=== PATIENT | male | born 1965 | race Caucasian/White ===

== ENCOUNTER 2021-03-22 06:24 | Emergency (ER) | payer MEDICARE, SELFPAY ==
[2021-03-22] VITALS (8 sets, daily range): BP systolic 187–237; BP diastolic 92–115; PULSE 83–98; RESP 18–22; TEMP 37.4–37.9; O2SAT 92–96; BMI 48.1
--- NOTE | 2021-03-22 06:41 | ED_ITS ---
HPI - COVID General: Chief Complaint: COVID symptoms Stated Complaint: Prior fever, aches, tighness in chest, Time Seen by Provider: 03/22/21 06:40 History of Present Illness: HPI Narrative: 55-year-old male presents emergency room complaint of a positive Covid test from an at home testing kit. Test was +1-week ago with symptoms began 10 days ago today. Initially seem to getting better and now is worsening and is still running a low-grade fever he has a c ough but is not particularly been short of air his is also been sick. Is not had a productive cough. He has had myalgias anosmia diarrhea as well. He has a history of diabetes mellitus and is previously had a right below the knee amputation due to peripheral vascular disease and his diabetes. MD complaint: has COVID symptoms Prior covid testing: yes, results known (Positive home antigen Covid test) Prior testing date: 03/15/21 COVID 19 common symptoms: positive fever(s), chills, cough, non-productive cough, dyspnea, fatigue, body aches, headache(s), loss of sense of smell and/or taste, nasal congestion, nausea and diarrhea COVID 19 other sytmptoms: negative chest pain or requiring oxygen Onset (ago): day(s) (10) Severity: mild Pertinent comorbid conditions: diabetes and hypertension Treatment prior to arrival: acetaminophen and ibuprofen COVID Results: SARS-CoV-2 Antigen (Rapid) Positive (Negative) H 03/22/21 07:15 03/22/21 Nasal/Oral Coronavirus 2019 PCR Detected H 03/22/21 06:57 03/22/21 Review of Systems Const: Reports: fever(s), chills, body aches and fatigue ENMT: Reports: nasal congestion Card: Denies: chest pain, edema, dyspnea on exertion or orthopnea Resp: Reports: dyspnea and non-productive cough GI: Reports: nausea and diarrhea : Denies: flank pain, dysuria, urinary frequency or urinary urgency Skin/Breast: Denies: rash or pruritus Neuro: Reports: headache(s) Physical Exam Const: COMMON NORMALS: no acute distress GENERAL APPEARANCE: cooperative and comfortable ORIENTATION/CONSCIOUSNESS: Yes awake, Yes oriented to person, Yes oriented to place and Yes oriented to time HENMT: COMMON NORMALS: normocephalic, atraumatic and hearing grossly normal bilaterally HEAD & SCALP: normocephalic and atraumatic Neck/C-Spine: COMMON NORMALS: no JVD Resp: COMMON NORMALS: normal respiratory effort, No retractions, No use of accessory muscles and clear to auscultation bilaterally AUSCULTATION: clear to auscultation bilaterally Cardio: COMMON NORMALS: no JVD, regular rate, regular rhythm and No murmurs present (Cardio) RATE: regular rate RHYTHM: regular rhythm GI: COMMON NORMALS: Soft to palpation and No hepatosplenomegaly present AUSCULTATION: Yes normoactive bowel sounds PALPATION: Yes Soft to palpation, No Tenderness to palpation present (GI), No Guarding due to palpation present (GI) and Yes No hepatosplenomegaly present Extremity: COMMON NORMALS: normal to inspection, capillary refill normal, no clubbing, cyanosis or edema, no calf tenderness and no pedal edema Neuro: SENSORIUM/ORIENTATION: Yes oriented to person, Yes oriented to place and Yes oriented to time Skin: COMMON NORMALS: no rashes or lesions noted GENERAL SKIN EXAM: no rashes or lesions noted Course Vital Signs: Vital signs: Vital Signs Temperature 99.4 F 03/22/21 10:28 Pulse Rate 83 03/22/21 10:28 Respiratory Rate 19 H 03/22/21 10:28 Blood Pressure 187/99 03/22/21 10:28 Pulse Oximetry 95 03/22/21 10:28 MDM - COVID MDM Narrative: Medical decision making narrative: Discussed risk benefits alternatives with the patient. He does have some Covid infiltrates however his sats are good he still meets qualification for monoclonal antibody infusion. We do not have a positive Covid on the chart. However patient has obvious Covid clinical symptoms and reports at home positive. Covid antigen done here today was still positive. Lab Data: Labs: Lab Results 03/22/21 03/22/21 Range/Units 06:57 07:15 Nasal/Oral COVID-1 9 PCR Detected H SARS-CoV-2 Ag (Rap id) Positive H (Negative) COVID Results: SARS-CoV-2 Antigen (Rapid) Positive (Negative) H 03/22/21 07:15 03/22/21 Nasal/Oral Coronavirus 2019 PCR Detected H 03/22/21 06:57 03/22/21 Monoclonal Antibody Treatments Inclusion/Exclusion Criteria weight >/= 40 kg and + direct Sars-Cov-2 test less than 7-10 days ago BMI >/= 35, has diabetes and age >/= 55 and has diabetes not requiring hospitalization, not requiring oxygen (if not chronically on oxygen) and no increase oxygen requirement (if chronically on oxygen) Patient education patient/family/caregiver received/reviewed fact sheet, Emergency Use Authorization/unapproved drug status discussed with patient/family/caregiver, alternatives to this treatment discussed with patient/family/caregiver, risks and benefits of medication reviewed with patient/family/caregiver, patient/fam terry/caregiver given opportunity for questions, which were answered and patient consents to receiving Monoclonal Antibody Treatment Plan for treatment Meets criteria for Monoclonal Antibody infusion Ordering Monoclonal Antibody infusion for today Discharge Plan Discharge Patient Disposition: Home Clinical Impression: COVID-19, Benign essential HTN, Diabetes, PVD (peripheral vascular disease), Obesity Condition: Stable Discharge Orders: Discharge ED (Routine); Ordered 03/22/21 Ordered By: Elan Cavazos Referrals: Jennifer Raines [Primary Care Provider] - Patient Instructions: Opioid Safety Coding Level of Care Code ED [employer] [facility] Fwd Exam Comprehensive
--- NOTE | 2021-03-22 06:53 | XRR_ITS ---
PROCEDURE INFORMATION: Exam: XR Chest Exam date and time: 03/22/2021 6:53 AM Age: 55 years old Clinical indication: Patient HX: SOB, coughing x 5 days; Additional info: Dyspnea/cough TECHNIQUE: Imaging protocol: XR of the chest. Views: 1 view. COMPARISON: No relevant prior studies available. FINDINGS: Lungs: Interstitial prominence. Pleural spaces: No pleural effusion. Heart/Mediastinum: Borderline cardiomegaly. Diaphragm: Asymmetric elevation of the right hemidiaphragm. Bones/joints: Unremarkable. XR/XR chest 1V portable [id number] IMPRESSION: Borderline cardiomegaly and interstitial prominence.
[2021-03-22 08:24] LABS: SARS Covid-2 Antigen Positive (Negative)
[2021-03-22 17:10] LABS: Coronavirus Test Green County Detected
== END 2021-03-22 11:05 | disposition home or self-care (01) ==
PROVIDERS: Emergency Provider Family Medicine; PCP Registered Nurse
DX: U07.1 COVID-19 (principal); I10 Essential (primary) hypertension; E11.9 Type 2 diabetes mellitus without complications; I73.9 Peripheral vascular disease, unspecified; E66.9 Obesity, unspecified
CPT/HCPCS: 71045; 87426; 87635; 96365; 99284

== ENCOUNTER 2021-04-29 22:54 | Inpatient (IN) | payer MEDICARE, SELFPAY ==
[2021-04-29 23:16] VITALS: PULSE 129; RESP 26; TEMP 40.2; O2SAT 94; BMI 47.8
--- NOTE | 2021-04-29 23:21 | CTR_ITS ---
PROCEDURE INFORMATION: Exam: CTA Chest With Contrast Exam date and time: 04/29/2021 11:21 PM Age: 55 years old Clinical indication: Fever and nausea and vomiting; Shortness of breath; Patient HX: SOB, fever, with n/v. Post covid+ one month ago. TECHNIQUE: Imaging protocol: Computed tomographic angiography of the chest with contrast. 3D rendering (Not supervised by radiologist): MIP and/or 3D reconstructed images were created by the technologist. Radiation optimization: All CT scans at this facility use at least one of these dose optimization techniques: automated exposure control; mA and/or kV adjustment per patient size (includes targeted exams where dose is matched to clinical indication); or iterative reconstruction. Contrast material: OMNI 350; Contrast volume: 158 ml; Contrast route: INTRAVENOUS (IV); COMPARISON: CR (CHEST, ) 04/29/2021 11:36 PM RADIATION DOSE METRICS: Total DLP (mGy-cm): 3549.15 FINDINGS: Pulmonary arteries: Pulmonary arteries are well opacified. Pulmonary arteries are normal in caliber. No filling defects are demonstrated. No evidence of pulmonary embolism. Aorta: The thoracic aorta appears unremarkable. No aneurysm or dissection demonstrated. Lungs: The lungs are unremarkable. No no infiltrates. Pleural spaces: No pleural effusion or pneumothorax noted. Heart: No cardiomegaly. No pericardial effusion. Lymph nodes: No pathologically enlarged lymph nodes are demonstrated. Bones/joints: Degenerative thoracic spine changes. No acute osseous abnormality. Soft tissues: The soft tissues appear unremarkable. IMPRESSION: The lungs are unremarkable. No no infiltrates. No CT findings present to indicate pneumonia. (Note: CT may be negative in the early stages of COVID-19.) (Reference: Chris) REFERENCES: Chris Sorto et al., Radiological Society of [place] Expert Consensus Statement on Reporting Chest CT Findings Related to COVID-19. Endorsed by the Society of Thoracic Radiology, the [employer], and RSNA. Published November 13, 2019. PROCEDURE INFORMATION: Exam: CT Abdomen And Pelvis With Contrast Exam date and time: 04/29/2021 11:21 PM Age: 55 years old Clinical indication: Fever and nausea and vomiting; Shortness of breath; Patient HX: SOB, fever, with n/v. Post covid+ one month ago. TECHNIQUE: Imaging protocol: Computed tomography of the abdomen and pelvis with contrast. Radiation optimization: All CT scans at this facility use at least one of these dose optimization techniques: automated exposure control; mA and/or kV adjustment per patient size (includes targeted exams where dose is matched to clinical indication); or iterative reconstruction. Contrast material: OMNI 350; Contrast volume: 158 ml; Contrast route: INTRAVENOUS (IV); COMPARISON: CR (CHEST, ) 04/29/2021 11:36 PM RADIATION DOSE METRICS: Total DLP (mGy-cm): 3549.15 FINDINGS: Liver: The liver is unremarkable in appearance. Gallbladder and bile ducts: No calcified gallstones in the gallbladder. No gallbladder wall thickening. No pericholecystic fluid. No biliary dilatation. Pancreas: The pancreas is normal in appearance. No pancreatic duct dilatation. Spleen: The spleen is normal in size and appearance. Adrenal glands: The adrenal glands appear within normal limits. Kidneys and ureters: The kidneys are normal in morphology. No hydronephrosis. No solid mass. Stomach and bowel: No acute gastric abnormality demonstrated. The small bowel is unremarkable as demonstrated. No acute abnormality/inflammatory change of the colon. Appendix: No evidence of appendicitis. The appendix is normal in appearance. Intraperitoneal space: No pneumoperitoneum. No significant fluid collection. Vasculature: Minimal atherosclerosis of the aorta and right iliac artery. No abdominal aortic aneurysm. Lymph nodes: No pathologically enlarged lymph nodes. Urinary bladder: The urinary bladder is unremarkable in appearance. Reproductive: Unremarkable as visualized. Bones/joints: Mild degenerative spine changes are noted. No acute osseous abnormality. Soft tissues: Small bilateral inguinal hernias identified, containing only fat. The soft tissues appear unremarkable. CT/CT angio chest w abd pel w con IMPRESSION: No acute abnormality demonstrated in the abdomen and pelvis. Radiation Dose CTDIVOL = (mGy): DLP = 3549.15~3549.15 (mGy-cm)
--- NOTE | 2021-04-29 23:21 | XRR_ITS ---
PROCEDURE INFORMATION: Exam: XR Chest Exam date and time: 04/29/2021 11:21 PM Age: 55 years old Clinical indication: Fever and shortness of breath; Patient HX: SOB and fever. Post covid+ one month ago. TECHNIQUE: Imaging protocol: XR of the chest. Views: 1 view. COMPARISON: CR XR chest 1V portable [id number] 03/22/2021 6:53 AM FINDINGS: Lungs: No consolidation. Pleural spaces: No pleural effusion. No pneumothorax. Heart/Mediastinum: No cardiomegaly. Bones/joints: Unremarkable. XR/XR chest 1V portable [id number] IMPRESSION: No radiographic evidence of pneumonia.
--- NOTE | 2021-04-29 23:25 | W.ED.ABDPA2 ---
HPI - Abdominal Pain General: Chief Complaint: Abdominal Pain Stated Complaint: N\V Fever Time Seen by Provider: 04/29/21 23:14 Source: patient Mode of arrival: ambulatory Limitations: no limitations History of Present Illness: HPI narrative: 5-year-old male states he had a fever over the last 2 days. He states been up to 105 at home and is 104.4 here. He states that he has had nausea and vomiting along with abdominal pain. He states he is also had a sore to his left lower leg with some erythema. He is post Covid roughly 1 month. Denies any worsening improving factors. Associated Symptoms: Reports chills and fever(s); Denies diarrhea, dysuria, nausea and vomiting Review of Systems Const: Reports: fever(s), chills and body aches Eyes: Denies: blurry vision or eye discomfort ENMT: Denies: throat pain or dental pain Card: Denies: chest pain Resp: Denies: dyspnea GI: Denies: abdominal pain, nausea, vomiting or diarrhea : Denies: dysuria Musc: Denies: neck pain or back pain Skin/Breast: Denies: rash Neuro: Denies: headache(s) Psych: Denies: depression Felipe/Lymph: Denies: easy bruising All/Imm: Denies: urticaria Physical Exam Const: COMMON NORMALS: no acute distress, patient oriented x3 and healthy appearing HENMT: COMMON NORMALS: normocephalic and atraumatic HEAD & SCALP: normocephalic and atraumatic Eye: COMMON NORMALS: Equal, round and reactive pupils present and EOMs intact bilaterally PUPIL: Yes Equal, round and reactive pupils present Neck/C-Spine: COMMON NORMALS: full ROM and supple Chest: COMMONS NORMALS: normal inspection of the chest and normal palpation of entire chest wall Resp: COMMON NORMALS: normal respiratory effort, No retractions, No use of accessory muscles and clear to auscultation bilaterally AUSCULTATION: clear to auscultation bilaterally Cardio: COMMON NORMALS: regular rate, regular rhythm and No murmurs present (Cardio) RATE: regular rate RHYTHM: regular rhythm GI: COMMON NORMALS: Normal to inspection, nondistended, normoactive bowel sounds present, Soft to palpation, non-tender and no masses PALPATION: Yes Soft to palpation Extremity: COMMON NORMALS: full ROM NARRATIVE EXTREMITY EXAM: erythema of the left lower extremity Neuro: COMMON NORMALS: patient oriented x3, moves all extremities and no focal motor deficits Psych: COMMON NORMALS: mental status grossly normal, Normal thought process present and cooperative THOUGHT PROCESS: Normal thought process present Skin: COMMON NORMALS: no rashes or lesions noted and no wounds GENERAL SKIN EXAM: no rashes or lesions noted Course Vital Signs: Vital signs: Vital Signs Temperature 103.4 F H 04/30/21 00:59 Pulse Rate 123 H 04/30/21 00:59 Respiratory Rate 18 04/30/21 01:24 Blood Pressure 194/85 04/30/21 00:59 Pulse Oximetry 94 04/30/21 00:59 MDM - Abdominal Pain MDM Narrative: Medical decision making narrative: Patient presents here with high-grade fever, white count elevated and tachycardia consistent with sepsis. Source likely cellulitis to his lower leg. Patient admitted to hospitalist and started on IV antibiotics. Differential Diagnosis: Differential diagnosis abdominal pain: Likely gastroenteritis Lab Data: Labs: Lab Results 04/29/21 04/29/21 04/30/21 Range/Units 23:30 23:30 00:06 WBC 17.6 H (4.0-10.0) 10^3/ uL RBC 4.43 (4.1-5.3) 10^6/u L Hgb 12.5 (11.7-16.6) g/dL Hct 38.4 L (42.0-52.0) % MCV 86.7 (80-94) fl MCH 28.2 (28.0-34.0) pg MCHC 32.6 (30.0-36.0) g/dL RDW 13.2 (12.1-15.1) % Plt Count 230 (130-400) 10^3/c mm MPV 11.7 H (7.4-10.4) fL Neut % (Auto) 91.3 % Lymph % (Auto) 3.5 % Ida % (Auto) 4.4 % Eos % (Auto) 0.0 % Baso % (Auto) 0.2 % Neut # (Auto) 16.10 H (1.8-7.7) 10^3/u L Lymph # (Auto) 0.6 L (0.8-4.8) 10^3/u L Ida # (Auto) 0.8 (0.2-0.9) 10^3/u L Eos # (Auto) 0.0 (0.0-0.8) 10^3/u L Baso # (Auto) 0.0 (0.0-0.1) 10^3/u L Nucleated RBC % (a uto) 0 % Nucleated RBCs # 0.0 /100WBC Sodium 129 L (136-145) mmol/L Potassium 3.9 (3.5-5.1) mmol/L Chloride 92 L (98-107) mmol/L Carbon Dioxide 25 (22-29) mmol/L Anion Gap 15.9 (5-19) BUN 15 (6-20) mg/dL Creatinine 0.8 (0.7-1.2) mg/dL GFR Calculation 100.4 (90-130) mL/min Glucose 258 H (65-115) mg/dL Calculated Osmolal ity 278 L (285-295) mOsm/k g Lactate 1.6 (0.5-2.2) mmol/L Calcium 8.5 (8.5-10.5) mg/dL Total Bilirubin 0.3 (0.15-1.2) mg/dL AST 17 (0-40) U/L ALT 16 (0-41) U/L Alkaline Phosphata se 98 (40-130) IU/L Total Protein 8.2 (6.6-8.7) g/dL Albumin 3.6 (3.5-5.2) g/dL Globulin 4.6 (1.3-4.6) g/dL Lipase 23 (13-60) U/L Imaging Data ^: Other Xray: Attestation: I personally reviewed and interpreted this imaging study as follows: Radiologist's impression: [address] [address] XRay Report Signed Patient: Salvador Luke Unit #: [id number] : 1965 Age/Sex: 55 / M ADM Date: 04/29/21 Loc: ER Room/Bed: Attending Dr: Ordering Provider/Ordering MD: Vasquez Kan MD Date of Service: 04/30/21 Procedure(s): XR tibia fibula LT 2V [id number] Accession Number(s): [id number] Report Number: [id number] PROCEDURE INFORMATION: Exam: XR Left Tibia and Fibula Exam date and time: 04/30/2021 12:35 AM Age: 55 years old Clinical indication: Other: Open wound; Patient HX: Non healing wound to anterior aspect of distal tib/fib. Swelling and redness. History of diabetes. TECHNIQUE: Imaging protocol: XR Left tibia and fibula. Views: 2 views. COMPARISON: No relevant prior studies available. FINDINGS: Bones/joints: No fracture or other acute osseous abnormality. No osteolysis. No periosteal reaction. Soft tissues: Soft tissue edema is present. Vasculature: There are atherosclerotic calcifications demonstrated. XR/XR tibia fibula LT 2V [id number] IMPRESSION: No acute abnormality demonstrated. No radiographic findings of osteomyelitis. Dictated By: Santos Mercer MD Signed By: Santos Mercer MD Signed Date/Time: 04/30/21100 DD/ 0059 CT Chest: Radiologist's impression: [address] [address] [address] Scan Report Signed Patient: Salvador Luke Unit #: [id number] : 1965 Age/Sex: 55 / M ADM Date: 04/29/21 Loc: ER Room/Bed: Attending Dr: Ordering Provider/Ordering MD: Vasquez Kan MD Date of Service: 04/29/21 Procedure(s): CT angio chest w abd pel w con Accession Number(s): [id number] Report Number: [id number] PROCEDURE INFORMATION: Exam: CTA Chest With Contrast Exam date and time: 04/29/2021 11:21 PM Age: 55 years old Clinical indication: Fever and nausea and vomiting; Shortness of breath; Patient HX: SOB, fever, with n/v. Post covid+ one month ago. TECHNIQUE: Imaging protocol: Computed tomographic angiography of the chest with contrast. 3D rendering (Not supervised by radiologist): MIP and/or 3D reconstructed images were created by the technologist. Radiation optimization: All CT scans at this facility use at least one of these dose optimization techniques: automated exposure control; mA and/or kV adjustment per patient size (includes targeted exams where dose is matched to clinical indication); or iterative reconstruction. Contrast material: OMNI 350; Contrast volume: 158 ml; Contrast route: INTRAVENOUS (IV); COMPARISON: CR (CHEST, ) 04/29/2021 11:36 PM RADIATION DOSE METRICS: Total DLP (mGy-cm): 3549.15 FINDINGS: Pulmonary arteries: Pulmonary arteries are well opacified. Pulmonary arteries are normal in caliber. No filling defects are demonstrated. No evidence of pulmonary embolism. Aorta: The thoracic aorta appears unremarkable. No aneurysm or dissection demonstrated. Lungs: The lungs are unremarkable. No no infiltrates. Pleural spaces: No pleural effusion or pneumothorax noted. Heart: No cardiomegaly. No pericardial effusion. Lymph nodes: No pathologically enlarged lymph nodes are demonstrated. Bones/joints: Degenerative thoracic spine changes. No acute osseous abnormality. Soft tissues: The soft tissues appear unremarkable. IMPRESSION: The lungs are unremarkable. No no infiltrates. No CT findings present to indicate pneumonia. (Note: CT may be negative in the early stages of COVID-19.) (Reference: Chris) REFERENCES: Chris Sorto, et al., Radiological Society of [place] Expert Consensus Statement on Reporting Chest CT Findings Related to COVID-19. Endorsed by the Society of Thoracic Radiology, the [employer], and RSNA. Published November 13, 2019. PROCEDURE INFORMATION: Exam: CT Abdomen And Pelvis With Contrast Exam date and time: 04/29/2021 11:21 PM Age: 55 years old Clinical indication: Fever and nausea and vomiting; Shortness of breath; Patient HX: SOB, fever, with n/v. Post covid+ one month ago. TECHNIQUE: Imaging protocol: Computed tomography of the abdomen and pelvis with contrast. Radiation optimization: All CT scans at this facility use at least one of these dose optimization techniques: automated exposure control; mA and/or kV adjustment per patient size (includes targeted exams where dose is matched to clinical indication); or iterative reconstruction. Contrast material: OMNI 350; Contrast volume: 158 ml; Contrast route: INTRAVENOUS (IV); COMPARISON: CR (CHEST, ) 04/29/2021 11:36 PM RADIATION DOSE METRICS: Total DLP (mGy-cm): 3549.15 FINDINGS: Liver: The liver is unremarkable in appearance. Gallbladder and bile ducts: No calcified gallstones in the gallbladder. No gallbladder wall thickening. No pericholecystic fluid. No biliary dilatation. Pancreas: The pancreas is normal in appearance. No pancreatic duct dilatation. Spleen: The spleen is normal in size and appearance. Adrenal glands: The adrenal glands appear within normal limits. Kidneys and ureters: The kidneys are normal in morphology. No hydronephrosis. No solid mass. Stomach and bowel: No acute gastric abnormality demonstrated. The small bowel is unremarkable as demonstrated. No acute abnormality/inflammatory change of the colon. Appendix: No evidence of appendicitis. The appendix is normal in appearance. Intraperitoneal space: No pneumoperitoneum. No significant fluid collection. Vasculature: Minimal atherosclerosis of the aorta and right iliac artery. No abdominal aortic aneurysm. Lymph nodes: No pathologically enlarged lymph nodes. Urinary bladder: The urinary bladder is unremarkable in appearance. Reproductive: Unremarkable as visualized. Bones/joints: Mild degenerative spine changes are noted. No acute osseous abnormality. Soft tissues: Small bilateral inguinal hernias identified, containing only fat. The soft tissues appear unremarkable. CT/CT angio chest w abd pel w con IMPRESSION: No acute abnormality demonstrated in the abdomen and pelvis. Radiation Dose CTDIVOL = (mGy): DLP = 3549.15 3549.15 (mGy-cm) Dictated By: Santos Mercer MD Signed By: Santos Mercer MD Signed Date/Time: 04/30/2146 DD/ Discharge Plan Discharge Patient Disposition: Admitted As Inpatient Clinical Impression: Cellulitis Qualifiers: Site of cellulitis: extremity Site of cellulitis of extremity: lower extremity Laterality: left Qualified Code(s): L03.116 - Cellulitis of left lower limb Sepsis Qualifiers: Sepsis type: sepsis due to unspecified organism Condition: Stable Coding Level of Care Code ED Water P[employer] for [facility] Fwd Exam Comprehensive
[2021-04-29] MEDS: iohexol 350 mg/mL 100 mL Btl IV ×2 (23:47→23:56)
[2021-04-29 23:48] LABS: Basophils % 0.2 %; Hematocrit 38.4 % (42.0-52.0); Hemoglobin 12.5 g/dL (11.7-16.6); Lymphocytes # 0.6 10^3/uL (0.8-4.8); Lymphocytes % 3.5 %; Mean Corpuscular HGB Conc 32.6 g/dL (30.0-36.0); Mean Corpuscular Hemoglobin 28.2 pg (28.0-34.0); Mean Corpuscular Volume 86.7 fl (80-94); Mean Platelet Volume 11.7 fL (7.4-10.4); Monocytes # 0.8 10^3/uL (0.2-0.9); Monocytes % 4.4 %; Neutrophils % 91.3 %; Nucleated Red Blood Cells % 0 %; Platelet Count 230 10^3/cmm (130-400); Red Blood Count 4.43 10^6/uL (4.1-5.3); Red Cell Distribution Width 13.2 % (12.1-15.1); White Blood Count 17.6 10^3/uL (4.0-10.0)
[2021-04-30] VITALS (12 sets, daily range): BP systolic 90–194; BP diastolic 66–99; PULSE 93–123; RESP 15–20; TEMP 36.9–39.7; O2SAT 90–99
[2021-04-30 00:06] LABS: Alanine Aminotransferase 16 U/L (0-41); Albumin Level 3.6 g/dL (3.5-5.2); Alkaline Phosphatase 98 IU/L (40-130); Anion Gap 15.9 (5-19); Aspartate Amino Transferase 17 U/L (0-40); Blood Urea Nitrogen 15 mg/dL (6-20); Calcium 8.5 mg/dL (8.5-10.5); Carbon Dioxide 25 mmol/L (22-29); Chloride 92 mmol/L (98-107); Globulin 4.6 g/dL (1.3-4.6); Glomerular Filtration Rate 100.4 mL/min (90-130); Glucose 258 mg/dL (65-115); Lipase 23 U/L (13-60); Osmolality Calculated 278 mOsm/kg (285-295); Potassium 3.9 mmol/L (3.5-5.1); Sodium 129 mmol/L (136-145); Total Bilirubin 0.3 mg/dL (0.15-1.2); Total Protein 8.2 g/dL (6.6-8.7)
[2021-04-30] MEDS: sodium chloride 0.9% 1,000 ML 999 ML IV (00:15)
[2021-04-30 00:32] LABS: Lactate (Lactic Acid level) 1.6 mmol/L (0.5-2.2)
--- NOTE | 2021-04-30 00:35 | XRR_ITS ---
PROCEDURE INFORMATION: Exam: XR Left Tibia and Fibula Exam date and time: 04/30/2021 12:35 AM Age: 55 years old Clinical indication: Other: Open wound; Patient HX: Non healing wound to anterior aspect of distal tib/fib. Swelling and redness. History of diabetes. TECHNIQUE: Imaging protocol: XR Left tibia and fibula. Views: 2 views. COMPARISON: No relevant prior studies available. FINDINGS: Bones/joints: No fracture or other acute osseous abnormality. No osteolysis. No periosteal reaction. Soft tissues: Soft tissue edema is present. Vasculature: There are atherosclerotic calcifications demonstrated. XR/XR tibia fibula LT 2V [id number] IMPRESSION: No acute abnormality demonstrated. No radiographic findings of osteomyelitis.
[2021-04-30] MEDS: acetaminophen 500 mg Tablet 1000 MG PO (01:24)
[2021-04-30] MEDS: morphine 4 mg/mL SDV 1 mL IVP (01:24)
[2021-04-30] MEDS: ondansetron 2 mg/ML SDV 2 mL 4 MG IVP (01:25)
[2021-04-30] MEDS: piperacillin-tazobactam 3.375 GM in sodium chloride 0.9% (plus) 50 ML IV ×3 (01:39→18:38)
--- NOTE | 2021-04-30 02:11 | CTR_ITS ---
PROCEDURE INFORMATION: Exam: CT Left Lower Extremity Without Contrast, Foot Exam date and time: 04/30/2021 2:11 AM Age: 55 years old Clinical indication: Swelling, leg or foot; Patient HX: Swelling and redness to foot. Patient states has neuropathy to foot. History of diabetes. ; Additional info: Left foot fluctuant swelling lateral, concern for abscess TECHNIQUE: Imaging protocol: CT of the Left lower extremity without contrast was performed. Exam focused on the foot. Total images: 483 Radiation optimization: All CT scans at this facility use at least one of these dose optimization techniques: automated exposure control; mA and/or kV adjustment per patient size (includes targeted exams where dose is matched to clinical indication); or iterative reconstruction. COMPARISON: CR (LOW EXM, ) 04/30/2021 12:42 AM RADIATION DOSE METRICS: Total DLP (mGy-cm): 485.67 FINDINGS: Bones/joints: No acute fracture nor subluxation. No osseous erosion nor periosteal reaction. Soft tissues: Subcutaneous fatty stranding noted throughout consistent with edema and/or cellulitis. No focal fluid collection to suggest an abscess. CT/CT foot LT wo con* [id number] IMPRESSION: 1. Subcutaneous fatty stranding noted throughout consistent with edema and/or cellulitis. No focal fluid collection to suggest an abscess. 2. No acute osseous pathology. Radiation Dose CTDIVOL = (mGy): DLP = 485.67 (mGy-cm)
[2021-04-30 02:23] LABS: Procalcitonin 0.78 ng/mL (0-0.5)
[2021-04-30] MEDS: linezolid premix 600 MG/300 ML PREMIX 300 MG IV (02:26)
[2021-04-30] MEDS: enoxaparin 40 mg/0.4 mL Syringe SUBCUT (03:20)
--- NOTE | 2021-04-30 04:13 | P.HP_ITS ---
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 His fever was 102 Fahrenheit at home. He took a Tylenol and then fever resolved until this afternoon again when reports his fever was [address] On the way to the hospital today patient has had 1 episode of nausea and vomiting, however denies any complaints of abdominal pain or diarrhea. No chest pain dyspnea palpitations. Ongoing is attention specifically to his left leg which is erythematous and warm to touch, he states that he does have some color changes to that leg because of chronic venous stasis, however the warmth is new. There is also noted to be a superficial ulceration at the mid calf level which was from injury sustained 2 days ago in his shop. No penetrating foreign body reported. He is status post below-knee amputation of the right leg since 6 years for what appears to be a diabetic foot, stump has been healthy without any skin breakdown on that side. He denies any complaints of cough, sputum production, dysuria or other symptoms. He had COVID-19 infection approximately 1 month ago for which he received monoclonal antibody infusion and recovered uneventfully. CT of the chest abdomen and pelvis today does not show any signs of pneumonia or other intra- abdominal processes. X-ray of the tibia-fibula does not show any signs of osteomyelitis. There is a fluctuant swelling on the plantar aspect of his left foot laterally which his noted, he does not recall any trauma, however does have peripheral neuropathy left foot poor sensation. Uncertain how long its been present. Review of Systems General: Reports: 10 or more systems reviewed and unremarkable except in HPI and below Const: Denies: fever(s), chills or body aches Eyes: Denies: change in vision, blurry vision or photophobia ENMT: Reports: hoarseness; Denies: throat pain, enlarged tonsils, odynophagia or nasal congestion Card: Denies: chest pain, palpitations, irregular heart rhythm, edema, swelling of feet/ankles, lightheadedness, pre-syncope, dyspnea on exertion or orthopnea Resp: Denies: dyspnea, productive cough, non-productive cough, wheezing, stridor, pain on inspiration, change in phlegm color, hemoptysis or chest congestion GI: Denies: abdominal pain, nausea, vomiting, hematemesis, coffee ground emesis, dysphagia, heartburn, diarrhea, constipation, GI cramping, change in stool character, hematochezia or melena : Denies: flank pain, dysuria, urinary frequency, urinary urgency, urinary hesitancy or hematuria Musc: Denies: neck pain, back pain, extremity pain, joint swelling, joint warmth or deformity Neuro: Denies: headache(s), numbness in extremities, weakness in extremities, sensory changes, difficulty walking, frequent falls, dizziness, vertigo, behavioral changes, Slurred speech present or seizure-like activity Psych: Denies: anxiety, depression, suicidal ideation or homicidal ideation Endo: Denies: polyuria, polydipsia, tired all the time, cold intolerance or hot flashes Felipe/Lymph: Denies: easy bruising or easy bleeding Medications/Allergies Allergies Allergy/AdvReac Type Severity Reaction Status Date / Time atorvastatin [From Lipitor] Allergy ADR-Muscle Verified 04/29/21 23:22 Pain vancomycin Allergy ALGY-Anaphy Verified 04/29/21 23:21 laxis PFSH Acute PFSH: Medical History (Updated 04/30/21 @ 04:20 by Avelina Villavicencio MD) COVID-19 Diabetes mellitus Surgical History (Updated 04/30/21 @ 04:18 by Avelina Villavicencio MD) History of right below knee amputation Vitals/I&O/Wt Last Vital Signs Temp 100.8 F H 04/30/21 03:40 Pulse 105 H 04/30/21 03:40 Resp 18 04/30/21 03:40 BP 90/66 04/30/21 03:40 Pulse Ox 98 04/30/21 03:40 04/29/21 04/29/21 04/30/21 14:59 22:59 06:59 Intake Total 50 / 50 Balance 50 / 50 Weight last 48 hrs Weight 155.582 kg Physical Exam Narrative: EXAM NARRATIVE: General: No acute distress, AO x3 HEENT: PERRLA, pupils bilaterally equal and reactive, pallors not present Chest: Normal vesicular breath sounds, no added sounds, equal good air entry bilaterally CVS: S1-S2 regular, no murmurs, no tachycardia, no gallops, no rubs Abdomen: Soft, nontender, no organomegaly, bowel sounds present Neuro: No focal deficits, no facial deformity, AO x3, power 5/5 in all limbs Extremities: Right leg with erythema and warmth extending from ankle to just below the knee. Superficial ulceration noted over lateral mid cough. A dditional fluctuant swelling over the plantar aspect of the left foot laterally. Data : 04/29/21 23:30 04/29/21 23:30 Micro: Microbiology 04/29/21 23:15 Blood Culture - Preliminary Blood SPECIMEN COLLECTED 04/29/21 23:30 Blood Culture - Preliminary Blood SPECIMEN COLLECTED A&P Assessment and plan (1) Sepsis: Meet sepsis criteria by way of fever 103 Fahrenheit, leukocytosis and source of infection. Appears to be related to cellulitis of the left leg. Possibly also abscess over the plantar aspect of the left foot. Cellulitis may have been triggered by injury over left leg 2 days ago. Empiric antibiotic coverage at this time with Zosyn and linezolid(reported allergy to vancomycin) Blood culture collected before starting antibiotics. CT of the chest abdomen pelvis without signs of infection. Ordered CT of the l eft foot to evaluate for abscess or fluctuance swelling is currently palpated. Hemodynamically stable currently therefore sepsis bolus deferred, encourage p.o. intake and hydration. Insulin sliding scale for glycemic control while inpatient Patient's home medication list yet to be brought and verified. Status: Acute Qualifiers: Sepsis type: sepsis due to unspecified organism Sepsis acute organ dysfunction status: without acute organ dysfunction Qualified Code(s): A41.9 - Sepsis, unspecified organism (2) Cellulitis: Status: Acute Qualifiers: Laterality: left Site of cellulitis: extremity Site of cellulitis of extremity: lower extremity Qualified Code(s): L03.116 - Cellulitis of left lower limb Additional A&P Information DVT prophylaxis: Lovenox Full code Attestations Medical Necessity Statement*: Anticipate greater than 2 midnight admission for management of sepsis and cellulitis, need for IV antibiotics Coding Level of Care Code Acute Dispatcher [employer] for [facility] Fwd Diagnoses Sepsis A41.9 Sepsis type: sepsis due to unspecified organism Sepsis acute organ dysfunction status: without acute organ dysfunction Cellulitis L03.116 Laterality: left Site of cellulitis: extremity Site of cellulitis of extremity: lower extremity
[2021-04-30] MEDS: pantoprazole DR 40 mg Tablet PO (10:04)
[2021-04-30] MEDS: acetaminophen 325 mg Tablet 650 MG PO ×2 (10:10→20:33)
[2021-04-30 10:35] LABS: Urine Appearance Clear (CLEAR); Urine Color Yellow (Yellow); pH Urine 5 (5-7)
[2021-04-30 10:36] LABS: Add Urine Microscopic? YES; Bilirubin Urine Neg (Negative); Blood Urine Neg (Negative); Glucose Urine UA Trace (Normal); Ketones Urine 1+ (Negative); Leukocyte Esterase Urine Negative (Negative); Nitrate Urine Negative (Negative); Protein Urine 1+ (Negative); Specific Gravity, Urine 1.015 (1.005-1.030); Urobilinogen Urine Norm (Negative)
[2021-04-30 10:41] LABS: Add Urine Culture? No; Bacteria Urine 2+ /hpf; Squamous Epithelial Cell Urine 0-4 /hpf (0-5); WBC Urine 0-4 /hpf (0-5)
[2021-04-30] MEDS: morphine 4 mg/mL SDV 1 mL 2 MG IVP ×2 (12:57→18:41)
[2021-04-30] MEDS: linezolid 600 mg Tablet PO (15:53)
--- NOTE | 2021-04-30 16:39 | PM.PN ---
Subjective Subjective: Interval history: Patient is feeling slightly better today in the ER No active chest pain shortness of breath or leg pain Patient is stating that he has never been treated for sleep apnea Hypoxia noted when he was sleeping Vitals/I&O/Wt Last Vital Signs Temp 100.3 F H 04/30/21 15:41 Pulse 108 H 04/30/21 15:41 Resp 15 04/30/21 15:41 BP 169/96 04/30/21 15:41 Pulse Ox 90 04/30/21 15:41 04/30/21 04/30/21 04/30/21 06:59 14:59 22:59 Intake Total 50 / 50 350 / 350 Output Total 250 / 250 Balance 50 / 50 100 / 100 Weight last 48 hrs Weight 155.582 kg Physical Exam Narrative: EXAM NARRATIVE: Potation youMorbid obese male Right 9 left leg with purulent cellulitis borders are progressing nontender no crepitation Nontender groin area Distended abdomen visceral obesity S1, S2 EOMI, PERRLA no neurological deficit Data : 04/29/21 23:30 04/29/21 23:30 Micro: Microbiology 04/29/21 23:15 Blood Culture - Preliminary Blood SPECIMEN COLLECTED 04/29/21 23:30 Blood Culture - Preliminary Blood SPECIMEN COLLECTED A&P Assessment and plan (1) Diabetes mellitus: Status: Acute (2) Cellulitis: Status: Acute Qualifiers: Laterality: left Site of cellulitis: extremity Site of cellulitis of extremity: lower extremity Qualified Code(s): L03.116 - Cellulitis of left lower limb (3) Sepsis: Status: Acute Qualifiers: Sepsis acute organ dysfunction status: without acute organ dysfunction Sepsis type: sepsis due to unspecified organism Qualified Code(s): A41.9 - Sepsis, unspecified organism Additional A&P Information Purulent cellulitis of left leg No abscess as per the CT scan of the foot Continue broad-spectrum antibiotics considering history of diabetes Borders are showing signs of regression Blood cultures obtained in the ER, he was not given septic bolus because of hemodynamic stability He will need extensive wound care outpatient and frequent podiatry visits Type 2 diabetes: Check hemoglobin A1c level currently on insulin sliding scale I would add Lantus Sleep apnea: Patient does show signs of hypoxemia whenever he sleeps would get nocturnal pulse oximeter Auto CPAP at night Consistent carb diet Lovenox DVT prophylaxis Full code Attestations Medical Necessity Statement*: Anticipating discharge over the weekend Time Spent in Patient Care: 16 - 35 minutes Coding Level of Care Code Acute Slitter Creaser Slotter Operator for g Fwd Diagnoses Diabetes mellitus E11.9 Cellulitis L03.116 Laterality: left Site of cellulitis: extremity Site of cellulitis of extremity: lower extremity Sepsis A41.9 Sepsis acute organ dysfunction status: without acute organ dysfunction Sepsis type: sepsis due to unspecified organism
[2021-04-30 17:12] LABS: Glucose Point of Care 230 mg/dL (70-110)
[2021-04-30 17:17] LABS: Estmated Average Glucose 243; Hemoglobin A1C 10.1 % (4.0-6.0)
[2021-04-30] MEDS: insulin glargine 100 units/1 mL 50 UNIT SUBCUT (18:33)
[2021-04-30 20:26] LABS: Glucose Point of Care 198 mg/dL (70-110)
--- NOTE | 2021-04-30 21:44 | PC.NURSE ---
i reported high temp and pulse to nurse 102.7/ and 121
[2021-04-30] MEDS: atorvastatin 40 mg Tablet 80 MG PO (23:40)
[2021-04-30] MEDS: aspirin 81 mg EC Tablet PO (23:40)
[2021-05-01] VITALS (18 sets, daily range): BP systolic 127–186; BP diastolic 73–96; PULSE 100–118; RESP 16–18; TEMP 37.6–39.4; O2SAT 91–96
[2021-05-01] MEDS: piperacillin-tazobactam 3.375 GM in sodium chloride 0.9% (plus) 50 ML IV ×3 (01:23→17:50)
[2021-05-01] MEDS: enoxaparin 40 mg/0.4 mL Syringe SUBCUT (01:24)
--- NOTE | 2021-05-01 01:49 | PC.NURSE ---
i reported high pulse 105 to nurse
[2021-05-01] MEDS: morphine 4 mg/mL SDV 1 mL 2 MG IVP ×2 (02:01→09:54)
[2021-05-01] MEDS: linezolid 600 mg Tablet PO ×2 (02:02→15:37)
[2021-05-01] MEDS: acetaminophen 325 mg Tablet 650 MG PO ×3 (03:23→22:12)
--- NOTE | 2021-05-01 04:44 | PC.NURSE ---
i reported high temp 102.9 and high pulse 118
[2021-05-01 05:56] LABS: Basophils % 0.2 %; Hematocrit 33.4 % (42.0-52.0); Lymphocytes # 1.2 10^3/uL (0.8-4.8); Lymphocytes % 10.1 %; Mean Corpuscular HGB Conc 32.9 g/dL (30.0-36.0); Mean Corpuscular Hemoglobin 28.2 pg (28.0-34.0); Mean Corpuscular Volume 85.6 fl (80-94); Monocytes # 0.7 10^3/uL (0.2-0.9); Monocytes % 5.6 %; Neutrophils # 10.27 10^3/uL (1.8-7.7); Neutrophils % 83.7 %; Nucleated Red Blood Cells % 0 %; Platelet Count 200 10^3/cmm (130-400); Red Cell Distribution Width 13.2 % (12.1-15.1); White Blood Count 12.3 10^3/uL (4.0-10.0)
[2021-05-01 06:10] LABS: Glucose Point of Care 126 mg/dL (70-110)
[2021-05-01 06:30] LABS: Alanine Aminotransferase 21 U/L (0-41); Albumin Level 3.2 g/dL (3.5-5.2); Alkaline Phosphatase 70 IU/L (40-130); Anion Gap 14.4 (5-19); Aspartate Amino Transferase 36 U/L (0-40); Blood Urea Nitrogen 14 mg/dL (6-20); Calcium 7.9 mg/dL (8.5-10.5); Carbon Dioxide 24 mmol/L (22-29); Chloride 99 mmol/L (98-107); Globulin 3.8 g/dL (1.3-4.6); Glucose 123 mg/dL (65-115); Osmolality Calculated 280 mOsm/kg (285-295); Potassium 3.4 mmol/L (3.5-5.1); Sodium 134 mmol/L (136-145); Total Bilirubin 0.4 mg/dL (0.15-1.2)
[2021-05-01 06:36] LABS: Procalcitonin 3.89 ng/mL (0-0.5)
[2021-05-01] MEDS: losartan 50 mg Tablet 100 MG PO (08:09)
[2021-05-01] MEDS: pantoprazole DR 40 mg Tablet PO (08:10)
[2021-05-01] MEDS: duloxetine 60 mg Capsule PO (08:10)
[2021-05-01] MEDS: insulin glargine 100 units/1 mL 50 UNIT SUBCUT (08:17)
[2021-05-01] MEDS: clindamycin 150 mg Capsule 300 MG PO ×3 (10:12→20:52)
--- NOTE | 2021-05-01 10:42 | ECG_ITS ---
[facility] Test Date: 2021-05-01 Pat Name: Salvador Luke Department: Room: 255 Gender: Male Reconciliation Manager: : 1965 Requested By: Elton Muhammad Order Number: [id number] Mirela MD: Anna Thrasher M.D. Measurements Intervals [place] Rate: 109 P: 71 NM: 176 QRS: 37 QRSD: 100 T: 61 QT: 319 QTc: 430 Interpretive Statements SINUS TACHYCARDIA NONSPECIFIC ST & T-WAVE ABNORMALITY No previous ECG available for comparison Electronically Signed On 05-03-2021 19:18:27 CDT by Anna Thrasher M.D. [email or web address]/[id number] f
[2021-05-01 10:56] LABS: Glucose Point of Care 211 mg/dL (70-110)
[2021-05-01 11:14] LABS: ABG PCO2 33.9 mmHg (35-45); ABG PH Result 7.49 (7.35-7.45); Alveolar-Arterial Oxygen Gradi 6.6 mmHg (5-10); Arterial Blood Gas Hematocrit 34.4 % (42-52); Base Excess ABG 2.9 mmol/L (-2.0-2.0); Blood Gas Allen Test Pos; Blood Gas Sample Type Arterial; Carboxyhemoglobin 1.1 %THgb (0.4-20.1); Ionized Calcium Level - ABG 1.1 mmol/L (1.1-1.4); Methemoglobin 1.2 % (0.4-1.5); Oxygen Saturation ABG 93.1; PO2 ABG 57.3 mmHg (80.0-100.0); Potassium Level - ABG 3.3 mmol/L (3.5-5.0); Total Hemoglobin 11.2 g/dL (14-18)
[2021-05-01 11:15] LABS: Blood Gas Operator Identificat ED; Blood Gas Sample Site Radial, right; Oxygen Device ROOM AIR
[2021-05-01 12:21] LABS: Troponin T (5th) Once 109 ng/L (0-15)
[2021-05-01] MEDS: aspirin 325 mg EC Tablet PO (15:37)
[2021-05-01] MEDS: clopidogrel 300 mg Tablet PO (15:37)
[2021-05-01] MEDS: HYDROmorphone 1 mg/mL INJ 1 mL 0.5 MG IVP ×2 (16:08→20:50)
--- NOTE | 2021-05-01 16:50 | PM.PN ---
Subjective Subjective: Interval history: Patient was diagnosed with NSTEMI today he was complaining of chest pain EKG unremarkable however troponin above 100 Started ACS protocol Overnight qualified for oxygen He will need outpatient sleep study for CPAP approval Requested ABG at the bedside Patient is spiking fever added clindamycin today Patient could not use CPAP overnight because of lack of availability in the hospital Vitals/I&O/Wt Last Vital Signs Temp 99.9 F H 05/01/21 15:31 Pulse 103 H 05/01/21 15:31 Resp 18 05/01/21 16:08 BP 129/73 05/01/21 15:31 Pulse Ox 92 05/01/21 16:08 05/01/21 05/01/21 05/01/21 06:59 14:59 22:59 Intake Total 1100 / 1690 480 / 480 Output Total 750 / 1460 200 / 200 Balance 350 / 230 280 / 280 Weight last 48 hrs Weight 155.582 kg Physical Exam Narrative: EXAM NARRATIVE: Morbidly obese male Emotionally labile S1, S2 sinus rhythm Left lower extremity does show signs of healing around open wound no active drainage, leg seems to be less tender and less hyperemic as compared to yesterday borders are progressing [facility] No neurological deficits Data : 05/01/21 05:32 05/01/21 05:32 Micro: Microbiology 04/29/21 23:15 Blood Culture - Preliminary Blood NEGATIVE TO DATE 04/29/21 23:30 Blood Culture - Preliminary Blood NEGATIVE TO DATE A&P Assessment and plan (1) NSTEMI (non-ST elevated myocardial infarction): Status: Acute (2) Diabetes mellitus: Status: Acute (3) Cellulitis: Status: Acute Qualifiers: Laterality: left Site of cellulitis: extremity Site of cellulitis of extremity: lower extremity Qualified Code(s): L03.116 - Cellulitis of left lower limb (4) Sepsis: Status: Acute Qualifiers: Sepsis acute organ dysfunction status: without acute organ dysfunction Sepsis type: sepsis due to unspecified organism Qualified Code(s): A41.9 - Sepsis, unspecified organism (5) Sleep apnea: Status: Acute Additional A&P Information Sepsis Purulent cellulitis Continue broad-spectrum antibiotics Added clindamycin Expected fever overnight No active abscess seen on CT foot I would like to get in 48 hours on current antibiotic regimen to see the response blood culture negative so far Procalcitonin worsened 3.8 today NSTEMI: Complaint of chest pain which resolved with morphine, troponin above 100 started ACS protocol will request echo, no active chest pain does not need urgent intervention, Sleep apnea: Overnight pulse oximeter showed hypoxia in 70s He will need outpatient sleep study to qualify for CPAP, blood gas did show hypoxia without hypercapnia We will put him on 2 L nasal cannula for now CPAP at night Diabetes with hyperglycemia will adjust Lantus, Full code Cardiac diet DVT prophylaxis Lovenox therapeutic regimen Attestations Medical Necessity Statement*: Continue medical management Time Spent in Patient Care: 16 - 35 minutes Coding Level of Care Code Acute Water Resource Consultant for [facility] Fwd Diagnoses NSTEMI (non-ST elevated myocardial infarction) I21.4 Diabetes mellitus E11.9 Cellulitis L03.116 Laterality: left Site of cellulitis: extremity Site of cellulitis of extremity: lower extremity Sepsis A41.9 Sepsis acute organ dysfunction status: without acute organ dysfunction Sepsis type: sepsis due to unspecified organism Sleep apnea G47.30
--- NOTE | 2021-05-01 17:21 | ECG_ITS ---
[facility] Test Date: 2021-05-01 Pat Name: Salvador Luke Department: Room: 255 Gender: Male Imager: : 1965 Requested By: Elton Muhammad Order Number: [id number] Reading MD: Anna Thrasher M.D. Measurements Intervals [place] Rate: 104 P: 71 HI: 171 QRS: 45 QRSD: 110 T: 74 QT: 331 QTc: 436 Interpretive Statements SINUS TACHYCARDIA NONSPECIFIC ST & T-WAVE ABNORMALITY Compared to ECG 05/01/2021 10:09:51 No significant changes Electronically Signed On 05-03-2021 21:38:59 CDT by Anna Thrasher M.D. [email or web address].[employer]/store/NU/[id number] f
[2021-05-01 17:24] LABS: Glucose Point of Care 189 mg/dL (70-110)
[2021-05-01] MEDS: enoxaparin 80 mg/0.8 mL Syringe 150 MG SUBCUT (17:47)
[2021-05-01 18:03] LABS: Troponin 5 2HR Delta -0.3 ABS# (0-10)
[2021-05-01 18:07] LABS: Troponin 5 2HR 108.7 ng/L (0-15)
[2021-05-01] MEDS: insulin glargine 100 units/1 mL 60 UNIT SUBCUT (18:11)
--- NOTE | 2021-05-01 21:21 | ECG_ITS ---
[facility] Test Date: 2021-05-01 Pat Name: Salvador Luke Department: Room: 255 Gender: Male [employer] Driver: : 1965 Requested By: Elton Muhammad Order Number: [id number] Mirela MD: Anna Thrasher M.D. Measurements Intervals [place] Rate: 105 P: 70 SC: 171 QRS: 37 QRSD: 118 T: 68 QT: 318 QTc: 420 Interpretive Statements SINUS TACHYCARDIA WITH OCCASIONAL VENTRICULAR PREMATURE COMPLEXES MODERATE INTRAVENTRICULAR CONDUCTION DELAY [110+ ms QRS DURATION] NONSPECIFIC ST & T-WAVE ABNORMALITY Compared to ECG 05/01/2021 17:19:50 Ventricular premature complex(es) now present Intraventricular conduction delay now present T-wave abnormality still present Electronically Signed On 05-03-2021 21:38:08 CDT by Anna Thrasher M.D. [email or web address] [email or web address]/store/[id number]
[2021-05-01 22:02] LABS: Glucose Point of Care 145 mg/dL (70-110)
[2021-05-01] MEDS: atorvastatin 40 mg Tablet 80 MG PO (22:12)
[2021-05-01 22:16] LABS: Troponin 5 6HR 119.8 ng/L (0-15)
[2021-05-01 22:23] LABS: Glucose Point of Care 216 mg/dL (70-110)
[2021-05-01 22:24] LABS: Glucose Point of Care 291 mg/dL (70-110)
[2021-05-02] VITALS (15 sets, daily range): BP systolic 112–152; BP diastolic 77–86; PULSE 76–102; RESP 16–18; TEMP 37.1–37.6; O2SAT 90–98
[2021-05-02] MEDS: HYDROmorphone 1 mg/mL INJ 1 mL 0.5 MG IVP ×4 (01:06→18:46)
[2021-05-02] MEDS: piperacillin-tazobactam 3.375 GM in sodium chloride 0.9% (plus) 50 ML IV ×3 (02:03→17:50)
[2021-05-02] MEDS: linezolid 600 mg Tablet PO ×2 (02:06→16:21)
[2021-05-02] MEDS: clindamycin 150 mg Capsule 300 MG PO ×4 (02:06→20:54)
[2021-05-02] MEDS: enoxaparin 80 mg/0.8 mL Syringe 150 MG SUBCUT ×2 (05:08→17:51)
[2021-05-02 06:12] LABS: Basophils % 0.3 %; Eosinophils # 0.1 10^3/uL (0.0-0.8); Eosinophils % 0.5 %; Hematocrit 33.5 % (42.0-52.0); Hemoglobin 10.7 g/dL (11.7-16.6); Lymphocytes # 1.3 10^3/uL (0.8-4.8); Lymphocytes % 12.3 %; Mean Corpuscular HGB Conc 31.9 g/dL (30.0-36.0); Mean Corpuscular Hemoglobin 27.6 pg (28.0-34.0); Mean Corpuscular Volume 86.6 fl (80-94); Mean Platelet Volume 12.2 fL (7.4-10.4); Monocytes # 0.8 10^3/uL (0.2-0.9); Monocytes % 7.4 %; Neutrophils # 8.46 10^3/uL (1.8-7.7); Neutrophils % 79.1 %; Nucleated Red Blood Cells % 0 %; Platelet Count 223 10^3/cmm (130-400); Red Blood Count 3.87 10^6/uL (4.1-5.3); Red Cell Distribution Width 13.7 % (12.1-15.1); White Blood Count 10.7 10^3/uL (4.0-10.0)
[2021-05-02 06:32] LABS: Glucose Point of Care 111 mg/dL (70-110)
[2021-05-02 06:39] LABS: Blood Urea Nitrogen 11 mg/dL (6-20); C Reactive Protein 335.4 mg/L (0.0-4.9); Calcium 8.2 mg/dL (8.5-10.5); Carbon Dioxide 28 mmol/L (22-29); Chloride 96 mmol/L (98-107); Glomerular Filtration Rate 116.7 mL/min (90-130); Glucose 95 mg/dL (65-115); Osmolality Calculated 277 mOsm/kg (285-295); Sodium 134 mmol/L (136-145)
[2021-05-02 06:42] LABS: Anion Gap 13.2 (5-19); Potassium 3.2 mmol/L (3.5-5.1)
[2021-05-02 06:43] LABS: Procalcitonin 2.23 ng/mL (0-0.5)
[2021-05-02] MEDS: losartan 50 mg Tablet 100 MG PO (09:12)
[2021-05-02] MEDS: lisinopril 10 mg Tablet PO (09:12)
[2021-05-02] MEDS: clopidogrel 75 mg Tablet PO (09:13)
[2021-05-02] MEDS: metoprolol succinate ER (24 HR) 25 mg Tablet 12.5 MG PO (09:13)
[2021-05-02] MEDS: pantoprazole DR 40 mg Tablet PO (09:13)
[2021-05-02] MEDS: aspirin 81 mg EC Tablet PO (09:14)
[2021-05-02] MEDS: duloxetine 60 mg Capsule PO (09:14)
[2021-05-02] MEDS: insulin glargine 100 units/1 mL 60 UNIT SUBCUT ×2 (09:54→17:51)
[2021-05-02] MEDS: ondansetron 2 mg/ML SDV 2 mL 4 MG IVP (09:54)
[2021-05-02 09:55] LABS: SARS Covid-2 Antigen Negative (Negative)
[2021-05-02 11:08] LABS: Glucose Point of Care 137 mg/dL (70-110)
--- NOTE | 2021-05-02 11:53 | PM.PN ---
Subjective Subjective: Interval history: No recurrence of chest pain, echo is pending, noticed fever episodes yesterday, since midnight he has been afebrile Patient is endorsing feeling better His left leg is also showing signs of improvement Vitals/I&O/Wt Last Vital Signs Temp 99.3 F 05/02/21 08:00 Pulse 98 05/02/21 09:53 Resp 18 05/02/21 11:03 BP 149/81 05/02/21 09:12 Pulse Ox 98 05/02/21 11:03 05/01/21 05/02/21 05/02/21 22:59 06:59 14:59 Intake Total 240 / 770 250 / 1020 240 / 240 Output Total 0 / 200 400 / 600 Balance 240 / 570 -150 / 420 240 / 240 Physical Exam Narrative: EXAM NARRATIVE: Patient sitting comfortably in his bed Saturating well on room air Uses 2 L of oxygen at the time of the sleep S1, S2 Left lower extremity showing signs of improvement with granulation tissue no active purulent drainage Hyperemia is improving No signs of ischemic ulcers Abdomen distended with obesity EOMI, PERRLA no neurological deficits No signs of meningitis Data : 05/02/21 05:37 05/02/21 05:37 A&P Assessment and plan (1) Hypokalemia: Status: Acute (2) Sleep apnea: Status: Acute (3) NSTEMI (non-ST elevated myocardial infarction): Status: Acute (4) Diabetes mellitus: Status: Acute (5) Cellulitis: Status: Acute Qualifiers: Laterality: left Site of cellulitis: extremity Site of cellulitis of extremity: lower extremity Qualified Code(s): L03.116 - Cellulitis of left lower limb (6) Sepsis: Status: Acute Qualifiers: Sepsis acute organ dysfunction status: without acute organ dysfunction Sepsis type: sepsis due to unspecified organism Qualified Code(s): A41.9 - Sepsis, unspecified organism Additional A&P Information Purulent cellulitis with sepsis of left leg Clindamycin was added on Monday, since midnight no fever Procalcitonin trending down Trend CRP Leukocytosis improving I am hopeful 3 antibiotics regimen would help to control sepsis Blood pressure stable No signs of abscess Will request Covid antigen to rule out Covid pneumonia He was tested positive on 03/22 Hypokalemia: Repleted Sleep apnea requires 2 L of oxygen at HS NSTEMI: Awaiting echo, no recurrence of chest pain currently on ACS protocol Type 2 diabetes euglycemic with current regimen Full code Cardiac consistent carb diet DVT prophylaxis currently on therapeutic dose Attestations Medical Necessity Statement*: Anticipating discharge once clinically stable Time Spent in Patient Care: 16 - 35 minutes Coding Level of Care Code Acute 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
[2021-05-02] MEDS: ketorolac 30 mg/mL INJ 15 MG IVP (12:53)
--- NOTE | 2021-05-02 15:21 | USCV_ITS ---
Salvador Luke Age: 56 Gender: M : 1965 Exam Date: 05/02/2021 10:22 Ordering Phys: Elton Muhammad MD Technologist: Lidia Mendez Exam Location[place] [facility] [place]ication: nstemi BP: 152 / 86 HR: 99 Rhythm: Sinus Technical Quality: Poor because of body habitus MEASUREMENTS (Male / Female) Normal Values 2D ECHO LV Diastolic Diameter PLAX 5.4 cm 4.2 - 5.9 / 3.9 - 5.3 cm LV Systolic Diameter PLAX 3.0 cm LV Chamber Size 3.8 cm IVS Diastolic Thickness 1.7 cm 0.6 - 1.0 / 0.6 - 0.9 cm IVS Systolic Thickness 2.1 cm LVPW Diastolic Thickness 1.3 cm 0.6 - 1.0 / 0.6 - 0.9 cm LVPW Systolic Thickness 1.7 cm RV Chamber Size 3.4 cm LVOT Diameter 2.2 cm LV Ejection Fraction 2D Teich 74.6 % LA Diameter 3.4 cm LA Width 3.0 cm LA Height 6.0 cm RA Width 2.4 cm RA Height 4.9 cm Aorta at Sinotubular Diameter 2.2 cm M-MODE LV Diastolic Diameter MM 5.6 cm 4.2 - 5.9 / 3.9 - 5.3 cm LV Systolic Diameter MM 4.0 cm LV Ejection Fraction MM Teich 55.1 % IVS Diastolic Thickness MM 1.8 cm 0.6 - 1.0 / 0.6 - 0.9 cm IVS Systolic Thickness MM 2.0 cm LVPW Diastolic Thickness MM 1.6 cm 0.6 - 1.0 / 0.6 - 0.9 cm LVPW Systolic Thickness MM 2.0 cm RV Diastolic Diameter MM 1.0 cm Aortic Annulus Diameter 3.0 cm LA Ao Ratio MM 1.4 MV E Point Septal Separation 0.7 cm DOPPLER AV Peak Velocity 111.0 cm/s LVOT Peak Velocity 58.0 cm/s AV Area Cont Eq vti 1.8 cm squared AV Area Cont Eq pk 1.9 cm squared MV Area PHT 4.4 cm squared Mitral E to A Ratio 1.4 MV E' Velocity 51.6 cm/s Mitral E to MV E' Ratio 9.6 Mitral E to LV E' Lateral Ratio 9.8 Mitral E to LV E' Septal Ratio 9.4 TV Peak E Velocity 68.0 cm/s Right Atrial Pressure 8.0 mmHg PV Peak Velocity 84.0 cm/s RV Acceleration Time 0.1 s RV Ejection Time 0.2 s RV AcT/ET 0.2 FINDINGS Left Ventricle Normal left ventricular size, systolic function and wall thickness, with no regional wall motion abnormalities. Left ventricular ejection fraction is estimated at 65 %. Grade II diastolic dysfunction, moderately elevated filling pressures. Right Ventricle Normal right ventricular size and systolic function. RVSP could not be calculated due to incomplete tricuspid regurgitation velocity profile. Right Atrium Normal right atrial size. Right atrial pressure estimated at 8 mm Hg. Left Atrium Upper normal left atrial size. Mitral Valve Structurally normal mitral valve. No mitral valve stenosis. No significant mitral valve regurgitation. Aortic Valve Structurally normal trileaflet aortic valve. No aortic valve stenosis. No aortic valve regurgitation. Tricuspid Valve Structurally normal tricuspid valve. Trace tricuspid valve regurgitation. Pulmonic Valve Pulmonic valve not well visualized. No pulmonary valve stenosis. Trace pulmonary valve regurgitation. Pericardium No pericardial effusion. Aorta Normal size aortic root. Dilated inferior vena cava with normal respiratory variation. CONCLUSIONS 1. Normal left ventricular size, systolic function and wall thickness, with no regional wall motion abnormalities. Left ventricular ejection fraction is estimated at 65 %. Grade II diastolic dysfunction, moderately elevated filling pressures. 2. Normal right ventricular size and systolic function. 3. Right atrial pressure estimated at 8 mm Hg. 4. No gross valvular abnormality. 5. No prior similar studies to compare. Anna Thrasher MD (Electronically Signed) Final Date: 02 May 2021 15:04 S
--- NOTE | 2021-05-02 16:22 | PC.NUTR ---
Nutrition note: RD not triggered to see this pt per policy, however nurse reports pt requesting vanilla Glucerna with meals. Will notify dietary staff, and assess pt at 5D LOS or as needed.
[2021-05-02 17:04] LABS: Glucose Point of Care 177 mg/dL (70-110)
[2021-05-02 20:48] LABS: Glucose Point of Care 201 mg/dL (70-110)
[2021-05-02] MEDS: trazodone 50 mg Tablet PO (20:54)
[2021-05-02] MEDS: acetaminophen 325 mg Tablet 650 MG PO (20:59)
[2021-05-02] MEDS: atorvastatin 40 mg Tablet 80 MG PO (21:20)
[2021-05-03] VITALS (13 sets, daily range): BP systolic 131–166; BP diastolic 76–91; PULSE 77–90; RESP 16–18; TEMP 36.4–37.2; O2SAT 91–97
[2021-05-03] MEDS: piperacillin-tazobactam 3.375 GM in sodium chloride 0.9% (plus) 50 ML IV ×3 (02:31→18:29)
[2021-05-03] MEDS: linezolid 600 mg Tablet PO ×2 (02:31→15:50)
[2021-05-03] MEDS: clindamycin 150 mg Capsule 300 MG PO ×4 (02:31→21:00)
[2021-05-03] MEDS: HYDROmorphone 1 mg/mL INJ 1 mL 0.5 MG IVP ×3 (02:49→21:01)
[2021-05-03] MEDS: enoxaparin 80 mg/0.8 mL Syringe 150 MG SUBCUT (05:33)
--- NOTE | 2021-05-03 06:00 | USCV_ITS ---
Salvador Luke Age: 56 Gender: M : 1965 Exam Date: 05/03/2021 06:58 Ordering Phys: Elton Muhammad MD Technologist: Yoli Winters Exam Location: [facility] – [place]_ Indication: PURULENT CELLULITIS, LEG PAIN Risk Factors: Previous Vascular Surgery: RIGHT LEFT Waveform Velocity (cm/s) Velocity (cm/s) Waveform Iliac Prox 76.2 Triphasic Iliac Mid 109.4 Triphasic Iliac Distal 103.0 Triphasic DENTAL ASSISTANT MEDICAL ASSISTANT 111.1 Triphasic SFA Prox 99.1 Triphasic SFA Mid 147.7 Triphasic SFA Dist 133.4 Triphasic POP 42.1 Triphasic BUSINESS BANKING REPRESENTATIVE 63.1 Triphasic DPA 55.9 Triphasic DA 1.0 FINDINGS Normal resting DA on the left side of 1.0. Normal arterial Doppler waveforms. Normal Doppler flow velocities. CONCLUSIONS No significant obstructive arterial disease on the left lower extremity, based on the above findings Dr Brianda Carlos MD FACC (Electronically Signed) Final Date: 03 May 2021 10:33 S
[2021-05-03 06:22] LABS: Glucose Point of Care 92 mg/dL (70-110)
[2021-05-03 06:42] LABS: Basophils % 0.5 %; Eosinophils # 0.2 10^3/uL (0.0-0.8); Eosinophils % 2.4 %; Hematocrit 30.4 % (42.0-52.0); Hemoglobin 9.9 g/dL (11.7-16.6); Lymphocytes # 1.6 10^3/uL (0.8-4.8); Lymphocytes % 19.1 %; Mean Corpuscular HGB Conc 32.6 g/dL (30.0-36.0); Mean Corpuscular Hemoglobin 28.1 pg (28.0-34.0); Mean Corpuscular Volume 86.4 fl (80-94); Mean Platelet Volume 11.7 fL (7.4-10.4); Monocytes # 0.7 10^3/uL (0.2-0.9); Monocytes % 8.8 %; Neutrophils # 5.62 10^3/uL (1.8-7.7); Neutrophils % 68.1 %; Nucleated Red Blood Cells % 0 %; Platelet Count 209 10^3/cmm (130-400); Red Blood Count 3.52 10^6/uL (4.1-5.3); Red Cell Distribution Width 13.9 % (12.1-15.1); White Blood Count 8.3 10^3/uL (4.0-10.0)
[2021-05-03 07:09] LABS: Anion Gap 14.5 (5-19); Blood Urea Nitrogen 19 mg/dL (6-20); C Reactive Protein 266.1 mg/L (0.0-4.9); Calcium 8.3 mg/dL (8.5-10.5); Carbon Dioxide 28 mmol/L (22-29); Chloride 99 mmol/L (98-107); Glucose 60 mg/dL (65-115); Osmolality Calculated 286 mOsm/kg (285-295); Potassium 3.5 mmol/L (3.5-5.1); Sodium 138 mmol/L (136-145)
[2021-05-03 07:11] LABS: Procalcitonin 1.49 ng/mL (0-0.5)
[2021-05-03] MEDS: pantoprazole DR 40 mg Tablet PO (08:17)
[2021-05-03] MEDS: losartan 50 mg Tablet 100 MG PO (08:17)
[2021-05-03] MEDS: metoprolol succinate ER (24 HR) 25 mg Tablet 12.5 MG PO (08:17)
[2021-05-03] MEDS: duloxetine 60 mg Capsule PO (08:17)
[2021-05-03] MEDS: clopidogrel 75 mg Tablet PO (08:18)
[2021-05-03] MEDS: aspirin 81 mg EC Tablet PO (08:18)
[2021-05-03] MEDS: insulin glargine 100 units/1 mL 60 UNIT SUBCUT ×2 (08:19→18:30)
--- NOTE | 2021-05-03 10:48 | PC.SOCIAL ---
IMM IMM signed and dated and given to patient, patient verbalizes understanding
[2021-05-03 10:57] LABS: Glucose Point of Care 162 mg/dL (70-110)
[2021-05-03 12:05] LABS: Lyme AB Screen <0.90 index
[2021-05-03] MEDS: bacitracin ointment Pkt 1 EACH TOPICAL ×2 (15:50→21:05)
--- NOTE | 2021-05-03 16:42 | P.PN_ITS ---
Subjective Subjective: Interval history: Patient was seen and examined this morning, patient is endorsing feeling better, echo did not show any wall motion abnormality we will plan for stress test tomorrow morning, has been afebrile in last 30 hours, Vitals/I&O/Wt Last Vital Signs Temp 98.4 F 05/03/21 15:36 Pulse 83 05/03/21 15:36 Resp 17 05/03/21 15:36 BP 166/91 05/03/21 15:36 Pulse Ox 97 05/03/21 15:36 05/03/21 05/03/21 05/03/21 06:59 14:59 22:59 Intake Total 50 / 1590 650 / 650 Output Total 500 / 1150 500 / 500 Balance -450 / 440 150 / 150 Physical Exam Narrative: EXAM NARRATIVE: Patient was laying comfortably in his bed No reproducible chest pain Aspirin, aspirin Saturating well on room air Distended abdomen Right BKA Left leg with improvement in cellulitis Dried wound No signs of ischemia gangrene or worsening of cellulitis Bilateral adequate breath sounds without adventitious rhonchi or crackles Data : 05/03/21 05:39 05/03/21 05:39 A&P Assessment and plan (1) Hypokalemia: Status: Acute (2) Sleep apnea: Status: Acute (3) NSTEMI (non-ST elevated myocardial infarction): Status: Acute (4) Diabetes mellitus: Status: Acute (5) Cellulitis: Status: Acute Qualifiers: Laterality: left Site of cellulitis: extremity Site of cellulitis of extremity: lower extremity Qualified Code(s): L03.116 - Cellulitis of left lower limb (6) Sepsis: Status: Acute Qualifiers: Sepsis acute organ dysfunction status: without acute organ dysfunction Sepsis type: sepsis due to unspecified organism Qualified Code(s): A41.9 - Sepsis, unspecified organism Additional A&P Information Sepsis secondary to purulent cellulitis: Resolved 05/03 Has been afebrile in last 24 hours, I will continue him on broad-spectrum antibiotics including clindamycin for now NSTEMI To finish ACS protocol today, will request stress test in the morning he has been asymptomatic, echo without wall motion abnormalities Sleep apnea requiring 2 L of oxygen at night Diabetes: Currently controlled with 6 units of Lantus twice a day Consistent carb diet n.p.o. after midnight Full code Wound care dressing with ABD and Kerlix Attestations 2 Medical Necessity Statement*: Anticipating discharge tomorrow after stress test if he stays afebrile Time Spent in Patient Care: 16 - 35 minutes Coding Level of Care Code Acute Coating Technician for Chg Fwd Diagnoses Hypokalemia E87.6 Sleep apnea G47.30 NSTEMI (non-ST elevated myocardial infarction) I21.4 Diabetes mellitus E11.9 Cellulitis L03.116 Laterality: left Site of cellulitis: extremity Site of cellulitis of extremity: lower extremity Sepsis A41.9 Sepsis acute organ dysfunction status: without acute organ dysfunction Sepsis type: sepsis due to unspecified organism
[2021-05-03 16:56] LABS: Glucose Point of Care 91 mg/dL (70-110)
[2021-05-03 20:17] LABS: Glucose Point of Care 193 mg/dL (70-110)
[2021-05-03] MEDS: atorvastatin 40 mg Tablet 80 MG PO (21:01)
[2021-05-03] MEDS: trazodone 50 mg Tablet PO (21:01)
[2021-05-03] MEDS: ondansetron 2 mg/ML SDV 2 mL 4 MG IVP (21:14)
[2021-05-04] VITALS (10 sets, daily range): BP systolic 143–186; BP diastolic 76–100; PULSE 77–92; RESP 16–20; TEMP 36.6–36.9; O2SAT 86–97
[2021-05-04] MEDS: clindamycin 150 mg Capsule 300 MG PO (03:17)
[2021-05-04] MEDS: linezolid 600 mg Tablet PO (03:17)
[2021-05-04] MEDS: piperacillin-tazobactam 3.375 GM in sodium chloride 0.9% (plus) 50 ML IV (03:18)
[2021-05-04] MEDS: ondansetron 2 mg/ML SDV 2 mL 4 MG IVP (05:03)
[2021-05-04] MEDS: enoxaparin 40 mg/0.4 mL Syringe SUBCUT (05:44)
[2021-05-04 06:40] LABS: Glucose Point of Care 74 mg/dL (70-110)
[2021-05-04 06:42] LABS: Basophils # 0.1 10^3/uL (0.0-0.1); Basophils % 0.6 %; Eosinophils # 0.4 10^3/uL (0.0-0.8); Eosinophils % 3.9 %; Hematocrit 30.3 % (42.0-52.0); Hemoglobin 9.8 g/dL (11.7-16.6); Lymphocytes # 1.5 10^3/uL (0.8-4.8); Lymphocytes % 17.1 %; Mean Corpuscular HGB Conc 32.3 g/dL (30.0-36.0); Mean Corpuscular Hemoglobin 27.6 pg (28.0-34.0); Mean Corpuscular Volume 85.4 fl (80-94); Mean Platelet Volume 11.5 fL (7.4-10.4); Monocytes # 0.7 10^3/uL (0.2-0.9); Monocytes % 7.4 %; Neutrophils # 6.31 10^3/uL (1.8-7.7); Neutrophils % 69.9 %; Nucleated Red Blood Cells % 0 %; Platelet Count 268 10^3/cmm (130-400); Red Blood Count 3.55 10^6/uL (4.1-5.3); Red Cell Distribution Width 13.7 % (12.1-15.1)
[2021-05-04 07:09] LABS: Procalcitonin 0.75 ng/mL (0-0.5)
[2021-05-04 07:20] LABS: Anion Gap 13.7 (5-19); Blood Urea Nitrogen 11 mg/dL (6-20); Calcium 8.8 mg/dL (8.5-10.5); Carbon Dioxide 27 mmol/L (22-29); Chloride 99 mmol/L (98-107); Glucose 63 mg/dL (65-115); Osmolality Calculated 279 mOsm/kg (285-295); Potassium 3.7 mmol/L (3.5-5.1); Sodium 136 mmol/L (136-145)
[2021-05-04 08:32] LABS: Glucose Point of Care 91 mg/dL (70-110)
--- NOTE | 2021-05-04 09:46 | NMCV_ITS ---
NM ollie perf SPECT r/s* [id number] Salvador Luke Age: 56 Gender: M : 1965 Exam Date: 05/04/2021 12:23 Ordering Phys: Elton Muhammad MD Technologist: CLEVELAND Plunkett Exam Location: [facility] Indications: NSTEMI STRESS TEST [facility] IMAGE PROTOCOL Rest/Stress 1 Lexiscan Day Radiopharmaceutical Dose (mCi) Administration Site Administered by Rest: Tc-99m 11.0 IV CLEVELAND Plunkett Sestamibi Stress:Tc-99m 33.0 IV CLEVELAND Pena Sestamibi Rest: 04-May-2021 60 Discovery 630 Stress: 04-May-2021 30 Discovery 630 0.4mg Lexiscan. Supine position only as patient was unable to lay prone. SPECT RESULTS Technical Quality: Good Raw Data Analysis: Soft tissue attenuation Image Corrections: No attenuation or motion correction applied Summed Stress Score: 15 Summed Rest Score: 6 Summed Difference Score: 10 PERFUSION FINDINGS Medium sized area of patchy decreased tracer uptake in basal anterolateral, mid to apical anterior and apical lateral wall on rest images with some reversibility in mid to apical anterior, mid to apical anterolateral, mid inferolateral and apical navarrete on supine stress images. FUNCTIONAL RESULTS (calculated via Gated SPECT) Stress Image LV EF (%): 53 Stress EDV (mL):164 TID: 0.91 Stress ESV (mL):77 FUNCTIONAL FINDINGS: The left ventricle is normal in size. Transient Ischemia Dilatation of 0.91. The left ventricular ejection fraction is low normal with a value of 53%. There is some hypokinesis of lateral and apical navarrete. Increased end-diastolic volume. IMPRESSIONS 1. Medium sized area of patchy decreased tracer uptake in basal anterolateral, mid to apical anterior and apical lateral wall with some reversibility in mid to apical anterior, mid to apical anterolateral, mid inferolateral and apical navarrete on stress images. 2. This finding may represent small area of ischemia in circumflex/left anterior descending artery territory. Soft tissue attenuation artifact cannot be completely ruled out in absence of prone imaging. Clinical correlation is advised. 3. The left ventricular ejection fraction is low normal with a value of 53%. 4. There is some hypokinesis of lateral and apical navarrete. 5. No prior similar studies to compare. Anna Thrasher MD (Electronically Signed) Final Date: 04 May 2021 15:38 S
--- NOTE | 2021-05-04 09:46 | ECG_ITS ---
[facility] Test Date: 2021-05-04 Pat Name: Salvador Luke Department: Room: 255 Gender: Male Vamp Creaser: : 1965 Requested By: Elton Muhammad Order Number: [id number] Mirela MD: Anna Thrasher M.D. Interpretive Statements NAME OF STUDY: LEXISCAN SESTAMIBI STRESS TEST INDICATION: NSTEMI PROCEDURE: At the baseline, the blood pressure was 165/80 mmHg with a heart rate of 79 bpm. The electrocardiogram showed sinus rhythm normal axis. Nonspecific ST-T wave abnormality. Intraventricular conduction delay. The Lexiscan was infused over a period of 20 seconds. A total of 0.4 milligrams of Lexiscan was infused. The stress phase was continued for a total of 5 minutes. Heart rate at the end of the stress phase was 85 bpm with a blood pressure of 161/78 mmHg. The EKG at the peak infusion revealed no significant ST-T wave changes. Sestamibi was injected 20 seconds after the Lexiscan infusion. Blood pressure at the end of the recovery phase was 165/79 mmHg with a heart rate of 83 beats per minute. CONCLUSION: 1. No significant EKG changes with the LexiScan infusion. 2. No LexiScan induced chest pain or cardiac arrhythmia. 3. Normal blood pressure and heart rate response. 4. Sestamibi/sestamibi perfusion scan pending; see separate report. Electronically Signed On 05-04-2021 18:25:04 CDT by Anna Thrasher M.D. [email or web address]
[2021-05-04 10:31] LABS: Glucose Point of Care 106 mg/dL (70-110)
[2021-05-04] MEDS: regadenoson 0.4 Mg/5 ml Syringe IVP (13:03)
[2021-05-04] MEDS: aspirin 81 mg EC Tablet PO (15:00)
[2021-05-04] MEDS: clopidogrel 75 mg Tablet PO (15:00)
[2021-05-04] MEDS: losartan 50 mg Tablet 100 MG PO (15:00)
[2021-05-04] MEDS: pantoprazole DR 40 mg Tablet PO (15:02)
[2021-05-04] MEDS: clindamycin 150 mg Capsule 600 MG PO ×2 (15:02→19:09)
[2021-05-04] MEDS: duloxetine 60 mg Capsule PO (15:02)
--- NOTE | 2021-05-04 16:30 | P.DS_ITS ---
Discharge Providers Date of Admission: 04/30/21 12:05 Date of Discharge: May 04, 2021 Attending Provider at Admission: Avelina Villavicencio MD Attending Provider at Discharge: Elton Muhammad MD Primary Care Provider: Jennifer Raines Diagnoses at Discharge Discharge Diagnosis (1) Hypokalemia: Status: Acute (2) Sleep apnea: Status: Acute (3) NSTEMI (non-ST elevated myocardial infarction): Status: Acute (4) Diabetes mellitus: Status: Acute (5) Cellulitis: Status: Acute Qualifiers: Laterality: left Site of cellulitis: extremity Site of cellulitis of extremity: lower extremity Qualified Code(s): L03.116 - Cellulitis of left lower limb (6) Sepsis: Status: Acute Qualifiers: Sepsis acute organ dysfunction status: without acute organ dysfunction Sepsis type: sepsis due to unspecified organism Qualified Code(s): A41.9 - Sepsis, unspecified organism Reason for Visit Reason for Visit: N\V Fever Hospital Course Hospital Course History of Present Illness by Dr. 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 His fever was 102 Fahrenheit at home. He took a Tylenol and then fever resolved until this afternoon again when reports his fever was [address] On the way to the hospital today patient has had 1 episode of nausea and vomiting, however denies any complaints of abdominal pain or diarrhea. No chest pain dyspnea palpitations. Ongoing is attention specifically to his left leg which is erythematous and warm to touch, he states that he does have some color changes to that leg because of chronic venous stasis, however the warmth is new. There is also noted to be a superficial ulceration at the mid calf level which was from injury sustained 2 days ago in his shop. No penetrating foreign body reported. He is status post below-knee amputation of the right leg since 6 years for what appears to be a diabetic foot, stump has been healthy without any skin breakdown on that side. He denies any complaints of cough, sputum production, dysuria or other symptoms. He had COVID-19 infection approximately 1 month ago for which he received monoclonal antibody infusion and recovered uneventfully. CT of the chest abdomen and pelvis today does not show any signs of pneumonia or other intra- abdominal processes. X-ray of the tibia-fibula does not show any signs of osteomyelitis. There is a fluctuant swelling on the plantar aspect of his left foot laterally which his noted, he does not recall any trauma, however does have peripheral neuropathy left foot poor sensation. Uncertain how long its been present. Hospital course Patient was admitted for management of sepsis related to cellulitis of left leg, linezolid and Zosyn was added however patient kept having febrile episode for toxin suppression clindamycin was added. His temperature remained stable afterwards, cultures sterile. Hyperemia and tenderness of left leg improved, arterial Doppler ruled out any vascular ischemia. His cellulitis improved and open wound looked much better with good granulation tissue and dried scab. Patient did complain of chest pain the next day, EKG did not show any ischemic or infarctive changes, however troponin was 109, serial troponin EKG was requested, he was started on ACS protocol, his chest pain only last for about 30 seconds, he described it as pressure-like sensation, substernal. Morphine helped to relieve his symptoms. Chest pain never reoccurred. Echo did not show wall motion abnormalities, stress test done on 05/04 Troponin 109, 108 119, Procalcitonin 3.8 which trended down 0.7 at the time of discharge C. difficile ruled out Patient was requiring 2 L of oxygen at night he did qualify for nocturnal oxygen, sleep study needs to be done outpatient, O2 saturation in 70s during sleep noted IMPRESSIONS 1. Medium sized area of patchy decreased tracer uptake in basal anterolateral, mid to apical anterior and apical lateral wall with some reversibility in mid to apical anterior, mid to apical anterolateral, mid inferolateral and apical navarrete on stress images. 2. This finding may represent small area of ischemia in circumflex/left anterior descending artery territory. Soft tissue attenuation artifact cannot be completely ruled out in absence of prone imaging. Clinical correlation is advised. 3. The left ventricular ejection fraction is low normal with a value of 53%. 4. There is some hypokinesis of lateral and apical navarrete. 5. No prior similar studies to compare. Echo CONCLUSIONS 1. Normal left ventricular size, systolic function and wall thickness, with no regional wall motion abnormalities. Left ventricular ejection fraction is estimated at 65 %. Grade II diastolic dysfunction, moderately elevated filling pressures. 2. Normal right ventricular size and systolic function. 3. Right atrial pressure estimated at 8 mm Hg. 4. No gross valvular abnormality. 5. No prior similar studies to compare. I did discuss stress test results with the patient who was given option to stay in the hospital to see aviation safety equipment technician to plan for angiogram or follow-up outpatient since he has been asymptomatic. Patient opted to go home and follow- up with Dr. Thrasher who has read stress test today. Dr. Thrasher graciously accepted to follow-up with him Wound care referral, cardiology referral and sleep study prescription given to the patient He will go home with clindamycin 7-day regimen Physical Exam Narrative: EXAM NARRATIVE: Patient was laying comfortably in his bed No reproducible chest pain Aspirin, aspirin Saturating well on room air Distended abdomen Right BKA Left leg with improvement in cellulitis Dried wound No signs of ischemia gangrene or worsening of cellulitis Bilateral adequate breath sounds without adventitious rhonchi or crackles Discharge Data Data Completed and Pending: Completed Studies During Hospitalization Category Date Time Status CT angio chest w abd pel w con Urge nt Cat Scan 04/29/21 23:[address] foot LT wo con * [id number] Routine Cat Scan 04/30/21 02:11 Completed Sestamibi Stress Test Request Routi ne Exams 05/04/21 09:46 Draft XR chest 1V shalini ble [id number] Urgent Exams 04/29/21 23:21 Completed XR tibia fibula L T 2V [id number] Stat Exams 04/30/21 00:35 Completed NM ollie perf SPECT r/s* [id number] Routin e Nuc Med 05/04/21 09:46 [place] [id number] Rout ine Ultrasound 05/03/21 06:00 Completed CV. echo complete * [id number] Routine Ultrasound 05/02/21 15:21 Completed Pending at discharge Category Date Time Status Sestamibi Stress Test Request Routi ne Exams 05/03/21 09:46 Stop Req Blood Culture Sta t Lab 04/29/21 23:15 Results Tick Panel Routin e Lab 04/30/21 03:46 Results Labs from last 24 hours 05/04/21 05/04/21 05/04/21 10:25 08:29 06:25 WBC RBC Hgb Hct MCV MCH MCHC RDW Plt Count MPV Neut % (Auto) Lymph % (Auto) [place] % (Auto) Eos % (Auto) Baso % (Auto) Neut # (Auto) Lymph # (Auto) [place] # (Auto) Eos # (Auto) Baso # (Auto) Nucleated RBC % (a uto) Nucleated RBCs # Sodium Potassium Chloride Carbon Dioxide Anion Gap BUN Creatinine GFR Calculation Glucose POC Glucose 106 91 74 Calculated Osmolal ity Calcium Procalcitonin 05/04/21 05/04/21 05/03/21 06:02 06:02 20:15 WBC 9.0 RBC 3.55 L Hgb 9.8 L Hct 30.3 L MCV 85.4 MCH 27.6 L MCHC 32.3 RDW 13.7 Plt Count 268 MPV 11.5 H Neut % (Auto) 69.9 Lymph % (Auto) 17.1 [place] % (Auto) 7.4 Eos % (Auto) 3.9 Baso % (Auto) 0.6 Neut # (Auto) 6.31 Lymph # (Auto) 1.5 [place] # (Auto) 0.7 Eos # (Auto) 0.4 Baso # (Auto) 0.1 Nucleated RBC % (a uto) 0 Nucleated RBCs # 0.0 Sodium 136 Potassium 3.7 Chloride 99 Carbon Dioxide 27 Anion Gap 13.7 BUN 11 Creatinine 0.5 L GFR Calculation 172.0 H Glucose 63 L POC Glucose 193 H Calculated Osmolal ity 279 L Calcium 8.8 Procalcitonin 0.75 H 05/03/21 16:51 WBC RBC Hgb Hct MCV MCH MCHC RDW Plt Count MPV Neut % (Auto) Lymph % (Auto) [place] % (Auto) Eos % (Auto) Baso % (Auto) Neut # (Auto) Lymph # (Auto) [place] # (Auto) Eos # (Auto) Baso # (Auto) Nucleated RBC % (a uto) Nucleated RBCs # Sodium Potassium Chloride Carbon Dioxide Anion Gap BUN Creatinine GFR Calculation Glucose POC Glucose 91 Calculated Osmolal ity Calcium Procalcitonin Vitals: Last Vital Signs Temp 98.5 F 05/04/21 15:38 Pulse 90 05/04/21 15:38 Resp 18 05/04/21 15:38 BP 179/92 05/04/21 15:38 Pulse Ox 94 05/04/21 15:38 Discharge Plan Discharge Patient Disposition: Home Condition: Stable Prescriptions: New clindamycin HCl 300 mg capsule 600 mg PO TID 7 Days Qty: 42 RF: 0 Continued pioglitazone 15 mg tablet 15 mg PO BID@, RF: 0 sildenafil 50 mg tablet 50 mg PO PRN PRN (Reason: Erectile Dysfunction) RF: 0 Tylenol Extra Strength 500 mg Tablet 1,000 mg PO Q4H PRN (Reason: Pain) RF: 0 trazodone 100 mg tablet 50 - 100 mg PO BEDTIME RF: 0 pantoprazole 40 mg tablet,delayed release (DR/EC) 40 mg PO BID RF: 0 adgeehtksmxt-dqbhhsen-lqzuny Tablet 1 tab PO DAILY RF: 0 duloxetine 60 mg capsule,delayed release(DR/EC) 60 mg PO DAILY@08 RF: 0 Novolog U-100 Insulin aspart 100 unit/mL Solution See Rx Instructions .ROUTE .COMPLEX RF: 0 Lantus Solostar U-100 Insulin 100 unit/mL (3 mL) insulin pen 68 unit SUBCUT BID RF: 0 atorvastatin 80 mg tablet 80 mg PO DAILY@22 30 Days Qty: 30 RF: 0 aspirin 81 mg Tablet,Delayed Release (Dr/Ec) 81 mg PO DAILY@22 30 Days Qty: 30 RF: 0 spironolactone 25 mg tablet 25 mg PO DAILY@08 30 Days Qty: 30 RF: 0 losartan 100 mg tablet 100 mg PO DAILY@08 30 Days Qty: 30 RF: 0 Discontinued ibuprofen 200 mg Tablet 800 mg PO Q4H PRN (Reason: Pain) RF: 0 Discharge Orders: Discharge Order (Routine); Ordered 05/04/21 Ordered By: Elton Muhammad Other Ambulatory Orders: Sleep Study/Titration (Routine) Timeframe: 1 Week Facility: [facility] - Location: [facility] Ordered By: Elton Muhammad DME: Oxygen (Order) Location: None Selected Ordered By: Elton Muhammad Referrals: Jennifer Raines [Primary Care Provider] - 05/11/21 11:00 am Anna Thrasher MD [Physician] - 1-3 days [facility], [Staff Physician] - 4-7 days Discharge Diet: Diabetic Discharge Activity: Increase activity as tolerated Patient Instructions: Opioid Safety Discharge Attestations Time Spent in Discharge Care*: less than 30 min Quality Metrics Clinical Quality Measures During this hospital stay, did patient experience: AMI Clinical Trial Participant: No Contraindication to aspirin (AMI): Aspirin given Contraindication to statin: Statin prescribed Contraindication to PCI: Treatment delay - patient choice Contraindication to Fibrinolytics: Treatment delay - patient choice and None Coding Level of Care Code Acute [facility] note Diagnoses Hypokalemia E87.6 Sleep apnea G47.30 NSTEMI (non-ST elevated myocardial infarction) I21.4 Diabetes mellitus E11.9 Cellulitis L03.116 Laterality: left Site of cellulitis: extremity Site of cellulitis of extremity: lower extremity Sepsis A41.9 Sepsis acute organ dysfunction status: without acute organ dysfunction Sepsis type: sepsis due to unspecified organism
[2021-05-04 16:51] LABS: Glucose Point of Care 162 mg/dL (70-110)
[2021-05-04] MEDS: bacitracin ointment Pkt 1 EACH TOPICAL (17:45)
[2021-05-04] MEDS: insulin glargine 100 units/1 mL 60 UNIT SUBCUT (18:20)
--- NOTE | 2021-05-05 11:29 | PC.SOCIAL ---
discharge follow up call made. spoke with pts , she reports pt is feeling great. will orange picking supervisor prescription for Clindamycin today at the pharmacy. patient and are aware of follow up appointments. [employer] let pts know that wound care will be calling them for follow up visit and also centralized scheduling will be calling patient to set up sleep study. Automatic St[employer] will make sure that centralized scheduling has orders for sleep study.
[2021-05-05 16:56] LABS: E. Chaffeensis AB IGG <1:64; E. Chaffeensis AB IGM <1:20
[2021-05-05 17:17] LABS: RMSF IGG NOT DETECTED; RMSF IGM NOT DETECTED
== END 2021-05-04 19:22 | disposition home or self-care (01) | DRG 871 ==
LOC: ER 04-30 01:20 → MEDSURG 04-30 12:05
PROVIDERS: Admitting Provider Student in an Organized Health Care Education/Training Program; Emergency Provider Emergency Medicine; PCP Registered Nurse; Visit Provider Internal Medicine
DX: A41.9 Sepsis, unspecified organism (principal); I21.4 Non-ST elevation (NSTEMI) myocardial infarction; L03.116 Cellulitis of left lower limb; Z68.42 Body mass index [BMI] 45.0-49.9, adult; Z86.16 Personal history of COVID-19; E11.42 Type 2 diabetes mellitus with diabetic polyneuropathy; I87.8 Other specified disorders of veins; Z89.511 Acquired absence of right leg below knee; E66.9 Obesity, unspecified; G47.30 Sleep apnea, unspecified; E87.6 Hypokalemia; Z79.4 Long term (current) use of insulin; Z79.82 Long term (current) use of aspirin
CPT/HCPCS: 36415; 36416; 36600; 71045; 71275; 73590; 73700; 74177; 78452; 80048; 80051; 80053; 81001; 82330; 82805; 82962; 83036; 83605; 83690; 84145; 84484; 85025; 86140; 86618; 86666; 86757; 87040; 87426; 87493; 93005; 93017; 93306; 93926; 96365; 96367; 96372; 96375; 96376; 99285; 99291; 99292; A9500; J1170; J1650; J1815 ×2; J1885; J2020; J2270; J2405; J2543; J2785; J7030; Q9967

== ENCOUNTER 2021-05-12 10:09 | Outpatient (CLI) | payer MEDICARE, SELFPAY | END 2021-05-12 10:10 | disposition home or self-care (01) | LOC: WOUND 10:10 | PROVIDERS: PCP Registered Nurse; Visit Provider Thoracic Surgery (Cardiothoracic Vascular Surgery) | DX: E11.622 Type 2 diabetes mellitus with other skin ulcer (principal); L97.822 Non-pressure chronic ulcer of other part of left lower leg with fat layer exposed | CPT/HCPCS: 11042; G0463 ==

== ENCOUNTER 2021-05-19 08:11 | Outpatient (CLI) | payer MEDICARE, SELFPAY | END 2021-05-19 08:12 | disposition home or self-care (01) | LOC: WOUND 08:12 | PROVIDERS: PCP Registered Nurse; Visit Provider Thoracic Surgery (Cardiothoracic Vascular Surgery) | DX: E11.622 Type 2 diabetes mellitus with other skin ulcer (principal); L97.821 Non-pressure chronic ulcer of other part of left lower leg limited to breakdown of skin | CPT/HCPCS: 97597 ==

== ENCOUNTER 2021-05-26 08:11 | Outpatient (CLI) | payer MEDICARE, SELFPAY | END 2021-05-26 08:12 | disposition home or self-care (01) | LOC: WOUND 08:12 | PROVIDERS: PCP Registered Nurse; Visit Provider Thoracic Surgery (Cardiothoracic Vascular Surgery) | DX: I50.33 Acute on chronic diastolic (congestive) heart failure (principal); L97.821 Non-pressure chronic ulcer of other part of left lower leg limited to breakdown of skin; R94.39 Abnormal result of other cardiovascular function study; I10 Essential (primary) hypertension; E11.622 Type 2 diabetes mellitus with other skin ulcer | CPT/HCPCS: 80048; 83735; 83880; 97597 ==

== ENCOUNTER 2021-06-02 08:15 | Outpatient (CLI) | payer MEDICARE, SELFPAY | END 2021-06-02 08:16 | disposition home or self-care (01) | LOC: WOUND 08:16 | PROVIDERS: PCP Registered Nurse; Visit Provider Thoracic Surgery (Cardiothoracic Vascular Surgery) | DX: E11.622 Type 2 diabetes mellitus with other skin ulcer (principal); L97.821 Non-pressure chronic ulcer of other part of left lower leg limited to breakdown of skin; E11.621 Type 2 diabetes mellitus with foot ulcer; L97.522 Non-pressure chronic ulcer of other part of left foot with fat layer exposed | CPT/HCPCS: 11042; 97597 ==

== ENCOUNTER 2021-06-16 09:28 | Outpatient (CLI) | payer MEDICARE, SELFPAY | END 2021-06-16 09:29 | disposition home or self-care (01) | LOC: WOUND 09:29 | PROVIDERS: PCP Registered Nurse; Visit Provider Thoracic Surgery (Cardiothoracic Vascular Surgery) | DX: E11.622 Type 2 diabetes mellitus with other skin ulcer (principal); L97.821 Non-pressure chronic ulcer of other part of left lower leg limited to breakdown of skin; E11.621 Type 2 diabetes mellitus with foot ulcer; L97.522 Non-pressure chronic ulcer of other part of left foot with fat layer exposed | CPT/HCPCS: 11042; 97597 ==

== ENCOUNTER 2021-06-17 17:42 | Outpatient (CLI) | payer MEDICARE, SELFPAY | END 2021-06-17 17:43 | disposition home or self-care (01) | LOC: SLEEP 17:42 | PROVIDERS: PCP Registered Nurse; Visit Provider Registered Nurse | DX: G47.10 Hypersomnia, unspecified (principal); R53.83 Other fatigue; R06.83 Snoring; G47.33 Obstructive sleep apnea (adult) (pediatric) | CPT/HCPCS: 95810 ==

== ENCOUNTER 2021-06-23 09:33 | Outpatient (CLI) | payer MEDICARE, SELFPAY | END 2021-06-23 09:34 | disposition home or self-care (01) | LOC: WOUND 09:35 | PROVIDERS: PCP Registered Nurse; Visit Provider Thoracic Surgery (Cardiothoracic Vascular Surgery) | DX: E11.621 Type 2 diabetes mellitus with foot ulcer (principal); L97.522 Non-pressure chronic ulcer of other part of left foot with fat layer exposed; S80.812A Abrasion, left lower leg, initial encounter; X58.XXXA Exposure to other specified factors, initial encounter; I10 Essential (primary) hypertension | CPT/HCPCS: 97597 ==

== ENCOUNTER 2021-06-30 08:56 | Outpatient (CLI) | payer MEDICARE, SELFPAY | END 2021-06-30 08:57 | disposition home or self-care (01) | LOC: WOUND 08:57 | PROVIDERS: PCP Registered Nurse; Visit Provider Thoracic Surgery (Cardiothoracic Vascular Surgery) | DX: E11.621 Type 2 diabetes mellitus with foot ulcer (principal); L97.521 Non-pressure chronic ulcer of other part of left foot limited to breakdown of skin | CPT/HCPCS: 97597 ==

== ENCOUNTER 2021-07-07 08:56 | Outpatient (CLI) | payer MEDICARE, SELFPAY | END 2021-07-07 08:57 | disposition home or self-care (01) | LOC: WOUND 08:57 | PROVIDERS: PCP Registered Nurse; Visit Provider Nurse Practitioner Family | DX: I96 Gangrene, not elsewhere classified (principal); E11.621 Type 2 diabetes mellitus with foot ulcer; L97.522 Non-pressure chronic ulcer of other part of left foot with fat layer exposed; I10 Essential (primary) hypertension | CPT/HCPCS: 11042 ==

== ENCOUNTER 2021-07-21 08:51 | Outpatient (CLI) | payer MEDICARE, SELFPAY | END 2021-07-21 08:52 | disposition home or self-care (01) | LOC: WOUND 08:53 | PROVIDERS: PCP Registered Nurse; Visit Provider Nurse Practitioner Family | DX: E11.621 Type 2 diabetes mellitus with foot ulcer (principal); L97.522 Non-pressure chronic ulcer of other part of left foot with fat layer exposed | CPT/HCPCS: 11042 ==

== ENCOUNTER 2021-07-28 08:50 | Outpatient (CLI) | payer MEDICARE, SELFPAY | END 2021-07-28 08:51 | disposition home or self-care (01) | LOC: WOUND 08:52 | PROVIDERS: PCP Registered Nurse; Visit Provider Thoracic Surgery (Cardiothoracic Vascular Surgery) | DX: I96 Gangrene, not elsewhere classified (principal); E11.621 Type 2 diabetes mellitus with foot ulcer; L97.522 Non-pressure chronic ulcer of other part of left foot with fat layer exposed | CPT/HCPCS: 11042 ==

== ENCOUNTER 2021-08-04 09:07 | Outpatient (CLI) | payer MEDICARE, SELFPAY | END 2021-08-04 09:08 | disposition home or self-care (01) | LOC: WOUND 09:09 | PROVIDERS: PCP Registered Nurse; Visit Provider Thoracic Surgery (Cardiothoracic Vascular Surgery) | DX: I96 Gangrene, not elsewhere classified (principal); E11.621 Type 2 diabetes mellitus with foot ulcer; L97.522 Non-pressure chronic ulcer of other part of left foot with fat layer exposed | CPT/HCPCS: 11042 ==

== ENCOUNTER 2021-08-10 15:45 | Outpatient (CLI) | payer MEDICARE, SELFPAY | END 2021-08-10 15:46 | disposition home or self-care (01) | LOC: WOUND 15:48 | PROVIDERS: PCP Registered Nurse; Visit Provider Nurse Practitioner Family | DX: I96 Gangrene, not elsewhere classified (principal); E11.621 Type 2 diabetes mellitus with foot ulcer; L97.529 Non-pressure chronic ulcer of other part of left foot with unspecified severity | CPT/HCPCS: 99212 ==

== ENCOUNTER 2021-08-17 14:20 | Outpatient (CLI) | payer MEDICARE, SELFPAY | END 2021-08-17 14:21 | disposition home or self-care (01) | LOC: WOUND 14:21 | PROVIDERS: PCP Registered Nurse; Visit Provider Nurse Practitioner Family | DX: I96 Gangrene, not elsewhere classified (principal); E11.621 Type 2 diabetes mellitus with foot ulcer; L97.522 Non-pressure chronic ulcer of other part of left foot with fat layer exposed | CPT/HCPCS: 11042 ==

== ENCOUNTER 2021-08-25 13:42 | Outpatient (CLI) | payer MEDICARE, SELFPAY | END 2021-08-25 13:43 | disposition home or self-care (01) | LOC: WOUND 13:45 | PROVIDERS: PCP Registered Nurse; Visit Provider Thoracic Surgery (Cardiothoracic Vascular Surgery) | DX: I96 Gangrene, not elsewhere classified (principal); E11.621 Type 2 diabetes mellitus with foot ulcer; L97.522 Non-pressure chronic ulcer of other part of left foot with fat layer exposed | CPT/HCPCS: 11042 ==

== ENCOUNTER 2021-09-01 09:32 | Outpatient (CLI) | payer MEDICARE, SELFPAY | END 2021-09-01 09:33 | disposition home or self-care (01) | LOC: WOUND 09:33 | PROVIDERS: PCP Registered Nurse; Visit Provider Thoracic Surgery (Cardiothoracic Vascular Surgery) | DX: I96 Gangrene, not elsewhere classified (principal); E11.621 Type 2 diabetes mellitus with foot ulcer; L97.522 Non-pressure chronic ulcer of other part of left foot with fat layer exposed | CPT/HCPCS: 11043 ==

== ENCOUNTER 2021-09-02 16:10 | Outpatient (CLI) | payer MEDICARE, SELFPAY | END 2021-09-02 16:11 | disposition home or self-care (01) | LOC: SPT 16:13 | PROVIDERS: PCP Registered Nurse; Visit Provider Nurse Practitioner Family | DX: Z46.89 Encounter for fitting and adjustment of other specified devices (principal); R26.89 Other abnormalities of gait and mobility | CPT/HCPCS: 97760 ==

== ENCOUNTER 2021-09-06 13:24 | Outpatient (CLI) | payer MEDICARE, SELFPAY ==
--- NOTE | 2021-09-06 13:31 | XR_ITS ---
WS: [id number] FOOT LEFT TECHNIQUE: 3 views of the left foot CLINICAL INFORMATION: DIABETES WITH FOOT ULCER COMPARISON: None. FINDINGS: Osteopenia. Prior postoperative changes amputation of the second phalanges at the base of the proxima l phalanx. Mild hallux valgus. Soft tissue edema about the lower leg and hindfoot. Achilles enthesoph yte. Ulceration lateral side of the left midfoot along the plantar surface. Associated mineralization in this area. No evidence of osteomyelitis. XR/XR foot LT min 3V* [id number] IMPRESSION: No evidence of osteomyelitis
== END 2021-09-06 13:25 | disposition home or self-care (01) ==
PROVIDERS: PCP Registered Nurse; Visit Provider Thoracic Surgery (Cardiothoracic Vascular Surgery)
DX: E11.621 Type 2 diabetes mellitus with foot ulcer (principal)
CPT/HCPCS: 73630

== ENCOUNTER 2021-09-08 09:28 | Outpatient (CLI) | payer MEDICARE, SELFPAY | END 2021-09-08 09:29 | disposition home or self-care (01) | LOC: WOUND 09:29 | PROVIDERS: PCP Registered Nurse; Visit Provider Nurse Practitioner Family | DX: I96 Gangrene, not elsewhere classified (principal); E11.621 Type 2 diabetes mellitus with foot ulcer; L97.522 Non-pressure chronic ulcer of other part of left foot with fat layer exposed | CPT/HCPCS: 11042 ==

== ENCOUNTER 2021-09-15 09:14 | Outpatient (CLI) | payer MEDICARE, SELFPAY | END 2021-09-15 09:15 | disposition home or self-care (01) | LOC: WOUND 09:15 | PROVIDERS: PCP Registered Nurse; Visit Provider Thoracic Surgery (Cardiothoracic Vascular Surgery) | DX: I96 Gangrene, not elsewhere classified (principal); E11.621 Type 2 diabetes mellitus with foot ulcer; L97.522 Non-pressure chronic ulcer of other part of left foot with fat layer exposed | CPT/HCPCS: 11042; A6220 ==

== ENCOUNTER 2021-09-15 20:00 | Outpatient (CLI) | payer MEDICARE, SELFPAY | END 2021-09-15 20:01 | disposition home or self-care (01) | PROVIDERS: PCP Registered Nurse; Visit Provider Internal Medicine | DX: G47.30 Sleep apnea, unspecified (principal) | CPT/HCPCS: 95811 ==

== ENCOUNTER 2021-09-29 08:17 | Outpatient (CLI) | payer MEDICARE, SELFPAY | END 2021-09-29 08:18 | disposition home or self-care (01) | LOC: WOUND 08:20 | PROVIDERS: PCP Registered Nurse; Visit Provider Thoracic Surgery (Cardiothoracic Vascular Surgery) | DX: I96 Gangrene, not elsewhere classified (principal); E11.621 Type 2 diabetes mellitus with foot ulcer; L97.522 Non-pressure chronic ulcer of other part of left foot with fat layer exposed | CPT/HCPCS: 11042 ==

== ENCOUNTER 2021-10-06 08:12 | Outpatient (CLI) | payer MEDICARE, SELFPAY | END 2021-10-06 08:13 | disposition home or self-care (01) | LOC: WOUND 08:13 | PROVIDERS: PCP Registered Nurse; Visit Provider Thoracic Surgery (Cardiothoracic Vascular Surgery) | DX: I96 Gangrene, not elsewhere classified (principal); E11.621 Type 2 diabetes mellitus with foot ulcer; L97.525 Non-pressure chronic ulcer of other part of left foot with muscle involvement without evidence of necrosis | CPT/HCPCS: 11042; 36415; 73720; 80053; 82550; 83036; 85025; 85651; 86140; 87070; 87077; 87176; 87186; 87205 ==

== ENCOUNTER 2021-10-06 14:49 | Outpatient (CLI) | payer MEDICARE, SELFPAY ==
--- NOTE | 2021-10-06 15:02 | MR_ITS ---
WS: [id number] MRI LEFT FOOT with and without CONTRAST. COMPARISON: Radiograph 09/06/2021 Multiplanar, multisequence imaging is performed with and without contrast. Sagittal and axial T1 fat sat sequences post-MultiHance 20 cc IV. Partial amputation second toe. Focal soft tissue ulceration along the plantar lateral aspect of the foot. Ulceration measures 2.5 x 1.0 cm. There is enhancement in the bed of the ulceration. The enhancement does extend to abut the pr oximal fifth metatarsal. The cortex of the metatarsal is intact. There is also extensive cellulitis i n the adjacent soft tissues along the plantar surface of the foot. No focal abscess is identified. There is significant motion artifact. Large portions of this examination are degraded by motion artif act. Mild soft tissue edema throughout the foot but most significantly surrounding the ulceration and the small muscles of the foot. No significant fluid or enhancement within the tendon sheaths. Degenerative subchondral cysts are noted at the calcaneocuboid articulation. There are several hammer toe deformities. MR/MR foot LT wo/w con [id number] IMPRESSION: 1. Quality of this examination is limited by motion. 2. Soft tissue ulceration measuring 2.5 x 1.0 cm along the lateral, plantar as pect of the foot. Cellulitis and enhancement in the ulceration bed but no osteo myelitis. 3. No focal abscess.
[2021-10-06 15:21] LABS: Basophils % 0.4 %; Eosinophils # 0.2 10^3/uL (0.0-0.8); Eosinophils % 2.3 %; Hematocrit 32.9 % (42.0-52.0); Hemoglobin 10.5 g/dL (11.7-16.6); Lymphocytes # 1.8 10^3/uL (0.8-4.8); Lymphocytes % 19.5 %; Mean Corpuscular HGB Conc 31.9 g/dL (30.0-36.0); Mean Corpuscular Hemoglobin 28.3 pg (28.0-34.0); Mean Corpuscular Volume 88.7 fl (80-94); Mean Platelet Volume 10.2 fL (7.4-10.4); Monocytes # 0.9 10^3/uL (0.2-0.9); Monocytes % 9.8 %; Neutrophils # 6.08 10^3/uL (1.8-7.7); Neutrophils % 67.8 %; Nucleated Red Blood Cells % 0 %; Platelet Count 343 10^3/cmm (130-400); Red Blood Count 3.71 10^6/uL (4.1-5.3); Red Cell Distribution Width 12.4 % (12.1-15.1)
[2021-10-06 15:25] LABS: Erythrocyte Sedimentation Rate 37 mm/hr (0-10)
[2021-10-06 15:37] LABS: Anion Gap 14.3 (5-19); Blood Urea Nitrogen 14 mg/dL (6-20); C Reactive Protein 75.1 mg/L (0.0-4.9); Calcium 9.5 mg/dL (8.5-10.5); Carbon Dioxide 28 mmol/L (22-29); Chloride 101 mmol/L (98-107); Glomerular Filtration Rate 116.7 mL/min (90-130); Glucose 166 mg/dL (65-115); Osmolality Calculated 292 mOsm/kg (285-295); Potassium 4.3 mmol/L (3.5-5.1); Sodium 139 mmol/L (136-145)
[2021-10-06 16:18] LABS: Alanine Aminotransferase 12 U/L (0-41); Albumin Level 3.7 g/dL (3.5-5.2); Alkaline Phosphatase 84 IU/L (40-130); Aspartate Amino Transferase 10 U/L (0-40); Globulin 3.6 g/dL (1.3-4.6); Total Bilirubin 0.2 mg/dL (0.15-1.2); Total Protein 7.3 g/dL (6.6-8.7)
[2021-10-06 16:32] LABS: Estmated Average Glucose 292; Hemoglobin A1C 11.8 % (4.0-6.0)
[2021-10-06] MEDS: gadobenate dimeglumine 20 mL vial IV (16:42)
== END 2021-10-06 14:50 | disposition home or self-care (01) ==
LOC: RAD 14:55
PROVIDERS: PCP Registered Nurse; Visit Provider Thoracic Surgery (Cardiothoracic Vascular Surgery)
DX: E11.621 Type 2 diabetes mellitus with foot ulcer (principal)
CPT/HCPCS: 73720; 80053; 83036; 85025; 85651; 86140

== ENCOUNTER 2021-10-13 08:10 | Outpatient (CLI) | payer MEDICARE, SELFPAY | END 2021-10-13 08:11 | disposition home or self-care (01) | LOC: WOUND 08:11 | PROVIDERS: PCP Registered Nurse; Visit Provider Thoracic Surgery (Cardiothoracic Vascular Surgery) | DX: E11.621 Type 2 diabetes mellitus with foot ulcer (principal); L97.522 Non-pressure chronic ulcer of other part of left foot with fat layer exposed | CPT/HCPCS: 11042 ==

== ENCOUNTER 2021-10-20 07:54 | Outpatient (CLI) | payer MEDICARE, SELFPAY | END 2021-10-20 07:55 | disposition home or self-care (01) | LOC: WOUND 07:55 | PROVIDERS: PCP Registered Nurse; Visit Provider Thoracic Surgery (Cardiothoracic Vascular Surgery) | DX: E11.621 Type 2 diabetes mellitus with foot ulcer (principal); L97.422 Non-pressure chronic ulcer of left heel and midfoot with fat layer exposed; I96 Gangrene, not elsewhere classified | CPT/HCPCS: 11042; A6237; A6250 ==

== ENCOUNTER 2021-10-25 08:48 | Outpatient (CLI) | payer MEDICARE, SELFPAY | END 2021-10-25 08:49 | disposition home or self-care (01) | LOC: WOUND 08:49 | PROVIDERS: PCP Registered Nurse; Visit Provider Thoracic Surgery (Cardiothoracic Vascular Surgery) | DX: E11.621 Type 2 diabetes mellitus with foot ulcer (principal); L97.422 Non-pressure chronic ulcer of left heel and midfoot with fat layer exposed | CPT/HCPCS: 11043; 97605; A6237 ==

== ENCOUNTER 2021-11-01 09:24 | Outpatient (CLI) | payer MEDICARE, SELFPAY | END 2021-11-01 09:25 | disposition home or self-care (01) | LOC: WOUND 09:25 | PROVIDERS: PCP Registered Nurse; Visit Provider Thoracic Surgery (Cardiothoracic Vascular Surgery) | DX: E11.621 Type 2 diabetes mellitus with foot ulcer (principal); L97.522 Non-pressure chronic ulcer of other part of left foot with fat layer exposed | CPT/HCPCS: 11043; A6250 ==

== ENCOUNTER 2021-11-08 13:49 | Outpatient (CLI) | payer MEDICARE, SELFPAY | END 2021-11-08 13:50 | disposition home or self-care (01) | LOC: WOUND 13:51 | PROVIDERS: PCP Registered Nurse; Visit Provider Thoracic Surgery (Cardiothoracic Vascular Surgery) | DX: E11.621 Type 2 diabetes mellitus with foot ulcer (principal); L97.522 Non-pressure chronic ulcer of other part of left foot with fat layer exposed | CPT/HCPCS: 11042; 87070; 87077; 87186 ==

== ENCOUNTER → 2021-11-10 08:25 | Outpatient (BNVA) | payer MEDICARE, SELFPAY | PROVIDERS: PCP Registered Nurse; Visit Provider Thoracic Surgery (Cardiothoracic Vascular Surgery) | DX: E11.621 Type 2 diabetes mellitus with foot ulcer (principal); I96 Gangrene, not elsewhere classified; L97.522 Non-pressure chronic ulcer of other part of left foot with fat layer exposed | CPT/HCPCS: 11042; A6021 ==

== ENCOUNTER 2021-11-15 15:31 | Inpatient (IN) | payer MEDICARE, SELFPAY ==
[2021-11-15] VITALS (8 sets, daily range): BP systolic 97–194; BP diastolic 51–115; PULSE 79–135; RESP 16–22; TEMP 37.1–39.4; O2SAT 90–97; BMI 48.8
--- NOTE | 2021-11-15 16:44 | XRR_ITS ---
PROCEDURE INFORMATION: Exam: XR Left Foot Exam date and time: 11/15/2021 4:57 PM Age: 56 years old Clinical indication: Pain; Foot; Left; Additional info: Left foot wound TECHNIQUE: Imaging protocol: XR Left foot. Views: 3 or more views. COMPARISON: No relevant prior studies available. FINDINGS: Bones/joints: Fifth metatarsal base horizontal mildly displaced fracture. Amputation at the level of the 2nd proximal phalanx proximal metaphysis. Soft tissues: Diffuse soft tissue swelling about foot. Minimal distal Achilles tendon degenerative calcification. Other findings: Ulceration seen over the lateral aspect of the 5th metatarsal proximal metaphysis. XR/XR foot LT min 3V* [id number] IMPRESSION: 1. Ulceration seen over the lateral aspect of the 5th metatarsal proximal metaphysis. 2. Fifth metatarsal base horizontal mildly displaced fracture. 3. Diffuse soft tissue swelling about foot. 4. Amputation at the level of the 2nd proximal phalanx proximal metaphysis. 5. Minimal distal Achilles tendon degenerative calcification.
--- NOTE | 2021-11-15 17:25 | ED_ITS ---
Documented by User: Elan Cavazos DO 11/23/21 06:12 HPI - Fever General: Chief Complaint: Fever Stated Complaint: Fever Time Seen by Provider: 11/15/21 17:20 Source: patient Mode of arrival: ambulatory Limitations: no limitations History of Present Illness: 56-year-old male presents emergency room with a ulcer on his left foot at the first MP joint is been present for some time. He is previously been following with wound care. He has began running a fever the tissue around the foot has become inflamed reddened and painful. He generally is not feeling well denies any nausea vomiting diarrhea or shortness of breath developed over the last week or so. MD elicited complaint: fever Onset (ago): day(s) Exacerbating factors: nothing Relieving factors: acetaminophen Associated symptoms: Reports chills, extremity pain and myalgias; Deny abdominal pain, flank pain, chest pain, confusion, cough, diarrhea, dysuria, headache(s), nasal congestion, nausea, night sweats, rash, rhinorrhea, short of breath, sinus pain, stiffness, sore throat, vomiting or weight loss Treatments prior to arrival fever: acetaminophen Review of Systems Const: Reports: fever(s) and chills; Denies: night sweats ENMT: Denies: nasal congestion or sinus pain Card: Denies: chest pain Resp: Denies: dyspnea, productive cough or non-productive cough GI: Denies: abdominal pain, nausea, vomiting or diarrhea : Denies: flank pain or dysuria Musc: Reports: extremity pain, extremity swelling, joint swelling, joint redness and joint warmth Skin/Breast: Denies: rash or pruritus Neuro: Denies: headache(s) or confusion PFSH ED PFSH: Medical History CHF (congestive heart failure), NYHA class III COVID-19 Diabetes mellitus HTN (hypertension) Surgical History History of right below knee amputation Social History Alcohol intake: never Physical Exam Const: COMMON NORMALS: no acute distress GENERAL APPEARANCE: cooperative and comfortable ORIENTATION/CONSCIOUSNESS: Yes awake, Yes oriented to person, Yes oriented to place and Yes oriented to time HENMT: COMMON NORMALS: normocephalic, atraumatic and hearing grossly normal bilaterally HEAD & SCALP: normocephalic and atraumatic Neck/C-Spine: COMMON NORMALS: no JVD Resp: COMMON NORMALS: normal respiratory effort, No retractions, No use of accessory muscles and clear to auscultation bilaterally AUSCULTATION: clear to auscultation bilaterally Cardio: COMMON NORMALS: no JVD, regular rate, regular rhythm and No murmurs present (Cardio) RATE: regular rate RHYTHM: regular rhythm GI: COMMON NORMALS: Soft to palpation and No hepatosplenomegaly present AUSCULTATION: Yes normoactive bowel sounds PALPATION: Yes Soft to palpation, No Tenderness to palpation present (GI), No Guarding due to palpation present (GI) and Yes No hepatosplenomegaly present Extremity: COMMON NORMALS: normal to inspection, capillary refill normal, no clubbing, cyanosis or edema, no calf tenderness and no pedal edema OTHER: Large open ulcer at the left first metatarsal joint. Right lower leg surgically absent from previous amputation. Surrounding tissue is red and inflamed extending into the joint there is no active drainage. Only mildly tender to the touch presumably due to peripheral neuropathy. Exquisitely tender calf with positive Homans' sign Neuro: SENSORIUM/ORIENTATION: Yes oriented to person, Yes oriented to place and Yes oriented to time Course Vital Signs: Vital signs: Vital Signs Temperature 98.2 F 11/19/21 18:03 Pulse Rate 71 11/19/21 18:03 Respiratory Rate 18 11/19/21 18:03 Blood Pressure 136/76 11/19/21 18:03 Pulse Oximetry 98 11/19/21 18:03 MDM - Fever Medical Decision Making Care signed out to Dr. Kan at change of shift. See final notes for diagnosis and disposition. Took patient over from Dr. Lema he is here with a diabetic foot ulcer with secondary infection does have a fever along with elevated white count patient's been started on IV antibiotics I spoke to the hospitalist who is admitting also spoke to podiatry Dr. Monk who is consulted. Medical Records I reviewed the patient's medical records. Lab Data I reviewed the patient's lab results. : 11/19/21 05:06 11/19/21 05:06 Radiology Impressions Venous Duplex 11/15/21 17:42 IMPRESSION: 1. Hypoechoic, occlusive thrombus in the proximal profunda femoral vein. 2. Heterogeneous, occlusive thrombus in the greater saphenous vein at the level of the ankle. ADDENDUM: 11/15/212009 ADDENDUM: THIS REPORT CONTAINS FINDINGS THAT MAY BE CRITICAL TO PATIENT CARE. The findings were verbally communicated via telephone conference with Dr. Contreras at 8:07 PM CDT on 11/15/2021. The findings were acknowledged and understood. Foot X-Ray 11/17/21 14:22 IMPRESSION: 1. Surgical removal of the fifth metatarsal as indicated above. Additional chronic findings as noted. Laboratory Results WBC 15.5 10^3/uL (4.0-10.0) H 11/15/21 17:40 RBC 3.90 10^6/uL (4.1-5.3) L 11/15/21 17:40 Hgb 10.8 g/dL (11.7-16.6) L 11/15/21 17:40 Hct 34.1 % (42.0-52.0) L 11/15/21 17:40 MCV 87.4 fl (80-94) 11/15/21 17:40 MCH 27.7 pg (28.0-34.0) L 11/15/21 17:40 MCHC 31.7 g/dL (30.0-36.0) 11/15/21 17:40 RDW 13.0 % (12.1-15.1) 11/15/21 17:40 Plt Count 431 10^3/cmm (130-400) H 11/15/21 17:40 MPV 10.6 fL (7.4-10.4) H 11/15/21 17:40 Neut % (Auto) 83.5 % 11/15/21 17:40 Lymph % (Auto) 6.3 % 11/15/21 17:40 [place] % (Auto) 9.0 % 11/15/21 17:40 Eos % (Auto) 0.3 % 11/15/21 17:40 Baso % (Auto) 0.3 % 11/15/21 17:40 Neut # (Auto) 12.92 10^3/uL (1.8-7.7) H 11/15/21 17:40 Lymph # (Auto) 1.0 10^3/uL (0.8-4.8) 11/15/21 17:40 [place] # (Auto) 1.4 10^3/uL (0.2-0.9) H 11/15/21 17:40 Eos # (Auto) 0.0 10^3/uL (0.0-0.8) 11/15/21 17:40 Baso # (Auto) 0.1 10^3/uL (0.0-0.1) 11/15/21 17:40 Nucleated RBC % (auto) 0 % 11/15/21 17:40 Nucleated RBCs # 0.0 /100WBC 11/15/21 17:40 APTT 37.3 SECONDS (23.9-36.7) H 11/15/21 17:40 Sodium 131 mmol/L (136-145) L 11/15/21 17:40 Potassium 4.9 mmol/L (3.5-5.1) 11/15/21 17:40 Chloride 95 mmol/L (98-107) L 11/15/21 17:40 Carbon Dioxide 24 mmol/L (22-29) 11/15/21 17:40 Anion Gap 16.9 (5-19) 11/15/21 17:40 BUN 38 mg/dL (6-20) H 11/15/21 17:40 Creatinine 1.1 mg/dL (0.7-1.2) 11/15/21 17:40 GFR Calculation 69.2 mL/min (90-130) L 11/15/21 17:40 Glucose 340 mg/dL (65-115) H 11/15/21 17:40 Calculated Osmolality 294 mOsm/kg (285-295) 11/15/21 17:40 Lactic Acid 1.1 mmol/L (0.5-2.2) 11/15/21 17:40 Calcium 10.5 mg/dL (8.5-10.5) 11/15/21 17:40 Total Bilirubin 0.2 mg/dL (0.15-1.2) 11/15/21 17:40 AST 13 U/L (0-40) 11/15/21 17:40 ALT 12 U/L (0-41) 11/15/21 17:40 Alkaline Phosphatase 86 IU/L (40-130) 11/15/21 17:40 C-Reactive Protein 132.4 mg/L (0.0-4.9) H 11/15/21 17:40 Total Protein 8.9 g/dL (6.6-8.7) H 11/15/21 17:40 Albumin 3.7 g/dL (3.5-5.2) 11/15/21 17:40 Globulin 5.2 g/dL (1.3-4.6) H 11/15/21 17:40 Discharge Plan Discharge Patient Disposition: Admitted As Inpatient Admit Provider: Mando Ro Clinical Impression: Diabetic foot ulcer, DVT (deep venous thrombosis) Condition: Stable Discharge Diet: Diabetic Discharge Activity: Resume usual activity Coding Level of Care Code ED Field Pipelines Supervisor for [employer]g Fwd Documented by User: Vasquez Kan MD 11/15/21 18:35 HPI - Fever General: Chief Complaint: Fever Stated Complaint: Fever Time Seen by Provider: 11/15/21 17:20 History of Present Illness: . [facility] ED PFSH: Medical History CHF (congestive heart failure), NYHA class III COVID-19 Diabetes mellitus HTN (hypertension) Surgical History History of right below knee amputation Social History Alcohol intake: never Course Vital Signs: Vital signs: Vital Signs Temperature 98.2 F 11/19/21 18:03 Pulse Rate 71 11/19/21 18:03 Respiratory Rate 18 11/19/21 18:03 Blood Pressure 136/76 11/19/21 18:03 Pulse Oximetry 98 11/19/21 18:03 MDM - Fever Medical Decision Making Took patient over from Dr. Lema he is here with a diabetic foot ulcer with secondary infection does have a fever along with elevated white count patient's been started on IV antibiotics I spoke to the hospitalist who is admitting also spoke to podiatry Dr. Monk who is consulted. Lab Data : 11/19/21 05:06 11/19/21 05:06 Radiology Impressions Venous Duplex 11/15/21 17:42 IMPRESSION: 1. Hypoechoic, occlusive thrombus in the proximal profunda femoral vein. 2. Heterogeneous, occlusive thrombus in the greater saphenous vein at the level of the ankle. ADDENDUM: 11/15/212009 ADDENDUM: THIS REPORT CONTAINS FINDINGS THAT MAY BE CRITICAL TO PATIENT CARE. The findings were verbally communicated via telephone conference with Dr. Contreras at 8:07 PM CDT on 11/15/2021. The findings were acknowledged and understood. Foot X-Ray 11/17/21 14:22 IMPRESSION: 1. Surgical removal of the fifth metatarsal as indicated above. Additional chronic findings as noted. Laboratory Results WBC 15.5 10^3/uL (4.0-10.0) H 11/15/21 17:40 RBC 3.90 10^6/uL (4.1-5.3) L 11/15/21 17:40 Hgb 10.8 g/dL (11.7-16.6) L 11/15/21 17:40 Hct 34.1 % (42.0-52.0) L 11/15/21 17:40 MCV 87.4 fl (80-94) 11/15/21 17:40 MCH 27.7 pg (28.0-34.0) L 11/15/21 17:40 MCHC 31.7 g/dL (30.0-36.0) 11/15/21 17:40 RDW 13.0 % (12.1-15.1) 11/15/21 17:40 Plt Count 431 10^3/cmm (130-400) H 11/15/21 17:40 MPV 10.6 fL (7.4-10.4) H 11/15/21 17:40 Neut % (Auto) 83.5 % 11/15/21 17:40 Lymph % (Auto) 6.3 % 11/15/21 17:40 [place] % (Auto) 9.0 % 11/15/21 17:40 Eos % (Auto) 0.3 % 11/15/21 17:40 Baso % (Auto) 0.3 % 11/15/21 17:40 Neut # (Auto) 12.92 10^3/uL (1.8-7.7) H 11/15/21 17:40 Lymph # (Auto) 1.0 10^3/uL (0.8-4.8) 11/15/21 17:40 [place] # (Auto) 1.4 10^3/uL (0.2-0.9) H 11/15/21 17:40 Eos # (Auto) 0.0 10^3/uL (0.0-0.8) 11/15/21 17:40 Baso # (Auto) 0.1 10^3/uL (0.0-0.1) 11/15/21 17:40 Nucleated RBC % (auto) 0 % 11/15/21 17:40 Nucleated RBCs # 0.0 /100WBC 11/15/21 17:40 APTT 37.3 SECONDS (23.9-36.7) H 11/15/21 17:40 Sodium 131 mmol/L (136-145) L 11/15/21 17:40 Potassium 4.9 mmol/L (3.5-5.1) 11/15/21 17:40 Chloride 95 mmol/L (98-107) L 11/15/21 17:40 Carbon Dioxide 24 mmol/L (22-29) 11/15/21 17:40 Anion Gap 16.9 (5-19) 11/15/21 17:40 BUN 38 mg/dL (6-20) H 11/15/21 17:40 Creatinine 1.1 mg/dL (0.7-1.2) 11/15/21 17:40 GFR Calculation 69.2 mL/min (90-130) L 11/15/21 17:40 Glucose 340 mg/dL (65-115) H 11/15/21 17:40 Calculated Osmolality 294 mOsm/kg (285-295) 11/15/21 17:40 Lactic Acid 1.1 mmol/L (0.5-2.2) 11/15/21 17:40 Calcium 10.5 mg/dL (8.5-10.5) 11/15/21 17:40 Total Bilirubin 0.2 mg/dL (0.15-1.2) 11/15/21 17:40 AST 13 U/L (0-40) 11/15/21 17:40 ALT 12 U/L (0-41) 11/15/21 17:40 Alkaline Phosphatase 86 IU/L (40-130) 11/15/21 17:40 C-Reactive Protein 132.4 mg/L (0.0-4.9) H 11/15/21 17:40 Total Protein 8.9 g/dL (6.6-8.7) H 11/15/21 17:40 Albumin 3.7 g/dL (3.5-5.2) 11/15/21 17:40 Globulin 5.2 g/dL (1.3-4.6) H 11/15/21 17:40 Discharge Plan Discharge Patient Disposition: Admitted As Inpatient Admit Provider: Mando Ro Clinical Impression: Diabetic foot ulcer, DVT (deep venous thrombosis) Condition: Stable Discharge Diet: Diabetic Discharge Activity: Resume usual activity Coding Level of Care Code ED Field Pipelines Supervisor for Mary Beth Godfrey
--- NOTE | 2021-11-15 17:42 | USR_ITS ---
PROCEDURE INFORMATION: Exam: US Duplex Left Lower Extremity Veins, Limited Exam date and time: 11/15/2021 6:58 PM Age: 56 years old Clinical indication: Pain; Swelling (edema) of limb; Lower extremity, left; Leg, lower; Additional info: Calf pain swelling TECHNIQUE: Imaging protocol: Real-time Duplex ultrasound of the Left Lower Extremity with 2-D pederson scale, color Doppler flow and spectral waveform analysis with image documentation. Limited exam focused on the left lower extremity veins. COMPARISON: CT foot LT wo con* [id number] 04/30/2021 6:01 AM FINDINGS: Left deep veins: Hypoechoic, occlusive thrombus in the proximal profunda femoral vein. The common femoral, femoral, popliteal, posterior tibial and peroneal veins are patent without thrombus. Left superficial veins: Heterogeneous, occlusive thrombus in the greater saphenous vein at the level of the ankle. Saphenofemoral junction is patent without thrombus. Soft tissues: Unremarkable. US/[place] [id number] IMPRESSION: 1. Hypoechoic, occlusive thrombus in the proximal profunda femoral vein. 2. Heterogeneous, occlusive thrombus in the greater saphenous vein at the level of the ankle.
[2021-11-15 17:55] LABS: Basophils # 0.1 10^3/uL (0.0-0.1); Basophils % 0.3 %; Eosinophils % 0.3 %; Hematocrit 34.1 % (42.0-52.0); Hemoglobin 10.8 g/dL (11.7-16.6); Lymphocytes % 6.3 %; Mean Corpuscular HGB Conc 31.7 g/dL (30.0-36.0); Mean Corpuscular Hemoglobin 27.7 pg (28.0-34.0); Mean Corpuscular Volume 87.4 fl (80-94); Mean Platelet Volume 10.6 fL (7.4-10.4); Monocytes # 1.4 10^3/uL (0.2-0.9); Neutrophils # 12.92 10^3/uL (1.8-7.7); Neutrophils % 83.5 %; Nucleated Red Blood Cells % 0 %; Platelet Count 431 10^3/cmm (130-400); White Blood Count 15.5 10^3/uL (4.0-10.0)
[2021-11-15] MEDS: ondansetron 2 mg/ML SDV 2 mL 4 MG IVP (17:59)
[2021-11-15] MEDS: morphine 4 mg/mL SDV 1 mL IVP ×2 (17:59→20:44)
[2021-11-15 18:12] LABS: Lactic Sepsis W/Reflex 1.1 mmol/L (0.5-2.2)
[2021-11-15 18:18] LABS: Alanine Aminotransferase 12 U/L (0-41); Albumin Level 3.7 g/dL (3.5-5.2); Alkaline Phosphatase 86 IU/L (40-130); Anion Gap 16.9 (5-19); Aspartate Amino Transferase 13 U/L (0-40); Blood Urea Nitrogen 38 mg/dL (6-20); C Reactive Protein 132.4 mg/L (0.0-4.9); Calcium 10.5 mg/dL (8.5-10.5); Carbon Dioxide 24 mmol/L (22-29); Chloride 95 mmol/L (98-107); Globulin 5.2 g/dL (1.3-4.6); Glomerular Filtration Rate 69.2 mL/min (90-130); Glucose 340 mg/dL (65-115); Osmolality Calculated 294 mOsm/kg (285-295); Potassium 4.9 mmol/L (3.5-5.1); Sodium 131 mmol/L (136-145); Total Bilirubin 0.2 mg/dL (0.15-1.2); Total Protein 8.9 g/dL (6.6-8.7)
[2021-11-15] MEDS: acetaminophen 500 mg Tablet 1000 MG PO (18:24)
[2021-11-15] MEDS: linezolid premix 600 MG/300 ML PREMIX 300 MG IV (18:42)
--- NOTE | 2021-11-15 19:54 | PM.HP ---
Providers/Chief Complaint Admitting Physician: Mando Ro MD Primary Care Provider: HANNAH Mason Chief Complaint: Fever History of Present Illness Pleasant 56-year gentleman with history of diabetes, CHF, HTN, nonhealing ulcer of left foot following with wound care clinic, wound has been there since April, states patient has been told there is bone exposure, presented to ER due to fever of 101 Fahrenheit at home, noted here with leukocytosis 15.5, sinus tachycardia 106. His notes that he has had more erythema, swelling, changes around the wound especially superiorly recently, as well as drainage. CRP is 132.4. He reports history of anaphylaxis with vancomycin. He was started on linezolid, Zosyn. He has been having fever, chills, malaise, is having some nausea currently as well. Has had mild cough, has chronic shortness of breath since he had Covid in March. Review of Systems Const: Reports: fever(s), chills and malaise; Denies: body aches Eyes: Denies: change in vision or eye redness ENMT: Denies: throat pain, oral sores or ear or mastoid pain Card: Reports: edema (LLE); Denies: chest pain, pre-syncope or dyspnea on exertion Resp: Reports: dyspnea (after covid) and non-productive cough; Denies: productive cough, change in phlegm color or hemoptysis GI: Reports: nausea; Denies: abdominal pain, vomiting, diarrhea, constipation, hematochezia or melena : Denies: flank pain, difficulty urinating, urinary frequency or hematuria Musc: Denies: back pain, joint swelling or joint redness Skin/Breast: Denies: rash, sores or new lesions Neuro: Denies: headache(s), numbness in extremities, weakness in extremities, dizziness, confusion or seizure-like activity Endo: Denies: polyuria or polydipsia Felipe/Lymph: Denies: easy bleeding or purpura All/Imm: Denies: urticaria, throat swelling or tongue swelling Medications/Allergies Home Medications Medication Instructions Recorded Confirmed Last Taken Type acetaminophen 500 mg tablet 1,000 mg PO Q4H PRN 04/30/21 11/15/21 11/15/21 14:00 History (Tylenol Extra Strength) duloxetine 60 mg capsule,delayed 60 mg PO QAM 04/30/21 11/15/21 11/15/21 History release insulin glargine 100 unit/mL (3 68 unit SUBCUT BID 04/30/21 11/15/21 11/15/21 09:00 History mL) subcutaneous pen (Lantus Solostar U-100 Insulin) lrlguwfgyoln-yoligrmj-[id number] tablet 1 tab PO QAM 04/30/21 11/15/21 11/15/21 History pantoprazole 40 mg tablet,delayed 40 mg PO BID 04/30/21 11/15/21 11/15/21 09:00 History release pioglitazone 15 mg tablet 15 mg PO BID@04/30/21 11/15/21 11/15/21 09:00 History trazodone 100 mg tablet 50 - 100 mg PO BEDTIME 04/30/21 11/15/21 11/14/21 History atorvastatin 80 mg tablet 80 mg PO DAILY@22 30 Days #30 tab 05/04/21 11/15/21 Unknown Rx nitroglycerin 0.4 mg sublingual 0.4 mg SUBLINGUAL Q5M PRN #30 tab 05/06/21 11/15/21 Unknown Rx tablet carvedilol 12.5 mg tablet (Coreg) 12.5 mg PO BID #180 tab 05/28/21 11/15/21 11/15/21 09:00 Rx aspirin 81 mg tablet,delayed 81 mg PO QAM 11/15/21 11/15/21 11/15/21 09:00 History release cholecalciferol (vitamin D3) 25 25 mcg PO DAILY 11/15/21 11/15/21 Unknown History mcg (1,000 unit) tablet (Vitamin D3) gabapentin 300 mg capsule 300 mg PO DAILY PRN 11/15/21 11/15/21 Unknown History insulin aspart U-100 100 unit/mL See Rx Instructions .ROUTE .COMPLEX 11/15/21 11/15/21 Unknown History (3 mL) subcutaneous pen (Novolog Flexpen U-100 Insulin aspart) levofloxacin 500 mg tablet 500 mg PO DAILY 11/15/21 11/15/21 11/15/21 History loratadine 10 mg tablet (Claritin) 10 mg PO QAM 11/15/21 11/15/21 11/15/21 09:00 History losartan 100 mg tablet 100 mg PO QAM 11/15/21 11/15/21 11/15/21 09:00 History spironolactone 25 mg tablet 50 mg PO QAM 11/15/21 11/15/21 11/15/21 History Allergies Allergy/AdvReac Type Severity Reaction Status Date / Time atorvastatin [From Lipitor] Allergy ADR-Muscle Verified 08/09/21 10:16 Pain vancomycin Allergy ALGY-Anaphy Verified 11/15/21 17:32 laxis PFSH Acute PFSH: Medical History CHF (congestive heart failure), NYHA class III COVID-19 Diabetes mellitus HTN (hypertension) Surgical History History of right below knee amputation Social History Alcohol intake: never Vitals/I&O/Wt Last Vital Signs Temp 103 F H 11/15/21 18:13 Pulse 104 H 11/15/21 18:13 Resp 18 11/15/21 18:13 BP 167/108 11/15/21 18:13 Pulse Ox 95 11/15/21 18:13 Weight last 48 hrs Weight 158.757 kg Physical Exam Narrative: at bedside. Const: COMMON NORMALS: no acute distress and patient oriented x3 NUTRITIONAL APPEARANCE: obese HENMT: COMMON NORMALS: oropharynx normal Neck/C-Spine: COMMON NORMALS: no JVD Resp: COMMON NORMALS: normal respiratory effort and clear to auscultation bilaterally AUSCULTATION: clear to auscultation bilaterally Cardio: COMMON NORMALS: no JVD, regular rhythm, S1 normal heart sound present, S2 normal heart sound present and No murmurs present (Cardio) RHYTHM: regular rhythm HEART SOUNDS: S1 normal heart sound present and S2 normal heart sound present GI: COMMON NORMALS: Normal to inspection, nondistended, normoactive bowel sounds present, Soft to palpation and non-tender PALPATION: Yes Soft to palpation Extremity: COMMON NORMALS: no joint enlargement LEFT LOWER EXTREMITY: Yes foot & digits (Swelling, surrounding erythema, deep ulcer of distal inferolateral L foot) OTHER: LLE 1+ edema below knee Neuro: COMMON NORMALS: patient oriented x3 and moves all extremities Skin: COMMON NORMALS: no rashes or lesions noted GENERAL SKIN EXAM: no rashes or lesions noted Data : 11/15/21 17:40 11/15/21 17:40 Micro: Microbiology 11/15/21 18:04 Blood Culture - Preliminary Blood SPECIMEN COLLECTED 11/15/21 17:40 Blood Culture - Preliminary Blood SPECIMEN COLLECTED A&P Assessment and plan (1) Sepsis: Sepsis with fever, leukocytosis, sinus tachycardia, with swelling, erythema, drainage from left foot nonhealing ulcer. With wound infection, surrounding cellulitis. Recently reported bone exposure as well, cannot exclude osteomyelitis. Blood cultures were collected. Started on linezolid, Zosyn, continue to buttocks. Will collect wound cultures. Pending podiatry assessment as well. Status: Acute (2) Diabetic foot ulcer: Reports nonhealing ulcer of left inferior lateral foot since April. reports recently told about also having bone exposure now. Ashwini is applied to that spot. Otherwise wet-to-dry. Given bone exposure, drainage, high suspicion of osteomyelitis. Pending podiatry assessment. At the moment empiric antibiotic coverage with linezolid, Zosyn. L leg swelling - venous duplex is underway. Status: Acute Qualifiers: Diabetes mellitus type: type 2 Diabetic foot ulcer location: midfoot Laterality: left Non-pressure ulcer stage: with other severity Qualified Code(s): E11.621 - Type 2 diabetes mellitus with foot ulcer; L97.428 - Non-pressure chronic ulcer of left heel and midfoot with other specified severity Plan Chronic dyspnea, chronic cough following COVID-19 in March DM2 HTN Obesity Attestations Medical Necessity Statement*: Admission of over 2 midnights is anticipated for assessment of management of sepsis, diabetic foot ulcer with infection. Coding Level of Care Code Acute Automatic Equipment Technician for [facility] Diagnoses Sepsis A41.9 Diabetic foot ulcer E11.621; L97.428 Diabetes mellitus type: type 2 Diabetic foot ulcer location: midfoot Laterality: left Non-pressure ulcer stage: with other severity
--- NOTE | 2021-11-15 20:03 | PM.CONSULT ---
Providers/Reason For Consult Consulting Physician/Specialty*: Barry Monk D.P.M. Reason for Consult*: Diabetic ulcer left foot Attending Physician: Mando Ro MD Primary Care Provider: HANNAH Mason History of Present Illness History of Present Illness Salvador Luke is a 56 year old male admitted to the hospital service for diabetic foot infection to the left lower extremity. Patient's diabetes is uncontrolled, last A1c 11.8 on 10/06/2021. He has a history of right below-knee amputation and left partial second toe amputation due to diabetic foot infections. He has a wound at the left plantar forefoot probes to bone at the fifth metatarsal plantarly. His wound first began in April 2021 underwent medical management and wound care follow-up, his wound has progressed. He has difficulty with offloading as he has a BKA to the right and utilizes his left for transfers. He has an electric scooter. Last wound culture was taken 11/08/2021 was polymicrobial, Enterococcus, Klebsiella, strep G and faecalis. Patient admitted to the hospital service receiving empiric IV antibiotics, has a vancomycin allergy with anaphylaxis. Planning for for surgical debridement. Patient denies any subjective nausea, vomiting, fever, chills, shortness of breath or chest pain. Review of Systems General: Reports: 10 or more systems reviewed and unremarkable except in HPI and below Const: Denies: fever(s) or chills Card: Denies: chest pain or palpitations Resp: Denies: productive cough GI: Denies: abdominal pain, nausea or vomiting : Denies: flank pain Musc: Reports: extremity swelling, joint pain, joint stiffness, limited range of motion and deformity Skin/Breast: Reports: erythema, sores, nail changes and change in hair; Denies: rash Neuro: Reports: numbness in extremities, sensory changes and difficulty walking Psych: Denies: suicidal ideation Felipe/Lymph: Denies: easy bruising Medications/Allergies Home Medications Medication Instructions Recorded Confirmed Last Taken Type acetaminophen 500 mg tablet 1,000 mg PO Q4H PRN 04/30/21 11/15/21 11/15/21 14:00 History (Tylenol Extra Strength) duloxetine 60 mg capsule,delayed 60 mg PO QAM 04/30/21 11/15/21 11/15/21 History release insulin glargine 100 unit/mL (3 68 unit SUBCUT BID 04/30/21 11/15/21 11/15/21 09:00 History mL) subcutaneous pen (Lantus Solostar U-100 Insulin) [id number] tablet 1 tab PO QAM 04/30/21 11/15/21 11/15/21 History pantoprazole 40 mg tablet,delayed 40 mg PO BID 04/30/21 11/15/21 11/15/21 09:00 History release pioglitazone 15 mg tablet 15 mg PO BID@04/30/21 11/15/21 11/15/21 09:00 History trazodone 100 mg tablet 50 - 100 mg PO BEDTIME 04/30/21 11/15/21 11/14/21 History atorvastatin 80 mg tablet 80 mg PO DAILY@ 30 Days #30 tab 05/04/21 11/15/21 Unknown Rx nitroglycerin 0.4 mg sublingual 0.4 mg SUBLINGUAL Q5M PRN #30 tab 05/06/21 11/15/21 Unknown Rx tablet carvedilol 12.5 mg tablet (Coreg) 12.5 mg PO BID #180 tab 05/28/21 11/15/21 11/15/21 09:00 Rx aspirin 81 mg tablet,delayed 81 mg PO QAM 11/15/21 11/15/21 11/15/21 09:00 History release cholecalciferol (vitamin D3) 25 25 mcg PO DAILY 11/15/21 11/15/21 Unknown History mcg (1,000 unit) tablet (Vitamin D3) gabapentin 300 mg capsule 300 mg PO DAILY PRN 11/15/21 11/15/21 Unknown History insulin aspart U-100 100 unit/mL See Rx Instructions .ROUTE .COMPLEX 11/15/21 11/15/21 Unknown History (3 mL) subcutaneous pen (Novolog Flexpen U-100 Insulin aspart) levofloxacin 500 mg tablet 500 mg PO DAILY 11/15/21 11/15/21 11/15/21 History loratadine 10 mg tablet (Claritin) 10 mg PO QAM 11/15/21 11/15/21 11/15/21 09:00 History losartan 100 mg tablet 100 mg PO QAM 11/15/21 11/15/21 11/15/21 09:00 History spironolactone 25 mg tablet 50 mg PO QAM 11/15/21 11/15/21 11/15/21 History Allergies Allergy/AdvReac Type Severity Reaction Status Date / Time atorvastatin [From Lipitor] Allergy ADR-Muscle Verified 08/09/21 10:16 Pain vancomycin Allergy ALGY-Anaphy Verified 11/15/21 17:32 laxis PFSH Acute PFSH: Medical History CHF (congestive heart failure), NYHA class III COVID-19 Diabetes mellitus HTN (hypertension) Surgical History History of right below knee amputation Social History Alcohol intake: never Vitals/I&O/Wt Last Vital Signs Temp 103 F H 11/15/21 18:13 Pulse 104 H 11/15/21 18:13 Resp 18 11/15/21 18:13 BP 167/108 11/15/21 18:13 Pulse Ox 95 11/15/21 18:13 Weight last 48 hrs Weight 350 lb Physical Exam Narrative: GENERAL: Patient is alert and oriented ?3 and in no acute distress. The following is a focused left lower extremity exam. VASCULAR: Dorsalis pedis palpable, posterior tibial artery palpable. Capillary refill time less than 5 seconds to the distal hallux. Pitting edema to the left lower extremity. NEUROLOGICAL: Protective sensation intact 0/10 sites, tested with [place] monofilament to left foot. DERMATOLOGICAL: Wound left plantar foot probes to bone measures 3.2 cm x 3.8 cm x 2 cm with periwound erythema, serous drainage, desquamation at the surrounding lateral foot. MUSCULOSKELETAL: Status post right below-knee amputation. Partial amputation to the left second toe with healed amputation stump. Mild varus position of the left foot. No pain at the left foot due to neuropathy. Data : 11/16/21 12:24 11/16/21 05:38 Micro: Microbiology 11/15/21 18:04 Blood Culture - Preliminary Blood SPECIMEN COLLECTED 11/15/21 17:40 Blood Culture - Preliminary Blood SPECIMEN COLLECTED A&P Assessment and plan (1) Diabetic peripheral neuropathy associated with type 2 diabetes mellitus: Status: Acute (2) Non-pressure chronic ulcer of other part of left foot with necrosis of bone: Status: Acute (3) Cellulitis of left foot: Status: Acute (4) Deep vein thrombosis: Status: Acute Plan 56-year-old uncontrolled diabetic male with acute osteomyelitis left fifth metatarsal. -Patient scheduled for surgical debridement 11/18/2019 2 in the AM. Will be n.p.o. at midnight tonight. -Patient to be nonweightbearing to the left lower extremity may heel touch for transfers only. -Wound debridement performed bedside on the floor, debridement was performed excisionally in nature and sharply performed with a dermal curette down to and including bone, was able to debride devitalized bone at the left fifth metatarsal plantarly. Wound was post debridement flushed with saline, no anesthesia required secondary to neuropathy, hemostasis via manual pressure, post debridement wound culture taken and sent to microbiology for Gram stain and sensitivity. Post debridement wound measurements 3.5 cm x 4.0 cm x 2 cm. -Recent wound culture taken at wound care clinic 11/08/2021 was polymicrobial, grew Alcaligenes faecalis, strep G, Klebsiella and Enterococcus. Currently on empiric antibiotics during his hospitalization. -Duplex Doppler performed in the emergency department shows thrombus in the proximal profunda femoral vein left lower extremity and occlusive thrombus in the greater saphenous vein at the ankle, therapeutic Lovenox initiated. Will plan on holding a.m. Lovenox dose 11/17/2021 for surgical intervention. -MRI 10/06/2021 - for acute osteomyelitis however this was limited to motion artifact. Pathological fracture at the fifth metatarsal base on x-ray 11/15/2021. -Noninvasive vascular studies performed 05/03/2021 ankle-brachial index was 1.0 on the left with normal waveforms and normal velocities. -Ordered new ESR and CRP Surgical debridement 11/17/2021 8:00 AM, please hold Lovenox dose morning of surgery, may resume post procedure. Will likely require repeat debridement versus definitive level of amputation (partial fifth ray resection) later this week. Coding Level of Care Code Acute Hematologist Oncologist for [facility] Fwd Diagnoses Diabetic peripheral neuropathy associated with type 2 diabetes mellitus E11.42 Non-pressure chronic ulcer of other part of left foot with necrosis of bone L97.524 Cellulitis of left foot L03.116 Deep vein thrombosis I82.409
[2021-11-15] MEDS: piperacillin-tazobactam 3.375 GM in sodium chloride 0.9% (plus) 50 ML IV (20:28)
[2021-11-15 22:19] LABS: Glucose Point of Care 372 mg/dL (70-110)
[2021-11-15 22:37] LABS: Partial Thromboplastin Time 37.3 SECONDS (23.9-36.7)
[2021-11-15] MEDS: insulin lispro 100 unit/1 mL SUBCUT (22:37)
[2021-11-15] MEDS: trazodone 100 mg Tablet 50 MG PO (22:37)
[2021-11-15] MEDS: heparin 5,000 unit/mL INJ 1 mL IV (23:30)
[2021-11-15] MEDS: heparin drip 25,000 UNIT/500 ML PREMIX 36 UNIT IV (23:36)
[2021-11-16] VITALS (10 sets, daily range): BP systolic 70–138; BP diastolic 47–82; PULSE 80–95; RESP 14–18; TEMP 36.6–37.7; O2SAT 90–95
[2021-11-16] MEDS: morphine 4 mg/mL SDV 1 mL 2 MG IVP ×4 (00:03→21:58)
[2021-11-16] MEDS: piperacillin-tazobactam 3.375 GM in sodium chloride 0.9% (plus) 50 ML IV ×3 (03:00→18:25)
[2021-11-16 05:48] LABS: Basophils # 0.1 10^3/uL (0.0-0.1); Basophils % 0.3 %; Eosinophils # 0.1 10^3/uL (0.0-0.8); Eosinophils % 0.7 %; Hematocrit 30.2 % (42.0-52.0); Hemoglobin 9.6 g/dL (11.7-16.6); Lymphocytes # 1.2 10^3/uL (0.8-4.8); Lymphocytes % 7.8 %; Mean Corpuscular HGB Conc 31.8 g/dL (30.0-36.0); Mean Corpuscular Hemoglobin 27.9 pg (28.0-34.0); Mean Corpuscular Volume 87.8 fl (80-94); Mean Platelet Volume 10.4 fL (7.4-10.4); Monocytes # 1.6 10^3/uL (0.2-0.9); Monocytes % 10.4 %; Neutrophils # 12.54 10^3/uL (1.8-7.7); Neutrophils % 80.2 %; Nucleated Red Blood Cells % 0 %; Platelet Count 372 10^3/cmm (130-400); Red Blood Count 3.44 10^6/uL (4.1-5.3); Red Cell Distribution Width 13.2 % (12.1-15.1); White Blood Count 15.6 10^3/uL (4.0-10.0)
[2021-11-16 06:04] LABS: Partial Thromboplastin Time 68.1 SECONDS (23.9-36.7)
[2021-11-16 06:11] LABS: Alanine Aminotransferase 11 U/L (0-41); Albumin Level 3.2 g/dL (3.5-5.2); Alkaline Phosphatase 73 IU/L (40-130); Anion Gap 16.3 (5-19); Aspartate Amino Transferase 10 U/L (0-40); Blood Urea Nitrogen 41 mg/dL (6-20); Calcium 9.8 mg/dL (8.5-10.5); Carbon Dioxide 23 mmol/L (22-29); Chloride 95 mmol/L (98-107); Globulin 4.9 g/dL (1.3-4.6); Glomerular Filtration Rate 52.4 mL/min (90-130); Glucose 215 mg/dL (65-115); Magnesium 1.7 mg/dL (1.7-2.3); Osmolality Calculated 287 mOsm/kg (285-295); Potassium 4.3 mmol/L (3.5-5.1); Sodium 130 mmol/L (136-145); Total Bilirubin 0.4 mg/dL (0.15-1.2); Total Protein 8.1 g/dL (6.6-8.7)
[2021-11-16 06:18] LABS: Glucose Point of Care 211 mg/dL (70-110)
[2021-11-16] MEDS: spironolactone 25 mg Tablet 50 MG PO (06:28)
[2021-11-16] MEDS: aspirin 81 mg EC Tablet PO (06:28)
[2021-11-16] MEDS: losartan 50 mg Tablet 100 MG PO (06:28)
[2021-11-16] MEDS: duloxetine 60 mg Capsule PO (06:28)
[2021-11-16] MEDS: linezolid premix 600 MG/300 ML PREMIX 300 MG IV ×2 (06:29→18:25)
[2021-11-16] MEDS: insulin lispro 100 unit/1 mL SUBCUT ×3 (07:59→18:15)
[2021-11-16] MEDS: insulin glargine 100 units/1 mL 68 UNIT SUBCUT (07:59)
[2021-11-16] MEDS: pantoprazole DR 40 mg Tablet PO (08:00)
[2021-11-16] MEDS: carvedilol 12.5 mg Tablet PO (08:00)
[2021-11-16 08:35] LABS: Ferritin 490 ng/mL (30-400); Iron 16 ug/dL (59-158)
[2021-11-16] MEDS: acetaminophen 325 mg Tablet 650 MG PO ×2 (10:56→18:15)
[2021-11-16 11:01] LABS: Glucose Point of Care 245 mg/dL (70-110)
[2021-11-16 12:33] LABS: Hematocrit 30.8 % (42.0-52.0); Hemoglobin 9.4 g/dL (11.7-16.6)
[2021-11-16] MEDS: heparin drip 25,000 UNIT/500 ML PREMIX 36 UNIT IV (12:37)
[2021-11-16] MEDS: sodium chloride 0.9% 500 ML IV (12:38)
[2021-11-16 12:45] LABS: Partial Thromboplastin Time 62.3 SECONDS (23.9-36.7)
[2021-11-16 12:57] LABS: Erythrocyte Sedimentation Rate 61 mm/hr (0-10)
[2021-11-16 13:13] LABS: C Reactive Protein 177.3 mg/L (0.0-4.9)
[2021-11-16] MEDS: midodrine 5 mg TABLET 10 MG PO ×2 (14:25→21:51)
--- NOTE | 2021-11-16 15:09 | P.PN_ITS ---
Subjective Subjective: Patient was seen this morning, denies any fevers, no nausea, vomiting, denies a history of GI bleed, denies history of bloody or black stools, denies history of transfusions he had a bedside debridement Dr. Monk, Vitals/I&O/Wt Last Vital Signs Temp 99.8 F H 11/16/21 11:54 Pulse 94 11/16/21 11:54 Resp 14 11/16/21 11:54 BP 86/47 11/16/21 11:54 Pulse Ox 94 11/16/21 11:54 11/16/21 11/16/21 11/16/21 06:59 14:59 22:59 Intake Total 1318.6 / 1318.6 50 / 1368.6 Output Total 900 / 900 Balance -900 / -310 1318.6 / 1318.6 50 / 1368.6 Weight last 48 hrs Weight 158.757 kg Weight 158.757 kg Physical Exam Const: COMMON NORMALS: no acute distress and patient oriented x3 Resp: COMMON NORMALS: normal respiratory effort, No retractions, No use of accessory muscles and clear to auscultation bilaterally AUSCULTATION: clear to auscultation bilaterally Cardio: COMMON NORMALS: regular rate, regular rhythm, S1 normal heart sound present and S2 normal heart sound present RATE: regular rate RHYTHM: regular rhythm HEART SOUNDS: S1 normal heart sound present and S2 normal heart sound present GI: COMMON NORMALS: Normal to inspection, nondistended, normoactive bowel sounds present, Soft to palpation and non-tender PALPATION: Yes Soft to palpation Extremity: COMMON NORMALS: no pedal edema NARRATIVE EXTREMITY EXAM: Left lower extremity, left foot, wrapped and bandaged Neuro: COMMON NORMALS: patient oriented x3 Psych: COMMON NORMALS: mental status grossly normal Data : 11/16/21 12:24 11/16/21 05:38 Micro: Microbiology 11/15/21 22:14 Gram Stain - Final Other Source 11/15/21 18:04 Blood Culture - Preliminary Blood SPECIMEN COLLECTED 11/15/21 17:40 Blood Culture - Preliminary Blood SPECIMEN COLLECTED A&P Assessment and plan (1) Deep vein thrombosis: Status: Acute (2) Cellulitis of left foot: Status: Acute (3) Non-pressure chronic ulcer of other part of left foot with necrosis of bone: Status: Acute (4) Diabetic peripheral neuropathy associated with type 2 diabetes mellitus: Status: Acute (5) Sepsis: Status: Acute (6) Diabetic foot ulcer: Status: Acute Qualifiers: Diabetes mellitus type: type 2 Diabetic foot ulcer location: midfoot Laterality: left Non-pressure ulcer stage: with other severity Qualified Code(s): E11.621 - Type 2 diabetes mellitus with foot ulcer; L97.428 - Non- pressure chronic ulcer of left heel and midfoot with other specified severity (7) HTN (hypertension): Status: Acute Qualifiers: Hypertension type: essential hypertension Qualified Code(s): I10 - Essential (primary) hypertension (8) Acute on chronic anemia: Status: Acute Plan 56-year-old uncontrolled diabetic male with acute osteomyelitis left fifth met atarsal. Diabetic foot ulcer, with evidence of acute osteomyelitis left fifth metatarsal, exposed bone, with sepsis -Status post bedside debridement 11/16/2021 -We will have a debridement in the OR tomorrow morning -Follow blood cultures, wound cultures -Continue Zosyn, Zyvox -Full code -Heparin drip for DVT prophylaxis Left lower extremity DVT, on heparin drip Acute on chronic anemia, chronically hemoglobin between 9 and 10, denies a history of GI bleed, denies history of transfusions, no history of colonoscopy -As patient is on heparin drip will have to monitor hemoglobin closely -Low iron, elevated ferritin, seems to indicate component of iron deficiency anemia and anemia of chronic disease -Protonix, Carafate -Hemoglobin every 6 hours -Transfuse if hemoglobin less than 7 hold heparin drip will have to consider IVC filter placement if he becomes anemic Attestations Medical Necessity Statement*: Patient requires hospitalization for left lower extremity cellulitis, with sepsis, diabetic foot ulcer, anemia, DVT, requiring inpatient admission, greater than 2 midnights Coding Level of Care Code 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
[2021-11-16] MEDS: ondansetron 2 mg/ML SDV 2 mL 4 MG IVP (15:26)
--- NOTE | 2021-11-16 15:47 | PC.NURSE ---
Patient heparin drip remains therapeutic, will continue to monitor Q6. Abx given as ordered. Patient had been hypotensive this shift, fluids and midodrine given, continuing to monitor BP. Patient had an episode of nausea, zofran given. Pain medications given once throughout shift. Patient is set to have surgery tomorrow, will be NPO tomorrow at 0001. Will continue to monitor and give report to night nurse.
[2021-11-16 18:00] LABS: Glucose Point of Care 198 mg/dL (70-110)
[2021-11-16] MEDS: sucralfate 1 gm Tablet PO (18:15)
[2021-11-16] MEDS: insulin glargine 100 units/1 mL 20 UNIT SUBCUT (18:25)
[2021-11-16 19:02] LABS: Hematocrit 29.1 % (42.0-52.0); Hemoglobin 9.1 g/dL (11.7-16.6)
[2021-11-16] MEDS: pantoprazole 40 mg SDV IVP (20:38)
--- NOTE | 2021-11-16 20:39 | XR_ITS ---
WS: [id number] Exam: XR foot LT min 3V* [id number] Date/Time of Exam: 11/16/2021 8:39 PM Reason For Exam: preop eval Comparison 11/15/2021. Again noted is large skin ulceration along the lateral aspect of the midfoot region with soft tissue gas. Recent appearing nondisplaced fracture through the base of fifth metatarsal. Amputation of the s econd digit at the level of the base of the proximal phalanx. Degenerative changes and hammertoe defo rmities of the third to the fifth toes. Soft tissue swelling of the foot. XR/XR foot LT min 3V* [id number] IMPRESSION: 1. Large skin ulcer along the lateral aspect of the midfoot region with soft ti ssue gas which may be secondary to infection with gas-forming bacteria. 2. Recent appearing nondisplaced fracture at the base of the fifth metatarsal. Soft tissue swelling of the foot. 3. Additional nonacute findings as detailed above.
[2021-11-16 20:43] LABS: Partial Thromboplastin Time 60.1 SECONDS (23.9-36.7)
[2021-11-16] MEDS: atorvastatin 40 mg Tablet 80 MG PO (21:51)
[2021-11-17] VITALS (16 sets, daily range): BP systolic 108–146; BP diastolic 64–84; PULSE 72–93; RESP 13–20; TEMP 36.7–37.1; O2SAT 90–97
[2021-11-17 00:29] LABS: Hematocrit 27.1 % (42.0-52.0); Hemoglobin 8.6 g/dL (11.7-16.6)
[2021-11-17] MEDS: piperacillin-tazobactam 3.375 GM in sodium chloride 0.9% (plus) 50 ML IV ×3 (05:02→18:30)
[2021-11-17 05:53] LABS: Basophils # 0.1 10^3/uL (0.0-0.1); Basophils % 0.4 %; Eosinophils # 0.2 10^3/uL (0.0-0.8); Eosinophils % 1.4 %; Hematocrit 26.4 % (42.0-52.0); Hemoglobin 8.5 g/dL (11.7-16.6); Lymphocytes # 1.5 10^3/uL (0.8-4.8); Lymphocytes % 9.6 %; Mean Corpuscular HGB Conc 32.2 g/dL (30.0-36.0); Mean Corpuscular Hemoglobin 28.2 pg (28.0-34.0); Mean Corpuscular Volume 87.7 fl (80-94); Mean Platelet Volume 11.2 fL (7.4-10.4); Monocytes # 1.6 10^3/uL (0.2-0.9); Monocytes % 10.8 %; Neutrophils # 11.68 10^3/uL (1.8-7.7); Neutrophils % 77.2 %; Nucleated Red Blood Cells % 0 %; Platelet Count 333 10^3/cmm (130-400); Red Blood Count 3.01 10^6/uL (4.1-5.3); Red Cell Distribution Width 13.2 % (12.1-15.1); White Blood Count 15.1 10^3/uL (4.0-10.0)
[2021-11-17] MEDS: linezolid premix 600 MG/300 ML PREMIX 300 MG IV ×2 (06:02→17:45)
[2021-11-17 06:13] LABS: Alanine Aminotransferase 12 U/L (0-41); Alkaline Phosphatase 69 IU/L (40-130); Aspartate Amino Transferase 13 U/L (0-40); Calcium 9.2 mg/dL (8.5-10.5); Carbon Dioxide 23 mmol/L (22-29); Magnesium 1.8 mg/dL (1.7-2.3); Phosphorus 3.2 mg/dL (2.5-4.5); Total Bilirubin 0.3 mg/dL (0.15-1.2)
[2021-11-17 06:20] LABS: Procalcitonin 0.19 ng/mL (0-0.5)
[2021-11-17 06:24] LABS: Glucose Point of Care 190 mg/dL (70-110)
[2021-11-17 07:02] LABS: Potassium 4.3 mmol/L (3.5-5.1)
[2021-11-17 07:09] LABS: Anion Gap 14.3 (5-19); Blood Urea Nitrogen 41 mg/dL (6-20); Chloride 96 mmol/L (98-107); Glucose 174 mg/dL (65-115); Osmolality Calculated 282 mOsm/kg (285-295); Sodium 129 mmol/L (136-145)
[2021-11-17 07:10] LABS: Albumin Level 2.6 g/dL (3.5-5.2); Globulin 4.4 g/dL (1.3-4.6)
[2021-11-17] MEDS: sodium chloride 0.9% 1,000 ML 30 ML IV (07:59)
--- NOTE | 2021-11-17 08:23 | W.PM.OPSUD ---
Surgery/Procedure H&P Update DATE OF PROCEDURE: November 17, 2021 DATE H&P PERFORMED: 11/17/21 CHANGES TO PREVIOUS DOCUMENTATION: None PREOP DIAGNOSIS: Osteomyelitis left foot PLANNED PROCEDURE: Operation Date: 11/17/21 08:20 Proposed Procedures p Incision and Debridement left foot(Left) - Barry Monk DPM And left fifth metatarsectomy
--- NOTE | 2021-11-17 08:30 | ANES.PREANE2 ---
Pre-Anesthetic Assessment Height/Weight: Height 1.8 m Weight 158.757 kg Temp Pulse Resp BP Pulse Ox 98.1 F 82 18 126/66 93 11/17/21 07:38 11/17/21 07:38 11/17/21 07:38 11/17/21 07:38 11/17/21 07:38 Preop Diagnosis: Osteomyelitis left foot Operation Date: 11/17/21 08:20 Proposed Procedures p Incision and Debridement left foot(Left) - Barry Monk DPM Familial anesthetic complications: None Was Beta Nery taken within 24 hours: Yes Last intake: Intake Last Liquid Date 11/16/21 Last Liquid Time 18:00 Last Solid Date 11/16/21 Last Solid Time 18:00 Social No alcohol and No tobacco Exam alert, oriented x 3, clear to auscultation bilaterally and regular rate & rhythm Airway Submandibular: within normal limits Cervical ROM: within normal limits Mallampati: Class II Comments: Comments: Missing teeth History/ROS No significant complaints Pulmonary Sleep Apnea and None reported CV/HEM Anemia, Congestive Heart Failure, Deep Vein Thrombosis and Hypertension Stress test 04/2021 CONCLUSION: 1. No significant EKG changes with the LexiScan infusion. 2. No LexiScan induced chest pain or cardiac arrhythmia. 3. Normal blood pressure and heart rate response. 4. Sestamibi/sestamibi perfusion scan pending; see separate report. TTE 05/11 CONCLUSIONS ?1. Normal left ventricular size, systolic function and wall ?thickness, with no regional wall motion abnormalities. Left ?ventricular ejection fraction is estimated at 65 %. Grade II ?diastolic dysfunction, moderately elevated filling pressures. ?2. Normal right ventricular size and systolic function. ?3. Right atrial pressure estimated at 8 mm Hg. ?4. No gross valvular abnormality. ?5. No prior similar studies to compare. Hyponatremia Elevated BUN Hepatic None reported GI Gastroesophageal Reflux Disease Metabolic Diabetes Mellitus and Morbid Obesity Neuropsych Neuropathy Anesthetic Plan ASA status: 3 (Morbidly obese male with hx of CHF, DANYELL untreated, DM with neuropathy, and GERD. ) Anesthesia: Anesthesia Evaluation, General and MAC Other: I discussed with the patient risks, goals, and benefits of MAC and general anesthesia. We discussed spectrum of MAC anesthesia including conversion to general as well as possibility of recall of intraoperative stimuli including discomfort/pain. Patient agrees to proceed with MAC. Risk of > 500 ml blood loss (7ml/kg in children): No Medications/Allergies Home Medications Medication Instructions Recorded Confirmed Last Taken Type acetaminophen 500 mg tablet 1,000 mg PO Q4H PRN 04/30/21 11/15/21 11/15/21 14:00 History (Tylenol Extra Strength) duloxetine 60 mg capsule,delayed 60 mg PO QAM 04/30/21 11/15/21 11/15/21 History release insulin glargine 100 unit/mL (3 68 unit SUBCUT BID 04/30/21 11/15/21 11/15/21 09:00 History mL) subcutaneous pen (Lantus Solostar U-100 Insulin) [id number]-gjtndwyy-ahioem tablet 1 tab PO QAM 04/30/21 11/15/21 11/15/21 History pantoprazole 40 mg tablet,delayed 40 mg PO BID 04/30/21 11/15/21 11/15/21 09:00 History release pioglitazone 15 mg tablet 15 mg PO BID@04/30/21 11/15/21 11/15/21 09:00 History trazodone 100 mg tablet 50 - 100 mg PO BEDTIME 04/30/21 11/15/21 11/14/21 History atorvastatin 80 mg tablet 80 mg PO DAILY@22 30 Days #30 tab 05/04/21 11/15/21 Unknown Rx nitroglycerin 0.4 mg sublingual 0.4 mg SUBLINGUAL Q5M PRN #30 tab 05/06/21 11/15/21 Unknown Rx tablet carvedilol 12.5 mg tablet (Coreg) 12.5 mg PO BID #180 tab 05/28/21 11/15/21 11/15/21 09:00 Rx aspirin 81 mg tablet,delayed 81 mg PO QAM 11/15/21 11/15/21 11/15/21 09:00 History release cholecalciferol (vitamin D3) 25 25 mcg PO DAILY 11/15/21 11/15/21 Unknown History mcg (1,000 unit) tablet (Vitamin D3) gabapentin 300 mg capsule 300 mg PO DAILY PRN 11/15/21 11/15/21 Unknown History insulin aspart U-100 100 unit/mL See Rx Instructions .ROUTE .COMPLEX 11/15/21 11/15/21 Unknown History (3 mL) subcutaneous pen (Novolog Flexpen U-100 Insulin aspart) levofloxacin 500 mg tablet 500 mg PO DAILY 11/15/21 11/15/21 11/15/21 History loratadine 10 mg tablet (Claritin) 10 mg PO QAM 11/15/21 11/15/21 11/15/21 09:00 History losartan 100 mg tablet 100 mg PO QAM 11/15/21 11/15/21 11/15/21 09:00 History spironolactone 25 mg tablet 50 mg PO QAM 11/15/21 11/15/21 11/15/21 History Allergies Allergy/AdvReac Type Severity Reaction Status Date / Time atorvastatin [From Lipitor] Allergy ADR-Muscle Verified 08/09/21 10:16 Pain vancomycin Allergy ALGY-Anaphy Verified 11/15/21 17:32 laxis Current Medications Generic Name Dose Route Start Last Admin Trade Name Freq PRN Reason Stop Dose Admin Acetaminophen 650 mg 11/15/21 21:44 11/16/21 18:15 Acetaminophen 325 Mg Tablet PO 650 mg Q6H PRN Administration Mild/Mod Pain Or Temp >/= 101 Aspirin 81 mg 11/16/21 06:00 11/17/21 05:06 Aspirin 81 Mg Ec Tablet PO Not Given [facility] [place] [place] Atorvastatin Calcium 80 mg 11/16/21 22:00 11/16/21 21:51 Atorvastatin 40 Mg Tablet PO 80 mg DAILY@22 [facility] Administration Carvedilol 12.5 mg 11/16/21 09:00 11/16/21 08:00 Carvedilol 12.5 Mg Tablet PO 12.5 mg BID MARJORIE Administration Duloxetine HCl 60 mg 11/16/21 06:00 11/17/21 05:06 Duloxetine 60 Mg Capsule PO Not Given QAM [facility] Heparin Sodium (Porcine) 0 unit 11/15/21 21:44 11/15/21 23:30 Heparin 5,000 Unit/Ml Inj 1 Ml IV 7,000 unit PRN PRN Administration Heparin weight-base protocol Protocol Piperacillin Sod/Tazobactam 50 mls @ 12.5 mls/hr 11/15/21 19:30 11/17/21 05:02 Sod 3.375 gm/ Sodium Chloride IV 12.5 mls/hr Q8H MARJORIE Administration Protocol Linezolid 600 mg in 300 mls @ 300 mls/hr 11/16/21 06:00 11/17/21 07:17 Zyvox Premix IV Infused Q12H [facility] Infusion Protocol Heparin Sodium/Sodium Chloride 25,000 unit in 500 mls @ 0 mls/hr 11/15/21 21:45 11/16/21 20:35 Heparin Drip IV 0 unit/kg/hr .Q0M MARJORIE 0 mls/hr Titration Protocol Per Protocol Sodium Chloride 1,000 mls @ 30 mls/hr 11/17/21 07:45 11/17/21 07:59 Sodium Chloride 0.9% IV 11/18/21 07:44 30 mls/hr .Q24H MARJORIE Administration Insulin Glargine 68 unit 11/16/21 09:00 11/16/21 18:05 Insulin Glargine 100 Units/1 Ml SUBCUT Not Given BID MARJORIE Insulin Human Lispro 0 unit 11/15/21 21:44 11/16/21 22:48 Insulin Lispro 100 Unit/1 Ml SUBCUT Not Given WM&BEDTIME [facility] Protocol Losartan Potassium 100 mg 11/16/21 06:00 11/16/21 06:28 Losartan 50 Mg Tablet PO 100 mg QAM [facility] Administration Midodrine 10 mg 11/16/21 14:00 11/17/21 05:06 Midodrine 5 Mg Tablet PO Not Given Q8H MARJORIE Morphine Sulfate 2 mg 11/15/21 21:44 11/16/21 21:58 Morphine 4 Mg/Ml Sdv 1 Ml IVP 2 mg Q4H PRN Administration [facility] Ondansetron HCl 4 mg 11/15/21 21:44 11/16/21 15:26 Ondansetron 2 Mg/Ml Sdv 2 Ml IVP 4 mg Q6H PRN Administration vomiting, or N/V if npo Pantoprazole Sodium 40 mg 11/16/21 20:00 11/16/21 20:38 Pantoprazole 40 Mg Sdv IVP 40 mg Q12H MARJORIE Administration Spironolactone 50 mg 11/16/21 06:00 11/16/21 06:28 Spironolactone 25 Mg Tablet PO 50 mg QAM MARJORIE Administration Sucralfate 1 gm 11/16/21 16:30 11/17/21 05:06 Sucralfate 1 Gm Tablet PO Not Given Q12H MARJORIE Trazodone HCl 50 mg 11/15/21 21:44 11/16/21 22:00 Trazodone 100 Mg Tablet PO Not Given BEDTIME [facility] Anesthesia Medical History CHF (congestive heart failure), NYHA class III COVID-19 Diabetes mellitus HTN (hypertension) Surgical History History of right below knee amputation Social History Alcohol intake: never Data Anesthesia : 11/17/21 04:58 11/17/21 04:58 Short CBC 11/15/21 11/16/21 11/16/21 Range/Units 17:40 05:38 12:24 WBC 15.5 H 15.6 H (4.0-10.0) 10^3/uL Hgb 10.8 L 9.6 L 9.4 L (11.7-16.6) g/dL Hct 34.1 L 30.2 L 30.8 L (42.0-52.0) % MCV 87.4 87.8 (80-94) fl Plt Count 431 H 372 (130-400) 10^3/cmm Neut % (Auto) 83.5 80.2 % Neut # (Auto) 12.92 H 12.54 H (1.8-7.7) 10^3/uL 11/16/21 11/17/21 11/17/21 Range/Units 18:52 00:13 04:58 WBC 15.1 H (4.0-10.0) 10^3/uL Hgb 9.1 L 8.6 L 8.5 L (11.7-16.6) g/dL Hct 29.1 L 27.1 L 26.4 L (42.0-52.0) % MCV 87.7 (80-94) fl Plt Count 333 (130-400) 10^3/cmm Neut % (Auto) 77.2 % Neut # (Auto) 11.68 H (1.8-7.7) 10^3/uL BMP 11/15/21 11/16/21 11/17/21 17:40 05:38 04:58 Sodium 131 L 130 L 129 L Potassium 4.9 4.3 4.3 Chloride 95 L 95 L 96 L Carbon Dioxide 24 23 23 BUN 38 H 41 H 41 H Creatinine 1.1 1.4 H 1.2 Glucose 340 H 215 H 174 H Calcium 10.5 9.8 9.2 Liver Function 11/15/21 11/16/21 11/17/21 Range/Units 17:40 05:38 04:58 Total Bilirubin 0.2 0.4 0.3 (0.15-1.2) mg/dL AST 13 10 13 (0-40) U/L ALT 12 11 12 (0-41) U/L Alkaline Phosphatase 86 73 69 (40-130) IU/L Albumin 3.7 3.2 L 2.6 L (3.5-5.2) g/dL Coags 11/15/21 11/15/21 11/16/21 17:40 17:40 05:38 ESR APTT 37.3 H 68.1 H D C-Reactive Protein 132.4 H 11/16/21 11/16/21 11/16/21 05:38 12:24 12:24 ESR 61 H APTT 62.3 H C-Reactive Protein 177.3 H 11/16/21 11/17/21 20:13 04:58 ESR APTT 60.1 H C-Reactive Protein 27.0 H Microbiology 11/15/21 18:04 Blood Culture - Preliminary Blood NEGATIVE TO DATE 11/15/21 17:40 Blood Culture - Preliminary Blood NEGATIVE TO DATE 11/15/21 22:14 Gram Stain - Final Other Source Cardiac Studies: Echocardiogram 05/02/21 Sestamibi Stress Test (Cardiology) 05/04/21
--- NOTE | 2021-11-17 09:29 | PM.OP ---
Operative Report Date of procedure: November 17, 2021 Pre-op diagnosis: Osteomyelitis left foot Post-op diagnosis: Osteomyelitis left foot fifth metatarsal Post-op findings: Devitalized bone left fifth metatarsal wound extended directly to bone with poor density and purulence. Procedure done: Incision and debridement down to bone left foot with left fifth metatarsectomy. Implants: None Specimens removed/disposition: Left fifth metatarsal base sent to microbiology for Gram stain and culture. Pathology: Left fifth metatarsal sent to pathology. Surgeon: Barry Monk D.P.M. 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 Utilizes a motorized scooter. Wound left plantar foot since in April 2021, actively managed by wound care wound has progressed to full-thickness down to bone with current cellulitis and leukocytosis elevated CRP, on x-ray there is been a progression of soft tissue emphysema adjacent to the left fifth metatarsal recommended incision debridement down to bone with left fifth metatarsectomy will be a staged procedure after infection has been contained and medically/surgically managed he will require a peroneal tendon transfer and possible tibialis anterior tendon transfer for tendon balancing. Patient is agreeable wishes to proceed risks include pain, bleeding, numbness, infection, altered mechanics, varus foot, transfer pressure, transfer lesion, progression of infection and higher level of amputation, loss of limb and loss of life. Patient wishes to proceed, no guarantees written, expressed or implied. N.p.o. since midnight. Covid negative. Informed consent signed by patient and myself, patient's is bedside. Procedure: Under the patient was brought to the operating room and remained on the gurney in supine position. Timeout was performed. Anesthesia was then administered by the anesthesia service. Well-padded pneumatic tourniquet applied to the left ankle. The left lower extremity was scrubbed, prepped and draped utilizing normal aseptic technique. Attention was directed to the left dorsal lateral foot where dorsal aspect of the left fifth metatarsal was palpated. A linear longitudinal incision was made 9 cm in length full-thickness down to bone directly over the left fifth metatarsal which was excised sharply of all soft tissue and capsular and periosteal attachments and passed from the operative field. The left fifth metatarsal at the metaphyseal proximal junction down to the head was sent to pathology for review and the left fifth metatarsal base was sent to microbiology for Gram stain and bone culture. Copious months of sterile saline solution was utilized to irrigate followed by debridement of devitalized soft tissue. Of note the left fifth metatarsal head purulence, poor density and was pederson dusky at the fifth metatarsal. Further irrigation was performed. Debridement of plantar ulcer was also performed of the devitalized epidermis, dermis and subcutaneous tissue down to fat layer and retinaculum. The left lateral foot dorsal surgical incision was 9 cm in length. Post debridement the left foot plantar wound which communicated to bone measured 3.5 cm x 4 cm x 2 cm. The incision site was further irrigated and dressed utilizing saline wet-to-dry, this was sterile 4 x 4, Kerlix, ABD pad and Coban. Tourniquet was deflated and a prompt hyperemic response is noted to the distal digits of the left foot. Patient tolerated the procedure and anesthesia well and was transferred to the PACU with vital signs stable vascular status intact. Following a period of postop monitoring will continue with antibiotic therapy on the floor. He is to remain nonweightbearing to the left foot may heel touch only for transfers. Patient will require additional surgery during this hospitalization, once soft tissue infection has been managed will plan for peroneal brevis tendon transfer to cuboid and potential tibialis anterior tendon transfer for tendon balancing. This will help prevent varus deformity of the foot due to loss of fifth metatarsal base and excessive pull of the posterior tibial tendon. He also may require a tendo Achilles lengthening. Will reassess daily and plan for procedure potentially this Monday.
[2021-11-17 11:20] LABS: Glucose Point of Care 236 mg/dL (70-110)
[2021-11-17] MEDS: acetaminophen 325 mg Tablet 650 MG PO ×2 (11:36→17:46)
[2021-11-17] MEDS: insulin lispro 100 unit/1 mL SUBCUT ×3 (11:37→21:46)
[2021-11-17] MEDS: polyethylene glycol 3350 Pkt 17 gm PO (11:39)
[2021-11-17] MEDS: enoxaparin 40 mg/0.4 mL Syringe SUBCUT (11:57)
[2021-11-17 12:15] LABS: Hematocrit 27.7 % (42.0-52.0); Hemoglobin 8.8 g/dL (11.7-16.6)
--- NOTE | 2021-11-17 12:40 | P.PN_ITS ---
Subjective Subjective: patient was seen after his OR procedure, hgb down to 8.5, denies bloody or black stool, no history of bleeding, no history of colonoscopy, no history of blood transfusion, no lightheadedness, no bloody or black stool Vitals/I&O/Wt Last Vital Signs Temp 98.8 F 11/17/21 11:39 Pulse 80 11/17/21 11:39 Resp 13 11/17/21 11:39 BP 146/77 11/17/21 11:39 Pulse Ox 95 11/17/21 11:39 11/16/21 11/17/21 11/17/21 22:59 06:59 14:59 Intake Total 926.8 / 2245.4 1563.2 / 1563.2 Output Total 600 / 600 1320 / 1920 Balance 326.8 / 1645.4 -1320 / 325.4 1543.2 / 1543.2 Weight last 48 hrs Weight 158.757 kg Weight 158.757 kg Physical Exam Const: COMMON NORMALS: no acute distress and patient oriented x3 Resp: COMMON NORMALS: normal respiratory effort, No retractions, No use of accessory muscles and clear to auscultation bilaterally AUSCULTATION: clear to auscultation bilaterally Cardio: COMMON NORMALS: regular rate, regular rhythm, S1 normal heart sound present and S2 normal heart sound present RATE: regular rate RHYTHM: regular rhythm HEART SOUNDS: S1 normal heart sound present and S2 normal heart sound present GI: COMMON NORMALS: Normal to inspection, nondistended, normoactive bowel sounds present, Soft to palpation, non-tender and No hepatosplenomegaly present PALPATION: Yes Soft to palpation and Yes No hepatosplenomegaly present Extremity: COMMON NORMALS: no pedal edema NARRATIVE EXTREMITY EXAM: Left lower extremity, left foot, wrapped and bandaged Neuro: COMMON NORMALS: patient oriented x3 Data : 11/17/21 11:59 11/17/21 04:58 Micro: Microbiology 11/15/21 18:04 Blood Culture - Preliminary Blood NEGATIVE TO DATE 11/15/21 17:40 Blood Culture - Preliminary Blood NEGATIVE TO DATE 11/15/21 22:14 Gram Stain - Final Other Source A&P Assessment and plan (1) Deep vein thrombosis: Status: Acute (2) Cellulitis of left foot: Status: Acute (3) Non-pressure chronic ulcer of other part of left foot with necrosis of bone: Status: Acute (4) Diabetic peripheral neuropathy associated with type 2 diabetes mellitus: Status: Acute (5) Sepsis: Status: Acute (6) Diabetic foot ulcer: Status: Acute Qualifiers: Diabetes mellitus type: type 2 Diabetic foot ulcer location: midfoot Laterality: left Non-pressure ulcer stage: with other severity Qualified Code(s): E11.621 - Type 2 diabetes mellitus with foot ulcer; L97.428 - Non-press ure chronic ulcer of left heel and midfoot with other specified severity (7) HTN (hypertension): Status: Acute Qualifiers: Hypertension type: essential hypertension Qualified Code(s): I10 - Essential (primary) hypertension (8) Acute on chronic anemia: Status: Acute Plan 56-year-old uncontrolled diabetic male with acute osteomyelitis left fifth metatarsal. Diabetic foot ulcer, with evidence of acute osteomyelitis left fifth metatarsal, exposed bone, with sepsis -Status post bedside debridement 11/16/2021 -s/p Devitalized bone left fifth metatarsal wound extended directly to bone with poor density and purulence 11/17/2021 -Follow blood cultures, wound cultures -Continue Zosyn, Zyvox -Full code -lovenox for DVT prophylaxis Left lower extremity DVT, on heparin drip nof off due to anemia, will give one dose of 40mg lovenox until he will have ivc filter placment -npo midnight for ivc filter Acute on chronic anemia, chronically hemoglobin between 9 and 10, denies a history of GI bleed, denies history of transfusions, no history of colonoscopy -hgb doen to 8.5 -Low iron, elevated ferritin, seems to indicate component of iron deficiency anemia and anemia of chronic disease -Protonix, Carafate -Hemoglobin every 6 hours -Transfuse if hemoglobin less than 7 -will have to consider IVC filter placement if he becomes anemic Attestations Medical Necessity Statement*: patient requires hospitalition for IVC filter palcement, anemia, and diabetic foot requiring debridement and antibitoics Coding Level of Care Code Acute Environmental Adviser for [facility] Diagnoses Deep vein thrombosis I82.409 Cellulitis of left foot L03.116 Non-pressure chronic ulcer of other part of left foot with necrosis of bone L97.524 Diabetic peripheral neuropathy associated with type 2 diabetes mellitus E11.42 Sepsis A41.9 Diabetic foot ulcer E11.621; L97.428 Diabetes mellitus type: type 2 Diabetic foot ulcer location: midfoot Laterality: left Non-pressure ulcer stage: with other severity HTN (hypertension) I10 Hypertension type: essential hypertension Acute on chronic anemia D64.9
--- NOTE | 2021-11-17 12:58 | PM.CONSULT ---
Providers/Reason For Consult Consulting Physician/Specialty*: Dr. Richardson/cardiothoracic surgery Reason for Consult*: Left lower extremity DVT Requesting Physician: Dr. Ocampo Attending Physician: Niraj Ocampo MD Primary Care Provider: HANNAH Mason History of Present Illness History of Present Illness Salvador Luke is a 56 year old male whom I have followed in wound care services for a left fifth metatarsal wound which has been slow to heal. He has a prior right lower extremity amputation. I last saw him in wound care services on November 10. He does have intermittent episodes of subjective fever though he has had none during his clinic visits. He was admitted upon presentation on November 15 with complaints of fever up to 100 and 1 at night at home. He was noted to have leukocytosis with a white count over 15,000 and tachycardia of 106. CRP was substantially elevated 132. He has had previous imaging studies including MRI of the foot on October 06 which was negative for evidence of osteomyelitis. Follow-up foot x-ray of November 15 revealed no evidence for osseous destruction. His most recent foot x-ray after admission does reveal recent appearing nondisplaced fracture of the base of the fifth metatarsal. This is a new finding. Has been carefully evaluated by Dr. Monk. He underwent surgery earlier today. This included incision and debridement to the left foot down to the fifth metatarsal with left fifth metatarsectomy. Clinically, this appears to represent osteomyelitis of the left foot metatarsal. During his hospitalization has been determined to have a thrombus in the left femoral profundus as well as the left saphenous vein at the ankle. Anticoagulation was initiated but he had a drop in his hemoglobin. I have been consulted for IVC filter placement. Review of Systems Const: Reports: fever(s), body aches, fatigue and malaise Eyes: Denies: change in vision Card: Reports: edema; Denies: chest pain or palpitations Resp: Denies: dyspnea or productive cough GI: Reports: nausea; Denies: vomiting or hematemesis : Denies: flank pain or difficulty urinating Musc: Reports: extremity pain and extremity swelling Psych: Denies: anxiety or depression Medications/Allergies Home Medications Medication Instructions Recorded Confirmed Last Taken Type acetaminophen 500 mg tablet 1,000 mg PO Q4H PRN 04/30/21 11/15/21 11/15/21 14:00 History (Tylenol Extra Strength) duloxetine 60 mg capsule,delayed 60 mg PO QAM 04/30/21 11/15/21 11/15/21 History release insulin glargine 100 unit/mL (3 68 unit SUBCUT BID 04/30/21 11/15/21 11/15/21 09:00 History mL) subcutaneous pen (Lantus Solostar U-100 Insulin) [id number]-azdpgvro-hodzwm tablet 1 tab PO QAM 04/30/21 11/15/21 11/15/21 History pantoprazole 40 mg tablet,delayed 40 mg PO BID 04/30/21 11/15/21 11/15/21 09:00 History release pioglitazone 15 mg tablet 15 mg PO BID@04/30/21 11/15/21 11/15/21 09:00 History trazodone 100 mg tablet 50 - 100 mg PO BEDTIME 04/30/21 11/15/21 11/14/21 History atorvastatin 80 mg tablet 80 mg PO DAILY@ 30 Days #30 tab 05/04/21 11/15/21 Unknown Rx nitroglycerin 0.4 mg sublingual 0.4 mg SUBLINGUAL Q5M PRN #30 tab 05/06/21 11/15/21 Unknown Rx tablet carvedilol 12.5 mg tablet (Coreg) 12.5 mg PO BID #180 tab 05/28/21 11/15/21 11/15/21 09:00 Rx aspirin 81 mg tablet,delayed 81 mg PO QAM 11/15/21 11/15/21 11/15/21 09:00 History release cholecalciferol (vitamin D3) 25 25 mcg PO DAILY 11/15/21 11/15/21 Unknown History mcg (1,000 unit) tablet (Vitamin D3) gabapentin 300 mg capsule 300 mg PO DAILY PRN 11/15/21 11/15/21 Unknown History insulin aspart U-100 100 unit/mL See Rx Instructions .ROUTE .COMPLEX 11/15/21 11/15/21 Unknown History (3 mL) subcutaneous pen (Novolog Flexpen U-100 Insulin aspart) levofloxacin 500 mg tablet 500 mg PO DAILY 11/15/21 11/15/21 11/15/21 History loratadine 10 mg tablet (Claritin) 10 mg PO QAM 11/15/21 11/15/21 11/15/21 09:00 History losartan 100 mg tablet 100 mg PO QAM 11/15/21 11/15/21 11/15/21 09:00 History spironolactone 25 mg tablet 50 mg PO QAM 11/15/21 11/15/21 11/15/21 History Allergies Allergy/AdvReac Type Severity Reaction Status Date / Time atorvastatin [From Lipitor] Allergy ADR-Muscle Verified 08/09/21 10:16 Pain vancomycin Allergy ALGY-Anaphy Verified 11/15/21 17:32 laxis Current Medications Generic Name Dose Route Start Last Admin Trade Name Freq PRN Reason Stop Dose Admin Acetaminophen 650 mg 11/15/21 21:44 11/17/21 11:36 Acetaminophen 325 Mg Tablet PO 650 mg Q6H PRN Administration Mild/Mod Pain Or Temp >/= 101 Aspirin 81 mg 11/16/21 06:00 11/17/21 05:06 Aspirin 81 Mg Ec [facility] Atorvastatin Calcium 80 mg 11/16/21 22:00 11/16/21 21:51 Atorvastatin 40 Mg Tablet PO 80 mg DAILY@22 [facility] Administration Carvedilol 12.5 mg 11/16/21 09:00 11/16/21 08:00 Carvedilol 12.5 Mg Tablet PO 12.5 mg BID MARJORIE Administration Duloxetine HCl 60 mg 11/16/21 06:00 11/17/21 05:06 Duloxetine 60 Mg Capsule PO Not Given [facility] Piperacillin Sod/Tazobactam 50 mls @ 12.5 mls/hr 11/15/21 19:30 11/17/21 11:39 Sod 3.375 gm/ Sodium Chloride IV 12.5 mls/hr Q8H MARJORIE Administration Protocol Linezolid 600 mg in 300 mls @ 300 mls/hr 11/16/21 06:00 11/17/21 07:17 Zyvox Premix IV Infused Q12H [facility] Infusion Protocol Insulin Glargine 68 unit 11/16/21 09:00 11/16/21 18:05 Insulin Glargine 100 Units/1 Ml SUBCUT Not Given BID [facility] Insulin Human Lispro 0 unit 11/15/21 21:44 11/17/21 11:37 Insulin Lispro 100 Unit/1 Ml SUBCUT 8 unit WM&BEDTIME MARJORIE Administration Protocol Losartan Potassium 100 mg 11/16/21 06:00 11/16/21 06:28 Losartan 50 Mg Tablet PO 100 mg QAM MARJORIE Administration Morphine Sulfate 2 mg 11/15/21 21:44 11/16/21 21:58 Morphine 4 Mg/Ml Sdv 1 Ml IVP 2 mg Q4H PRN Administration SE[employer]ERE [employer]IN Ondansetron HCl 4 mg 11/15/21 21:44 11/16/21 15:26 Ondansetron 2 Mg/Ml Sdv 2 Ml IVP 4 mg Q6H PRN Administration vomiting, or N/V if npo Pantoprazole Sodium 40 mg 11/16/21 20:00 11/16/21 20:38 Pantoprazole 40 Mg Sdv IVP 40 mg Q12H MARJORIE Administration Polyethylene Glycol 17 gm 11/17/21 11:00 11/17/21 11:39 Polyethylene Glycol 3350 Pkt 17 Gm PO 17 gm DAILY MARJORIE Administration Spironolactone 50 mg 11/16/21 06:00 11/16/21 06:28 Spironolactone 25 Mg Tablet PO 50 mg QAM MARJORIE Administration Sucralfate 1 gm 11/16/21 16:30 11/17/21 05:06 Sucralfate 1 Gm Tablet PO Not Given Q12H MARJORIE Trazodone HCl 50 mg 11/15/21 21:44 11/16/21 22:00 Trazodone 100 Mg Tablet PO Not Given BEDTIME MARJORIE PFSH Acute PFSH: Medical History CHF (congestive heart failure), NYHA class III COVID-19 Diabetes mellitus HTN (hypertension) Surgical History History of right below knee amputation Social History Alcohol intake: never Vitals/I&O/Wt Last Vital Signs Temp 98.8 F 11/17/21 11:39 Pulse 80 11/17/21 11:39 Resp 13 11/17/21 11:39 BP 146/77 11/17/21 11:39 Pulse Ox 95 11/17/21 11:39 11/16/21 11/17/21 11/17/21 22:59 06:59 14:59 Intake Total 926.8 / 2245.4 1563.2 / 1563.2 Output Total 600 / 600 1320 / 1920 20 / 20 Balance 326.8 / 1645.4 -1320 / 325.4 1543.2 / 1543.2 Weight last 48 hrs Weight 350 lb Weight 350 lb Physical Exam HENMT: COMMON NORMALS: normocephalic, atraumatic, hearing grossly normal bilaterally and external ears normal HEAD & SCALP: normocephalic and atraumatic EXTERNAL EAR: Yes external ears normal Eye: COMMON NORMALS: Equal, round and reactive pupils present, EOMs intact bilaterally and conjunctivae normal CONJUNCTIVA: Yes conjunctivae normal PUPIL: Yes Equal, round and reactive pupils present Neck/C-Spine: COMMON NORMALS: full ROM, no lymphadenopathy and No carotid bruits Resp: COMMON NORMALS: normal respiratory effort and clear to auscultation bilaterally AUSCULTATION: clear to auscultation bilaterally Cardio: COMMON NORMALS: regular rate, regular rhythm, S1 normal heart sound present and No rub (Cardio) RATE: regular rate RHYTHM: regular rhythm HEART SOUNDS: S1 normal heart sound present GI: COMMON NORMALS: Normal to inspection, nondistended, normoactive bowel sounds present INSPECTION: Yes central obesity Extremity: OTHER: Left foot with surgical bandage in place. Left leg swelling noted without palpable cord. Right below-knee amputation Data : 11/17/21 11:59 11/17/21 04:58 Micro: Microbiology 11/15/21 18:04 Blood Culture - Preliminary Blood NEGATIVE TO DATE 11/15/21 17:40 Blood Culture - Preliminary Blood NEGATIVE TO DATE 11/15/21 22:14 Gram Stain - Final Other Source A&P Assessment and plan (1) Deep vein thrombosis: Left lower extremity DVT with contraindication to anticoagulation related to drop in hemoglobin. Plan: We will plan for an IVC filter placement tomorrow afternoon. This is been carefully discussed with Mr. Luke and his . the rationale for filter placement reviewed. Potential risk of major bleeding, migration or fracture of the filter, infection, need for other procedures including possible filter retrieval, and long-term surveillance were frankly discussed. Appropriate consents have been provided for review and signature. Status: Acute Consult Attestations Medical Necessity Statement: Left lower extremity DVT with contraindication to anticoagulation. Coding Level of Care Code Acute Director Of Casino Marketing for [facility] Bekah Diagnoses Deep vein thrombosis I82.409
[2021-11-17] MEDS: morphine 4 mg/mL SDV 1 mL 2 MG IVP ×3 (13:39→22:57)
--- NOTE | 2021-11-17 14:22 | XR_ITS ---
WS: [id number] Exam: XR foot LT min 3V* [id number] Date/Time of Exam: 11/17/2021 2:28 PM Reason For Exam: Postop fifth metatarsal excision due to osteomyelitis Comparison 11/16/2021. The fifth metatarsal has been surgically removed. The phalanges of the fifth toe remaining. There has been previous amputation of the second toe as previously described. Bandaging material is noted kush g the lateral aspect of the foot. XR/XR foot LT min 3V* [id number] IMPRESSION: 1. Surgical removal of the fifth metatarsal as indicated above. Additional ordnance mechanic costa findings as noted.
--- NOTE | 2021-11-17 14:38 | ANE.PACU2 ---
Inpatient post-anesthesia follow up: Airway intact: Yes Vital signs: Temperature 98.8 F Pulse Rate 80 Respiratory Rate 13 Blood Pressure 146/77 Pulse Oximetry 95 Oxygen Delivery Me thod Room Air Oxygen Flow Rate 6 Fraction of Inspir ed Oxygen Hydration adequate: Yes Nausea and vomiting: No Pain level: 3 Mental status: Baseline
--- NOTE | 2021-11-17 16:24 | PC.NURSE ---
Patient went to surgery around 0715 this AM for debridement of his left foot ulcer. Post procedure monitoring done, patient stable, dressing is dry and intact with a small amount of drainage. Pain is being well controlled with PRN medications. Abx given as ordered. Patient is set to get IVC placed tomorrow, willl be NPO after midnight. Will continue to monitor and give report to night nurse.
[2021-11-17 17:41] LABS: Glucose Point of Care 217 mg/dL (70-110)
[2021-11-17] MEDS: insulin glargine 100 units/1 mL 68 UNIT SUBCUT (17:46)
[2021-11-17] MEDS: sucralfate 1 gm Tablet PO (17:46)
[2021-11-17] MEDS: chlorhexidine gluconate 4% Btl 118 mL 1 APPLIC TOPICAL (17:46)
[2021-11-17 18:47] LABS: Hemoglobin 8.7 g/dL (11.7-16.6)
[2021-11-17 21:08] LABS: Glucose Point of Care 215 mg/dL (70-110)
[2021-11-17] MEDS: atorvastatin 40 mg Tablet 80 MG PO (21:45)
[2021-11-17] MEDS: trazodone 100 mg Tablet 50 MG PO (21:45)
[2021-11-17] MEDS: pantoprazole 40 mg SDV IVP (21:48)
[2021-11-17 23:18] LABS: Hematocrit 27.4 % (42.0-52.0); Hemoglobin 8.6 g/dL (11.7-16.6)
[2021-11-18] VITALS (16 sets, daily range): BP systolic 105–145; BP diastolic 62–85; PULSE 66–82; RESP 16–20; TEMP 36.2–37.3; O2SAT 92–99
--- NOTE | 2021-11-18 | SCC_ITS ---
Procedure done: IVC filter placement 87.1 seconds of fluoroscopic guidance, for a cumulative dose of 74.73 mGy, was provided to Dr. Richardson by the radiology department. C-arm images of the chest were saved for the patient's permanent record. JANETD
[2021-11-18] MEDS: piperacillin-tazobactam 3.375 GM in sodium chloride 0.9% (plus) 50 ML IV ×3 (04:06→19:15)
[2021-11-18] MEDS: morphine 4 mg/mL SDV 1 mL 2 MG IVP ×3 (04:14→19:44)
[2021-11-18] MEDS: sucralfate 1 gm Tablet PO (05:11)
[2021-11-18] MEDS: aspirin 81 mg EC Tablet PO (05:11)
[2021-11-18] MEDS: duloxetine 60 mg Capsule PO (05:11)
[2021-11-18] MEDS: losartan 50 mg Tablet 100 MG PO (05:11)
[2021-11-18 05:34] LABS: Basophils % 0.4 %; Eosinophils # 0.3 10^3/uL (0.0-0.8); Eosinophils % 2.4 %; Hematocrit 26.9 % (42.0-52.0); Hemoglobin 8.4 g/dL (11.7-16.6); Lymphocytes # 1.5 10^3/uL (0.8-4.8); Mean Corpuscular HGB Conc 31.2 g/dL (30.0-36.0); Mean Corpuscular Hemoglobin 27.8 pg (28.0-34.0); Mean Corpuscular Volume 89.1 fl (80-94); Mean Platelet Volume 10.6 fL (7.4-10.4); Monocytes # 0.9 10^3/uL (0.2-0.9); Neutrophils # 7.46 10^3/uL (1.8-7.7); Neutrophils % 72.8 %; Nucleated Red Blood Cells % 0 %; Platelet Count 334 10^3/cmm (130-400); Red Blood Count 3.02 10^6/uL (4.1-5.3); Red Cell Distribution Width 13.2 % (12.1-15.1); White Blood Count 10.3 10^3/uL (4.0-10.0)
[2021-11-18 06:00] LABS: Alanine Aminotransferase 18 U/L (0-41); Albumin Level 3.1 g/dL (3.5-5.2); Alkaline Phosphatase 82 IU/L (40-130); Anion Gap 13.4 (5-19); Aspartate Amino Transferase 24 U/L (0-40); Blood Urea Nitrogen 21 mg/dL (6-20); C Reactive Protein 220.9 mg/L (0.0-4.9); Calcium 9.6 mg/dL (8.5-10.5); Carbon Dioxide 26 mmol/L (22-29); Chloride 99 mmol/L (98-107); Globulin 4.5 g/dL (1.3-4.6); Glomerular Filtration Rate 87.3 mL/min (90-130); Glucose 136 mg/dL (65-115); Osmolality Calculated 283 mOsm/kg (285-295); Phosphorus 3.7 mg/dL (2.5-4.5); Potassium 4.4 mmol/L (3.5-5.1); Sodium 134 mmol/L (136-145); Total Bilirubin 0.3 mg/dL (0.15-1.2); Total Protein 7.6 g/dL (6.6-8.7)
[2021-11-18 06:10] LABS: Procalcitonin 0.12 ng/mL (0-0.5)
[2021-11-18 06:42] LABS: Glucose Point of Care 135 mg/dL (70-110)
--- NOTE | 2021-11-18 07:19 | P.PN_ITS ---
Subjective Subjective: Mr. Luke seen bedside this morning 1 day status post incision and debridement and fifth metatarsectomy left foot due to diabetic foot infection down to bone. Minimal strikethrough bleeding at the dressing. Patient denies any left foot pain. States that overall he is feeling better less nauseous. White count trending down. Patient denies any subjective nausea, vomiting, fever, chills, shortness of breath or chest pain. Vitals/I&O/Wt Last Vital Signs Temp 98.0 F 11/18/21 00:00 Pulse 66 11/18/21 04:00 Resp 17 11/18/21 04:14 BP 126/72 11/18/21 05:11 Pulse Ox 94 11/18/21 04:00 11/17/21 11/18/21 11/18/21 22:59 06:59 14:59 Intake Total 640 / 2203.2 120 / 2323.2 Balance 640 / 2183.2 120 / 2303.2 Physical Exam Narrative: GENERAL: Patient is alert and oriented ?3 and in no acute distress. The following is a focused left lower extremity exam. VASCULAR: Dorsalis pedis palpable, posterior tibial artery palpable. Capillary refill time less than 5 seconds to the distal hallux. Pitting edema to the left lower extremity. NEUROLOGICAL: Protective sensation intact 0/10 sites, tested with Helix Moira monofilament to left foot. DERMATOLOGICAL: Wound left plantar foot measures cm x 3.8 cm x 2 cm with periwound erythema, serosanguineous drainage. No proximal lymphangitic streaking. Surgical incision left dorsal lateral foot 9 cm in length also serosanguineous drainage. MUSCULOSKELETAL: Status post right below-knee amputation. Partial amputation to the left second toe with healed amputation stump. Mild varus position of the left foot. No pain at the left foot due to neuropathy. Status post left fifth metatarsectomy. Data : 11/18/21 05:10 11/18/21 05:10 Micro: Microbiology 11/15/21 22:14 Gram Stain - Final Other Source Wound Culture - Preliminary Strep agalactiae - (group b) 11/17/21 09:00 Gram Stain - Final Foot - #1 A&P Assessment and plan (1) Diabetic peripheral neuropathy associated with type 2 diabetes mellitus: Status: Acute (2) Non-pressure chronic ulcer of other part of left foot with necrosis of bone: Status: Acute (3) Cellulitis of left foot: Status: Acute (4) Deep vein thrombosis: Status: Acute Plan 56-year-old uncontrolled diabetic male with acute osteomyelitis left fifth metatarsal. -1 day status post incision and debridement and fifth metatarsectomy left foot performed 11/17/2021 -Patient to be nonweightbearing to the left lower extremity may heel touch for transfers only. -Dressing change saline wet-to-dry this a.m. improved erythema and cellulitis -Going for IVC filter placement this afternoon. -Noninvasive vascular studies performed 05/03/2021 ankle-brachial index was 1.0 on the left with normal waveforms and normal velocities. -Will continue saline wet-to-dry 3 times daily until soft tissue improves then likely transition to wound VAC during this hospital stay. -Recommend continuation of empiric antibiotics until bone culture has resulted, culture taken intraoperatively of the left fifth metatarsal 11/17/2021 preliminary results shows gram-positive cocci. Podiatry will follow. Attestations Medical Necessity Statement*: Diabetic foot infection Coding Level of Care Code Acute Attractions Associate for [facility] Diagnoses Diabetic peripheral neuropathy associated with type 2 diabetes mellitus E11.42 Non-pressure chronic ulcer of other part of left foot with necrosis of bone L97.524 Cellulitis of left foot L03.116 Deep vein thrombosis I82.409
[2021-11-18] MEDS: pantoprazole 40 mg SDV IVP ×2 (08:36→21:09)
[2021-11-18] MEDS: linezolid premix 600 MG/300 ML PREMIX 300 MG IV ×2 (08:38→18:22)
--- NOTE | 2021-11-18 08:38 | P.PN_ITS ---
Subjective Subjective: Mr. Luke had a good night. He has no complaints. He currently maintains n.p.o. for planned IVC filter placement later today. Vitals/I&O/Wt Last Vital Signs Temp 98.0 F 11/18/21 00:00 Pulse 66 11/18/21 04:00 Resp 17 11/18/21 04:14 BP 126/72 11/18/21 05:11 Pulse Ox 94 11/18/21 04:00 11/17/21 11/18/21 11/18/21 22:59 06:59 14:59 Intake Total 640 / 2203.2 120 / 2323.2 Balance 640 / 2183.2 120 / 2303.2 Physical Exam Resp: COMMON NORMALS: normal respiratory effort, No use of accessory muscles and clear to auscultation bilaterally AUSCULTATION: clear to auscultation bilaterally Cardio: COMMON NORMALS: regular rate, regular rhythm, S1 normal heart sound present and No murmurs present (Cardio) RATE: regular rate RHYTHM: regular rhythm HEART SOUNDS: S1 normal heart sound present Extremity: NARRATIVE EXTREMITY EXAM: Surgical dressing remains in place over his left foot. Data : 11/18/21 05:10 11/18/21 05:10 Micro: Microbiology 11/15/21 22:14 Gram Stain - Final Other Source Wound Culture - Preliminary Strep agalactiae - (group b) 11/17/21 09:00 Gram Stain - Final Foot - #1 A&P Assessment and plan (1) Deep vein thrombosis: Left lower extremity DVT Planned IVC filter placement this afternoon. Status: Acute Attestations Medical Necessity Statement*: Left lower extremity DVT Coding Level of Care Code Acute Pad Extraction Tender for [facility] Diagnoses Deep vein thrombosis I82.409
[2021-11-18] MEDS: chlorhexidine gluconate 4% Btl 118 mL 1 APPLIC TOPICAL ×2 (08:39→18:23)
--- NOTE | 2021-11-18 09:36 | PC.OT ---
OT EVALUATION ORDERS RECEIVED. HOLD OT EVALUATION TODAY DUE TO IVC FILTER PLACEMENT SCHEDULED.
[2021-11-18] MEDS: insulin glargine 100 units/1 mL 20 UNIT SUBCUT (09:41)
[2021-11-18] MEDS: lactated ringers 1,000 ML 125 ML IV (09:42)
[2021-11-18 12:08] LABS: Glucose Point of Care 128 mg/dL (70-110)
[2021-11-18] MEDS: sodium chloride 0.9% 1,000 ML 30 ML IV (14:03)
--- NOTE | 2021-11-18 14:23 | P.ANESASSM_ITS ---
Pre-Anesthetic Assessment Height/Weight: Height 1.8 m Weight 158.757 kg Temp Pulse Resp BP Pulse Ox 97.6 F 77 18 137/85 95 11/18/21 13:48 11/18/21 13:48 11/18/21 13:48 11/18/21 13:48 11/18/21 13:48 Preop Diagnosis: Osteomyelitis left foot Operation Date: 11/17/21 08:20 Proposed Procedures p Incision and Debridement left foot(Left) - Barry Monk DPM Operation Date: 11/18/21 14:30 Proposed Procedures p Vena Cava Filter Insertion(Not Applicable) - William Richardson MD Familial anesthetic complications: None Was Beta Nery taken within 24 hours: Yes Was Clonidine taken within 24 hours: N/A Last intake: Intake Last Liquid Date 11/16/21 Last Liquid Time 18:00 Last Solid Date 11/16/21 Last Solid Time 18:00 Social No alcohol and No tobacco Exam alert, oriented x 3, clear to auscultation bilaterally and regular rate & rhythm Airway Submandibular: within normal limits Cervical ROM: within normal limits Mallampati: Class II Dentition: chipped Pulmonary Exertional Dyspnea and Sleep Apnea CV/HEM Anemia, Coronary Artery Disease, Congestive Heart Failure, Deep Vein Thrombosis and Hypertension Metabolic Diabetes Mellitus, Hyperlipidemia and Morbid Obesity Anesthetic Plan ASA status: 3 Anesthesia: Choice Medications/Allergies Home Medications Medication Instructions Recorded Confirmed Last Taken Type acetaminophen 500 mg tablet 1,000 mg PO Q4H PRN 04/30/21 11/15/21 11/15/21 14:00 History (Tylenol Extra Strength) duloxetine 60 mg capsule,delayed 60 mg PO QAM 04/30/21 11/15/21 11/15/21 History release insulin glargine 100 unit/mL (3 68 unit SUBCUT BID 04/30/21 11/15/21 11/15/21 09:00 History mL) subcutaneous pen (Lantus Solostar U-100 Insulin) [id number] tablet 1 tab PO QAM 04/30/21 11/15/21 11/15/21 History pantoprazole 40 mg tablet,delayed 40 mg PO BID 04/30/21 11/15/21 11/15/21 09:00 History release pioglitazone 15 mg tablet 15 mg PO BID@04/30/21 11/15/21 11/15/21 09:00 History trazodone 100 mg tablet 50 - 100 mg PO BEDTIME 04/30/21 11/15/21 11/14/21 History atorvastatin 80 mg tablet 80 mg PO DAILY@22 30 Days #30 tab 05/04/21 11/15/21 Unknown Rx nitroglycerin 0.4 mg sublingual 0.4 mg SUBLINGUAL Q5M PRN #30 tab 05/06/21 11/15/21 Unknown Rx tablet carvedilol 12.5 mg tablet (Coreg) 12.5 mg PO BID #180 tab 05/28/21 11/15/21 11/15/21 09:00 Rx aspirin 81 mg tablet,delayed 81 mg PO QAM 11/15/21 11/15/21 11/15/21 09:00 History release cholecalciferol (vitamin D3) 25 25 mcg PO DAILY 11/15/21 11/15/21 Unknown Hi story mcg (1,000 unit) tablet (Vitamin D3) gabapentin 300 mg capsule 300 mg PO DAILY PRN 11/15/21 11/15/21 Unknown History insulin aspart U-100 100 unit/mL See Rx Instructions .ROUTE .COMPLEX 11/15/21 11/15/21 Unknown History (3 mL) subcutaneous pen (Novolog Flexpen U-100 Insulin aspart) levofloxacin 500 mg tablet 500 mg PO DAILY 11/15/21 11/15/21 11/15/21 History loratadine 10 mg tablet (Claritin) 10 mg PO QAM 11/15/21 11/15/21 11/15/21 09:00 History losartan 100 mg tablet 100 mg PO QAM 11/15/21 11/15/21 11/15/21 09:00 History spironolactone 25 mg tablet 50 mg PO QAM 11/15/21 11/15/21 11/15/21 History Allergies Allergy/AdvReac Type Severity Reaction Status Date / Time atorvastatin [From Lipitor] Allergy ADR-Muscle Verified 08/09/21 10:16 Pain vancomycin Allergy ALGY-Anaphy Verified 11/15/21 17:32 laxis Current Medications Generic Name Dose Route Start Last Admin Trade Name Freq PRN Reason Stop Dose Admin Acetaminophen 650 mg 11/15/21 21:44 11/17/21 17:46 Acetaminophen 325 Mg Tablet PO 650 mg Q6H PRN Administration Mild/Mod Pain Or Temp >/= 101 Aspirin 81 mg 11/16/21 06:00 11/18/21 05:11 Aspirin 81 Mg Ec Tablet PO 81 mg QAM MARJORIE Administration Atorvastatin Calcium 80 mg 11/16/21 22:00 11/17/21 21:45 Atorvastatin 40 Mg Tablet PO 80 mg DAILY@22 MARJORIE Administration Carvedilol 12.5 mg 11/16/21 09:00 11/16/21 08:00 Carvedilol 12.5 Mg Tablet PO 12.5 mg BID MARJORIE Administration Chlorhexidine Gluconate 1 applic 11/17/21 18:00 11/18/21 08:39 Chlorhexidine Gluconate 4% Btl 118 Ml TOPICAL 1 applic BID MARJORIE Administration Duloxetine HCl 60 mg 11/16/21 06:00 11/18/21 05:11 Duloxetine 60 Mg Capsule PO 60 mg QAM MARJORIE Administration Piperacillin Sod/Tazobactam 50 mls @ 12.5 mls/hr 11/15/21 19:30 11/18/21 13:02 Sod 3.375 gm/ Sodium Chloride IV 12.5 mls/hr Q8H MARJORIE Administration Protocol Linezolid 600 mg in 300 mls @ 300 mls/hr 11/16/21 06:00 11/18/21 10:02 Zyvox Premix IV Infused Q12H MARJORIE Infusion Protocol Lactated Ringer's 1,000 mls @ 125 mls/hr 11/18/21 08:45 11/18/21 09:42 Lactated Ringers IV 125 mls/hr .Q8H MARJORIE Administration Sodium Chloride 1,000 mls @ 30 mls/hr 11/18/21 14:00 11/18/21 14:03 Sodium Chloride 0.9% IV 11/19/21 13:59 30 mls/hr .Q24H MARJORIE Administration Insulin Glargine 68 unit 11/16/21 09:00 11/18/21 09:42 Insulin Glargine 100 Units/1 Ml SUBCUT Not Given BID MARJORIE Insulin Human Lispro 0 unit 11/15/21 21:44 11/18/21 12:35 Insulin Lispro 100 Unit/1 Ml SUBCUT Not Given WM&BEDTIME MARJORIE Protocol Losartan Potassium 100 mg 11/16/21 06:00 11/18/21 05:11 Losartan 50 Mg Tablet PO 100 mg QAM MARJORIE Administration Morphine Sulfate 2 mg 11/15/21 21:44 11/18/21 08:48 Morphine 4 Mg/Ml Sdv 1 Ml IVP 2 mg Q4H PRN Administration SEVERE PAIN Ondansetron HCl 4 mg 11/15/21 21:44 11/16/21 15:26 Ondansetron 2 Mg/Ml Sdv 2 Ml IVP 4 mg Q6H PRN Administration vomiting, or N/V if npo Pantoprazole Sodium 40 mg 11/16/21 20:00 11/18/21 08:36 Pantoprazole 40 Mg Sdv IVP 40 mg Q12H MARJORIE Administration Polyethylene Glycol 17 gm 11/17/21 11:00 11/18/21 08:40 Polyethylene Glycol 3350 Pkt 17 Gm PO Not Given DAILY MARJORIE Spironolactone 50 mg 11/16/21 06:00 11/16/21 06:28 Spironolactone 25 Mg Tablet PO 50 mg QAM MARJORIE Administration Sucralfate 1 gm 11/16/21 16:30 11/18/21 05:11 Sucralfate 1 Gm Tablet PO 1 gm Q12H MARJORIE Administration Trazodone HCl 50 mg 11/15/21 21:44 11/17/21 21:45 Trazodone 100 Mg Tablet PO 50 mg BEDTIME MARJORIE Administration PFSH Anesthesia Medical History CHF (congestive heart failure), NYHA class III COVID-19 Diabetes mellitus HTN (hypertension) Surgical History History of right below knee amputation Social History Alcohol intake: never Data Anesthesia : 11/18/21 05:10 11/18/21 05:10 Short CBC 11/16/21 11/17/21 11/17/21 Range/Units 18:52 00:13 04:58 WBC 15.1 H (4.0-10.0) 10^3/uL Hgb 9.1 L 8.6 L 8.5 L (11.7-16.6) g/dL Hct 29.1 L 27.1 L 26.4 L (42.0-52.0) % MCV 87.7 (80-94) fl Plt Count 333 (130-400) 10^3/cmm Neut % (Auto) 77.2 % Neut # (Auto) 11.68 H (1.8-7.7) 10^3/uL 11/17/21 11/17/21 11/17/21 Range/Units 11:59 18:25 23:04 WBC (4.0-10.0) 10^3/uL Hgb 8.8 L 8.7 L 8.6 L (11.7-16.6) g/dL Hct 27.7 L 28.0 L 27.4 L (42.0-52.0) % MCV (80-94) fl Plt Count (130-400) 10^3/cmm Neut % (Auto) % Neut # (Auto) (1.8-7.7) 10^3/uL 11/18/21 Range/Units 05:10 WBC 10.3 H (4.0-10.0) 10^3/uL Hgb 8.4 L (11.7-16.6) g/dL Hct 26.9 L (42.0-52.0) % MCV 89.1 (80-94) fl Plt Count 334 (130-400) 10^3/cmm Neut % (Auto) 72.8 % Neut # (Auto) 7.46 (1.8-7.7) 10^3/uL BMP 11/17/21 11/18/21 04:58 05:10 Sodium 129 L 134 L Potassium 4.3 4.4 Chloride 96 L 99 Carbon Dioxide 23 26 BUN 41 H 21 H Creatinine 1.2 0.9 Glucose 174 H 136 H Calcium 9.2 9.6 Liver Function 11/17/21 11/18/21 Range/Units 04:58 05:10 Total Bilirubin 0.3 0.3 (0.15-1.2) mg/dL AST 13 24 (0-40) U/L ALT 12 18 (0-41) U/L Alkaline Phosphatase 69 82 (40-130) IU/L Albumin 2.6 L 3.1 L (3.5-5.2) g/dL Coags 11/16/21 11/17/21 11/18/21 20:13 04:58 05:10 APTT 60.1 H C-Reactive Protein 27.0 H 220.9 H Microbiology 11/15/21 22:14 Gram Stain - Final Other Source Wound Culture - Preliminary Strep agalactiae - (group b) 11/17/21 09:00 Gram Stain - Final Foot - #1 Tissue Culture - Preliminary Strep agalactiae - (group b) Cardiac Studies: Echocardiogram 05/02/21 Sestamibi Stress Test (Cardiology) 05/04/21
--- NOTE | 2021-11-18 14:30 | SC_ITS ---
WS: [id number] Exam: C-arm FL for CVA [id number] Date/Time of Exam: 11/18/2021 2:30 PM Reason For Exam: IVC filter placement A single anterior posterior C-arm image of the mid abdomen is submitted for evaluation. An IVC filter superimposes the right lateral aspect of the L2 vertebral body. A guidewire is noted ju st inferior to the filter. No other significant finding on this limited study.
[2021-11-18] MEDS: lidocaine 1% INJ 50 mL 30 ML INJECTION (15:54)
--- NOTE | 2021-11-18 16:15 | PM.PN ---
Subjective Subjective: Patient was seen this morning, is at bedside, he is wearing his IVC filter placement, no fevers overnight, no cough, no chills Vitals/I&O/Wt Last Vital Signs Temp 97.6 F 11/18/21 13:48 Pulse 77 11/18/21 13:48 Resp 18 11/18/21 13:48 BP 137/85 11/18/21 13:48 Pulse Ox 95 11/18/21 13:48 11/18/21 11/18/21 11/18/21 06:59 14:59 22:59 Intake Total 120 / 2323.2 350 / 350 Balance 120 / 2303.2 350 / 350 Physical Exam Const: COMMON NORMALS: no acute distress and patient oriented x3 Resp: COMMON NORMALS: normal respiratory effort, No retractions, No use of accessory muscles and clear to auscultation bilaterally AUSCULTATION: clear to auscultation bilaterally Cardio: COMMON NORMALS: regular rate, regular rhythm, S1 normal heart sound present and S2 normal heart sound present RATE: regular rate RHYTHM: regular rhythm HEART SOUNDS: S1 normal heart sound present and S2 normal heart sound present GI: COMMON NORMALS: Normal to inspection, nondistended, normoactive bowel sounds present, Soft to palpation and non-tender PALPATION: Yes Soft to palpation Extremity: NARRATIVE EXTREMITY EXAM: Left lower extremity wrapped and bandaged Neuro: COMMON NORMALS: patient oriented x3 Psych: COMMON NORMALS: mental status grossly normal Data : 11/18/21 05:10 11/18/21 05:10 Micro: Microbiology 11/17/21 09:00 Anaerobic Culture - Preliminary Bone 11/15/21 22:14 Gram Stain - Final Other Source Wound Culture - Preliminary Strep agalactiae - (group b) 11/17/21 09:00 Gram Stain - Final Foot - #1 Tissue Culture - Preliminary Strep agalactiae - (group b) A&P Assessment and plan (1) Deep vein thrombosis: Status: Acute (2) Cellulitis of left foot: Status: Acute (3) Non-pressure chronic ulcer of other part of left foot with necrosis of bone: Status: Acute (4) Diabetic peripheral neuropathy associated with type 2 diabetes mellitus: Status: Acute (5) Sepsis: Status: Acute (6) Diabetic foot ulcer: Status: Acute Qualifiers: Diabetes mellitus type: type 2 Diabetic foot ulcer location: midfoot Laterality: left Non-pressure ulcer stage: with other severity Qualified Code(s): E11.621 - Type 2 diabetes mellitus with foot ulcer; L97.428 - Non-pressure chronic ulcer of left heel and midfoot with other specified severity (7) HTN (hypertension): Status: Acute Qualifiers: Hypertension type: essential hypertension Qualified Code(s): I10 - Essential (primary) hypertension (8) Acute on chronic anemia: Status: Acute Plan 56-year-old uncontrolled diabetic male with acute osteomyelitis left fifth metatarsal. Diabetic foot ulcer, with evidence of acute osteomyelitis left fifth metatarsal, exposed bone, with sepsis -Status post bedside debridement 11/16/2021 -s/p Devitalized bone left fifth metatarsal wound extended directly to bone with poor density and purulence 11/17/2021 -Follow blood cultures negative so far, wound cultures group B strep -Continue Zosyn, Zyvox -Full code -lovenox for DVT prophylaxis Left lower extremity DVT, did not tolerate heparin due to anemia, will have IVC filter placement -Currently undergoing plans for IVC filter placement Acute on chronic anemia, chronically hemoglobin between 9 and 10, denies a history of GI bleed, denies history of transfusions, no history of colonoscopy -hgb down to 8.4 -Low iron, elevated ferritin, seems to indicate component of iron deficiency anemia and anemia of chronic disease -Protonix, Carafate -Hemoglobin every 6 hours -Transfuse if hemoglobin less than 7 -IVC filter placement Attestations Medical Necessity Statement*: Patient requires hospitalization for left lower extremity cellulitis, left lower extremity DVT, require wound VAC, IVC filter placement antibiotic therapy Coding Level of Care Code Acute General Pediatrician for [facility] Diagnoses Deep vein thrombosis I82.409 Cellulitis of left foot L03.116 Non-pressure chronic ulcer of other part of left foot with necrosis of bone L97.524 Diabetic peripheral neuropathy associated with type 2 diabetes mellitus E11.42 Sepsis A41.9 Diabetic foot ulcer E11.621; L97.428 Diabetes mellitus type: type 2 Diabetic foot ulcer location: midfoot Laterality: left Non-pressure ulcer stage: with other severity HTN (hypertension) I10 Hypertension type: essential hypertension Acute on chronic anemia D64.9
[2021-11-18] MEDS: ceFAZolin 1,000 mg SDV 1000 MG IRRIGATION (16:17)
--- NOTE | 2021-11-18 16:26 | PM.OP ---
Operative Report Date of procedure: November 18, 2021 Pre-op diagnosis: Preop Diagnosis left lower extremity DVT Post-op diagnosis: same Procedure done: IVC filter placement Implants: IVC filter Specimens removed/disposition: None Pathology: none sent Surgeon: William Richardson Complications: None Brief History: Mr. Luke is a 56-year-old obese diabetic gentleman with osteomyelitis of the left fifth metatarsal who underwent surgical debridement by Dr. Monk. He was noted to have left leg swelling and confirmed DVT by ultrasound. He was initiated on anticoagulation but due to continuing drop in his hematocrit, this was felt to be a contraindication. Therefore, IVC filter placement was requested. Rationale, details of risk the procedure were carefully and frankly discussed with Mr. Luke and his . Appropriate consents have been reviewed and signed. Procedure: The entire abdomen, lower chest, groin area, perineal area, and thighs to the level of the knees were sterilely prepped and draped. Utilizing modified Seldinger technique with handheld ultrasound identification and guidance, the right common femoral vein was aspirated and a guidewire was placed under fluoroscopic guidance. Following incision of the skin with a #11 scalpel blade and predilation, dilator and #7 mongolian sheath were then advanced over a 0.035 inch guidewire under fluoroscopic guidance. Next, Omnipaque was utilized to perform a venogram for proper assessment of the renal veins. Next, a preloaded IVC filter introducer was advanced through the sheath under fluoroscopic guidance into position. Following this, filter was released with fluoroscopic guidance and observation. The filter seated well with minimal angulation. Introducer and sheath were then withdrawn and direct pressure was held on the groin area for 10 minutes until hemostasis was confirmed. A weighted pressure dressing was then applied. Mr. Luke tolerated procedure well and was awakened from anesthesia. Vital signs remained stable throughout the procedure. He was transported to the postoperative care unit. I counseled with his at the completion of the procedure.
--- NOTE | 2021-11-18 17:13 | ANE.PACU2 ---
Inpatient post-anesthesia follow up: Airway intact: Yes Vital signs: Temperature 97.2 F Pulse Rate 73 Respiratory Rate 16 Blood Pressure 120/80 Pulse Oximetry 98 Oxygen Delivery Me thod [ Room Air Current Rate & Del daniella] Oxygen Delivery Me thod Room Air Oxygen Flow Rate 6 Fraction of Inspir ed Oxygen Hydration adequate: Yes Nausea and vomiting: No Pain level: 1 Mental status: Baseline
[2021-11-18 17:57] LABS: Glucose Point of Care 104 mg/dL (70-110)
[2021-11-18] MEDS: insulin glargine 100 units/1 mL 68 UNIT SUBCUT (18:23)
[2021-11-18] MEDS: carvedilol 12.5 mg Tablet PO (18:23)
--- NOTE | 2021-11-18 18:24 | PC.NURSE ---
Changed wound dressing. Patient's dressing was removed. Cleansed with Normal Saline. Saline soaked sterile 4x4 applied then dry 4x4, abd, kerlix, and lashay wrap. Patient tolerated well.
--- NOTE | 2021-11-18 19:44 | PC.NURSE ---
Patient went down for IVC filter placement. Post procedure monitoring in process, vitals stable and dressing is dry, clean, and intact. Wound care done by MIREYA Lyles. Abx given as order. Pain medications given by request. Patient is had adequate urine output throughout the shift, no bowel movement. Report given to night nurse STEW Clark.
[2021-11-18] MEDS: trazodone 100 mg Tablet 50 MG PO (20:36)
[2021-11-18] MEDS: atorvastatin 40 mg Tablet 80 MG PO (20:36)
[2021-11-18 21:03] LABS: Glucose Point of Care 155 mg/dL (70-110)
[2021-11-18] MEDS: insulin lispro 100 unit/1 mL SUBCUT (21:29)
[2021-11-19] VITALS (8 sets, daily range): BP systolic 110–136; BP diastolic 62–76; PULSE 67–84; RESP 18; TEMP 36.6–37.1; O2SAT 91–98
[2021-11-19] MEDS: morphine 4 mg/mL SDV 1 mL 2 MG IVP (01:29)
[2021-11-19] MEDS: piperacillin-tazobactam 3.375 GM in sodium chloride 0.9% (plus) 50 ML IV ×2 (02:41→11:02)
[2021-11-19] MEDS: duloxetine 60 mg Capsule PO (05:23)
[2021-11-19] MEDS: losartan 50 mg Tablet 100 MG PO (05:23)
[2021-11-19] MEDS: aspirin 81 mg EC Tablet PO (05:23)
[2021-11-19] MEDS: sucralfate 1 gm Tablet PO (05:24)
[2021-11-19] MEDS: spironolactone 25 mg Tablet 50 MG PO (05:26)
[2021-11-19 06:01] LABS: Basophils % 0.5 %; Eosinophils # 0.3 10^3/uL (0.0-0.8); Eosinophils % 3.2 %; Hematocrit 26.7 % (42.0-52.0); Hemoglobin 8.4 g/dL (11.7-16.6); Lymphocytes # 1.5 10^3/uL (0.8-4.8); Lymphocytes % 17.3 %; Mean Corpuscular HGB Conc 31.5 g/dL (30.0-36.0); Mean Corpuscular Hemoglobin 28.1 pg (28.0-34.0); Mean Corpuscular Volume 89.3 fl (80-94); Mean Platelet Volume 11.2 fL (7.4-10.4); Monocytes # 0.6 10^3/uL (0.2-0.9); Monocytes % 6.9 %; Neutrophils # 6.28 10^3/uL (1.8-7.7); Neutrophils % 71.8 %; Nucleated Red Blood Cells % 0 %; Platelet Count 340 10^3/cmm (130-400); Red Blood Count 2.99 10^6/uL (4.1-5.3); Red Cell Distribution Width 13.1 % (12.1-15.1); White Blood Count 8.7 10^3/uL (4.0-10.0)
[2021-11-19 06:22] LABS: Alanine Aminotransferase 22 U/L (0-41); Albumin Level 2.9 g/dL (3.5-5.2); Alkaline Phosphatase 76 IU/L (40-130); Anion Gap 14.9 (5-19); Aspartate Amino Transferase 22 U/L (0-40); Blood Urea Nitrogen 15 mg/dL (6-20); C Reactive Protein 174.8 mg/L (0.0-4.9); Calcium 9.3 mg/dL (8.5-10.5); Carbon Dioxide 27 mmol/L (22-29); Chloride 98 mmol/L (98-107); Globulin 4.3 g/dL (1.3-4.6); Glucose 156 mg/dL (65-115); Osmolality Calculated 286 mOsm/kg (285-295); Phosphorus 4.1 mg/dL (2.5-4.5); Potassium 3.9 mmol/L (3.5-5.1); Sodium 136 mmol/L (136-145); Total Bilirubin 0.3 mg/dL (0.15-1.2); Total Protein 7.2 g/dL (6.6-8.7)
[2021-11-19 06:24] LABS: Procalcitonin 0.07 ng/mL (0-0.5)
[2021-11-19 06:26] LABS: Glucose Point of Care 144 mg/dL (70-110)
--- NOTE | 2021-11-19 06:31 | PC.NURSE ---
SHIFT SUMMARY Says he woke up several times through the night. Medicated X2 with IV Morphine for pain. Dressing to left foot C&D. DReceiving IV antibiotics. Voiding per urinal and taking po fluids well. at bedside
[2021-11-19] MEDS: linezolid premix 600 MG/300 ML PREMIX 300 MG IV (06:59)
[2021-11-19] MEDS: polyethylene glycol 3350 Pkt 17 gm PO (07:57)
[2021-11-19] MEDS: insulin lispro 100 unit/1 mL SUBCUT ×2 (07:57→14:52)
[2021-11-19] MEDS: insulin glargine 100 units/1 mL 68 UNIT SUBCUT (07:57)
[2021-11-19] MEDS: pantoprazole 40 mg SDV IVP (07:58)
[2021-11-19] MEDS: carvedilol 12.5 mg Tablet PO (07:58)
[2021-11-19 12:36] LABS: Glucose Point of Care 204 mg/dL (70-110)
--- NOTE | 2021-11-19 16:20 | P.DS_ITS ---
Discharge Providers Date of Admission: 11/15/21 18:29 Date of Discharge: November 19, 2021 Attending Provider at Admission: Mando Ro MD Attending Provider at Discharge: Niraj Ocampo MD Primary Care Provider: HANNAH Mason Diagnoses at Discharge Discharge Diagnosis (1) Deep vein thrombosis: Status: Acute (2) Cellulitis of left foot: Status: Acute (3) Non-pressure chronic ulcer of other part of left foot with necrosis of bone: Status: Acute (4) Diabetic peripheral neuropathy associated with type 2 diabetes mellitus: Status: Acute (5) Sepsis: Status: Acute (6) Diabetic foot ulcer: Status: Acute Qualifiers: Diabetes mellitus type: type 2 Diabetic foot ulcer location: midfoot Laterality: left Non-pressure ulcer stage: with other severity Qualified Code(s): E11.621 - Type 2 diabetes mellitus with foot ulcer; L97.428 - Non- pressure chronic ulcer of left heel and midfoot with other specified severity (7) HTN (hypertension): Status: Acute Qualifiers: Hypertension type: essential hypertension Qualified Code(s): I10 - Essential (primary) hypertension (8) Acute on chronic anemia: Status: Acute Reason for Visit Reason for Visit: Fever Hospital Course Hospital Course Pleasant 56-year gentleman with history of diabetes, CHF, HTN, nonhealing ulcer of left foot following with wound care clinic, wound has been there since April, patient has been told there is bone exposure, presented to ER due to fever of 101 Fahrenheit at home, noted here with leukocytosis 15.5, sinus tachycardia 106. Patient was admitted to [facility] for diabetic foot ulcer with evidence of acute osteomyelitis of the left fifth metatarsal with exposed bone with sepsis, status post devitalized bone left fifth metatarsal, cultures have shown group B strep, remained afebrile, blood cultures negative, as bone was removed, decision was made to pursue oral antibiotics. Patient will be discharged on 7 days of doxy Augmentin, wound VAC with a follow-up with Dr. Monk as outpatient Patient also developed a left lower extremity DVT, did not tolerate heparin due to anemia, had an IVC filter placed during his hospitalization, follow with Dr. Richardson as outpatient. Patient was advised to continue to ambulate, continue range of motion exercises. Patient was also found to have acute on chronic anemia, chronic anemia likely secondary to anemia chronic disease, during his hospitalization, hemoglobin declined due to anticoagulation, no transfusion required, concerning for slow GI bleed, managed with Protonix, Carafate, no hemodynamic compromise. Although his Hemoccult stools were negative, highly suspicious for acute GI bleed, follow-up with general surgery as outpatient for consideration of EGD and colonoscopy Physical Exam Const: COMMON NORMALS: no acute distress and patient oriented x3 Resp: COMMON NORMALS: normal respiratory effort, No retractions, No use of accessory muscles and clear to auscultation bilaterally AUSCULTATION: clear to auscultation bilaterally Cardio: COMMON NORMALS: regular rate, regular rhythm, S1 normal heart sound present and S2 normal heart sound present RATE: regular rate RHYTHM: regular rhythm HEART SOUNDS: S1 normal heart sound present and S2 normal heart sound present GI: COMMON NORMALS: Normal to inspection, nondistended, normoactive bowel sounds present, Soft to palpation and non-tender PALPATION: Yes Soft to palpation Extremity: COMMON NORMALS: no pedal edema Neuro: COMMON NORMALS: patient oriented x3 Psych: COMMON NORMALS: mental status grossly normal Discharge Data Studies Completed and Pending Completed Studies During Hospitalization Category Date Time Status XR foot LT min 3V* [id number] Routine Exams 11/16/21 20:39 Completed XR foot LT min 3V* [id number] Routine Exams 11/17/21 14:22 Completed XR foot LT min 3V* [id number] Stat Exams 11/15/21 16:44 [place] [id number] Stat Ultrasound 11/15/21 17:42 Completed Pending at discharge Category Date Time Status Anaerobic Culture Routine Lab 11/17/21 09:00 Results Blood Culture Stat Lab 11/15/21 18:04 Results Tissue Culture and Gram Stain Routine Lab 11/17/21 09:00 Results Pathology: Surgical [PTH] Routine Pth 11/17/21 09:15 Received Radiology Impressions Venous Duplex 11/15/21 17:42 IMPRESSION: 1. Hypoechoic, occlusive thrombus in the proximal profunda femoral vein. 2. Heterogeneous, occlusive thrombus in the greater saphenous vein at the level of the ankle. ADDENDUM: 11/15/212009 ADDENDUM: THIS REPORT CONTAINS FINDINGS THAT MAY BE CRITICAL TO PATIENT CARE. The findings were verbally communicated via telephone conference with Dr. Contreras at 8:07 PM CDT on 11/15/2021. The findings were acknowledged and understood. Foot X-Ray 11/17/21 14:22 IMPRESSION: 1. Surgical removal of the fifth metatarsal as indicated above. Additional chronic findings as noted. Laboratory Results WBC 8.7 10^3/uL (4.0-10.0) 11/19/21 05:06 RBC 2.99 10^6/uL (4.1-5.3) L 11/19/21 05:06 Hgb 8.4 g/dL (11.7-16.6) L 11/19/21 05:06 Hct 26.7 % (42.0-52.0) L 11/19/21 05:06 MCV 89.3 fl (80-94) 11/19/21 05:06 MCH 28.1 pg (28.0-34.0) 11/19/21 05:06 MCHC 31.5 g/dL (30.0-36.0) 11/19/21 05:06 RDW 13.1 % (12.1-15.1) 11/19/21 05:06 Plt Count 340 10^3/cmm (130-400) 11/19/21 05:06 MPV 11.2 fL (7.4-10.4) H 11/19/21 05:06 Neut % (Auto) 71.8 % 11/19/21 05:06 Lymph % (Auto) 17.3 % 11/19/21 05:06 [place] % (Auto) 6.9 % 11/19/21 05:06 Eos % (Auto) 3.2 % 11/19/21 05:06 Baso % (Auto) 0.5 % 11/19/21 05:06 Neut # (Auto) 6.28 10^3/uL (1.8-7.7) 11/19/21 05:06 Lymph # (Auto) 1.5 10^3/uL (0.8-4.8) 11/19/21 05:06 [place] # (Auto) 0.6 10^3/uL (0.2-0.9) 11/19/21 05:06 Eos # (Auto) 0.3 10^3/uL (0.0-0.8) 11/19/21 05:06 Baso # (Auto) 0.0 10^3/uL (0.0-0.1) 11/19/21 05:06 Nucleated RBC % (auto) 0 % 11/19/21 05:06 Nucleated RBCs # 0.0 /100WBC 11/19/21 05:06 ESR 61 mm/hr (0-10) H 11/16/21 12:24 APTT 60.1 SECONDS (23.9-36.7) H 11/16/21 20:13 Sodium 136 mmol/L (136-145) 11/19/21 05:06 Potassium 3.9 mmol/L (3.5-5.1) 11/19/21 05:06 Chloride 98 mmol/L (98-107) 11/19/21 05:06 Carbon Dioxide 27 mmol/L (22-29) 11/19/21 05:06 Anion Gap 14.9 (5-19) 11/19/21 05:06 BUN 15 mg/dL (6-20) 11/19/21 05:06 Creatinine 0.8 mg/dL (0.7-1.2) 11/19/21 05:06 GFR Calculation 100.0 mL/min (90-130) 11/19/21 05:06 Glucose 156 mg/dL (65-115) H 11/19/21 05:06 POC Glucose 204 mg/dL (70-110) H 11/19/21 12:05 Calculated Osmolality 286 mOsm/kg (285-295) 11/19/21 05:06 Lactic Acid 1.1 mmol/L (0.5-2.2) 11/15/21 17:40 Calcium 9.3 mg/dL (8.5-10.5) 11/19/21 05:06 Phosphorus 4.1 mg/dL (2.5-4.5) 11/19/21 05:06 Magnesium 2.0 mg/dL (1.7-2.3) 11/19/21 05:06 Iron 16 ug/dL (59-158) L 11/16/21 05:38 Ferritin 490 ng/mL (30-400) H 11/16/21 05:38 Total Bilirubin 0.3 mg/dL (0.15-1.2) 11/19/21 05:06 AST 22 U/L (0-40) 11/19/21 05:06 ALT 22 U/L (0-41) 11/19/21 05:06 Alkaline Phosphatase 76 IU/L (40-130) 11/19/21 05:06 C-Reactive Protein 174.8 mg/L (0.0-4.9) H 11/19/21 05:06 Total Protein 7.2 g/dL (6.6-8.7) 11/19/21 05:06 Albumin 2.9 g/dL (3.5-5.2) L 11/19/21 05:06 Globulin 4.3 g/dL (1.3-4.6) 11/19/21 05:06 Procalcitonin 0.07 ng/mL (0-0.5) 11/19/21 05:06 Vitals Last Vital Signs Temp 98.7 F 11/19/21 12:00 Pulse 80 11/19/21 12:00 Resp 18 11/19/21 12:00 BP 120/76 11/19/21 12:00 Pulse Ox 96 11/19/21 12:00 Discharge Plan Discharge Patient Disposition: Home Condition: Stable Prescriptions: New doxycycline hyclate 100 mg tablet 100 mg PO BID 7 Days Qty: 14 0RF amoxicillin-pot clavulanate 875-125 mg tablet 1 tab PO BID 7 Days Qty: 14 0RF Continued nitroglycerin 0.4 mg tablet, sublingual 0.4 mg sublingual Q5M PRN (Reason: chest pain) Qty: 30 2RF Rx Instructions: do not exceed 3 doses per episode carvedilol [Coreg] 12.5 mg tablet 12.5 mg PO BID Qty: 180 3RF Rx Instructions: must administer with a meal/food pioglitazone 15 mg tablet 15 mg PO BID@ 0RF acetaminophen [Tylenol Extra Strength] 500 mg Tablet 1,000 mg PO Q4H PRN (Reason: Pain) 0RF trazodone 100 mg tablet 50 - 100 mg PO BEDTIME 0RF pantoprazole 40 mg tablet,delayed release (DR/EC) 40 mg PO BID 0RF [id number]-kwahbrcg-cvhulf Tablet 1 tab PO QAM 0RF duloxetine 60 mg capsule,delayed release(DR/EC) 60 mg PO QAM 0RF Lantus Solostar U-100 Insulin 100 unit/mL (3 mL) insulin pen 68 unit SUBCUT BID 0RF atorvastatin 80 mg tablet 80 mg PO DAILY@22 30 Days Qty: 30 0RF spironolactone 25 mg tablet 50 mg PO QAM 0RF gabapentin 300 mg Capsule 300 mg PO DAILY PRN (Reason: Pain) 0RF Claritin 10 mg Tablet 10 mg PO QAM 0RF Novolog Flexpen U-100 Insulin 100 unit/mL (3 mL) Insulin Pen See Rx Instructions .ROUTE .COMPLEX 0RF Rx Instructions: sliding scale subcutaneously tid before meals prn Vitamin D3 25 mcg (1,000 unit) Tablet 25 mcg PO DAILY 0RF aspirin 81 mg tablet,delayed release (DR/EC) 81 mg PO QAM 0RF losartan 100 mg tablet 100 mg PO QAM 0RF Discontinued levofloxacin 500 mg tablet 500 mg PO DAILY 0RF Rx Instructions: for 14 days (rx filled 11/12/21) Discharge Orders: Discharge Order (Routine); Ordered 11/19/21 Ordered By: Niraj Ocampo Other Ambulatory Orders: DME: Walker (Order) Location: None Selected Ordered By: Niraj Ocampo DME: Wheelchair (Order) Location: None Selected Ordered By: Niraj Ocampo Referrals: Barry Monk DPM [Physician] - 1 week ([place] 2nd [place] [facility] [place] [facility] William Richardson MD [Physician] - 6 months Jamee Reddy FNP [Primary Care Provider] - Discharge Diet: Diabetic Discharge Activity: Resume usual activity Patient Instructions: Opioid Safety Activity Restrictions/Additional Instructions: -Take antibiotics as prescribed for the next 7 days -Please monitor blood sugars closely -Wound VAC as per Dr. Monk, follow with Dr. Monk next week -For your IVC filter, please follow-up with Dr. Richardson, he needs to be removed within 1 year -You have a left leg DVT, continue to do range of motion exercises, monitoring for worsening symptoms Discharge Attestations Time Spent in Discharge Care*: less than 30 min Quality Metrics Clinical Quality Measures [ Venous Thromboembolism (IVC filter placement) { Contraindication to Overlap Therapy: Medical contraindication; VTE Discharge Education: Education about anticoagulant therapy/Care Notes given;}] Coding Level of Care Code Acute g FW DC note Diagnoses Deep vein thrombosis I82.409 Cellulitis of left foot L03.116 Non-pressure chronic ulcer of other part of left foot with necrosis of bone L97.524 Diabetic peripheral neuropathy associated with type 2 diabetes mellitus E11.42 Sepsis A41.9 Diabetic foot ulcer E11.621; L97.428 Diabetes mellitus type: type 2 Diabetic foot ulcer location: midfoot Laterality: left Non-pressure ulcer stage: with other severity HTN (hypertension) I10 Hypertension type: essential hypertension Acute on chronic anemia D64.9
[2021-11-19 17:34] LABS: Glucose Point of Care 117 mg/dL (70-110)
--- NOTE | 2021-11-19 18:02 | PC.NURSE ---
patient and verbalized understanding of discharge instructions, home medications, follow up appointments, and dressing changes.
--- NOTE | 2021-11-22 07:36 | PC.SOCIAL ---
Late Entry: On 11/18/21 @ 0900: IMM updated w/ patient and copy provided. Copy placed in chart.
== END 2021-11-19 18:04 | disposition home health service (06) | DRG 854 ==
LOC: ER 18:33 → ER IP 19:08 → MEDSURG 20:20
PROVIDERS: Internal Medicine; Physician Assistant; Podiatrist Foot & Ankle Surgery; Thoracic Surgery (Cardiothoracic Vascular Surgery); Admitting Provider Internal Medicine; Emergency Provider Emergency Medicine; PCP Registered Nurse; Visit Provider Family Medicine
PROC: 0Y6Y0Z0 Detachment at Left 5th Toe, Complete, Open Approach (ICD-10-PCS; principal; 2021-11-17 08:10)
PROC: 0Y6Y0Z0 Detachment at Left 5th Toe, Complete, Open Approach (ICD-10-PCS; CPT 28140; 2021-11-17 08:10)
PROC: 06H03DZ Insertion of Intraluminal Device into Inferior Vena Cava, Percutaneous Approach (ICD-10-PCS; CPT 37191; principal; 2021-11-18 14:30)
DX: A41.9 Sepsis, unspecified organism (principal); L03.116 Cellulitis of left lower limb; L97.429 Non-pressure chronic ulcer of left heel and midfoot with unspecified severity; M86.172 Other acute osteomyelitis, left ankle and foot; I82.412 Acute embolism and thrombosis of left femoral vein; I82.812 Embolism and thrombosis of superficial veins of left lower extremity; Z68.42 Body mass index [BMI] 45.0-49.9, adult; E11.65 Type 2 diabetes mellitus with hyperglycemia; E11.42 Type 2 diabetes mellitus with diabetic polyneuropathy; E11.621 Type 2 diabetes mellitus with foot ulcer; E11.69 Type 2 diabetes mellitus with other specified complication; Z86.16 Personal history of COVID-19; Z89.511 Acquired absence of right leg below knee; I11.0 Hypertensive heart disease with heart failure; I50.9 Heart failure, unspecified; D63.8 Anemia in other chronic diseases classified elsewhere; E66.9 Obesity, unspecified; B95.1 Streptococcus, group B, as the cause of diseases classified elsewhere; Z79.82 Long term (current) use of aspirin; Z79.4 Long term (current) use of insulin
CPT/HCPCS: 36415; 36416; 73630; 76000; 77001; 80053; 82274; 82728; 82962; 83540; 83605; 83735; 84100; 84145; 85014; 85018; 85025; 85651; 85730; 86140; 87040; 87070; 87075; 87077; 87176; 87186; 87205; 88305; 88311; 93971; 96365; 96367; 96372; 96375; 96376; 97116; 97161; 97165; 99285; C1880; C9113; J0690; J1644; J1650; J1815 ×2; J2020; J2250; J2270; J2405; J2543; J2704; J3010; J7030; J7040

== ENCOUNTER 2021-11-23 15:00 | Outpatient (CLI) | payer MEDICARE, SELFPAY ==
--- NOTE | 2021-11-23 15:15 | XR_ITS ---
WS: [id number] XR chest 2V* [id number] REASON FOR EXAM: SCREENING FOR RESPIRATORY DISORDERS FINDINGS: The chest is unchanged compared to previous examination of 04/29/2021. Moderate tortuosity the thoracic aorta without aneurysmal dilatation. The heart size is within normal limits. Calcified granulomatous disease in both hemithoraces. No active pulmonary parenchymal or pleural disease is noted. Elevation of the right hemidiaphragm. Moderate changes of degenerative spondylosis in the mid and lower thoracic spine. XR/XR chest 2V* [id number] IMPRESSION: No acute chest abnormality.
--- NOTE | 2021-11-24 08:56 | ECG_ITS ---
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 Measurements Intervals [place] Rate: 77 P: 39 UT: 192 QRS: 17 QRSD: 98 T: 19 QT: 384 QTc: 435 Interpretive Statements SINUS RHYTHM LOW QRS VOLTAGE IN PRECORDIAL LEADS [QRS DEFLECTION < 1.0 mV IN CHEST LEADS] Compared to ECG 05/01/2021 21:30:57 Low QRS voltage now present Sinus tachycardia no longer present Ventricular premature complex(es) no longer present Intraventricular conduction delay no longer present T-wave abnormality no longer present Electronically Signed On 11-24-2021 18:28:06 CDT by Anna Thrasher M.D. [id number]
== END 2021-11-23 15:01 | disposition home or self-care (01) ==
LOC: RAD 15:08
PROVIDERS: PCP Registered Nurse; Visit Provider Thoracic Surgery (Cardiothoracic Vascular Surgery)
DX: Z13.83 Encounter for screening for respiratory disorder NEC (principal); Z13.6 Encounter for screening for cardiovascular disorders
CPT/HCPCS: 71046; 93005

== ENCOUNTER → 2021-11-24 12:56 | Outpatient (BNVA) | payer MEDICARE, SELFPAY | PROVIDERS: PCP Registered Nurse; Visit Provider Thoracic Surgery (Cardiothoracic Vascular Surgery) | DX: E11.621 Type 2 diabetes mellitus with foot ulcer (principal); L97.522 Non-pressure chronic ulcer of other part of left foot with fat layer exposed; L97.523 Non-pressure chronic ulcer of other part of left foot with necrosis of muscle | CPT/HCPCS: 99212; G0277 ==

== ENCOUNTER → 2021-11-25 13:09 | Outpatient (BNVA) | payer MEDICARE, SELFPAY | PROVIDERS: PCP Registered Nurse | DX: E11.621 Type 2 diabetes mellitus with foot ulcer (principal); L97.522 Non-pressure chronic ulcer of other part of left foot with fat layer exposed; M86.8X7 Other osteomyelitis, ankle and foot | CPT/HCPCS: G0277 ==

== ENCOUNTER → 2021-11-26 13:04 | Outpatient (BNVA) | payer MEDICARE, SELFPAY | PROVIDERS: PCP Registered Nurse; Visit Provider Podiatrist Foot & Ankle Surgery | DX: E11.621 Type 2 diabetes mellitus with foot ulcer (principal); L97.524 Non-pressure chronic ulcer of other part of left foot with necrosis of bone; E11.42 Type 2 diabetes mellitus with diabetic polyneuropathy | CPT/HCPCS: 99213; 99214 ==

== ENCOUNTER → 2021-11-29 13:00 | Outpatient (BNVA) | payer MEDICARE, SELFPAY | PROVIDERS: PCP Registered Nurse | DX: E11.621 Type 2 diabetes mellitus with foot ulcer (principal); L97.522 Non-pressure chronic ulcer of other part of left foot with fat layer exposed; M86.8X7 Other osteomyelitis, ankle and foot | CPT/HCPCS: G0277 ==

== ENCOUNTER → 2021-12-02 13:10 | Outpatient (BNVA) | payer MEDICARE, SELFPAY | PROVIDERS: PCP Registered Nurse | DX: E11.621 Type 2 diabetes mellitus with foot ulcer (principal); L97.529 Non-pressure chronic ulcer of other part of left foot with unspecified severity; M86.8X7 Other osteomyelitis, ankle and foot | CPT/HCPCS: G0277 ==

== ENCOUNTER 2021-12-02 18:01 | Inpatient (IN) | payer MEDICARE, SELFPAY ==
--- NOTE | 2021-12-02 | XR_ITS ---
WS: PROCEDURE INFORMATION: Exam: XR Left Foot Exam date and time: 12/02/2021 7:55 PM Age: 56 years old Clinical indication: Pain; Foot; Left TECHNIQUE: Imaging protocol: XR Left foot. Views: 1 or 2 views. COMPARISON: CR XR foot LT min 3V* [id number] 11/17/2021 2:32 PM FINDINGS: Tubes, catheters and devices: Soft tissue swelling has decreased and a new surgical drain is seen. Bones/joints: The 5th metatarsal and the 1st phalange are chronically amputated Soft tissues: Gas in the subcutaneous tissues has nearly resolved. XR/XR foot LT 2V [id number] IMPRESSION: Significantly decreased swelling and gas since the prior exam
[2021-12-02 18:16] VITALS: BP 186/101; PULSE 98; RESP 20; TEMP 36.9; O2SAT 99; BMI 47.7
--- NOTE | 2021-12-02 18:17 | ED_ITS ---
HPI - Chest Pain General: Chief Complaint: Chest Pain Stated Complaint: Lt Leg Blood Clot\Chest Pain\Fever\ Time Seen by Provider: 12/02/21 18:17 History of Present Illness: Mr. Luke is a 56-year-old gentleman with complex past medical history including hypertension, hyperlipidemia, heart failure, diabetes, history of osteomyelitis, history of right leg amputation, history of DVT with IVC filter who presents to the emergency department due to chills and chest discomfort as well as worsening leg pain. He is currently undergoing treatment in combination with wound care and podiatry for osteomyelitis. He has a wound VAC in place and was recently diagnosed with left lower extremity DVT. Starting today he had fevers with T-max at home around 101 ?F and generalized malaise. He has had some nausea. Additionally he notes chest tightness in the right of his chest however no respiratory infectious symptoms. He has moderate to severe intensity left lower extremity pain which has been worsening. He saw hyperbarics earlier and did receive treatment and this seemed to exacerbate his pain as well. Overall course of symptoms has been worsening. Intensity is moderate to severe. No other specific changes in health, exacerbating, or alleviating factors identified.. The patient recently completed a course of doxycycline approximately 4 days ago. Onset (ago): hour(s) Timing of current episode: constant and increasing Onset: during rest Pain location: substernal Severity: moderate Quality: tightness, aching and sharp Associated symptoms: Reports leg edema, nausea and other Review of Systems General: Reports: 10 or more systems reviewed and unremarkable except in HPI and below GI: Reports: nausea PFSH ED PFSH: Medical History (Updated 12/03/21 @ 07:21 by Abhishek Beverly MD) Anemia CHF (congestive heart failure), NYHA class III COVID-19 Deep vein thrombosis Diabetes mellitus HTN (hypertension) Obesity Presence of IVC filter Ulcer of left foot Surgical History History of right below knee amputation Social History Alcohol intake: never Physical Exam Const: COMMON NORMALS: alert GENERAL APPEARANCE: cooperative, well developed, in distress (Uncomfortable due to pain.) and ill appearing (Moderately, acute on chronic) HENMT: COMMON NORMALS: normocephalic and atraumatic HEAD & SCALP: normocephalic and atraumatic Eye: COMMON NORMALS: conjunctivae normal CONJUNCTIVA: Yes conjunctivae normal SCLERA: sclerae normal Neck/C-Spine: COMMON NORMALS: supple GENERAL: Yes trachea midline Resp: COMMON NORMALS: normal respiratory effort EFFORT & INSPECTION: Yes a ble to speak in complete sentences Cardio: COMMON NORMALS: regular rhythm RATE: tachycardic RHYTHM: regular rhythm GI: COMMON NORMALS: Soft to palpation PALPATION: Yes Soft to palpation and No Tenderness to palpation present (GI) PERCUSSION: normal to percussion Extremity: NARRATIVE EXTREMITY EXAM: Right lower extremity amputation. Left lower extremity with stasis skin changes, tenderness palpation, edema. Surgical incision/wound VAC appears intact GENERAL: Yes edema Neuro: COMMON NORMALS: moves all extremities SENSORIUM/ORIENTATION: Yes alert and No Orientation impaired Psych: COMMON NORMALS: mental status grossly normal and Normal thought process present THOUGHT PROCESS: Normal thought process present Course ED course: - Patient was seen and evaluated by me at bedside - Patient placed on cardiac monitors, IV access obtained - Initial evaluation notable for exam as above - Labs and xrays personally interpreted by me. EKG from 1821 and 2146 personally interpreted by me. Sinus rhythm. No STEMI. - Aspirin, analgesia given - Labs notable for leukocytosis, normocytic anemia. Metabolic panel with no acute derangement requiring intervention. CRP and ESR mildly elevated. Negative viral studies. Urinalysis pending at time of admission. - Imaging notable for no acute finding on chest x-ray, no lobar consolidation or pneumothorax. Improved appearance since prior. Ultrasound venous and arterial study pending at time of admission. However upon review of results being negative for DVT the amount of soft tissue edema noted on exam may be more related to cellulitis in nature - Antibiotics per prior visit given allergy to vancomycin - Upon serial reexamination after treatment the patient was similar to mildly improved with repeat dose of analgesia - Based on patient history, evaluation, and testing as interpreted the most likely cause of the patient's condition is acute on chronic diabetic foot infection/cellulitis - I discussed the case with Dr. Monk of the podiatry service who agreed that patient likely needs admission for reevaluation and IV antibiotics. He will plan to follow in the hospital. - The results of ED evaluation were discussed with the patient including plan for admission due to requirement for level of care not available if discharged to prevent significant worsening/deterioration. - Admitting service was contacted and Dr Desai with the hospitalist service agreed to admit the patient - Patient was admitted without further deterioration or significant events. Note: Click bubbles or prepopulated goins in note writing are used for assistance with data collection and billing and are inherently more limited than narrative and other text portions of this note. Please use narrative for additional clinical history and defer to narrative/free test for any case of contradictory information. If information appears in only free text or click bubble it should be considered present or absent as reported. Please contact note chart writer for clarifications of clinical information or contradictory information. MDM is a brief summary, contradictory or erroneous seeming information should be clarified and full note should be reviewed. Vital Signs: Vital signs: Vital Signs Temperature 97.7 F 12/05/21 08:41 Pulse Rate 85 12/05/21 08:41 Respiratory Rate 17 12/05/21 08:41 Blood Pressure 168/82 12/05/21 08:41 Pulse Oximetry 96 12/05/21 08:41 MDM - Chest Pain Medical Decision Making 56-year-old gentleman with complex past medical history including diabetic foot wounds presenting with fever/chills associated with generalized malaise and increased pain/swelling at home patient noted to meet SIRS criteria here with evidence of swelling in the affected extremity. In discussion with podiatry service patient requires admission for IV antibiotics and further assessment. Medical Records I reviewed the patient's medical records. Lab Data I reviewed the patient's lab results. : 12/05/21 05:50 12/05/21 05:50 Radiology Impressions Foot X-Ray 12/02/21 00:00 IMPRESSION: Significantly decreased swelling and gas since the prior exam Chest X-Ray 12/02/21 18:29 IMPRESSION: No acute findings. Duplex Scan Lower Extremity Artery 12/02/21 21:12 IMPRESSION: No stenosis or occlusion. Venous Duplex 12/02/21 21:12 IMPRESSION: No evidence of deep vein thrombosis. Foot MRI 12/03/21 08:00 IMPRESSION: 1. Soft tissue edema with ulceration overlying the lateral aspect of the foot. Underlying diffuse soft tissue edema. No drainable abscess or fluid collection. 2. Interval postoperative changes resection of the 5th metatarsal 3. Diffuse soft tissue edema involving the midfoot soft tissues with intertarsal edema extension. 4. Edema involving the base and proximal metatarsal shafts at the 2nd 3rd and 4th metatarsals as well as the intermediate and lateral cuneiforms and cuboid. F indings may be reactive but developing osteomyelitis not excluded in particular involving the 3rd and 4th metatarsal bases, cuboid, and lateral cuneiform. This can be followed up with gadolinium. 5. Small amount of edema in the base of the residual 5th proximal phalanx. Laboratory Results WBC 13.4 10^3/uL (4.0-10.0) H 12/02/21 18:30 RBC 3.84 10^6/uL (4.1-5.3) L 12/02/21 18:30 Hgb 10.4 g/dL (11.7-16.6) L 12/02/21 18: Hct 33.8 % (42.0-52.0) L 12/02/21 18:30 MCV 88.0 fl (80-94) 12/02/21 18: MCH 27.1 pg (28.0-34.0) L 12/02/21 18: MCHC 30.8 g/dL (30.0-36.0) 12/02/21 18: RDW 13.1 % (12.1-15.1) 12/02/21 18: Plt Count 474 10^3/cmm (130-400) H 12/02/21 18:30 MPV 10.6 fL (7.4-10.4) H 12/02/21 18:30 Neut % (Auto) 70.9 % 12/02/21 18: Lymph % (Auto) 18.9 % 12/02/21 18: [place] % (Auto) 7.4 % 12/02/21 18: Eos % (Auto) 1.8 % 12/02/21 18: Baso % (Auto) 0.5 % 12/02/21 18:30 Neut # (Auto) 9.52 10^3/uL (1.8-7.7) H 12/02/21 18:30 Lymph # (Auto) 2.5 10^3/uL (0.8-4.8) 12/02/21 18: [place] # (Auto) 1.0 10^3/uL (0.2-0.9) H 12/02/21 18:30 Eos # (Auto) 0.2 10^3/uL (0.0-0.8) 12/02/21 18:30 Baso # (Auto) 0.1 10^3/uL (0.0-0.1) 12/02/21 18:30 Nucleated RBC % (auto) 0 % 12/02/21 18:30 Nucleated RBCs # 0.0 /100WBC 12/02/21 18:30 ESR 44 mm/hr (0-10) H 12/02/21 18:30 PT 13.90 SECONDS (12.1-14.9) 12/02/21 18:30 INR 1.03 (0.8-1.2) 12/02/21 18:30 APTT 29.8 SECONDS (23.9-36.7) 12/02/21 18:30 Sodium 134 mmol/L (136-145) L 12/02/21 18:30 Potassium 4.3 mmol/L (3.5-5.1) 12/02/21 18:30 Chloride 96 mmol/L (98-107) L 12/02/21 18:30 Carbon Dioxide 28 mmol/L (22-29) 12/02/21 18:30 Anion Gap 14.3 (5-19) 12/02/21 18:30 BUN 20 mg/dL (6-20) 12/02/21 18:30 Creatinine 0.7 mg/dL (0.7-1.2) 12/02/21 18:30 GFR Calculation 116.7 mL/min (90-130) 12/02/21 18:30 Glucose 243 mg/dL (65-115) H 12/02/21 18:30 Calculated Osmolality 289 mOsm/kg (285-295) 12/02/21 18:30 Lactic Acid 1.1 mmol/L (0.5-2.2) 12/02/21 19:05 Calcium 9.8 mg/dL (8.5-10.5) 12/02/21 18:30 Iron 23 ug/dL (59-158) L 12/02/21 18:30 TIBC 223 mcg/dl 12/02/21 18:30 % Saturation 10.3 % (20-50) L 12/02/21 18:30 Unsat Iron Binding 200 ug/dL (112-347) 12/02/21 18:30 Ferritin 428 ng/mL (30-400) H 12/02/21 18:30 Total Bilirubin 0.2 mg/dL (0.15-1.2) 12/02/21 18:30 AST 11 U/L (0-40) 12/02/21 18:30 ALT 17 U/L (0-41) 12/02/21 18:30 Alkaline Phosphatase 83 IU/L (40-130) 12/02/21 18:30 Troponin T Baseline 23 ng/L (0-15) H 12/02/21 18:30 Troponin T 120 Minute 22.15 ng/L (0-15) H 12/02/21 20:30 Delta Troponin T -0.85 ABS# (0-10) L 12/02/21 20:30 C-Reactive Protein 58.2 mg/L (0.0-4.9) H 12/02/21 18:30 NT-Pro-B Natriuret Pep 100 pg/mL (0-125) 12/02/21 18:30 Total Protein 8.8 g/dL (6.6-8.7) H 12/02/21 18:30 Albumin 3.6 g/dL (3.5-5.2) 12/02/21 18:30 Globulin 5.2 g/dL (1.3-4.6) H 12/02/21 18:30 Lipase 38 U/L (13-60) 12/02/21 18:30 Coronavirus 229E (PCR) Not detected (NOT DETECT) 12/02/21 19:05 SARS-CoV-2 (PCR) Not detected (NOT DETECT) 12/02/21 19:05 Discharge Plan Discharge Patient Disposition: Admitted As Inpatient Admit Provider: Seth Desai Clinical Impression: Diabetic foot infection, Sepsis Condition: Stable Coding Level of Care Code ED Emulsion Coater for Martineg Fwd Exam Comprehensive
--- NOTE | 2021-12-02 18:29 | XRR_ITS ---
PROCEDURE INFORMATION: Exam: XR Chest Exam date and time: 12/02/2021 6:58 PM Age: 56 years old Clinical indication: Chest wall pain; Additional info: Chest pain TECHNIQUE: Imaging protocol: XR of the chest. Views: 1 view. COMPARISON: CR XR chest 2V* [id number] 11/23/2021 3:16 PM FINDINGS: Lungs: Unremarkable. No consolidation. Pleural spaces: Unremarkable. No pleural effusion. No pneumothorax. Heart/Mediastinum: Unremarkable. No cardiomegaly. Bones/joints: Unremarkable. XR/XR chest 1V portable [id number] IMPRESSION: No acute findings.
--- NOTE | 2021-12-02 18:29 | ECG_ITS ---
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 Measurements Intervals [place] Rate: 95 P: 48 [place]: 168 QRS: 18 QRSD: 95 T: 51 QT: 352 QTc: 444 Interpretive Statements SINUS RHYTHM LOW QRS VOLTAGE IN PRECORDIAL LEADS [QRS DEFLECTION < 1.0 mV IN CHEST LEADS] MINIMAL VOLTAGE CRITERIA FOR LVH, CONSIDER NORMAL VARIANT [MEETS CRITERIA IN ONE OF: R(aVL), S(V1), R(V5), R(V5/V6)+S(V1)] NONSPECIFIC ST & T-WAVE ABNORMALITY Compared to ECG 12/02/2021 18:22:34 T-wave abnormality now present Electronically Signed On 12-03-2021 18:15:40 CDT by Brianda Carlos M.D. [id number]
--- NOTE | 2021-12-02 18:36 | PC.NURSE ---
PT ON WET SANDER
[2021-12-02 18:59] LABS: Basophils # 0.1 10^3/uL (0.0-0.1); Basophils % 0.5 %; Eosinophils # 0.2 10^3/uL (0.0-0.8); Eosinophils % 1.8 %; Hematocrit 33.8 % (42.0-52.0); Hemoglobin 10.4 g/dL (11.7-16.6); Lymphocytes # 2.5 10^3/uL (0.8-4.8); Lymphocytes % 18.9 %; Mean Corpuscular HGB Conc 30.8 g/dL (30.0-36.0); Mean Corpuscular Hemoglobin 27.1 pg (28.0-34.0); Mean Platelet Volume 10.6 fL (7.4-10.4); Monocytes % 7.4 %; Neutrophils # 9.52 10^3/uL (1.8-7.7); Neutrophils % 70.9 %; Nucleated Red Blood Cells % 0 %; Platelet Count 474 10^3/cmm (130-400); Red Blood Count 3.84 10^6/uL (4.1-5.3); Red Cell Distribution Width 13.1 % (12.1-15.1); White Blood Count 13.4 10^3/uL (4.0-10.0)
[2021-12-02 19:02] LABS: Erythrocyte Sedimentation Rate 44 mm/hr (0-10)
[2021-12-02 19:11] LABS: INR 1.03 (0.8-1.2); Partial Thromboplastin Time 29.8 SECONDS (23.9-36.7)
[2021-12-02] MEDS: aspirin 81 mg Chew Tablet 324 MG PO (19:17)
[2021-12-02 19:29] LABS: Troponin(5th) Baseline 23 ng/L (0-15)
[2021-12-02 19:37] LABS: Alanine Aminotransferase 17 U/L (0-41); Albumin Level 3.6 g/dL (3.5-5.2); Alkaline Phosphatase 83 IU/L (40-130); Anion Gap 14.3 (5-19); Aspartate Amino Transferase 11 U/L (0-40); Blood Urea Nitrogen 20 mg/dL (6-20); C Reactive Protein 58.2 mg/L (0.0-4.9); Calcium 9.8 mg/dL (8.5-10.5); Carbon Dioxide 28 mmol/L (22-29); Chloride 96 mmol/L (98-107); Globulin 5.2 g/dL (1.3-4.6); Glomerular Filtration Rate 116.7 mL/min (90-130); Glucose 243 mg/dL (65-115); Lipase 38 U/L (13-60); NT Pro B Type Natriuretic Pept 100 pg/mL (0-125); Osmolality Calculated 289 mOsm/kg (285-295); Potassium 4.3 mmol/L (3.5-5.1); Sodium 134 mmol/L (136-145); Total Bilirubin 0.2 mg/dL (0.15-1.2); Total Protein 8.8 g/dL (6.6-8.7)
[2021-12-02 19:44] LABS: Lactic Sepsis W/Reflex 1.1 mmol/L (0.5-2.2)
[2021-12-02 19:49] VITALS: RESP 18
[2021-12-02] MEDS: morphine 4 mg/mL SDV 1 mL IVP ×2 (19:49→22:09)
--- NOTE | 2021-12-02 20:29 | ECG_ITS ---
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 Measurements Intervals [place] Rate: 95 P: 44 [place]: 148 QRS: 23 QRSD: 93 T: 45 QT: 332 QTc: 419 Interpretive Statements SINUS RHYTHM LOW QRS VOLTAGE IN PRECORDIAL LEADS [QRS DEFLECTION < 1.0 mV IN CHEST LEADS] Compared to ECG 11/23/2021 15:39:06 No significant changes Electronically Signed On 12-03-2021 18:21:34 CDT by Brianda Carlos M.D. [id number]
[2021-12-02 20:36] VITALS: BP 147/93; PULSE 91; RESP 20; O2SAT 96
[2021-12-02 21:01] LABS: Troponin 5 2HR 22.15 ng/L (0-15)
[2021-12-02 21:04] LABS: Troponin 5 2HR Delta -0.85 ABS# (0-10)
--- NOTE | 2021-12-02 21:12 | USR_ITS ---
PROCEDURE INFORMATION: Exam: US Duplex Left Lower Extremity Veins, Limited Exam date and time: 12/02/2021 10:40 PM Age: 56 years old Clinical indication: Pain; Leg, lower; Left; Patient HX: HX of dvt; Additional info: Dvt, increased pain TECHNIQUE: Imaging protocol: Real-time Duplex ultrasound of the Left Lower Extremity with 2-D pederson scale, color Doppler flow and spectral waveform analysis with image documentation. Limited exam focused on the left lower extremity veins. COMPARISON: US CV venous duplex [facility] [id number] 11/15/2021 6:58 PM FINDINGS: Left deep veins: Unremarkable. The common femoral, femoral, proximal profunda femoral and popliteal veins are patent without thrombus. Normal Doppler waveforms. Normal compressibility and/or augmentation response. Left superficial veins: Unremarkable. Saphenofemoral junction is patent without thrombus. Soft tissues: Mild swelling US/CV venous duplex [facility] [id number] IMPRESSION: No evidence of deep vein thrombosis.
--- NOTE | 2021-12-02 21:12 | USR_ITS ---
PROCEDURE INFORMATION: Exam: US Duplex Left Lower Extremity Arteries Or Arterial Bypass Grafts Exam date and time: 12/03/2021 12:10 AM Age: 56 years old Clinical indication: Pain; Leg, lower; Left; Additional info: Increased pain, HX dvt TECHNIQUE: Imaging protocol: Left Real-time duplex scan of the arteries or arterial bypass grafts of the left lower extremity with 2-D pederson scale, color Doppler flow and spectral waveform analysis. Images documented and saved. COMPARISON: US CV venous duplex [facility] [id number] 12/02/2021 10:40 PM FINDINGS: Left common femoral artery: No occlusion or significant stenosis. Monophasic waveform. PSV 128 cm/s. Left superficial femoral artery: No occlusion or significant stenosis. Monophasic waveform. PSV 126, 103 and 134 cm/s for the proximal, mid and distal SFA, respectively. Left popliteal artery: No occlusion or significant stenosis. Monophasic waveform. PSV 130 cm/s. Left calf/foot arteries: No occlusion or significant stenosis in the visualized arteries. Monophasic waveforms. PSV 66 cm/s for the posterior tibial artery. Dorsalis pedis artery is patent. PSV 33 cm/s. US/CV arterial duplex [facility] [id number] IMPRESSION: No stenosis or occlusion.
[2021-12-02 21:22] LABS: Adenovirus Not Detected (NOT DETECT); Chlamydia Pneumoniae Not Detected (NOT DETECT); Coronavirus 229E,HKU1,NL63,OC4 Not Detected (NOT DETECT); Human Metapneumovirus Not Detected (NOT DETECT); Human Rhinovirus/Enterovirus Not Detected (NOT DETECT); Influenza A Not Detected (NOT DETECT); Influenza A H1 Not Detected (NOT DETECT); Influenza A H1-2009 Not Detected (NOT DETECT); Influenza A H3 Not Detected (NOT DETECT); Influenza B Not Detected (NOT DETECT); Mycoplasma Pneumoniae Not Detected (NOT DETECT); Parainfluenza Virus Type 1 Not Detected (NOT DETECT); Parainfluenza Virus Type 2 Not Detected (NOT DETECT); Parainfluenza Virus Type 3 Not Detected (NOT DETECT); Parainfluenza Virus Type 4 Not Detected (NOT DETECT); Respiratory Syncytial Virus A Not Detected (NOT DETECT); Respiratory Syncytial Virus B Not Detected (NOT DETECT); SARS-COV-2 Not Detected (NOT DETECT)
[2021-12-02 21:30] VITALS: BP 125/71; RESP 18; O2SAT 94
[2021-12-02] MEDS: linezolid premix 600 MG/300 ML PREMIX 300 MG IV (22:09)
--- NOTE | 2021-12-02 22:58 | PM.HP ---
Providers/Chief Complaint Admitting Physician: Seth Desai DO Primary Care Provider: HANNAH Mason Chief Complaint: Lt Leg Blood Clot\Chest Pain\Fever History of Present Illness The patient is a 56-year-old male who percent chief complaint of fever as well as increased pain in his left leg/foot. He states that he developed left foot ulcer in April 2021. He states that he has had onset of fever with a temperature 100.4?, rigors, nausea. He denies vomiting. The patient has wound vacuum in place on his left foot. This doctor was actually the first individual in the emergency department to unwrap the patient's foot dressing to physically inspect the patient's foot, according to the patient. The patient states that he developed chest pain or proximal point 5 PM. He denies a history of OK however previous medical records demonstrate myocardial infarction. He presents for further evaluation Review of Systems General: Reports: 10 or more systems reviewed and unremarkable except in HPI and below Medications/Allergies Home Medications Medication Instructions Recorded Confirmed Last Taken Type acetaminophen 500 mg tablet 1,000 mg PO Q4H PRN 04/30/21 12/02/21 11/15/21 14:00 History (Tylenol Extra Strength) insulin glargine 100 unit/mL (3 68 unit SUBCUT BID 04/30/21 12/02/21 12/02/21 History mL) subcutaneous pen (Lantus Solostar U-100 Insulin) [id number]-gszawpae-nlfwkn tablet 1 tab PO QAM 04/30/21 12/02/21 12/02/21 History pantoprazole 40 mg tablet,delayed 40 mg PO BID 04/30/21 12/02/21 12/02/21 History release pioglitazone 15 mg tablet 15 mg PO BID@04/30/21 12/02/21 12/02/21 History trazodone 100 mg tablet 50 - 100 mg PO BEDTIME 04/30/21 12/02/21 12/01/21 History atorvastatin 80 mg tablet 80 mg PO DAILY@ 30 Days #30 tab 05/04/21 12/02/21 12/01/21 Rx nitroglycerin 0.4 mg sublingual 0.4 mg SUBLINGUAL Q5M PRN #30 tab 05/06/21 12/02/21 Unknown Rx tablet carvedilol 12.5 mg tablet (Coreg) 12.5 mg PO BID #180 tab 05/28/21 12/02/21 12/02/21 Rx aspirin 81 mg tablet,delayed 81 mg PO QAM 11/15/21 12/02/21 12/02/21 History release gabapentin 300 mg capsule 300 mg PO DAILY PRN 11/15/21 12/02/21 12/02/21 History insulin aspart U-100 100 unit/mL See Rx Instructions .ROUTE .COMPLEX 11/15/21 12/02/21 12/02/21 History (3 mL) subcutaneous pen (Novolog Flexpen U-100 Insulin aspart) loratadine 10 mg tablet (Claritin) 10 mg PO QAM 11/15/21 12/02/21 12/02/21 History losartan 100 mg tablet 100 mg PO QAM 11/15/21 12/02/21 12/02/21 History spironolactone 25 mg tablet 50 mg PO QAM 11/15/21 12/02/21 12/02/21 History sertraline 100 mg tablet 100 mg PO DAILY 12/02/21 12/02/21 12/02/21 History Allergies Allergy/AdvReac Type Severity Reaction Status Date / Time atorvastatin [From Lipitor] Allergy ADR-Muscle Verified 11/26/21 13:59 Pain vancomycin Allergy ALGY-Anaphy Verified 11/26/21 13:59 laxis PFSH Acute PFSH: Medical History CHF (congestive heart failure), NYHA class III COVID-19 Diabetes mellitus HTN (hypertension) Surgical History History of right below knee amputation Social History Alcohol intake: never Vitals/I&O/Wt Last Vital Signs Temp 98.4 F 12/02/21 18:16 Pulse 91 12/02/21 20:36 Resp 18 12/02/21 21:30 BP 125/71 12/02/21 21:30 Pulse Ox 94 12/02/21 21:30 Weight last 48 hrs Weight 155.129 kg Physical Exam Narrative: General: -Alert -No acute distress -No dyspnea -No tachypnea Head: -Atraumatic -Normocephalic Eyes: -Pupils equally round and reactive to light and accommodation -Extraocular muscles intact Neurological: -Cranial nerves II-XII intact Neck: -No jugular venous distention -No thyromegaly -No cervical lymphadenopathy Heart: -Regular rate -Regular rhythm -No murmurs -No gallops -No rubs Lungs: -No wheeze -No rhonchi -No rales ? Abdomen: -Normal bowel sounds in all four quadrants -No rebound -No guarding -No tenderness Extremities: -2/4 pulse in all four extremities -No clubbing -No cyanosis -No edema -No calf tenderness present bilaterally -Negative Shana?s sign bilaterally Musculoskeletal: -5/5 bilateral upper extremity strength -5/5 bilateral lower extremity strength -Sensorium of bilateral upper extremities are equal and intact -Sensorium of bilateral lower extremities are equal and intact ? Additional Details / Additional Findings / Exceptions / Miscellaneous: Data : 12/02/21 18:30 12/02/21 18:30 Micro: Microbiology 12/02/21 19:07 Blood Culture - Preliminary Blood SPECIMEN COLLECTED 12/02/21 19:05 Blood Culture - Preliminary Blood SPECIMEN COLLECTED A&P Assessment and plan (1) Diabetic foot infection: Status: Acute Plan Lateral left foot ulcer, chronic. Patient Cates that he recently had left fifth metatarsal annotation. Wound vacuum is in place. Per the emergency department physician, podiatry has been notified of the patient and they have agreed to assist in the treatment of this patient during this hospitalization. Blood culture ?2 drawn the emergency department pending. MRI of the left foot without contrast pending. Nursing staff has been ordered to demarcate and 8 the margin of erythema daily. Levaquin 500 mg IV daily plus IV normal saline at 75 mils per hour Obstructive sleep apnea. CPAP/BiPAP: Okay to use home device and/or pressure when sleeping if the patient uses CPAP/BiPAP at home Depression Elevated troponin, query ACS. Will monitor patient on telemetry and check serial heart enzymes. Recheck EKG on the morning of December 03, 2021. At this time I will hold off on antiplatelet agents in anticipation of possible surgical intervention. If the patient exhibits EKG changes or and has an elevation of troponins, he will receive full treatment for ACS. At this time his troponin is minimally elevated and his symptoms are not present at this time Thrombocytosis. Will monitor platelet count intermittently with CBC Seasonal allergies Neuropathy Anemia, chronic. Will monitor hemoglobin level intermittently. Check serum ferritin, iron panel, fecal occult blood CHF, ejection fraction 53% with grade 2 diastolic dysfunction Coronary artery disease, status post OK Diabetes. Will check fingerstick glucose before every meal and at bedtime and provide insulin sign scale GERD Hyperlipidemia Hypertension Obesity. The patient be counseled regarding lifestyle modification History of DVT, status post IVC filter placement Erectile dysfunction DVT prophylaxis. Left lower extremity PERLA nicholse Attestations Medical Necessity Statement*: The patient's anticipated length of stay is greater than 2 midnights for treatment of his left foot ulcer in conjunction with podiatry Coding Level of Care Code Acute Shellfish Manager for Mary Beth Godfrey Diagnoses Diabetic foot infection E11.628; L08.9
[2021-12-02 23:05] VITALS: BP 172/99; PULSE 95; RESP 20; TEMP 37; O2SAT 96
[2021-12-02] MEDS: HYDROcodone-acetaminophen 5-325 mg Tablet 1 TAB PO (23:47)
[2021-12-03] VITALS (11 sets, daily range): BP systolic 131–169; BP diastolic 75–89; PULSE 78–105; RESP 16–18; TEMP 36.7–37.1; O2SAT 91–94
[2021-12-03] MEDS: piperacillin-tazobactam 4.5 GM in sodium chloride 0.9% (plus) 50 ML IV (00:04)
[2021-12-03] MEDS: sodium chloride 0.9% 1,000 ML 75 ML IV (00:05)
--- NOTE | 2021-12-03 00:29 | ECG_ITS ---
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 Measurements Intervals [place] Rate: 84 P: 61 CT: 176 QRS: 19 QRSD: 109 T: 38 QT: 380 QTc: 450 Interpretive Statements SINUS RHYTHM Compared to ECG 12/02/2021 21:47:48 T-wave abnormality no longer present Electronically Signed On 12-03-2021 18:22:25 CDT by Brianda Carlos M.D. [id number]
[2021-12-03] MEDS: levofloxacin-dextrose 5 % 500 MG/100 ML PREMIX 100 MG IV (00:43)
[2021-12-03 02:41] LABS: Ferritin 428 ng/mL (30-400); Iron 23 ug/dL (59-158); Percent Saturation 10.3 % (20-50); Total Iron Binding Capacity 223 mcg/dl; Unsaturated Iron Binding 200 ug/dL (112-347)
[2021-12-03] MEDS: HYDROcodone-acetaminophen 5-325 mg Tablet 1 TAB PO ×3 (03:42→16:47)
[2021-12-03 04:10] LABS: Urine Color Yellow (Yellow)
[2021-12-03 04:11] LABS: Add Urine Microscopic? YES; Bilirubin Urine Neg (Negative); Blood Urine Neg (Negative); Glucose Urine UA Norm (Normal); Ketones Urine Negative (Negative); Leukocyte Esterase Urine 2+ (Negative); Nitrate Urine Negative (Negative); Protein Urine Trace (Negative); Specific Gravity, Urine 1.015 (1.005-1.030); Urine Appearance Clear (CLEAR); Urobilinogen Urine Norm (Negative); pH Urine 5 (5-7)
[2021-12-03 04:12] LABS: RBC Urine 0-4 /hpf (0-2)
[2021-12-03 04:13] LABS: Add Urine Culture? Yes; Bacteria Urine TRACE /hpf; Mucus Urine TRACE /hpf; WBC Urine 15-25 /hpf (0-5)
[2021-12-03 05:05] LABS: Basophils # 0.1 10^3/uL (0.0-0.1); Basophils % 0.7 %; Eosinophils # 0.2 10^3/uL (0.0-0.8); Eosinophils % 1.9 %; Hematocrit 30.6 % (42.0-52.0); Hemoglobin 9.4 g/dL (11.7-16.6); Lymphocytes # 2.1 10^3/uL (0.8-4.8); Lymphocytes % 23.2 %; Mean Corpuscular HGB Conc 30.7 g/dL (30.0-36.0); Mean Corpuscular Hemoglobin 27.7 pg (28.0-34.0); Mean Corpuscular Volume 90.3 fl (80-94); Monocytes % 10.7 %; Neutrophils % 63.3 %; Nucleated Red Blood Cells % 0 %; Platelet Count 382 10^3/cmm (130-400); Red Blood Count 3.39 10^6/uL (4.1-5.3); Red Cell Distribution Width 13.2 % (12.1-15.1)
[2021-12-03 05:40] LABS: Troponin 5 6HR 27.56 ng/L (0-15)
[2021-12-03 05:41] LABS: Troponin 5 6HR Delta 4.56 ng/L (0-12)
[2021-12-03 06:22] LABS: Glucose Point of Care 158 mg/dL (70-110)
--- NOTE | 2021-12-03 08:00 | MR_ITS ---
WS: [id number] INDICATION: Nonhealing ulcer. Osteomyelitis. TECHNIQUE: MRI left elbow without gadolinium enhancement. Axial PD, sagittal T1, sagittal PD, sagitta l STIR, coronal T2 fat sat, and coronal T1. FINDINGS: Comparison MRI October 06, 2021 Soft tissue ulceration along the lateral plantar aspect of the foot. Associated packing material. No evidence of drainable abscess or fluid collection. Interval amputation of the 5th metatarsal. Associa julio postoperative changes Prior postoperative changes amputation of the 2nd phalanges. Diffuse soft tissue edema involving the midfoot extending into the intertarsal soft tissues. Edema in volving the 2nd metatarsal base, 3rd metatarsal base, and 4th metatarsal bases extending just into th e proximal metacarpal shaft. Additional edema involving the intermediate and lateral cuneiforms as we ll as the cuboid. Small amount of fluid in the tarsometatarsal joints of the 2nd 3rd and 4th TMT join ts. Normal bone marrow signal in the 1st metatarsal. Findings may be reactive but suspicious for deve loping osteomyelitis. Small amount of edema in the base of the 5th proximal phalanx. MR/MR foot LT wo con* [id number] IMPRESSION: 1. Soft tissue edema with ulceration overlying the lateral aspect of the foot. Underlying diffuse soft tissue edema. No drainable abscess or fluid collection . 2. Interval postoperative changes resection of the 5th metatarsal 3. Diffuse soft tissue edema involving the midfoot soft tissues with intertars al edema extension. 4. Edema involving the base and proximal metatarsal shafts at the 2nd 3rd and 4th metatarsals as well as the intermediate and lateral cuneiforms and cuboid. Findings may be reactive but developing osteomyelitis not excluded in particula r involving the 3rd and 4th metatarsal bases, cuboid, and lateral cuneiform. Th is can be followed up with gadolinium. 5. Small amount of edema in the base of the residual 5th proximal phalanx.
[2021-12-03] MEDS: insulin lispro 100 unit/1 mL SUBCUT ×3 (09:16→17:11)
--- NOTE | 2021-12-03 09:19 | P.CONIM_ITS ---
Providers/Reason For Consult Consulting Physician/Specialty*: Barry Monk D.P.M. Reason for Consult*: Diabetic foot infection Attending Physician: Abhishek Beverly Primary Care Provider: HANNAH Mason History of Present Illness History of Present Illness Salvador Luke is a 56 year old male presented to the emergency department with malaise, nausea, fevers and complaints of increased swelling at the left foot and leg. He is status post left foot incision debridement and fifth metatarsectomy date of operation 11/17/2021 secondary to osteomyelitis this was during a hospitalization here [facility]. He was discharged on oral doxycycline which she completed the entire course as prescribed by hospitalist at discharge. Symptoms above began last night and he presented to the emergency department. History of DVT. Recent placement of Mesha filter. Review of Systems General: Reports: 10 or more systems reviewed and unremarkable except in HPI and below Const: Denies: fever(s) or chills Card: Denies: chest pain or palpitations Resp: Denies: productive cough GI: Denies: abdominal pain, nausea or vomiting : Denies: flank pain Musc: Reports: extremity swelling, joint pain, joint stiffness, limited range of motion and deformity Skin/Breast: Reports: sores, nail changes and change in hair Neuro: Reports: numbness in extremities, sensory changes and difficulty walking Psych: Denies: suicidal ideation Felipe/Lymph: Denies: easy bruising Medications/Allergies Home Medications Medication Instructions Recorded Confirmed Last Taken Type acetaminophen 500 mg tablet 1,000 mg PO Q4H PRN 04/30/21 12/02/21 11/15/21 14:00 History (Tylenol Extra Strength) insulin glargine 100 unit/mL (3 68 unit SUBCUT BID 04/30/21 12/02/21 12/02/21 History mL) subcutaneous pen (Lantus Solostar U-100 Insulin) [id number]-qhrfunda-yofafb tablet 1 tab PO QAM 04/30/21 12/02/21 12/02/21 History pantoprazole 40 mg tablet,delayed 40 mg PO BID 04/30/21 12/02/21 12/02/21 History release pioglitazone 15 mg tablet 15 mg PO BID@08,04/30/21 12/02/21 12/02/21 History trazodone 100 mg tablet 50 - 100 mg PO BEDTIME 04/30/21 12/02/21 12/01/21 History atorvastatin 80 mg tablet 80 mg PO DAILY@22 30 Days #30 tab 05/04/21 12/02/21 12/01/21 Rx nitroglycerin 0.4 mg sublingual 0.4 mg SUBLINGUAL Q5M PRN #30 tab 05/06/21 12/02/21 Unknown Rx tablet carvedilol 12.5 mg tablet (Coreg) 12.5 mg PO BID #180 tab 05/28/21 12/02/21 12/02/21 Rx aspirin 81 mg tablet,delayed 81 mg PO QAM 11/15/21 12/02/21 12/02/21 History release gabapentin 300 mg capsule 300 mg PO DAILY PRN 11/15/21 12/02/21 12/02/21 History insulin aspart U-100 100 unit/mL See Rx Instructions .ROUTE .COMPLEX 11/15/21 12/02/21 12/02/21 History (3 mL) subcutaneous pen (Novolog Flexpen U-100 Insulin aspart) loratadine 10 mg tablet (Claritin) 10 mg PO QAM 11/15/21 12/02/21 12/02/21 History losartan 100 mg tablet 100 mg PO QAM 11/15/21 12/02/21 12/02/21 History spironolactone 25 mg tablet 50 mg PO QAM 11/15/21 12/02/21 12/02/21 History sertraline 100 mg tablet 100 mg PO DAILY 12/02/21 12/02/21 12/02/21 History Allergies Allergy/AdvReac Type Severity Reaction Status Date / Time atorvastatin [From Lipitor] Allergy ADR-Muscle Verified 11/26/21 13:59 Pain vancomycin Allergy ALGY-Anaphy Verified 11/26/21 13:59 laxis Current Medications Generic Name Dose Route Start Last Admin Trade Name Freq PRN Reason Stop Dose Admin Hydrocodone Bitart/Acetaminophen 1 tab 12/02/21 23:29 12/03/21 03:42 Hydrocodone-Acetaminophen 5-325 Mg Tablet PO 1 tab Q4H PRN Administration MODERATE TO SEVERE PAIN Sodium Chloride 1,000 mls @ 75 mls/hr 12/02/21 23:29 12/03/21 00:05 Sodium Chloride 0.9% IV 75 mls/hr .[id number] MARJORIE Administration Levofloxacin/Dextrose 500 mg in 100 mls @ 100 mls/hr 12/02/21 23:29 12/03/21 01:43 Levaquin-D5w IV Infused Q24H MARJORIE Infusion Protocol Morphine Sulfate 4 mg 12/02/21 21:38 12/02/21 22:09 Morphine 4 Mg/Ml Sdv 1 Ml IVP 4 mg Q1H PRN Administration pain PFSH Acute PFSH: Medical History (Updated 12/03/21 @ 07:21 by Abhishek Beverly MD) Anemia CHF (congestive heart failure), NYHA class III COVID-19 Deep vein thrombosis Diabetes mellitus HTN (hypertension) Obesity Presence of IVC filter Ulcer of left foot Surgical History History of right below knee amputation Social History Alcohol intake: never Vitals/I&O/Wt Last Vital Signs Temp 98.2 F 12/03/21 07:36 Pulse 80 12/03/21 07:36 Resp 16 12/03/21 07:36 BP 135/75 12/03/21 07:36 Pulse Ox 94 12/03/21 07:36 12/02/21 12/03/21 12/03/21 22:59 06:59 14:59 Intake Total 450 / 450 Output Total 500 / 500 475 / 475 Balance -50 / -50 -475 / -475 Weight last 48 hrs Weight 342 lb Physical Exam Narrative: GENERAL: Patient is alert and oriented ?3 and in no acute distress. The following is a focused left lower extremity exam. VASCULAR: Dorsalis pedis palpable, posterior tibial artery palpable. Capillary refill time less than 5 seconds to the distal hallux. Pitting edema to the left lower extremity. NEUROLOGICAL: Protective sensation intact 0/10 sites, tested with Dietrich Moira monofilament to left foot. DERMATOLOGICAL: Wound left plantar foot measures cm x 3.8 cm x 2 cm with periwound erythema, serosanguineous drainage. No proximal lymphangitic streaking. Surgical incision left dorsal lateral foot 9 cm in length also seros anguineous drainage. MUSCULOSKELETAL: Status post right below-knee amputation. Partial amputation to the left second toe with healed amputation stump. Mild varus position of the left foot. No pain at the left foot due to neuropathy. Status post left fifth metatarsectomy. Data : 12/03/21 04:35 12/02/21 18:30 Micro: Microbiology 12/02/21 19:07 Blood Culture - Preliminary Blood SPECIMEN COLLECTED 12/02/21 19:05 Blood Culture - Preliminary Blood SPECIMEN COLLECTED A&P Assessment and plan (1) Non-pressure chronic ulcer of other part of left foot with necrosis of bone: Status: Acute (2) Diabetic peripheral neuropathy associated with type 2 diabetes mellitus: Status: Acute Plan 56-year-old diabetic male, poorly controlled, insulin-dependent. Left foot incision debridement and fifth metatarsectomy performed secondary to osteomyelitis on 11/17/2021. Completed doxycycline prescribed on discharge. Presented to the emergency department due to malaise, fever, chills and nausea for 1421 and admitted for IV antibiotics. Leukocytosis on admission at 13.4 down to 9.0 today. ESR on 11/16/2021 last hospitalization 61 mm/h down to 44 on 12/02/2021. CRP also trending down from last admission. Inflammatory markers are likely multifactorial due to left diabetic foot infection down to bone as well as DVT. Performed wound VAC dressing change, there is very mild periwound erythema with a margin of approximately 2 cm dorsally at the left foot. This is significantly improved since his last visit. Wound did not have any purulent drainage or significant devitalized soft tissue. He is receiving Zosyn and Levaquin empir ically, has a vancomycin allergy causes anaphylaxis. Previous wound cultures significant for strep group B, most recent bone culture taken intraoperatively grew finegoldia magna. Given his clinical picture I do not plan on surgical intervention. He is responding well to IV antibiotics. Would recommend 2 to 3 days of IV antibiotics and then discharge on additional coverage with oral antibiotics. Recommend infectious disease consultation as he will likely require a longer course of antibiotics. Coding Level of Care Code Acute Cardiac Exercise Specialist for Mary Beth Godfrey Medical Decision Making Low Complexity Diagnoses Non-pressure chronic ulcer of other part of left foot with necrosis of bone L97 .524 Diabetic peripheral neuropathy associated with type 2 diabetes mellitus E11.42
--- NOTE | 2021-12-03 10:33 | PC.CHAP ---
Pastoral Care Encounter/Spiritual Assessment Type of Contact [] Declined ticket dispenser changer visit [] Patient/Family/Request visit [] Outpatient visit [] Follow-up visit [] Physician referral [] Code/Alert [x] Routine visit [] Staff referral [] Actively dying [] Patient sleeping [] Family support [] [] Out of room [] Palliative care [] [] Receiving care in room [] Pre-surgical visit [] Trauma [] Long length of stay [] ICU visit [] Other: Relational/Emotional Strength [x] Patient feels connected with others/family/visitors/staff [] Distress [] Loneliness/isolation [] Abandonment Spirituality of Patient [x] Person of Richelle [] Attends Methodist of their Richelle [x] Believes in Prayer [] Reads Bible or Sikhism materials [] There are Spiritual issues to be addressed Sales Correspondence Clerk Interventions [x] Prayer [x] Active listening [x] Non-anxious presence [x] Spiritual/emotional support [] Crisis/trauma care [x] Spiritual counseling [] Bereavement support [] Provided bereavement packet [] Provided Bible/devotional materials [] Provided toy/stuffed animal, coloring book to patient or family member [] Provided Communion [] Anointing/[place] [] Salvation [x] Completed spiritual assessment [] Other: Impact on Illness or Injury [] Angry [] Fearful [] Anxious [] Often cries [] Exhaustion [] Unable to work [] Unable to attend voodoo [] Unable to walk/stand [] Unable to read [] Unable to drive [] Unable to eat/drink [] Unable to sleep [] Unable to be with family [] Patient intubated [] Other: Summary 15 mi8n Time spent with patient
[2021-12-03 11:44] LABS: Glucose Point of Care 144 mg/dL (70-110)
--- NOTE | 2021-12-03 14:25 | PM.PN ---
Subjective Subjective: He states he is doing all right, has been having some chills. No trouble breathing or chest pain or pressure. Awaiting additional discussion with podiatry regarding possible further steps. Vitals/I&O/Wt Last Vital Signs Temp 98.0 F 12/03/21 10:58 Pulse 78 12/03/21 10:58 Resp 17 12/03/21 10:58 BP 135/76 12/03/21 10:58 Pulse Ox 92 12/03/21 10:58 12/02/21 12/03/21 12/03/21 22:59 06:59 14:59 Intake Total 450 / 450 240 / 240 Output Total 500 / 500 900 / 900 Balance -50 / -50 -660 / -660 Weight last 48 hrs Weight 155.129 kg Physical Exam Const: COMMON NORMALS: alert GENERAL APPEARANCE: cooperative NUTRITIONAL APPEARANCE: obese ORIENTATION/CONSCIOUSNESS: Yes awake HENMT: COMMON NORMALS: normocephalic, EAC's normal, Normal external nose present and moist oral mucous membranes HEAD & SCALP: normocephalic NOSE: Normal external nose present EXTERNAL AUDITORY CANAL: EAC's normal Neck/C-Spine: COMMON NORMALS: no meningeal signs Chest: CHEST: Yes Symmetrical chest wall rise Resp: COMMON NORMALS: clear to auscultation bilaterally AUSCULTATION: clear to auscultation bilaterally Cardio: COMMON NORMALS: regular rate, regular rhythm and No murmurs present (Cardio) RATE: regular rate RHYTHM: regular rhythm GI: COMMON NORMALS: Normal to inspection, nondistended, normoactive bowel sounds present, Soft to palpation and non-tender PALPATION: Yes Soft to palpation Extremity: NARRATIVE EXTREMITY EXAM: R BKA Left fifth metatarsal prior amputation GENERAL: Yes edema (Trace) Neuro: COMMON NORMALS: moves all extremities SENSORIUM/ORIENTATION: Yes alert MENINGEAL SIGNS: Yes no meningeal signs Psych: COMMON NORMALS: mental status grossly normal Skin: RASHES: no rashes OTHER: Wound VAC over open wound of distal lateral left foot, with erythema, trace edema of left foot. Data : 12/03/21 04:35 12/02/21 18:30 Micro: Microbiology 12/02/21 19:07 Blood Culture - Preliminary Blood SPECIMEN COLLECTED 12/02/21 19:05 Blood Culture - Preliminary Blood SPECIMEN COLLECTED A&P Assessment and plan (1) Diabetic foot infection: Recurrence of infection of ulceration of left foot. He has been maintaining wound VAC in place, has been undergoing hyperbaric O2 treatment. Reports erythema, mild swelling sudden fairly rapidly and he started having chills. Possible sepsis on presentation with leukocytosis 13.4, sinus tachycardia in the 90s. Sepsis now resolved. Here he is so far afebrile. ESR elevated at 44, CRP elevated 58.2. Venous duplex without evidence of DVT. Arterial duplex without evidence of stenosis or occlusion. Foot MRI 1. Soft tissue edema with ulceration overlying the lateral aspect of the foot. Underlying diffuse soft tissue edema. No drainable abscess or fluid collection. 2. Interval postoperative changes resection of the 5th metatarsal 3. Diffuse soft tissue edema involving the midfoot soft tissues with intertarsal edema extension. 4. Edema involving the base and proximal metatarsal shafts at the 2nd 3rd and 4th metatarsals as well as the intermediate and lateral cuneiforms and cuboid. Findings may be reactive but developing osteomyelitis not excluded in particular involving the 3rd and 4th metatarsal bases, cuboid, and lateral cuneiform. This can be followed up with gadolinium. 5. Small amount of edema in the base of the residual 5th proximal phalanx. Strep resistant to Levaquin and monitor. Stop Levaquin. Continue Zosyn for now, as he received a dose last night and also noted anaerobic growth back in October. Continue IV antibiotics currently. Pending additional assessment by podiatry. Depending on treatment plans, consideration may be given to additional MRI with contrast given questionable findings of osteomyelitis. Status: Acute Plan Possible UTI: Urine with 15-25 WBC, 5-10 squamous epithelial cells. Follow-up urine culture. Continue antibiotic as above. Obstructive sleep apnea. CPAP/BiPAP: Okay to use home device and/or pressure when sleeping if the patient uses CPAP/BiPAP at home Depression Elevated troponin, query ACS. He had a transient episode of chest pain yesterday. He thinks perhaps was due to feeling unwell/getting worked up. Minimal elevation of troponin. Chest discomfort episode had resolved without issue. He has nitroglycerin at home which she has to take rarely. He states episodes are uncommon. He had previously been assessed by stress test back in April which was abnormal with medium-sized area of patchy decreased tracer uptake in basal anterolateral mid to apical anterior and apical lateral wall with some reversibility in mid to apical anterior mid to apical anterolateral and mid inferolateral and apical navarrete. Discussed with him. Continue medical management this time. Consideration may be given to Imdur for stable angina. Discussed with him symptoms of unstable angina and to seek medical attention in case of. Thrombocytosis. Will monitor platelet count intermittently with CBC Seasonal allergies Neuropathy Anemia, chronic. Combination iron deficiency anemia and ACD For now hold off iron supplementation. Will monitor hemoglobin level intermittently. Check fecal occult blood. CHF, ejection fraction 53% with grade 2 diastolic dysfunction Coronary artery disease, status post HI Diabetes. Will check fingerstick glucose before every meal and at bedtime and provide insulin sign scale GERD Hyperlipidemia Hypertension Obesity History of DVT, status post IVC filter placement Erectile dysfunction DVT prophylaxis. Left lower extremity PERLA ray Attestations Medical Necessity Statement*: Continue admission for assessment of management of diabetic foot infection with rapid worsening, possible osteomyelitis, improved possible sepsis. Coding Level of Care Code Acute Mailroom Assistant for [facility] Diagnoses Diabetic foot infection E11.628; L08.9
[2021-12-03] MEDS: morphine 4 mg/mL SDV 1 mL IVP ×3 (14:47→23:32)
[2021-12-03] MEDS: piperacillin-tazobactam 3.375 GM in sodium chloride 0.9% (plus) 50 ML IV ×2 (14:48→23:31)
[2021-12-03 16:31] LABS: Glucose Point of Care 249 mg/dL (70-110)
[2021-12-03 20:25] LABS: Glucose Point of Care 212 mg/dL (70-110)
[2021-12-04] VITALS (9 sets, daily range): BP systolic 129–160; BP diastolic 77–96; PULSE 84–114; RESP 16–19; TEMP 36.7–37.1; O2SAT 94–96
[2021-12-04] MEDS: piperacillin-tazobactam 3.375 GM in sodium chloride 0.9% (plus) 50 ML IV ×3 (05:51→22:12)
[2021-12-04] MEDS: morphine 4 mg/mL SDV 1 mL IVP ×3 (05:51→21:33)
[2021-12-04 06:08] LABS: Basophils # 0.1 10^3/uL (0.0-0.1); Basophils % 0.7 %; Eosinophils # 0.3 10^3/uL (0.0-0.8); Eosinophils % 3.7 %; Hematocrit 29.2 % (42.0-52.0); Lymphocytes # 2.1 10^3/uL (0.8-4.8); Lymphocytes % 24.3 %; Mean Corpuscular HGB Conc 30.8 g/dL (30.0-36.0); Mean Corpuscular Hemoglobin 27.1 pg (28.0-34.0); Monocytes # 0.9 10^3/uL (0.2-0.9); Monocytes % 9.9 %; Neutrophils # 5.28 10^3/uL (1.8-7.7); Neutrophils % 61.1 %; Nucleated Red Blood Cells % 0 %; Platelet Count 401 10^3/cmm (130-400); Red Blood Count 3.32 10^6/uL (4.1-5.3); Red Cell Distribution Width 13.3 % (12.1-15.1); White Blood Count 8.7 10^3/uL (4.0-10.0)
[2021-12-04 06:15] LABS: Glucose Point of Care 166 mg/dL (70-110)
[2021-12-04 06:25] LABS: Anion Gap 12.9 (5-19); Blood Urea Nitrogen 14 mg/dL (6-20); Calcium 8.7 mg/dL (8.5-10.5); Carbon Dioxide 27 mmol/L (22-29); Chloride 99 mmol/L (98-107); Glomerular Filtration Rate 139.4 mL/min (90-130); Glucose 167 mg/dL (65-115); Osmolality Calculated 284 mOsm/kg (285-295); Potassium 3.9 mmol/L (3.5-5.1); Sodium 135 mmol/L (136-145)
[2021-12-04] MEDS: insulin lispro 100 unit/1 mL SUBCUT ×4 (07:29→22:09)
[2021-12-04 11:36] LABS: Glucose Point of Care 235 mg/dL (70-110)
--- NOTE | 2021-12-04 13:59 | PC.NURSE ---
pt just got back from bathroom.
[2021-12-04 17:47] LABS: Glucose Point of Care 211 mg/dL (70-110)
--- NOTE | 2021-12-04 18:09 | PC.NURSE ---
SHIFT SUMMARY PATIENT HAS DONE WELL TODAY. GOOD INTAKE AND OUTPUT. PAIN CONTROLLED. PATIENT HAD SMALL AMOUNT OF DRAINAGE ON L FOOT DRESSING. THIS NURSE RE-WRAPPED DRESSING OVER WOUND VAC. TROUBLE WITH WOUND VAC SUCTIONING EARLY THIS AFTERNOON, THAT HAS NOW RESOLVED. PATIENT COMFORTABLE IN BED AT THIS TIME.
--- NOTE | 2021-12-04 20:34 | P.PN_ITS ---
Subjective Subjective: Patient seen bedside, wound VAC is intact, good seal. Subjectively he is feeling much better, not having any nausea, tolerating regular diet, has been compliant with weightbearing status. Patient denies any subjective nausea, vomiting, fever, chills, shortness of breath or chest pain. Vitals/I&O/Wt Last Vital Signs Temp 98.6 F 12/04/21 16:00 Pulse 103 H 12/04/21 16:00 Resp 18 12/04/21 16:00 BP 159/78 12/04/21 16:00 Pulse Ox 94 12/04/21 16:00 12/04/21 12/04/21 12/04/21 06:59 14:59 22:59 Intake Total 50 / 2140 530 / 530 120 / 650 Output Total 500 / 1850 600 / 600 400 / 1000 Balance -450 / 290 -70 / -70 -280 / -350 Physical Exam Narrative: GENERAL: Patient is alert and oriented ?3 and in no acute distress. The following is a focused left lower extremity exam. VASCULAR: Dorsalis pedis palpable, posterior tibial artery palpable. Capillary refill time less than 5 seconds to the distal hallux. Pitting edema to the left lower extremity. NEUROLOGICAL: Protective sensation intact 0/10 sites, tested with [place] Moira monofilament to left foot. DERMATOLOGICAL: Wound left plantar foot measures cm x 3.8 cm x 2 cm with periwound erythema, serosanguineous drainage. No proximal lymphangitic streaking. Surgical incision left dorsal lateral foot 9 cm in length also serosanguineous drainage. MUSCULOSKELETAL: Status post right below-knee amputation. Partial amputation to the left second toe with healed amputation stump. Mild varus position of the left foot. No pain at the left foot due to neuropathy. Status post left fifth metatarsectomy. Data : 12/05/21 05:50 12/05/21 05:50 Micro: Microbiology 12/03/21 03:40 Urine Culture - Preliminary Urine,Clean Catch 12/02/21 19:07 Blood Culture - Preliminary Blood NEGATIVE TO DATE 12/02/21 19:05 Blood Culture - Preliminary Blood NEGATIVE TO DATE A&P Assessment and plan (1) Non-pressure chronic ulcer of other part of left foot with necrosis of bone: Status: Acute (2) Diabetic peripheral neuropathy associated with type 2 diabetes mellitus: Status: Acute Plan 56-year-old uncontrolled diabetic male being treated for diabetic foot infection left foot, status post incision and debridement and fifth metatarsectomy secondary to osteomyelitis. Patient is afebrile, no leukocytosis. Clinical improvement of the left lower extremity. No cellulitis or lymphangitis. Excellent response to IV antibiotics. Awaiting MRI with contrast to assess for acute osteomyelitis at the left metatarsal bases and cuboid. Planning on potentially 6 weeks minimum of IV antibiotics versus shorter course for soft tissue pending MRI findings. Greatly appreciate hospitalist management medically during this hospitalization. Okay for discharge from podiatry standpoint once antibiotic plan is in place. Podiatry will continue to follow and changed wound VAC dressing every 3 days. Patient to remain nonweightbearing to the left foot, may heel touch only for transfers. Attestations Medical Necessity Statement*: Diabetic foot infection Coding Level of Care Code Acute Ged Preparation Teacher for [facility] Diagnoses Non-pressure chronic ulcer of other part of left foot with necrosis of bone L97.524 Diabetic peripheral neuropathy associated with type 2 diabetes mellitus E11.42
[2021-12-04] MEDS: fluconazole 100 mg Tablet 200 MG PO (21:32)
[2021-12-04] MEDS: atorvastatin 40 mg Tablet 80 MG PO (21:32)
[2021-12-04] MEDS: trazodone 100 mg Tablet 50 MG PO (21:32)
[2021-12-04] MEDS: HYDROcodone-acetaminophen 5-325 mg Tablet 1 TAB PO (22:18)
--- NOTE | 2021-12-04 22:23 | PM.PN ---
Subjective Subjective: Denies any further chills, fevers, later reports some symptoms of yeast infection. Intermittently takes Diflucan for this at home. Vitals/I&O/Wt Last Vital Signs Temp 98.4 F 12/04/21 20:00 Pulse 93 12/04/21 20:00 Resp 18 12/04/21 21:33 BP 154/96 12/04/21 20:00 Pulse Ox 94 12/04/21 20:00 12/04/21 12/04/21 12/04/21 06:59 14:59 22:59 Intake Total 50 / 2140 530 / 530 170 / 700 Output Total 500 / 1850 600 / 600 400 / 1000 Balance -450 / 290 -70 / -70 -230 / -300 Physical Exam Narrative: at bedside. Const: COMMON NORMALS: alert GENERAL APPEARANCE: cooperative NUTRITIONAL APPEARANCE: obese ORIENTATION/CONSCIOUSNESS: Yes awake HENMT: COMMON NORMALS: normocephalic, EAC's normal, Normal external nose present and moist oral mucous membranes HEAD & SCALP: normocephalic NOSE: Normal external nose present EXTERNAL AUDITORY CANAL: EAC's normal Neck/C-Spine: COMMON NORMALS: no meningeal signs Chest: CHEST: Yes Symmetrical chest wall rise Resp: COMMON NORMALS: clear to auscultation bilaterally AUSCULTATION: clear to auscultation bilaterally Cardio: COMMON NORMALS: regular rate, regular rhythm and No murmurs present (Cardio) RATE: regular rate RHYTHM: regular rhythm GI: COMMON NORMALS: Normal to inspection, nondistended, normoactive bowel sounds present, Soft to palpation and non-tender PALPATION: Yes Soft to palpation Extremity: NARRATIVE EXTREMITY EXAM: R BKA Left fifth metatarsal prior amputation GENERAL: Yes edema (Trace) Neuro: COMMON NORMALS: moves all extremities SENSORIUM/ORIENTATION: Yes alert MENINGEAL SIGNS: Yes no meningeal signs Psych: COMMON NORMALS: mental status grossly normal Skin: RASHES: no rashes OTHER: Wound VAC over open wound of distal lateral left foot, with erythema, trace edema of left foot. Data : 12/04/21 05:55 12/04/21 05:55 Micro: Microbiology 12/03/21 03:40 Urine Culture - Preliminary Urine,Clean Catch 12/02/21 19:07 Blood Culture - Preliminary Blood NEGATIVE TO DATE 12/02/21 19:05 Blood Culture - Preliminary Blood NEGATIVE TO DATE A&P Assessment and plan (1) Diabetic foot infection: Appreciate podiatry recommendations. Surgical debridement not indicated at this time. Continue IV antibiotics currently. Discussed with him and his with possible bone involvement, regarding additional imaging with contrast-enhanced MRI. In case of osteomyelitis may alter route, duration of antibiotic. Strep resistant to Levaquin and Finegoldia. Continue Zosyn Sepsis resolved. Status: Acute Plan Possible UTI: Urine with 15-25 WBC, 5-10 squamous epithelial cells. Follow-up urine culture. Continue antibiotic as above. Preliminary urine culture without growth so far. Obstructive sleep apnea Depression Elevated troponin, query ACS. No recurrence of chest pain. He has nitroglycerin at home which she has to take rarely. He states episodes are uncommon. He had previously been assessed by stress test back in April which was abnormal with medium-sized area of patchy decreased tracer uptake in basal anterolateral mid to apical anterior and apical lateral wall with some reversibility in mid to apical anterior mid to apical anterolateral and mid inferolateral and apical navarrete. Discussed with him. Continue medical management this time. Consideration may be given to Imdur for stable angina. Discussed with him symptoms of unstable angina and to seek medical attention in case of. Thrombocytosis. Will monitor platelet count intermittently with CBC Seasonal allergies Neuropathy Anemia, chronic. Combination iron deficiency anemia and ACD For now hold off iron supplementation. Will monitor hemoglobin level intermittently. Check fecal occult blood. CHF, ejection fraction 53% with grade 2 diastolic dysfunction Coronary artery disease, status post IA Diabetes. Will check fingerstick glucose before every meal and at bedtime and provide insulin sign scale GERD Hyperlipidemia Hypertension Obesity History of DVT, status post IVC filter placement Erectile dysfunction DVT prophylaxis. Left lower extremity PERLA ray Attestations Medical Necessity Statement*: Continue additional assessment of diabetic left foot wound, possible osteomyelitis. Coding Level of Care Code Acute Mutual Fund Manager for [facility] Diagnoses Diabetic foot infection E11.628; L08.9
[2021-12-05] VITALS (7 sets, daily range): BP systolic 115–168; BP diastolic 64–82; PULSE 77–88; RESP 16–20; TEMP 36.4–37.2; O2SAT 93–98
[2021-12-05] MEDS: morphine 4 mg/mL SDV 1 mL IVP (02:47)
[2021-12-05] MEDS: spironolactone 25 mg Tablet 50 MG PO (05:46)
[2021-12-05] MEDS: loratadine 10 mg Tablet PO (05:46)
[2021-12-05] MEDS: losartan 50 mg Tablet 100 MG PO (05:46)
[2021-12-05] MEDS: aspirin 81 mg EC Tablet PO (05:47)
[2021-12-05 06:03] LABS: Basophils # 0.1 10^3/uL (0.0-0.1); Basophils % 0.6 %; Eosinophils # 0.3 10^3/uL (0.0-0.8); Eosinophils % 3.7 %; Hematocrit 31.4 % (42.0-52.0); Hemoglobin 9.6 g/dL (11.7-16.6); Lymphocytes # 2.6 10^3/uL (0.8-4.8); Lymphocytes % 32.8 %; Mean Corpuscular HGB Conc 30.6 g/dL (30.0-36.0); Mean Corpuscular Hemoglobin 26.7 pg (28.0-34.0); Mean Corpuscular Volume 87.2 fl (80-94); Monocytes # 0.7 10^3/uL (0.2-0.9); Monocytes % 9.1 %; Neutrophils # 4.15 10^3/uL (1.8-7.7); Neutrophils % 53.4 %; Nucleated Red Blood Cells % 0 %; Platelet Count 424 10^3/cmm (130-400); Red Cell Distribution Width 13.1 % (12.1-15.1); White Blood Count 7.8 10^3/uL (4.0-10.0)
[2021-12-05 06:24] LABS: Anion Gap 13.9 (5-19); Blood Urea Nitrogen 11 mg/dL (6-20); Calcium 8.9 mg/dL (8.5-10.5); Carbon Dioxide 28 mmol/L (22-29); Chloride 100 mmol/L (98-107); Glomerular Filtration Rate 139.4 mL/min (90-130); Glucose 166 mg/dL (65-115); Osmolality Calculated 289 mOsm/kg (285-295); Potassium 3.9 mmol/L (3.5-5.1); Sodium 138 mmol/L (136-145)
[2021-12-05] MEDS: piperacillin-tazobactam 3.375 GM in sodium chloride 0.9% (plus) 50 ML IV ×3 (06:37→23:01)
[2021-12-05 06:39] LABS: Glucose Point of Care 177 mg/dL (70-110)
[2021-12-05 06:39] LABS: Glucose Point of Care 231 mg/dL (70-110)
[2021-12-05 07:04] LABS: Slide Review Slide Review Perform
[2021-12-05] MEDS: insulin lispro 100 unit/1 mL SUBCUT ×4 (09:01→21:55)
[2021-12-05] MEDS: insulin glargine 100 units/1 mL 10 UNIT SUBCUT ×2 (09:01→17:10)
[2021-12-05] MEDS: sertraline 100 mg Tablet PO (09:02)
[2021-12-05] MEDS: carvedilol 12.5 mg Tablet PO ×2 (09:02→17:11)
[2021-12-05] MEDS: pantoprazole DR 40 mg Tablet PO ×2 (09:02→17:10)
--- NOTE | 2021-12-05 11:32 | PC.SOCIAL ---
IMM update pg 2 of IMM updated and reviewed w/ patient. Copy provided and Copy placed in chart.
[2021-12-05 11:50] LABS: Glucose Point of Care 299 mg/dL (70-110)
--- NOTE | 2021-12-05 16:27 | P.PN_ITS ---
Subjective Subjective: Says he is doing all right. Denies any fever, chills, new symptoms. Wound VAC is working well. Reports yeast infection in the groin. Letter reports constipation, requesting for MiraLAX. Vitals/I&O/Wt Last Vital Signs Temp 97.8 F 12/05/21 12:29 Pulse 77 12/05/21 12:29 Resp 17 12/05/21 12:29 BP 135/76 12/05/21 12:29 Pulse Ox 98 12/05/21 12:29 12/05/21 12/05/21 12/05/21 06:59 14:59 22:59 Intake Total 170 / 990 530 / 530 Output Total 800 / 1800 Balance -630 / -810 530 / 530 Physical Exam Narrative: at bedside. Const: COMMON NORMALS: alert GENERAL APPEARANCE: cooperative NUTRITIONAL APPEARANCE: obese ORIENTATION/CONSCIOUSNESS: Yes awake HENMT: COMMON NORMALS: normocephalic, EAC's normal, Normal external nose present and moist oral mucous membranes HEAD & SCALP: normocephalic NOSE: Normal external nose present EXTERNAL AUDITORY CANAL: EAC's normal Neck/C-Spine: COMMON NORMALS: no meningeal signs Chest: CHEST: Yes Symmetrical chest wall rise Resp: COMMON NORMALS: clear to auscultation bilaterally AUSCULTATION: clear to auscultation bilaterally Cardio: COMMON NORMALS: regular rate, regular rhythm and No murmurs present (Cardio) RATE: regular rate RHYTHM: regular rhythm GI: COMMON NORMALS: Normal to inspection, nondistended, normoactive bowel sounds present, Soft to palpation and non-tender PALPATION: Yes Soft to palpation Extremity: NARRATIVE EXTREMITY EXAM: R BKA Left fifth metatarsal prior amputation. Decreasing swelling. GENERAL: Yes edema (Trace) Neuro: COMMON NORMALS: moves all extremities SENSORIUM/ORIENTATION: Yes alert MENINGEAL SIGNS: Yes no meningeal signs Psych: COMMON NORMALS: mental status grossly normal Skin: RASHES: no rashes OTHER: Wound VAC over open wound of distal lateral left foot, with erythema, trace edema of left foot. Data : 12/05/21 05:50 12/05/21 05:50 Micro: Microbiology 12/03/21 03:40 Urine Culture - Final Urine,Clean Catch A&P Assessment and plan (1) Diabetic foot infection: Continue Zosyn. Pending additional assessment by MRI of the foot scheduled for tomorrow. Depending on findings consider duration and route of antibiotic therapy as well as biopsy. Appreciate podiatry recommendations. Surgical debridement not indicated at this time. Strep resistant to Levaquin and Finegoldia. Continue Zosyn Sepsis resolved. Status: Acute Plan Possible UTI: Urine culture without growth so far. Continue antibiotic as above. Candidal crural infection: Fluconazole Constipation: MiraLAX Obstructive sleep apnea Depression Elevated troponin, query ACS. No recurrence of chest pain. He has nitroglycerin at home which she has to take rarely. He states episodes are uncommon. He had previously been assessed by stress test back in April which was abnormal with medium-sized area of patchy decreased tracer uptake in basal anterolateral mid to apical anterior and apical lateral wall with some reversibility in mid to apical anterior mid to apical anterolateral and mid inferolateral and apical navarrete. Discussed with him. Continue medical management this time. Consideration may be given to Imdur for stable angina. Discussed with him symptoms of unstable angina and to seek medical attention in case of. Thrombocytosis. Will monitor platelet count intermittently with CBC Seasonal allergies Neuropathy Anemia, chronic. Combination iron deficiency anemia and ACD For now hold off iron supplementation. Will monitor hemoglobin level intermittently. Check fecal occult blood. CHF, ejection fraction 53% with grade 2 diastolic dysfunction Coronary artery disease, status post [place] Diabetes. Will check fingerstick glucose before every meal and at bedtime and provide insulin sign scale GERD Hyperlipidemia Hypertension Obesity History of DVT, status post IVC filter placement Erectile dysfunction DVT prophylaxis. Left lower extremity PERLA ray Attestations Medical Necessity Statement*: Continue admission for assessment of management of left foot diabetic wound infection with bone exposure, assessment for os teomyelitis. Coding Level of Care Code Acute Cook Vegetable for [facility] Diagnoses Diabetic foot infection E11.628; L08.9
[2021-12-05] MEDS: polyethylene glycol 3350 Pkt 17 gm PO (17:07)
[2021-12-05] MEDS: enoxaparin 40 mg/0.4 mL Syringe SUBCUT (17:08)
[2021-12-05] MEDS: fluconazole 100 mg Tablet 200 MG PO (17:11)
[2021-12-05 17:34] LABS: Glucose Point of Care 233 mg/dL (70-110)
[2021-12-05 20:01] LABS: Glucose Point of Care 251 mg/dL (70-110)
[2021-12-05] MEDS: trazodone 100 mg Tablet 50 MG PO (21:59)
[2021-12-05] MEDS: atorvastatin 40 mg Tablet 80 MG PO (22:01)
[2021-12-06] VITALS (8 sets, daily range): BP systolic 114–150; BP diastolic 66–78; PULSE 75–85; RESP 16–18; TEMP 36.5–37.3; O2SAT 91–97
[2021-12-06] MEDS: aspirin 81 mg EC Tablet PO (05:35)
[2021-12-06] MEDS: spironolactone 25 mg Tablet 50 MG PO (05:36)
[2021-12-06] MEDS: loratadine 10 mg Tablet PO (05:36)
[2021-12-06] MEDS: losartan 50 mg Tablet 100 MG PO (05:36)
[2021-12-06 05:43] LABS: Basophils # 0.1 10^3/uL (0.0-0.1); Basophils % 0.5 %; Eosinophils # 0.2 10^3/uL (0.0-0.8); Hematocrit 30.6 % (42.0-52.0); Hemoglobin 9.3 g/dL (11.7-16.6); Lymphocytes % 20.9 %; Mean Corpuscular HGB Conc 30.4 g/dL (30.0-36.0); Mean Corpuscular Hemoglobin 26.8 pg (28.0-34.0); Mean Corpuscular Volume 88.2 fl (80-94); Mean Platelet Volume 10.2 fL (7.4-10.4); Monocytes # 0.9 10^3/uL (0.2-0.9); Monocytes % 8.9 %; Neutrophils # 6.49 10^3/uL (1.8-7.7); Neutrophils % 67.3 %; Nucleated Red Blood Cells % 0 %; Platelet Count 433 10^3/cmm (130-400); Red Blood Count 3.47 10^6/uL (4.1-5.3); Red Cell Distribution Width 13.2 % (12.1-15.1); White Blood Count 9.7 10^3/uL (4.0-10.0)
[2021-12-06] MEDS: piperacillin-tazobactam 3.375 GM in sodium chloride 0.9% (plus) 50 ML IV ×3 (05:53→23:31)
[2021-12-06 06:08] LABS: Anion Gap 15.6 (5-19); Blood Urea Nitrogen 13 mg/dL (6-20); Calcium 9.5 mg/dL (8.5-10.5); Carbon Dioxide 26 mmol/L (22-29); Chloride 101 mmol/L (98-107); Glomerular Filtration Rate 116.7 mL/min (90-130); Glucose 196 mg/dL (65-115); Osmolality Calculated 292 mOsm/kg (285-295); Potassium 4.6 mmol/L (3.5-5.1); Sodium 138 mmol/L (136-145)
[2021-12-06 06:40] LABS: Glucose Point of Care 192 mg/dL (70-110)
--- NOTE | 2021-12-06 07:51 | PM.PN ---
Subjective Subjective: Patient seen bedside this morning. His is present. Having issues with the wound VAC showing occlusion overnight. Awaiting MRI with contrast left foot. Vitals/I&O/Wt Last Vital Signs Temp 98.5 F 12/06/21 07:26 Pulse 77 12/06/21 07:26 Resp 16 12/06/21 07:26 BP 135/69 12/06/21 07:26 Pulse Ox 91 12/06/21 07:26 12/05/21 12/06/21 12/06/21 22:59 06:59 14:59 Intake Total 290 / 820 50 / 870 Output Total 575 / 575 Balance 290 / 820 -525 / 295 Physical Exam Narrative: GENERAL: Patient is alert and oriented ?3 and in no acute distress. The following is a focused left lower extremity exam. VASCULAR: Dorsalis pedis palpable, posterior tibial artery palpable. Capillary refill time less than 5 seconds to the distal hallux. Pitting edema to the left lower extremity. NEUROLOGICAL: Protective sensation intact 0/10 sites, tested with [place] monofilament to left foot. DERMATOLOGICAL: Wound left plantar foot measures cm x 3.8 cm x 2 cm with periwound erythema, serosanguineous drainage. No proximal lymphangitic streaking. Surgical incision left dorsal lateral foot 9 cm in length also serosanguineous drainage. MUSCULOSKELETAL: Status post right below-knee amputation. Partial amputation to the left second toe with healed amputation stump. Mild varus position of the left foot. No pain at the left foot due to neuropathy. Status post left fifth metatarsectomy. Data : 12/06/21 05:10 12/06/21 05:10 Micro: Microbiology 12/03/21 03:40 Urine Culture - Final Urine,Clean Catch A&P Assessment and plan (1) Non-pressure chronic ulcer of other part of left foot with necrosis of bone: Status: Acute (2) Diabetic peripheral neuropathy associated with type 2 diabetes mellitus: Status: Acute Plan 56-year-old uncontrolled diabetic male being treated for diabetic foot infection left foot, status post incision and debridement and fifth metatarsectomy secondary to osteomyelitis. Patient is afebrile, no leukocytosis. Clinical improvement of the left lower extremity. No cellulitis or lymphangitis. Excellent response to IV antibiotics. Awaiting MRI with contrast to assess for acute osteomyelitis at the left metatarsal bases and cuboid. Perform dressing change with new wound VAC dressing excellent seal, 125 mmHg continuous pressure. Wound VAC functioning properly after dressing change. Remain nonweightbearing to the left foot may heel touch for transfers. Will await MRI findings, MRI with contrast scheduled today. Attestations Medical Necessity Statement*: Left foot infection Coding Level of Care Code Acute Senior Front End Engineer for [facility] Diagnoses Non-pressure chronic ulcer of other part of left foot with necrosis of bone L97.524 Diabetic peripheral neuropathy associated with type 2 diabetes mellitus E11.42
--- NOTE | 2021-12-06 08:00 | MR_ITS ---
WS: [id number] MRI LEFT FOOT with and without CONTRAST. COMPARISON: 12/03/2021 Multiplanar, multisequence imaging is performed with and without contrast. Limited precontrast evalu ation. Comparison is made to a recent noncontrast evaluation of the LEFT foot on 12/03/2021. Comparison is best as compared to the noncontrast examination from 12/03/2021. In the areas of low sig nal intensity seen on the prior MRI there is enhancement. Most specific areas of enhancement include the proximal second, third and fourth metatarsals. Fifth metatarsal has been removed with a large pos t surgical defect. There is no significant enhancement with in the bed of the surgical defect. There is soft tissue edema and extensive soft tissue enhancement surrounding the midfoot. No focal drainabl e collection. The cellulitis surrounds the metatarsals and involves both the plantar and dorsal surfa ce surfaces of the midfoot. There is abnormal enhancement within the cuboid and all 3 cuneiforms. The re is a very small amount of enhancement within a portion of the navicular. Subchondral cystic change s along the anterior process of the calcaneus. MR/MR foot LT wo/w con [id number] IMPRESSION: 1. There is a large postsurgical soft tissue defect along the lateral foot. No discrete enhancement within the postsurgical site. 2. There is osteomyelitis and cellulitis diffusely throughout the midfoot. 3. There is osteomyelitis involving the proximal second, third and fourth meta tarsals with narrowing along the tarsometatarsal articulation. 4. Additional enhancement with changes of osteomyelitis within the cuboid, all 3 cuneiforms, navicular and possibly the anterior process of the calcaneus. 5. No focal abscess.
[2021-12-06] MEDS: pantoprazole DR 40 mg Tablet PO ×2 (09:50→18:03)
[2021-12-06] MEDS: carvedilol 12.5 mg Tablet PO ×2 (09:50→18:03)
[2021-12-06] MEDS: polyethylene glycol 3350 Pkt 17 gm PO ×2 (09:50→18:03)
[2021-12-06] MEDS: sertraline 100 mg Tablet PO (09:50)
[2021-12-06] MEDS: insulin lispro 100 unit/1 mL SUBCUT ×4 (09:50→21:30)
[2021-12-06] MEDS: insulin glargine 100 units/1 mL 10 UNIT SUBCUT ×2 (09:50→18:02)
[2021-12-06 12:03] LABS: Glucose Point of Care 301 mg/dL (70-110)
[2021-12-06] MEDS: HYDROcodone-acetaminophen 5-325 mg Tablet 1 TAB PO (12:35)
--- NOTE | 2021-12-06 13:00 | PM.PN ---
Subjective Subjective: Patient was seen this morning, is at bedside, he tells me he really wants to go home, he is awaiting his MRI, no fevers, chills, nausea, vomiting, remains on IV antibiotics. He did have issues with his wound VAC overnight, did wet-to-dry dressings, replaced by Dr. Monk this morning Vitals/I&O/Wt Last Vital Signs Temp 98.7 F 12/06/21 11:45 Pulse 83 12/06/21 11:45 Resp 16 12/06/21 11:45 BP 135/70 12/06/21 11:45 Pulse Ox 94 12/06/21 11:45 12/05/21 12/06/21 12/06/21 22:59 06:59 14:59 Intake Total 290 / 820 50 / 870 290 / 290 Output Total 575 / 575 Balance 290 / 820 -525 / 295 290 / 290 Physical Exam Const: COMMON NORMALS: no acute distress and patient oriented x3 Resp: COMMON NORMALS: normal respiratory effort, No retractions, No use of accessory muscles and clear to auscultation bilaterally AUSCULTATION: clear to auscultation bilaterally Cardio: COMMON NORMALS: regular rate, regular rhythm, S1 normal heart sound present and S2 normal heart sound present RATE: regular rate RHYTHM: regular rhythm HEART SOUNDS: S1 normal heart sound present and S2 normal heart sound present GI: COMMON NORMALS: Normal to inspection, nondistended, normoactive bowel sounds present, Soft to palpation and non-tender PALPATION: Yes Soft to palpation Extremity: NARRATIVE EXTREMITY EXAM: Left foot, wrapped in bandage Neuro: COMMON NORMALS: patient oriented x3 Data : 12/06/21 05:10 12/06/21 05:10 Micro: Microbiology 12/03/21 03:40 Urine Culture - Final Urine,Clean Catch A&P Assessment and plan (1) Non-pressure chronic ulcer of other part of left foot with necrosis of bone: Status: Acute (2) Diabetic peripheral neuropathy associated with type 2 diabetes mellitus: Status: Acute Plan (1) Diabetic foot infection: Continue Zosyn.? Pending additional assessment by MRI of the foot scheduled for today Depending on findings consider duration and route of antibiotic therapy as well as biopsy. Appreciate podiatry recommendations.? Surgical debridement not indicated at this time. Strep resistant to Levaquin and Finegoldia. Continue Zosyn Sepsis resolved. ? ? Plan Possible UTI: Urine culture without growth so far.? Continue antibiotic as above. Candidal crural infection: Fluconazole Constipation: MiraLAX Obstructive sleep apnea Depression Elevated troponin, query ACS.? No recurrence of chest pain.? He has nitroglycerin at home which she has to take rarely.? He states episodes are uncommon.? He had previously been assessed by stress test back in April which was abnormal with medium-sized area of patchy decreased tracer uptake in basal anterolateral mid to apical anterior and apical lateral wall with some reversibility in mid to apical anterior mid to apical anterolateral and mid inferolateral and apical navarrete.? Discussed with him.? Continue medical management this time.? Consideration may be given to Imdur for stable angina.? Discussed with him symptoms of unstable angina and to seek medical attention in case of. Thrombocytosis.? Will monitor platelet count intermittently with CBC Seasonal allergies Neuropathy Anemia, chronic.? Combination iron deficiency anemia and ACD? For now hold off iron supplementation.? Will monitor hemoglobin level intermittently.? Check fecal occult blood. CHF, ejection fraction 53% with grade 2 diastolic dysfunction Coronary artery disease, status post MD Diabetes.? Will check fingerstick glucose before every meal and at bedtime and provide insulin sign scale GERD Hyperlipidemia Hypertension Obesity History of DVT, status post IVC filter placement Erectile dysfunction DVT prophylaxis.? Left lower extremity PERLA ray Attestations Medical Necessity Statement*: Patient requires hospitalization for left foot diabetic infection Coding Level of Care Code Acute Food Service Assistant for g Fwd Diagnoses Non-pressure chronic ulcer of other part of left foot with necrosis of bone L97.524 Diabetic peripheral neuropathy associated with type 2 diabetes mellitus E11.42
[2021-12-06] MEDS: gadobenate dimeglumine 20 mL vial IV (14:40)
[2021-12-06 16:59] LABS: Glucose Point of Care 293 mg/dL (70-110)
--- NOTE | 2021-12-06 17:34 | P.CONIM_ITS ---
Providers/Reason For Consult Consulting Physician/Specialty*: Yoel Walker MD; orthopedic surgery Reason for Consult*: Osteomyelitis left foot, possible left below-knee amputation Attending Physician: Niraj Ocampo MD Primary Care Provider: HANNAH Mason History of Present Illness History of Present Illness Salvador Luke is a 56 year old male with a long history of diabetes mellitus and lower extremity vascular complications. He states he underwent a right below- knee amputation in 2015 after battling infections for approximately 4 years. He describes this May developing a small area of drainage along the lateral border of his foot which became a progressive problem. He underwent amputation of his fifth metatarsal on November 17 of this year by Dr. Naman Monk have her has made little progress in healing.He developed fever on 12/02/2021 prompting admission. He was seen by Dr. Monk or additional antibiotics were considered. The patient reports that he went through years of suffering with his right leg. He does not feel he is progressing with his left and he is ready for below-knee amputation Medications/Allergies Home Medications Medication Instructions Recorded Confirmed Last Taken Type acetaminophen 500 mg tablet 1,000 mg PO Q4H PRN 04/30/21 12/02/21 11/15/21 14:00 History (Tylenol Extra Strength) insulin glargine 100 unit/mL (3 68 unit SUBCUT BID 04/30/21 12/02/21 12/02/21 History mL) subcutaneous pen (Lantus Solostar U-100 Insulin) [id number]-[id number]-[id number] tablet 1 tab PO QAM 04/30/21 12/02/21 12/02/21 History pantoprazole 40 mg tablet,delayed 40 mg PO BID 04/30/21 12/02/21 12/02/21 History release pioglitazone 15 mg tablet 15 mg PO BID@04/30/21 12/02/21 12/02/21 History trazodone 100 mg tablet 50 - 100 mg PO BEDTIME 04/30/21 12/02/21 12/01/21 History atorvastatin 80 mg tablet 80 mg PO DAILY@22 30 Days #30 tab 05/04/21 12/02/21 12/01/21 Rx nitroglycerin 0.4 mg sublingual 0.4 mg SUBLINGUAL Q5M PRN #30 tab 05/06/21 12/02/21 Unknown Rx tablet carvedilol 12.5 mg tablet (Coreg) 12.5 mg PO BID #180 tab 05/28/21 12/02/21 12/02/21 Rx aspirin 81 mg tablet,delayed 81 mg PO QAM 11/15/21 12/02/21 12/02/21 History release gabapentin 300 mg capsule 300 mg PO DAILY PRN 11/15/21 12/02/21 12/02/21 History insulin aspart U-100 100 unit/mL See Rx Instructions .ROUTE .COMPLEX 11/15/21 12/02/21 12/02/21 History (3 mL) subcutaneous pen (Novolog Flexpen U-100 Insulin aspart) loratadine 10 mg tablet (Claritin) 10 mg PO QAM 11/15/21 12/02/21 12/02/21 History losartan 100 mg tablet 100 mg PO QAM 11/15/21 12/02/21 12/02/21 History spironolactone 25 mg tablet 50 mg PO QAM 11/15/21 12/02/21 12/02/21 History sertraline 100 mg tablet 100 mg PO DAILY 12/02/21 12/02/21 12/02/21 History Allergies Allergy/AdvReac Type Severity Reaction Status Date / Time atorvastatin [From Lipitor] Allergy ADR-Muscle Verified 11/26/21 13:59 Pain vancomycin Allergy ALGY-Anaphy Verified 11/26/21 13:59 laxis Current Medications Generic Name Dose Route Start Last Admin Trade Name Freq PRN Reason Stop Dose Admin Hydrocodone Bitart/Acetaminophen 1 tab 12/02/21 23:29 12/06/21 12:35 Hydrocodone-Acetaminophen 5-325 Mg Tablet PO 1 tab Q4H PRN Administration MODERATE TO SEVERE PAIN Aspirin 81 mg 12/05/21 06:00 12/06/21 05:35 Aspirin 81 Mg Ec Tablet PO 81 mg QAM MARJORIE Administration Atorvastatin Calcium 80 mg 12/04/21 22:00 12/05/21 22:01 Atorvastatin 40 Mg Tablet PO 80 mg DAILY@22 MARJORIE Administration Carvedilol 12.5 mg 12/05/21 09:00 12/06/21 09:50 Carvedilol 12.5 Mg Tablet PO 12.5 mg BID MARJORIE Administration Enoxaparin Sodium 40 mg 12/05/21 18:00 12/05/21 17:08 Enoxaparin 40 Mg/0.4 Ml Syringe SUBCUT 40 mg Q24H MARJORIE Administration Fluconazole 200 mg 12/04/21 19:45 12/05/21 17:11 Fluconazole 100 Mg Tablet PO 200 mg DAILY@1800 MARJORIE Administration Piperacillin Sod/Tazobactam 50 mls @ 12.5 mls/hr 12/03/21 14:45 12/06/21 15:43 Sod 3.375 gm/ Sodium Chloride IV 12.5 mls/hr Q8H MARJORIE Administration Protocol Insulin Glargine 10 unit 12/05/21 09:00 12/06/21 09:50 Insulin Glargine 100 Units/1 Ml SUBCUT 10 unit BID MARJORIE Administration Insulin Human Lispro 0 unit 12/03/21 08:00 12/06/21 12:34 Insulin Lispro 100 Unit/1 Ml SUBCUT 10 unit WM&BEDTIME MARJORIE Administration Protocol Loratadine 10 mg 12/05/21 06:00 12/06/21 05:36 Loratadine 10 Mg Tablet PO 10 mg QAM MARJORIE Administration Losartan Potassium 100 mg 12/05/21 06:00 12/06/21 05:36 Losartan 50 Mg Tablet PO 100 mg QAM MARJORIE Administration Morphine Sulfate 4 mg 12/02/21 21:38 12/05/21 02:47 Morphine 4 Mg/Ml Sdv 1 Ml IVP 4 mg Q1H PRN Administration pain Pantoprazole Sodium 40 mg 12/05/21 09:00 12/06/21 09:[address] 40 Mg Tablet PO 40 mg BID MARJORIE Administration Polyethylene Glycol 17 gm 12/05/21 18:00 12/06/21 09:50 Polyethylene Glycol 3350 Pkt 17 Gm PO 17 gm BID MAJRORIE Administration Sertraline HCl 100 mg 12/05/21 09:00 12/06/21 09:50 Sertraline 100 Mg Tablet PO 100 mg DAILY MARJORIE Administration Spironolactone 50 mg 12/05/21 06:00 12/06/21 05:36 Spironolactone 25 Mg Tablet PO 50 mg QAM MARJORIE Administration Trazodone HCl 50 mg 12/04/21 21:00 12/05/21 21:59 Trazodone 100 Mg Tablet PO 50 mg BEDTIME MARJORIE Administration PFSH Acute PFSH: Medical History (Updated 12/03/21 @ 07:21 by Abhishek Beverly MD) Anemia CHF (congestive heart failure), NYHA class III COVID-19 Deep vein thrombosis Diabetes mellitus HTN (hypertension) Obesity Presence of IVC filter Ulcer of left foot Surgical History History of right below knee amputation Social History Alcohol intake: never Vitals/I&O/Wt Last Vital Signs Temp 97.7 F 12/06/21 15:48 Pulse 85 12/06/21 15:48 Resp 16 12/06/21 15:48 BP 142/77 12/06/21 15:48 Pulse Ox 93 12/06/21 15:48 12/06/21 12/06/21 12/06/21 06:59 14:59 22:59 Intake Total 50 / 870 770 / 770 Output Total 575 / 575 Balance -525 / 295 770 / 770 Physical Exam Narrative: On examination the patient's left foot wound VAC is in place over the lateral and plantar foot. Serous drainage is seen within the VAC tubing. There is no surrounding erythema. He has slight erythema extending up to the level of the mid leg. He has a palpable left dorsalis pedis pulse. He has diminished sensation left foot consistent with diabetic neuropathy. Data : 12/06/21 05:10 12/06/21 05:10 MRI: Radiologist's impression: Left foot 1. There is a large postsurgical soft tissue defect along the lateral foot. No discrete enhancement within the postsurgical site. 2. There is osteomyelitis and cellulitis diffusely throughout the midfoot. 3. There is osteomyelitis involving the proximal second, third and fourth metatarsals with narrowing along the tarsometatarsal articulation. 4. Additional enhancement with changes of osteomyelitis within the cuboid, all 3 cuneiforms, navicular and possibly the anterior process of the calcaneus. 5. No focal abscess. Xray Ortho: My impression: 3 views left foot are reviewed. The patient has a previous amputation of his fifth metatarsal. No other destructive processes are identified. A&P Assessment and plan (1) Diabetic foot infection: Patient is MRI suggest osteomyelitis throughout the foot. I think the chance of this proving with antibiotics is very unlikely. I would agree with the patient that perhaps the best option would be below-knee amputation. He is course is familiar with from the contralateral side. I discussed risk of wound healing problems and anesthetic risk. Discussed risk of bleeding and infection. D iscussed the possible need for further procedures. He has a larger male and with bilateral below-knee amputations are regaining amatory status may be difficult but certainly possible. I discussed the timing of surgery with him. He states he would like to have family here from [place] and would like to proceed with surgery on Monday. Status: Acute Coding Level of Care Code Acute Production Finisher for Mary Beth Godfrey Diagnoses Diabetic foot infection E11.628; L08.9
[2021-12-06] MEDS: enoxaparin 40 mg/0.4 mL Syringe SUBCUT (18:02)
[2021-12-06] MEDS: fluconazole 100 mg Tablet 200 MG PO (18:03)
--- NOTE | 2021-12-06 19:37 | PC.NURSE ---
Visitor overnight permission/drsg orders per Dr Monk, patients wound vac can be switched to wet to dry drsg if problems persist with wound vac occlusions. Also Dr Monk gave permission for the of the patient to stay overnight in the room with patient.
[2021-12-06 20:19] LABS: Glucose Point of Care 314 mg/dL (70-110)
[2021-12-06] MEDS: linezolid premix 600 MG/300 ML PREMIX 300 MG IV (20:23)
[2021-12-06] MEDS: trazodone 100 mg Tablet 50 MG PO (21:30)
[2021-12-06] MEDS: atorvastatin 40 mg Tablet 80 MG PO (21:30)
[2021-12-06] MEDS: gabapentin 300 mg Capsule PO (21:32)
[2021-12-07 04:38] VITALS: BP 163/82; PULSE 80; RESP 16; TEMP 36.8; O2SAT 96
[2021-12-07 05:29] LABS: Basophils # 0.1 10^3/uL (0.0-0.1); Basophils % 0.6 %; Eosinophils # 0.2 10^3/uL (0.0-0.8); Eosinophils % 1.6 %; Hematocrit 29.7 % (42.0-52.0); Hemoglobin 9.2 g/dL (11.7-16.6); Lymphocytes # 2.4 10^3/uL (0.8-4.8); Lymphocytes % 24.3 %; Mean Corpuscular Hemoglobin 27.4 pg (28.0-34.0); Mean Corpuscular Volume 88.4 fl (80-94); Mean Platelet Volume 10.5 fL (7.4-10.4); Monocytes % 10.6 %; Neutrophils # 6.14 10^3/uL (1.8-7.7); Neutrophils % 62.6 %; Nucleated Red Blood Cells % 0 %; Platelet Count 418 10^3/cmm (130-400); Red Blood Count 3.36 10^6/uL (4.1-5.3); Red Cell Distribution Width 13.1 % (12.1-15.1); White Blood Count 9.8 10^3/uL (4.0-10.0)
[2021-12-07 05:47] LABS: Alanine Aminotransferase 13 U/L (0-41); Albumin Level 3.1 g/dL (3.5-5.2); Alkaline Phosphatase 76 IU/L (40-130); Anion Gap 15.9 (5-19); Aspartate Amino Transferase 11 U/L (0-40); Blood Urea Nitrogen 12 mg/dL (6-20); C Reactive Protein 57.6 mg/L (0.0-4.9); Calcium 9.5 mg/dL (8.5-10.5); Carbon Dioxide 24 mmol/L (22-29); Chloride 101 mmol/L (98-107); Globulin 4.8 g/dL (1.3-4.6); Glucose 204 mg/dL (65-115); Magnesium 1.9 mg/dL (1.7-2.3); Osmolality Calculated 290 mOsm/kg (285-295); Phosphorus 3.8 mg/dL (2.5-4.5); Potassium 3.9 mmol/L (3.5-5.1); Sodium 137 mmol/L (136-145); Total Bilirubin 0.3 mg/dL (0.15-1.2); Total Protein 7.9 g/dL (6.6-8.7)
[2021-12-07] MEDS: aspirin 81 mg EC Tablet PO (06:30)
[2021-12-07] MEDS: loratadine 10 mg Tablet PO (06:30)
[2021-12-07] MEDS: losartan 50 mg Tablet 100 MG PO (06:30)
[2021-12-07] MEDS: piperacillin-tazobactam 3.375 GM in sodium chloride 0.9% (plus) 50 ML IV ×3 (06:30→21:47)
[2021-12-07] MEDS: spironolactone 25 mg Tablet 50 MG PO (06:30)
[2021-12-07 06:42] LABS: Glucose Point of Care 204 mg/dL (70-110)
[2021-12-07] MEDS: linezolid premix 600 MG/300 ML PREMIX 300 MG IV ×2 (07:25→19:32)
[2021-12-07] MEDS: insulin glargine 100 units/1 mL 10 UNIT SUBCUT ×2 (07:25→17:18)
[2021-12-07] MEDS: polyethylene glycol 3350 Pkt 17 gm PO ×2 (07:26→17:19)
[2021-12-07] MEDS: carvedilol 12.5 mg Tablet PO ×2 (07:26→17:18)
[2021-12-07] MEDS: insulin lispro 100 unit/1 mL SUBCUT ×4 (07:26→21:47)
[2021-12-07] MEDS: pantoprazole DR 40 mg Tablet PO ×2 (07:26→17:18)
[2021-12-07] MEDS: sertraline 100 mg Tablet PO (07:26)
[2021-12-07 07:29] VITALS: BP 148/84; PULSE 82; RESP 18; TEMP 36.6; O2SAT 93
--- NOTE | 2021-12-07 11:39 | PM.PN ---
Subjective Subjective: Patient was seen this morning, no complaints, he is agreeable to left below-knee amputation, currently on antibiotics, tolerating them well Vitals/I&O/Wt Last Vital Signs Temp 97.8 F 12/07/21 07:29 Pulse 82 12/07/21 07:29 Resp 18 12/07/21 07:29 BP 148/84 12/07/21 07:29 Pulse Ox 93 12/07/21 07:29 12/06/21 12/07/21 12/07/21 22:59 06:59 14:59 Intake Total 590 / 1360 50 / 1410 Output Total 400 / 400 Balance 590 / 1360 50 / 1410 -400 / -400 Physical Exam Const: COMMON NORMALS: no acute distress and patient oriented x3 Cardio: COMMON NORMALS: regular rate, regular rhythm, S1 normal heart sound present and S2 normal heart sound present RATE: regular rate RHYTHM: regular rhythm HEART SOUNDS: S1 normal heart sound present and S2 normal heart sound present GI: COMMON NORMALS: Normal to inspection, nondistended, normoactive bowel sounds present, Soft to palpation and non-tender PALPATION: Yes Soft to palpation Extremity: NARRATIVE EXTREMITY EXAM: Left lower extremity wrapped and bandaged Neuro: COMMON NORMALS: patient oriented x3 Psych: COMMON NORMALS: mental status grossly normal Data : 12/07/21 04:43 12/07/21 04:43 A&P Assessment and plan (1) Non-pressure chronic ulcer of other part of left foot with necrosis of bone: Status: Acute (2) Diabetic peripheral neuropathy associated with type 2 diabetes mellitus: Status: Acute (3) Diabetic foot infection: Status: Acute (4) Foot osteomyelitis, left: Status: Acute Plan (1) Diabetic foot infection/left foot osteomyelitis: Continue Zosyn.? Repeat MRI of the foot with contrast shows 1.? There is a large postsurgical soft tissue defect along the lateral foot. No discrete enhancement within the postsurgical site. 2.? There is osteomyelitis and cellulitis diffusely throughout the midfoot. 3.? There is osteomyelitis involving the proximal second, third and fourth metatarsals with narrowing along the tarsometatarsal articulation. 4.? Additional enhancement with changes of osteomyelitis within the cuboid, all 3 cuneiforms, navicular and possibly the anterior process of the calcaneus. 5.? No focal abscess. After discussing with podiatry, and orthopedics, will plan on left below-knee amputation Appreciate podiatry recommendations. Appreciate orthopedics recommendation Strep resistant to Levaquin and Finegoldia. Continue Zosyn, Zyvox Sepsis resolved. ? ? Plan Possible UTI: Urine culture without growth so far.? Continue antibiotic as above. Candidal crural infection: Fluconazole Constipation: MiraLAX Obstructive sleep apnea Depression Elevated troponin, query ACS.? No recurrence of chest pain.? He has nitroglycerin at home which she has to take rarely.? He states episodes are uncommon.? He had previously been assessed by stress test back in April which was abnormal with medium-sized area of patchy decreased tracer uptake in basal anterolateral mid to apical anterior and apical lateral wall with some reversibility in mid to apical anterior mid to apical anterolateral and mid inferolateral and apical navarrete.? Discussed with him.? Continue medical management this time.? Consideration may be given to Imdur for stable angina.? Discussed with him symptoms of unstable angina and to seek medical attention in case of. Thrombocytosis.? Will monitor platelet count intermittently with CBC Seasonal allergies Neuropathy Anemia, chronic.? Combination iron deficiency anemia and ACD? For now hold off iron supplementation.? Will monitor hemoglobin level intermittently.? Check fecal occult blood. CHF, ejection fraction 53% with grade 2 diastolic dysfunction Coronary artery disease, status post [place] Diabetes.? Will check fingerstick glucose before every meal and at bedtime and provide insulin sign scale GERD Hyperlipidemia Hypertension Obesity History of DVT, status post IVC filter placement Erectile dysfunction DVT prophylaxis.? Left lower extremity PERLA cory Attestations Medical Necessity Statement*: Patient requires hospitalization proceeding to left below-knee amputation Coding Level of Care Code Acute Tracer Clerk for Martineg Fwd Diagnoses Non-pressure chronic ulcer of other part of left foot with necrosis of bone L97.524 Diabetic peripheral neuropathy associated with type 2 diabetes mellitus E11.42 Diabetic foot infection E11.628; L08.9 Foot osteomyelitis, left M86.9
[2021-12-07 11:41] LABS: Glucose Point of Care 228 mg/dL (70-110)
[2021-12-07 11:42] VITALS: BP 148/73; PULSE 80; RESP 18; TEMP 36.6; O2SAT 94
[2021-12-07 15:55] VITALS: BP 102/65; PULSE 72; RESP 18; TEMP 36.7; O2SAT 95
[2021-12-07 16:59] LABS: Glucose Point of Care 251 mg/dL (70-110)
[2021-12-07] MEDS: fluconazole 100 mg Tablet 200 MG PO (17:18)
--- NOTE | 2021-12-07 18:16 | PC.NURSE ---
SHIFT SUMMARY PATIENT HAS DONE WELL TODAY. NO COMPLAINTS OF PAIN. DRESSING TO L FOOT CHANGED. PATIENT HAS HAD GOOD PO INTAKE AND OUTPUT. NO COMPLAINTS AT THIS TIME. AT BEDSIDE.
[2021-12-07] MEDS: HYDROcodone-acetaminophen 5-325 mg Tablet 1 TAB PO (19:39)
[2021-12-07 19:46] VITALS: BP 150/88; PULSE 72; RESP 16; TEMP 36.9; O2SAT 95
[2021-12-07 20:51] LABS: Glucose Point of Care 392 mg/dL (70-110)
[2021-12-07] MEDS: trazodone 100 mg Tablet 50 MG PO (21:47)
[2021-12-07] MEDS: atorvastatin 40 mg Tablet 80 MG PO (21:47)
[2021-12-07] MEDS: gabapentin 300 mg Capsule PO (21:51)
[2021-12-07 23:40] VITALS: BP 117/66; PULSE 76; RESP 15; TEMP 37.1; O2SAT 95
[2021-12-08] VITALS (20 sets, daily range): BP systolic 103–168; BP diastolic 65–95; PULSE 60–72; RESP 13–18; TEMP 36.1–36.9; O2SAT 93–98
[2021-12-08 05:06] LABS: Basophils % 0.5 %; Eosinophils # 0.3 10^3/uL (0.0-0.8); Eosinophils % 3.6 %; Hemoglobin 9.4 g/dL (11.7-16.6); Lymphocytes % 24.3 %; Mean Corpuscular HGB Conc 30.3 g/dL (30.0-36.0); Mean Corpuscular Hemoglobin 27.2 pg (28.0-34.0); Mean Corpuscular Volume 89.9 fl (80-94); Mean Platelet Volume 10.5 fL (7.4-10.4); Monocytes # 0.9 10^3/uL (0.2-0.9); Monocytes % 10.8 %; Neutrophils # 5.04 10^3/uL (1.8-7.7); Neutrophils % 60.4 %; Nucleated Red Blood Cells % 0 %; Platelet Count 384 10^3/cmm (130-400); Red Blood Count 3.45 10^6/uL (4.1-5.3); Red Cell Distribution Width 13.2 % (12.1-15.1); White Blood Count 8.3 10^3/uL (4.0-10.0)
[2021-12-08 05:31] LABS: Alanine Aminotransferase 12 U/L (0-41); Albumin Level 3.1 g/dL (3.5-5.2); Alkaline Phosphatase 87 IU/L (40-130); Anion Gap 17.2 (5-19); Aspartate Amino Transferase 12 U/L (0-40); Blood Urea Nitrogen 12 mg/dL (6-20); Calcium 9.6 mg/dL (8.5-10.5); Carbon Dioxide 26 mmol/L (22-29); Chloride 100 mmol/L (98-107); Glucose 265 mg/dL (65-115); Osmolality Calculated 297 mOsm/kg (285-295); Phosphorus 4.3 mg/dL (2.5-4.5); Potassium 4.2 mmol/L (3.5-5.1); Sodium 139 mmol/L (136-145); Total Bilirubin 0.3 mg/dL (0.15-1.2); Total Protein 8.1 g/dL (6.6-8.7)
[2021-12-08] MEDS: piperacillin-tazobactam 3.375 GM in sodium chloride 0.9% (plus) 50 ML IV ×2 (05:52→21:55)
[2021-12-08 06:29] LABS: Glucose Point of Care 262 mg/dL (70-110)
[2021-12-08] MEDS: linezolid premix 600 MG/300 ML PREMIX 300 MG IV ×2 (08:54→20:39)
[2021-12-08] MEDS: carvedilol 12.5 mg Tablet PO (08:54)
[2021-12-08] MEDS: HYDROcodone-acetaminophen 5-325 mg Tablet 1 TAB PO (08:54)
[2021-12-08] MEDS: sertraline 100 mg Tablet PO (08:54)
[2021-12-08] MEDS: insulin glargine 100 units/1 mL 7 UNIT SUBCUT (09:24)
--- NOTE | 2021-12-08 09:27 | ANES.PREANE2 ---
Pre-Anesthetic Assessment Height/Weight: Height 1.8 m Weight 155.129 kg Temp Pulse Resp BP Pulse Ox 97.7 F 63 18 104/65 96 12/08/21 07:44 12/08/21 07:44 12/08/21 07:44 12/08/21 07:44 12/08/21 07:44 Preop Diagnosis: Osteomyelitis left foot Operation Date: 12/08/21 14:55 Proposed Procedures p Below Knee Amputation(Left) - Yoel Walker MD Familial anesthetic complications: Hydromorphone does not work for patient, prefers morphine Was Beta Nery taken within 24 hours: Yes Was Clonidine taken within 24 hours: N/A Last intake: 12/07/21 Exam alert, oriented x 3, clear to auscultation bilaterally and regular rate & rhythm Airway Submandibular: within normal limits Cervical ROM: within normal limits Mallampati: Class II Comments: Comments: Missing teeth History/ROS No significant complaints Pulmonary Exertional Dyspnea, Sleep Apnea and None reported IVC filter in place CV/HEM Anemia (Hgb 9.3), Congestive Heart Failure and Hypertension Denies CAD, arrhythmia, hx of [place]/valve diseae EKG 12/03/21 SR Stess test 04/2021 CONCLUSION: 1. No significant EKG changes with the LexiScan infusion. 2. No LexiScan induced chest pain or cardiac arrhythmia. 3. Normal blood pressure and heart rate response. 4. Sestamibi/sestamibi perfusion scan pending; see separate report. TTE 04/2021 CONCLUSIONS ?1. Normal left ventricular size, systolic function and wall ?thickness, with no regional wall motion abnormalities. Left ?ventricular ejection fraction is estimated at 65 %. Grade II ?diastolic dysfunction, moderately elevated filling pressures. ?2. Normal right ventricular size and systolic function. ?3. Right atrial pressure estimated at 8 mm Hg. ?4. No gross valvular abnormality. ?5. No prior similar studies to compare. Hepatic None reported GI None reported Metabolic Diabetes Mellitus and Morbid Obesity DM w/ ulcers and neuropathy Musc/skel Diabetic ulcers S/P right BKA Neuropsych Neuropathy Anesthetic Plan Anesthesia: Anesthesia Evaluation and General (Popliteal, femoral blocks) Other: We discussed risk and benefits of general anesthesia including PONV, sore throat (sometimes severe), corneal abrasion, positioning and peripheral nerve injuries, life threatening allergic reaction, post operative ICU admission requiring prolonged intubation, stroke, heart attack, , and rare incidences of recall. Patient consents to proceed with general anesthesia. We discussed risk and benefits of nerve block for post op pain control including management of pain and titration of pain medications as signs/symptoms of nerve block wearing off begin to appear and/or prior bed. We discussed risk of failed nerve block, vascular injury or other vital structure injury, abscess/infection, LAST, and nerve injury. Plan general anesthesia with popliteal and femoral blocks. Risk of > 500 ml blood loss (7ml/kg in children): No Other Pertinent Information Zosyn last administered at 0552 Medications/Allergies Home Medications Medication Instructions Recorded Confirmed Last Taken Type acetaminophen 500 mg tablet 1,000 mg PO Q4H PRN 04/30/21 12/02/21 11/15/21 14:00 History (Tylenol Extra Strength) insulin glargine 100 unit/mL (3 68 unit SUBCUT BID 04/30/21 12/02/21 12/02/21 History mL) subcutaneous pen (Lantus Solostar U-100 Insulin) [id number]-[id number] tablet 1 tab PO QAM 04/30/21 12/02/21 12/02/21 History pantoprazole 40 mg tablet,delayed 40 mg PO BID 04/30/21 12/02/21 12/02/21 History release pioglitazone 15 mg tablet 15 mg PO BID@04/30/21 12/02/21 12/02/21 History trazodone 100 mg tablet 50 - 100 mg PO BEDTIME 04/30/21 12/02/21 12/01/21 History atorvastatin 80 mg tablet 80 mg PO DAILY@ 30 Days #30 tab 05/04/21 12/02/21 12/01/21 Rx nitroglycerin 0.4 mg sublingual 0.4 mg SUBLINGUAL Q5M PRN #30 tab 05/06/21 12/02/21 Unknown Rx tablet carvedilol 12.5 mg tablet (Coreg) 12.5 mg PO BID #180 tab 05/28/21 12/02/21 12/02/21 Rx aspirin 81 mg tablet,delayed 81 mg PO QAM 11/15/21 12/02/21 12/02/21 History release gabapentin 300 mg capsule 300 mg PO DAILY PRN 11/15/21 12/02/21 12/02/21 History insulin aspart U-100 100 unit/mL See Rx Instructions .ROUTE .COMPLEX 11/15/21 12/02/21 12/02/21 History (3 mL) subcutaneous pen (Novolog Flexpen U-100 Insulin aspart) loratadine 10 mg tablet (Claritin) 10 mg PO QAM 11/15/21 12/02/21 12/02/21 History losartan 100 mg tablet 100 mg PO QAM 11/15/21 12/02/21 12/02/21 History spironolactone 25 mg tablet 50 mg PO QAM 11/15/21 12/02/21 12/02/21 History sertraline 100 mg tablet 100 mg PO DAILY 12/02/21 12/02/21 12/02/21 History Allergies Allergy/AdvReac Type Severity Reaction Status Date / Time atorvastatin [From Lipitor] Allergy ADR-Muscle Verified 11/26/21 13:59 Pain vancomycin Allergy ALGY-Anaphy Verified 11/26/21 13:59 laxis Current Medications Generic Name Dose Route Start Last Admin Trade Name Saadq PRN Reason Stop Dose Admin Hydrocodone Bitart/Acetaminophen 1 tab 12/02/21 23:29 12/08/21 08:54 Hydrocodone-Acetaminophen 5-325 Mg Tablet PO 1 tab Q4H PRN Administration MODERATE TO SEVERE PAIN Aspirin 81 mg 12/05/21 06:00 12/08/21 05:50 Aspirin 81 Mg Ec Tablet PO Not Given QAM MARJORIE Atorvastatin Calcium 80 mg 12/04/21 22:00 12/07/21 21:47 Atorvastatin 40 Mg Tablet PO 80 mg DAILY@22 MARJORIE Administration Carvedilol 12.5 mg 12/05/21 09:00 12/08/21 08:54 Carvedilol 12.5 Mg Tablet PO 12.5 mg BID MARJORIE Administration Enoxaparin Sodium 40 mg 12/05/21 18:00 12/07/21 17:24 Enoxaparin 40 Mg/0.4 Ml Syringe SUBCUT Not Given Q24H MARJORIE Fluconazole 200 mg 12/04/21 19:45 12/07/21 17:18 Fluconazole 100 Mg Tablet PO 200 mg DAILY@1800 MARJORIE Administration Gabapentin 300 mg 12/04/21 19:42 12/07/21 21:51 Gabapentin 300 Mg Capsule PO 300 mg DAILY PRN Administration Pain Piperacillin Sod/Tazobactam 50 mls @ 12.5 mls/hr 12/03/21 14:45 12/08/21 05:52 Sod 3.375 gm/ Sodium Chloride IV 12.5 mls/hr Q8H MARJORIE Administration Protocol Linezolid 600 mg in 300 mls @ 300 mls/hr 12/06/21 16:00 12/08/21 08:54 Zyvox Premix IV 300 mls/hr Q12H MARJORIE Administration Protocol Insulin Glargine 10 unit 12/05/21 09:00 12/08/21 08:01 Insulin Glargine 100 Units/1 Ml SUBCUT Not Given BID MARJORIE Insulin Glargine 7 unit 12/08/21 09:30 12/08/21 09:24 Insulin Glargine 100 Units/1 Ml SUBCUT 12/08/21 09:31 7 unit ONCE ONE Administration Insulin Human Lispro 0 unit 12/03/21 08:00 12/08/21 09:00 Insulin Lispro 100 Unit/1 Ml SUBCUT Not Given WM&BEDTIME MARJORIE Protocol Loratadine 10 mg 12/05/21 06:00 12/08/21 05:50 Loratadine 10 Mg Tablet PO Not Given QAM MARJORIE Losartan Potassium 100 mg 12/05/21 06:00 12/08/21 05:50 Losartan 50 Mg Tablet PO Not Given QAM MARJORIE Pantoprazole Sodium 40 mg 12/05/21 09:00 12/08/21 08:[address] 40 Mg Tablet PO Not Given BID MARJORIE Polyethylene Glycol 17 gm 12/05/21 18:00 12/08/21 08:52 Polyethylene Glycol 3350 Pkt 17 Gm PO Not Given BID MARJORIE Sertraline HCl 100 mg 12/05/21 09:00 12/08/21 08:54 Sertraline 100 Mg Tablet PO 100 mg DAILY MARJORIE Administration Spironolactone 50 mg 12/05/21 06:00 12/08/21 05:51 Spironolactone 25 Mg Tablet PO Not Given QAM MARJORIE Trazodone HCl 50 mg 12/04/21 21:00 12/07/21 21:47 Trazodone 100 Mg Tablet PO 50 mg BEDTIME MARJORIE Administration PFSH Anesthesia Medical History Anemia CHF (congestive heart failure), NYHA class III COVID-19 Deep vein thrombosis Diabetes mellitus HTN (hypertension) Obesity Presence of IVC filter Ulcer of left foot Surgical History History of right below knee amputation Social History Alcohol intake: never Data Anesthesia : 12/08/21 04:17 12/08/21 04:17 Short CBC 12/07/21 12/08/21 Range/Units 04:43 04:17 WBC 9.8 8.3 (4.0-10.0) 10^3/uL Hgb 9.2 L 9.4 L (11.7-16.6) g/dL Hct 29.7 L 31.0 L (42.0-52.0) % MCV 88.4 89.9 (80-94) fl Plt Count 418 H 384 (130-400) 10^3/cmm Neut % (Auto) 62.6 60.4 % Neut # (Auto) 6.14 5.04 (1.8-7.7) 10^3/uL BMP 12/07/21 12/08/21 04:43 04:17 Sodium 137 139 Potassium 3.9 4.2 Chloride 101 100 Carbon Dioxide 24 26 BUN 12 12 Creatinine 0.8 0.8 Glucose 204 H 265 H Calcium 9.5 9.6 Liver Function 12/07/21 12/08/21 Range/Units 04:43 04:17 Total Bilirubin 0.3 0.3 (0.15-1.2) mg/dL AST 11 12 (0-40) U/L ALT 13 12 (0-41) U/L Alkaline Phosphatase 76 87 (40-130) IU/L Albumin 3.1 L 3.1 L (3.5-5.2) g/dL Coags 12/07/21 04:43 C-Reactive Protein 57.6 H Microbiology 12/02/21 19:07 Blood Culture - Final Blood NO GROWTH AFTER 5 DAYS 12/02/21 19:05 Blood Culture - Final Blood NO GROWTH AFTER 5 DAYS 12/07/21 18:15 Occult Blood (FIT) - Final Stool Routine Collection Cardiac Studies: Echocardiogram 05/02/21 Sestamibi Stress Test (Cardiology) 05/04/21
[2021-12-08 12:33] LABS: Glucose Point of Care 267 mg/dL (70-110)
[2021-12-08] MEDS: sodium chloride 0.9% 1,000 ML 30 ML IV (13:30)
--- NOTE | 2021-12-08 14:01 | PM.PN ---
Subjective Subjective: Patient was seen this morning, he is awaiting his left below-knee amputation, he tells me that he is ready to go to get out of the hospital soon as he can get the surgery, at bedside Vitals/I&O/Wt Last Vital Signs Temp 97.1 F L 12/08/21 13:23 Pulse 70 12/08/21 13:23 Resp 18 12/08/21 13:23 BP 161/90 12/08/21 13:23 Pulse Ox 96 12/08/21 13:23 12/07/21 12/08/21 12/08/21 22:59 06:59 14:59 Intake Total 740 / 1330 50 / 1380 350 / 350 Balance 740 / 930 50 / 980 350 / 350 Physical Exam Const: COMMON NORMALS: no acute distress and patient oriented x3 Resp: COMMON NORMALS: normal respiratory effort, No retractions, No use of accessory muscles and clear to auscultation bilaterally AUSCULTATION: clear to auscultation bilaterally Cardio: COMMON NORMALS: regular rate, regular rhythm, S1 normal heart sound present and S2 normal heart sound present RATE: regular rate RHYTHM: regular rhythm HEART SOUNDS: S1 normal heart sound present and S2 normal heart sound present GI: COMMON NORMALS: Normal to inspection, nondistended, normoactive bowel sounds present, Soft to palpation, non-tender and No hepatosplenomegaly present PALPATION: Yes Soft to palpation and Yes No hepatosplenomegaly present Extremity: NARRATIVE EXTREMITY EXAM: Left lower extremity wrapped in bandage Neuro: COMMON NORMALS: patient oriented x3 Psych: COMMON NORMALS: mental status grossly normal Data : 12/08/21 04:17 12/08/21 04:17 Micro: Microbiology 12/02/21 19:07 Blood Culture - Final Blood NO GROWTH AFTER 5 DAYS 12/02/21 19:05 Blood Culture - Final Blood NO GROWTH AFTER 5 DAYS 12/07/21 18:15 Occult Blood (FIT) - Final Stool Routine Collection A&P Assessment and plan (1) Non-pressure chronic ulcer of other part of left foot with necrosis of bone: Status: Acute (2) Diabetic peripheral neuropathy associated with type 2 diabetes mellitus: Status: Acute (3) Diabetic foot infection: Status: Acute (4) Foot osteomyelitis, left: Status: Acute Plan (1) Diabetic foot infection/left foot osteomyelitis: Continue Zosyn.? Repeat MRI of the foot with contrast shows 1.? There is a large postsurgical soft tissue defect along the lateral foot. No discrete enhancement within the postsurgical site. 2.? There is osteomyelitis and cellulitis diffusely throughout the midfoot. 3.? There is osteomyelitis involving the proximal second, third and fourth metatarsals with narrowing along the tarsometatarsal articulation. 4.? Additional enhancement with changes of osteomyelitis within the cuboid, all 3 cuneiforms, navicular and possibly the anterior process of the calcaneus. 5.? No focal abscess. After discussing with podiatry, and orthopedics, below-knee amputation today on the left Appreciate podiatry recommendations. Appreciate orthopedics recommendation Strep resistant to Levaquin and Finegoldia. Continue Zosyn, Zyvox, likely de-escalate after surgery Sepsis resolved. ? ? Plan Possible UTI: Urine culture without growth so far.? Continue antibiotic as above. Candidal crural infection: Fluconazole Constipation: MiraLAX Obstructive sleep apnea Depression Elevated troponin, query ACS.? No recurrence of chest pain.? He has nitroglycerin at home which she has to take rarely.? He states episodes are uncommon.? He had previously been assessed by stress test back in April which was abnormal with medium-sized area of patchy decreased tracer uptake in basal anterolateral mid to apical anterior and apical lateral wall with some reversibility in mid to apical anterior mid to apical anterolateral and mid inferolateral and apical navarrete.? Discussed with him.? Continue medical management this time.? Consideration may be given to Imdur for stable angina.? Discussed with him symptoms of unstable angina and to seek medical attention in case of. Thrombocytosis.? Will monitor platelet count intermittently with CBC Seasonal allergies Neuropathy Anemia, chronic.? Combination iron deficiency anemia and ACD? For now hold off iron supplementation.? Will monitor hemoglobin level intermittently.? Check fecal occult blood. CHF, ejection fraction 53% with grade 2 diastolic dysfunction Coronary artery disease, status post [place] Diabetes.? Will check fingerstick glucose before every meal and at bedtime and provide insulin sign scale GERD Hyperlipidemia Hypertension Obesity History of DVT, status post IVC filter placement Erectile dysfunction DVT prophylaxis.? Left lower extremity PERLA cory Attestations Medical Necessity Statement*: Patient requires hospitalization for left below-knee amputation Coding Level of Care Code Acute Senior Property Manager for Chg Fwd Diagnoses Non-pressure chronic ulcer of other part of left foot with necrosis of bone L97.524 Diabetic peripheral neuropathy associated with type 2 diabetes mellitus E11.42 Diabetic foot infection E11.628; L08.9 Foot osteomyelitis, left M86.9
[2021-12-08] MEDS: fentaNYL 50 mcg/mL INJ 2mL 100 MCG IVP (14:08)
--- NOTE | 2021-12-08 15:32 | P.ANES_ITS ---
Anesthesia Procedures Procedure/Date: 12/08/21 Nerve Block ^: Nerve Block 2: Main Anesthesia: general anesthesia Time Out Performed: Yes (139) Consent: requested by attending/covering physician, from patient, risks and bene fits reviewed and patient agrees to proceed Nerve block location: popliteal Anesthesia monitors applied: pulse oximetry, EKG, BP cuff and oxygen Nerve block position: supine Anesthetic Used: bupivacaine 0.25% (25) Ultrasound used to: recognize landmarks and other Nerve Stimulator Used?: Yes (Motor response lost at 0.4 mA) Interscalene/Femoral BLK: 4 stimuplex 21 g needle used for position and inplane approach, visualize local anesthetic spread and no vascular puncture identified Injection: neg aspiration of heme Patient Tolerated Procedure: well Complications: none Additional Comments: After time out sterile prep, using sterile technique, and using real time US guidance for target selection needle was inserted with real time visualization of needle entry and real time visualization of needle advancement toward intended target. Negative aspiration. LA injected incrementally with negative aspiration every 5 cc and real time US visualization of LA spread throughout procedure. Tolerated well. Image(s) saved. Nerve Block 1: Main Anesthesia: general anesthesia Time Out Performed: Yes (139) Consent: requested by attending/covering physician, from patient, risks and benefits reviewed and patient agrees to proceed Nerve block location: femoral Anesthesia monitors applied: pulse oximetry, EKG, BP cuff and oxygen Nerve block position: supine Anesthetic Used: bupivacaine 0.5% Amount of anesthesia used (mL): 20 Ultrasound used to: recognize landmarks and visualize and ID femerol nerve Nerve Stimulator Used?: Yes (Motor response lost at 0.4 mA) Interscalene/Femoral BLK: 2 stimuplex 22 g needle used for position and inplane approach and no vascular puncture identified Injection: neg aspiration of heme Patient Tolerated Procedure: well Complications: none Additional Comments: After time out sterile prep, using sterile technique, and using real time US guidance for target selection needle was inserted with real time visualization of needle entry and real time visualization of needle advancement toward intended target. Negative aspiration. LA injected incrementally with negative aspiration every 5 cc. Tolerated well.
--- NOTE | 2021-12-08 16:38 | W.PM.OPSUD ---
Surgery/Procedure H&P Update DATE OF PROCEDURE: December 08, 2021 DATE H&P PERFORMED: 12/06/21 H&P UPDATE INFORMATION: I have reviewed H&P completed within last 30 days PREOP DIAGNOSIS: Osteomyelitis left foot PLANNED PROCEDURE: Operation Date: 12/08/21 14:55 Proposed Procedures p Below Knee Amputation(Left) - Yoel Walker MD
--- NOTE | 2021-12-08 17:49 | PM.OP ---
Operative Report Date of procedure: December 08, 2021 Pre-op diagnosis: Post-op diagnosis: same Procedure done: Below-knee amputation Pathology: none sent Pathology: Residual limb was sent for final pathology Surgeon: Yoel Walker Anesthesia: General Estimated blood loss (mL): 50 Tourniquet time (min): 5 Findings: Patient had the previously described amputation of the fifth ray Condition: stable Disposition: PACU Brief History: The patient is a 56-year-old diabetic with a history of diabetes mellitus. He was diagnosed with osteomyelitis of the foot and previously underwent 1/5 metatarsal resection and treatment with IV antibiotics unfortunately with progression of osteomyelitis throughout the mid foot. Options were discussed including continued IV antibiotics and conservative care and the patient elected to proceed with below-knee amputation. Procedure: The patient was taken to the operating room. He was given a general anesthesia and his left lower extremity was prepped and draped in usual fashion. A timeout was performed. Initially a scalpel was used to fashion a short anterior flap and a longer posterior flap was fashioned over a point approximately 16 cm distal to the joint line. Dissection was carried down with electrocautery to the anterior tibia and the anterior lateral musculature was divided. Utilizing an oscillating saw the distal tibia was cut. A slightly more proximal oblique cut was made of the distal fibula. The anterior tibia was a beveled smooth with the saw. Bone hook was used to recheck the tibia and fibula anteriorly and a amputation knife was used to complete the amputation through the posterior musculature. The popliteal vessel was identified and sutured with #1 Vicryl suture. The tourniquet was deflated. Hemostasis provided with electrocautery. 3 drill holes were made in the anterior tibia and through these drill holes were passed two #1 Vicryl sutures. There is then brought through the posterior fascia on the posterior gastrocsoleus flap drawing that muscle up to bone. The remainder fascia anteriorly and posteriorly were reapproximated medially and laterally with #1 Vicryl suture. Subcutaneous tissues were closed with 2-0 Vicryl suture and the skin with skin sandra. Xeroflo gauze, 4 x 4's, Kerlix roll, ABD pads, compressive web roll, and an Misbah wrap were applied. Patient was extubated and taken to recovery room in stable condition.
--- NOTE | 2021-12-08 18:23 | ANE.PACU2 ---
Inpatient post-anesthesia follow up: Airway intact: Yes Vital signs: Temperature 97.0 F Pulse Rate 66 Respiratory Rate 18 Blood Pressure 121/76 Pulse Oximetry 98 Oxygen Delivery Me thod Room Air Oxygen Flow Rate 6 Fraction of Inspir ed Oxygen Hydration adequate: Yes Nausea and vomiting: No Pain level: 1 Mental status: Baseline
[2021-12-08] MEDS: morphine 4 mg/mL SDV 1 mL IVP ×3 (19:16→23:55)
[2021-12-08] MEDS: oxyCODONE 5 mg IR Tab/Cap PO (20:39)
[2021-12-08 20:55] LABS: Glucose Point of Care 250 mg/dL (70-110)
[2021-12-08] MEDS: trazodone 100 mg Tablet 50 MG PO (21:36)
[2021-12-08] MEDS: atorvastatin 40 mg Tablet 80 MG PO (21:36)
[2021-12-08] MEDS: insulin lispro 100 unit/1 mL SUBCUT (21:37)
[2021-12-09] VITALS (17 sets, daily range): BP systolic 98–164; BP diastolic 58–88; PULSE 73–87; RESP 13–19; TEMP 36.3–37.1; O2SAT 91–97
[2021-12-09] MEDS: oxyCODONE 5 mg IR Tab/Cap PO ×4 (01:16→17:04)
[2021-12-09] MEDS: morphine 4 mg/mL SDV 1 mL IVP ×9 (02:00→22:42)
[2021-12-09 03:03] LABS: Basophils % 0.2 %; Hematocrit 32.1 % (42.0-52.0); Hemoglobin 9.8 g/dL (11.7-16.6); Lymphocytes # 0.7 10^3/uL (0.8-4.8); Lymphocytes % 6.2 %; Mean Corpuscular HGB Conc 30.5 g/dL (30.0-36.0); Mean Corpuscular Hemoglobin 27.3 pg (28.0-34.0); Mean Corpuscular Volume 89.4 fl (80-94); Mean Platelet Volume 10.6 fL (7.4-10.4); Monocytes # 0.3 10^3/uL (0.2-0.9); Monocytes % 2.7 %; Neutrophils # 10.44 10^3/uL (1.8-7.7); Neutrophils % 90.4 %; Nucleated Red Blood Cells % 0 %; Platelet Count 410 10^3/cmm (130-400); Red Blood Count 3.59 10^6/uL (4.1-5.3); White Blood Count 11.5 10^3/uL (4.0-10.0)
[2021-12-09 03:30] LABS: Alanine Aminotransferase 13 U/L (0-41); Albumin Level 3.3 g/dL (3.5-5.2); Alkaline Phosphatase 96 IU/L (40-130); Aspartate Amino Transferase 19 U/L (0-40); Blood Urea Nitrogen 13 mg/dL (6-20); Calcium 8.7 mg/dL (8.5-10.5); Carbon Dioxide 26 mmol/L (22-29); Chloride 98 mmol/L (98-107); Globulin 5.1 g/dL (1.3-4.6); Glucose 279 mg/dL (65-115); Magnesium 2.1 mg/dL (1.7-2.3); Osmolality Calculated 290 mOsm/kg (285-295); Phosphorus 3.7 mg/dL (2.5-4.5); Sodium 135 mmol/L (136-145); Total Bilirubin 0.3 mg/dL (0.15-1.2); Total Protein 8.4 g/dL (6.6-8.7)
[2021-12-09] MEDS: aspirin 81 mg EC Tablet PO (05:53)
[2021-12-09] MEDS: losartan 50 mg Tablet 100 MG PO (05:53)
[2021-12-09] MEDS: spironolactone 25 mg Tablet 50 MG PO (05:53)
[2021-12-09] MEDS: loratadine 10 mg Tablet PO (05:54)
[2021-12-09] MEDS: piperacillin-tazobactam 3.375 GM in sodium chloride 0.9% (plus) 50 ML IV (05:54)
[2021-12-09] MEDS: sertraline 100 mg Tablet PO (08:44)
[2021-12-09] MEDS: pantoprazole DR 40 mg Tablet PO ×2 (08:44→17:04)
[2021-12-09] MEDS: carvedilol 12.5 mg Tablet PO ×2 (08:45→17:04)
[2021-12-09] MEDS: polyethylene glycol 3350 Pkt 17 gm PO ×2 (08:45→17:05)
[2021-12-09] MEDS: linezolid premix 600 MG/300 ML PREMIX 300 MG IV (08:46)
[2021-12-09 09:00] LABS: Glucose Point of Care 342 mg/dL (70-110)
--- NOTE | 2021-12-09 09:17 | PC.SOCIAL ---
IMM Update pg 2 of IMM updated and reviewed w/ patient. Copy provided and Copy in chart updated.
[2021-12-09] MEDS: insulin lispro 100 unit/1 mL SUBCUT ×4 (09:29→21:13)
[2021-12-09] MEDS: insulin glargine 100 units/1 mL 10 UNIT SUBCUT ×2 (09:30→17:03)
--- NOTE | 2021-12-09 10:27 | PM.PN ---
Subjective Subjective: Patient was seen this morning, family at bedside, he tells me that after the spinal block wore off, he had severe pain, tolerated morphine, he tells me that he is not ready to go home, Vitals/I&O/Wt Last Vital Signs Temp 97.8 F 12/09/21 07:31 Pulse 74 12/09/21 07:31 Resp 18 12/09/21 10:12 BP 132/76 12/09/21 07:31 Pulse Ox 91 12/09/21 07:31 12/08/21 12/09/21 12/09/21 22:59 06:59 14:59 Intake Total 1800.0 / 2150.0 800 / 2950.0 350 / 350 Output Total 50 / 50 700 / 750 Balance 1750.0 / 2100.0 100 / 2200.0 350 / 350 Physical Exam Const: COMMON NORMALS: no acute distress and patient oriented x3 Neck/C-Spine: COMMON NORMALS: no JVD Resp: COMMON NORMALS: normal respiratory effort, No retractions, No use of accessory muscles and clear to auscultation bilaterally AUSCULTATION: clear to auscultation bilaterally Cardio: COMMON NORMALS: no JVD, regular rate, regular rhythm, S1 normal heart sound present and S2 normal heart sound present RATE: regular rate RHYTHM: regular rhythm HEART SOUNDS: S1 normal heart sound present and S2 normal heart sound present GI: COMMON NORMALS: Normal to inspection, nondistended, normoactive bowel sounds present, Soft to palpation, non-tender and No hepatosplenomegaly present PALPATION: Yes Soft to palpation and Yes No hepatosplenomegaly present Extremity: NARRATIVE EXTREMITY EXAM: Surgical site wrapped and bandaged Neuro: COMMON NORMALS: patient oriented x3 Psych: COMMON NORMALS: mental status grossly normal Data : 12/09/21 02:14 12/09/21 02:14 A&P Assessment and plan (1) Non-pressure chronic ulcer of other part of left foot with necrosis of bone: Status: Acute (2) Diabetic peripheral neuropathy associated with type 2 diabetes mellitus: Status: Acute (3) Diabetic foot infection: Status: Acute (4) Foot osteomyelitis, left: Status: Acute Plan (1) Diabetic foot infection/left foot osteomyelitis:? Repeat MRI of the foot with contrast shows 1.? There is a large postsurgical soft tissue defect along the lateral foot. No discrete enhancement within the postsurgical site. 2.? There is osteomyelitis and cellulitis diffusely throughout the midfoot. 3.? There is osteomyelitis involving the proximal second, third and fourth metatarsals with narrowing along the tarsometatarsal articulation. 4.? Additional enhancement with changes of osteomyelitis within the cuboid, all 3 cuneiforms, navicular and possibly the anterior process of the calcaneus. 5.? No focal abscess. After discussing with podiatry, and orthopedics, status post below-knee amputation Appreciate podiatry recommendations. Appreciate orthopedics recommendation Stop antibiotic therapy after today's dose, stop fluconazole Sepsis resolved. Pain control morphine, oxycodone, monitor for respiratory depression ? ? Plan Possible UTI: Completed antibiotics Candidal crural infection: Stop fluconazole Constipation: MiraLAX Obstructive sleep apnea Depression Elevated troponin, query ACS.? No recurrence of chest pain.? He has nitroglycerin at home which she has to take rarely.? He states episodes are uncommon.? He had previously been assessed by stress test back in April which was abnormal with medium-sized area of patchy decreased tracer uptake in basal anterolateral mid to apical anterior and apical lateral wall with some reversibility in mid to apical anterior mid to apical anterolateral and mid inferolateral and apical navarrete.? Discussed with him.? Continue medical management this time.? Consideration may be given to Imdur for stable angina.? Discussed with him symptoms of unstable angina and to seek medical attention in case of. Thrombocytosis.? Will monitor platelet count intermittently with CBC Seasonal allergies Neuropathy Anemia, chronic.? Combination iron deficiency anemia and ACD? For now hold off iron supplementation.? Will monitor hemoglobin level intermittently.? Check fecal occult blood. CHF, ejection fraction 53% with grade 2 diastolic dysfunction Coronary artery disease, status post [place] Diabetes.? Will check fingerstick glucose before every meal and at bedtime and provide insulin sign scale GERD Hyperlipidemia Hypertension Obesity History of DVT, status post IVC filter placement Erectile dysfunction DVT prophylaxis.? Left lower extremity PERLA ray Attestations Medical Necessity Statement*: Patient requires hospitalization for left below-knee amputation Coding Level of Care Code Acute High School Admissions Representative for Chg Fwd Diagnoses Non-pressure chronic ulcer of other part of left foot with necrosis of bone L97.524 Diabetic peripheral neuropathy associated with type 2 diabetes mellitus E11.42 Diabetic foot infection E11.628; L08.9 Foot osteomyelitis, left M86.9
[2021-12-09 11:52] LABS: Glucose Point of Care 341 mg/dL (70-110)
--- NOTE | 2021-12-09 16:10 | PC.NURSE ---
Patient is good great post L BKA. Pain is being controlled by PRN pain medications. Worked with PT/OT. Patient got some rest this afternoon. Vitals stable. Will continue to monitor and give report to night nurse.
[2021-12-09] MEDS: enoxaparin 40 mg/0.4 mL Syringe SUBCUT (17:04)
[2021-12-09 17:21] LABS: Glucose Point of Care 265 mg/dL (70-110)
--- NOTE | 2021-12-09 18:40 | PM.PN ---
Subjective Subjective: Patient with very little pain. Excited about recovery and getting prosthesis on left leg as soon as possible Vitals/I&O/Wt Last Vital Signs Temp 98.8 F 12/09/21 12:00 Pulse 81 12/09/21 16:00 Resp 18 12/09/21 17:04 BP 107/66 12/09/21 16:00 Pulse Ox 92 12/09/21 16:00 12/09/21 12/09/21 12/09/21 06:59 14:59 22:59 Intake Total 800 / 2950.0 470 / 470 Output Total 700 / 750 800 / 800 Balance 100 / 2200.0 -330 / -330 Physical Exam Narrative: Lower extremity dressing clean and dry. Can fully extend knee Data : 12/09/21 02:14 12/09/21 02:14 A&P Assessment and plan (1) Status post below-knee amputation of left lower extremity: Patient surgically doing well. Okay for discharge per Ortho. Will fit for prosthesis when incisions healed. Status: Acute Attestations Medical Necessity Statement*: Okay for discharge per Ortho. Coding Level of Care Code Acute Provider Relations Representative for Mary Beth Godfrey Diagnoses Status post below-knee amputation of left lower extremity Z89.512
[2021-12-09 20:31] LABS: Glucose Point of Care 398 mg/dL (70-110)
[2021-12-09] MEDS: trazodone 100 mg Tablet 50 MG PO (21:13)
[2021-12-09] MEDS: atorvastatin 40 mg Tablet 80 MG PO (21:13)
[2021-12-10] VITALS (17 sets, daily range): BP systolic 106–132; BP diastolic 63–81; PULSE 76–89; RESP 16–18; TEMP 36.7–37.4; O2SAT 90–95
[2021-12-10] MEDS: oxyCODONE 5 mg IR Tab/Cap PO ×2 (00:04→06:20)
[2021-12-10] MEDS: morphine 4 mg/mL SDV 1 mL IVP ×6 (00:32→18:20)
--- NOTE | 2021-12-10 05:30 | PC.NURSE ---
PATIENT RESTED IN BED THROUGHOUT THE NIGHT. ALERT AND ORIENTED, VSS. PRN PAIN MEDICATION GIVEN THROUGHOUT THE NIGHT WITH SOME RELIEF OBTAINED. VOIDING WITH NO DIFFICULTY. NO DISTRESS NOTED, CALL LIGHT WITHIN REACH.
[2021-12-10 06:18] LABS: Glucose Point of Care 292 mg/dL (70-110)
[2021-12-10] MEDS: aspirin 81 mg EC Tablet PO (06:20)
[2021-12-10] MEDS: losartan 50 mg Tablet 100 MG PO (06:20)
[2021-12-10] MEDS: spironolactone 25 mg Tablet 50 MG PO (06:21)
[2021-12-10] MEDS: loratadine 10 mg Tablet PO (06:21)
--- NOTE | 2021-12-10 07:48 | PM.PN ---
Subjective Subjective: Patient complaining of more pain left leg last night. Pain medications lasting approximately 4 hours Vitals/I&O/Wt Last Vital Signs Temp 98.3 F 12/10/21 07:17 Pulse 80 12/10/21 07:17 Resp 16 12/10/21 07:17 BP 119/73 12/10/21 07:17 Pulse Ox 93 12/10/21 07:17 12/09/21 12/10/21 12/10/21 22:59 06:59 14:59 Intake Total 240 / 710 900 / 1610 Output Total 350 / 1150 600 / 1750 Balance -110 / -440 300 / -140 Physical Exam Narrative: Left leg dressing clean and dry Data : 12/09/21 02:14 12/09/21 02:14 A&P Assessment and plan (1) Status post below-knee amputation of left lower extremity: Continue to mobilize with therapy. Okay for discharge per Ortho. Will increase pain medications. Status: Acute Attestations Medical Necessity Statement*: As per medicine Coding Level of Care Code Acute Talent Acquisition Sourcer for Mary Beth Godfrey Diagnoses Status post below-knee amputation of left lower extremity Z89.512
[2021-12-10] MEDS: polyethylene glycol 3350 Pkt 17 gm PO ×2 (08:23→17:49)
[2021-12-10] MEDS: carvedilol 12.5 mg Tablet PO ×2 (08:23→16:30)
[2021-12-10] MEDS: pantoprazole DR 40 mg Tablet PO ×2 (08:23→16:29)
[2021-12-10] MEDS: insulin glargine 100 units/1 mL 10 UNIT SUBCUT ×2 (08:23→17:50)
[2021-12-10] MEDS: sertraline 100 mg Tablet PO (08:23)
[2021-12-10] MEDS: insulin lispro 100 unit/1 mL SUBCUT ×4 (08:23→21:51)
--- NOTE | 2021-12-10 10:33 | P.PN_ITS ---
Subjective Subjective: Overnight patient had intractable pain, not able to get any sleep due to severe pain, no fevers, no cough, Vitals/I&O/Wt Last Vital Signs Temp 98.3 F 12/10/21 07:17 Pulse 80 12/10/21 07:17 Resp 18 12/10/21 08:34 BP 119/73 12/10/21 07:17 Pulse Ox 93 12/10/21 08:34 12/09/21 12/10/21 12/10/21 22:59 06:59 14:59 Intake Total 240 / 710 900 / 1610 1596 / 1596 Output Total 350 / 1150 600 / 1750 Balance -110 / -440 300 / -140 1596 / 1596 Physical Exam Const: COMMON NORMALS: no acute distress and patient oriented x3 Resp: COMMON NORMALS: normal respiratory effort, No retractions, No use of ac cessory muscles and clear to auscultation bilaterally AUSCULTATION: clear to auscultation bilaterally Cardio: COMMON NORMALS: regular rate, regular rhythm, S1 normal heart sound present and S2 normal heart sound present RATE: regular rate RHYTHM: regular rhythm HEART SOUNDS: S1 normal heart sound present and S2 normal heart sound present GI: COMMON NORMALS: Normal to inspection, nondistended, normoactive bowel sounds present, Soft to palpation and non-tender PALPATION: Yes Soft to palpation Extremity: COMMON NORMALS: no pedal edema Neuro: COMMON NORMALS: patient oriented x3 Psych: COMMON NORMALS: mental status grossly normal Data : 12/09/21 02:14 12/09/21 02:14 A&P Assessment and plan (1) Non-pressure chronic ulcer of other part of left foot with necrosis of bone: Status: Resolved (2) Diabetic peripheral neuropathy associated with type 2 diabetes mellitus: Status: Acute (3) Diabetic foot infection: Status: Resolved (4) Foot osteomyelitis, left: Status: Resolved Plan (1) Diabetic foot infection/left foot osteomyelitis:? Repeat MRI of the foot with contrast shows 1.? There is a large postsurgical soft tissue defect along the lateral foot. No discrete enhancement within the postsurgical site. 2.? There is osteomyelitis and cellulitis diffusely throughout the midfoot. 3.? There is osteomyelitis involving the proximal second, third and fourth metatarsals with narrowing along the tarsometatarsal articulation. 4.? Additional enhancement with changes of osteomyelitis within the cuboid, all 3 cuneiforms, navicular and possibly the anterior process of the calcaneus. 5.? No focal abscess. After discussing with podiatry, and orthopedics, status post below-knee amputation Intractable pain on morphine 1 mg every 4 hours, oxycodone 10 every 4 hours as needed Appreciate podiatry recommendations. Appreciate orthopedics recommendation Stop antibiotic therapy after today's dose, stop fluconazole Sepsis resolved. Pain control morphine, oxycodone, monitor for respiratory depression ? ? Plan Possible UTI: Completed antibiotics Candidal crural infection: Stop fluconazole Constipation: MiraLAX Obstructive sleep apnea Depression Elevated troponin, query ACS.? No recurrence of chest pain.? He has nitroglycerin at home which she has to take rarely.? He states episodes are uncommon.? He had previously been assessed by stress test back in April which was abnormal with medium-sized area of patchy decreased tracer uptake in basal anterolateral mid to apical anterior and apical lateral wall with some reversibility in mid to apical anterior mid to apical anterolateral and mid inferolateral and apical navarrete.? Discussed with him.? Continue medical manag ement this time.? Consideration may be given to Imdur for stable angina.? Discussed with him symptoms of unstable angina and to seek medical attention in case of. Thrombocytosis.? Will monitor platelet count intermittently with CBC Seasonal allergies Neuropathy Anemia, chronic.? Combination iron deficiency anemia and ACD? For now hold off iron supplementation.? Will monitor hemoglobin level intermittently.? Check fecal occult blood. CHF, ejection fraction 53% with grade 2 diastolic dysfunction Coronary artery disease, status post [place] Diabetes.? Will check fingerstick glucose before every meal and at bedtime and provide insulin sign scale GERD Hyperlipidemia Hypertension Obesity History of DVT, status post IVC filter placement Erectile dysfunction DVT prophylaxis.? Intolerant to anticoagulation due to anemia, bilateral below- knee amputations Attestations Medical Necessity Statement*: Patient requires hospitalization for left below- knee amputation now with intractable pain Coding Level of Care Code Acute Swimming Pool Servicer for Mary Beth Fwd Diagnoses Non-pressure chronic ulcer of other part of left foot with necrosis of bone L97.524 Diabetic peripheral neuropathy associated with type 2 diabetes mellitus E11.42 Diabetic foot infection E11.628; L08.9 Foot osteomyelitis, left M86.9
[2021-12-10] MEDS: oxyCODONE 5 mg IR Tab/Cap 10 MG PO ×3 (11:04→20:33)
[2021-12-10 11:48] LABS: Glucose Point of Care 299 mg/dL (70-110)
[2021-12-10 16:51] LABS: Glucose Point of Care 197 mg/dL (70-110)
[2021-12-10] MEDS: enoxaparin 40 mg/0.4 mL Syringe SUBCUT (17:55)
[2021-12-10] MEDS: trazodone 100 mg Tablet 50 MG PO (20:35)
[2021-12-10 21:49] LABS: Glucose Point of Care 199 mg/dL (70-110)
[2021-12-10] MEDS: atorvastatin 40 mg Tablet 80 MG PO (21:51)
--- NOTE | 2021-12-10 23:17 | PC.NURSE ---
Pain Rating 0 per FLACC scale as patient is resting in bed with eyes closed and did not arouse when nurse entered room.
[2021-12-11] VITALS (8 sets, daily range): BP systolic 126–171; BP diastolic 68–80; PULSE 76–82; RESP 16–20; TEMP 36.7–37.2; O2SAT 90–98
[2021-12-11] MEDS: oxyCODONE 5 mg IR Tab/Cap 10 MG PO ×3 (01:36→11:19)
[2021-12-11 05:54] LABS: Basophils % 0.3 %; Eosinophils # 0.1 10^3/uL (0.0-0.8); Eosinophils % 1.2 %; Hematocrit 29.6 % (42.0-52.0); Hemoglobin 9.2 g/dL (11.7-16.6); Lymphocytes # 2.6 10^3/uL (0.8-4.8); Lymphocytes % 24.9 %; Mean Corpuscular HGB Conc 31.1 g/dL (30.0-36.0); Mean Corpuscular Hemoglobin 27.2 pg (28.0-34.0); Mean Corpuscular Volume 87.6 fl (80-94); Mean Platelet Volume 10.6 fL (7.4-10.4); Monocytes # 1.1 10^3/uL (0.2-0.9); Monocytes % 10.9 %; Neutrophils # 6.46 10^3/uL (1.8-7.7); Nucleated Red Blood Cells % 0 %; Platelet Count 381 10^3/cmm (130-400); Red Blood Count 3.38 10^6/uL (4.1-5.3); Red Cell Distribution Width 13.4 % (12.1-15.1); White Blood Count 10.4 10^3/uL (4.0-10.0)
[2021-12-11 06:09] LABS: Alanine Aminotransferase 16 U/L (0-41); Albumin Level 3.1 g/dL (3.5-5.2); Alkaline Phosphatase 68 IU/L (40-130); Anion Gap 14.3 (5-19); Aspartate Amino Transferase 24 U/L (0-40); Blood Urea Nitrogen 31 mg/dL (6-20); Carbon Dioxide 25 mmol/L (22-29); Chloride 95 mmol/L (98-107); Globulin 4.9 g/dL (1.3-4.6); Glucose 223 mg/dL (65-115); Osmolality Calculated 283 mOsm/kg (285-295); Phosphorus 3.1 mg/dL (2.5-4.5); Potassium 4.3 mmol/L (3.5-5.1); Sodium 130 mmol/L (136-145); Total Bilirubin 0.3 mg/dL (0.15-1.2)
[2021-12-11 06:35] LABS: Glucose Point of Care 237 mg/dL (70-110)
[2021-12-11] MEDS: aspirin 81 mg EC Tablet PO (06:40)
[2021-12-11] MEDS: losartan 50 mg Tablet 100 MG PO (06:40)
[2021-12-11] MEDS: spironolactone 25 mg Tablet 50 MG PO (06:40)
[2021-12-11] MEDS: loratadine 10 mg Tablet PO (06:40)
--- NOTE | 2021-12-11 09:18 | PC.SOCIAL ---
IMM Update Pg. 2 of IMM updated and reviewed with patient, who verbalized understanding. Copy provided.
[2021-12-11] MEDS: sertraline 100 mg Tablet PO (09:32)
[2021-12-11] MEDS: gabapentin 300 mg Capsule PO (09:32)
[2021-12-11] MEDS: carvedilol 12.5 mg Tablet PO (09:32)
[2021-12-11] MEDS: insulin lispro 100 unit/1 mL SUBCUT (09:33)
[2021-12-11] MEDS: insulin glargine 100 units/1 mL 10 UNIT SUBCUT (09:33)
[2021-12-11] MEDS: pantoprazole DR 40 mg Tablet PO (09:33)
[2021-12-11 11:11] LABS: Glucose Point of Care 246 mg/dL (70-110)
--- NOTE | 2021-12-11 11:40 | PM.DCS ---
Discharge Providers Date of Admission: 12/02/21 22:10 Date of Discharge: December 11, 2021 Attending Provider at Admission: Seth Desai DO Attending Provider at Discharge: Niraj Ocampo MD Primary Care Provider: HANNAH Mason Diagnoses at Discharge Discharge Diagnosis (1) Non-pressure chronic ulcer of other part of left foot with necrosis of bone: Status: Resolved (2) Diabetic peripheral neuropathy associated with type 2 diabetes mellitus: Status: Acute (3) Diabetic foot infection: Status: Resolved (4) Foot osteomyelitis, left: Status: Resolved Reason for Visit Reason for Visit: Lt Leg Blood Clot\Chest Pain\Fever Hospital Course Hospital Course This is a 56-year-old male, with a history of type 2 diabetes mellitus, history of right below knee amputation for type 2 diabetes mellitus, who presents to [facility] for a left lower extremity diabetic ulcer Patient was admitted to [facility] for left foot diabetic foot infection, patient has had a history of recurrent left foot diabetic foot infections requiring IV antibiotics in the past, was admitted for with left foot osteomyelitis with diabetic foot infection was managed with broad-spectrum antibiotic therapy, MRI showed extensive osteomyelitis involving left foot, after discussing with podiatry, orthopedics, and patient, decision was made to pursue below-knee amputation. Patient had a below-knee amputation by Dr. Walker, was monitored as inpatient for pain control, discharged home, with pain control, home health care Physical Exam Const: COMMON NORMALS: no acute distress and patient oriented x3 Resp: COMMON NORMALS: normal respiratory effort, No retractions, No use of accessory muscles and clear to auscultation bilaterally AUSCULTATION: clear to auscultation bilaterally GI: COMMON NORMALS: Normal to inspection, nondistended, normoactive bowel sounds present, Soft to palpation and non-tender PALPATION: Yes Soft to palpation Extremity: COMMON NORMALS: no pedal edema Neuro: COMMON NORMALS: patient oriented x3 Psych: COMMON NORMALS: mental status grossly normal Discharge Data Studies Completed and Pending Completed Studies During Hospitalization Category Date Time Status XR chest 1V portable [id number] Stat Exams 12/02/21 18:29 Completed XR foot LT 2V [id number] Routine Exams 12/02/21 Completed MR foot LT wo con* [id number] Routine MRI 12/03/21 08:00 Completed MR foot LT wo/w con 53094 Routine MRI 12/06/21 08:00 Completed US arterial duplex lower extremity LT [CV arterial Ultrasound 12/02/21 21:12 [place] [address]] Urgent US venous duplex lower extremity LT [CV venous duplex Ultrasound 12/02/21 21:12 [place] [address]] Urgent Pending at discharge Category Date Time Status Complete Blood Count w/Auto AM LABS Lab 12/12/21 04:00 Ordered Complete Blood Count w/Auto AM LABS Lab 12/13/21 04:00 Ordered Comprehensive Metabolic Panel AM LABS Lab 12/12/21 04:00 Ordered Comprehensive Metabolic Panel AM LABS Lab 12/13/21 04:00 Ordered Magnesium AM LABS Lab 12/12/21 04:00 Ordered Magnesium AM LABS Lab 12/13/21 04:00 Ordered Phosphorus AM LABS Lab 12/12/21 04:00 Ordered Phosphorus AM LABS Lab 12/13/21 04:00 Ordered Pathology: Surgical [PTH] Routine Pth 12/08/21 17:15 Received Radiology Impressions Foot X-Ray 12/02/21 00:00 IMPRESSION: Significantly decreased swelling and gas since the prior exam Chest X-Ray 12/02/21 18:29 IMPRESSION: No acute findings. Duplex Scan Lower Extremity Artery 12/02/21 21:12 IMPRESSION: No stenosis or occlusion. Venous Duplex 12/02/21 21:12 IMPRESSION: No evidence of deep vein thrombosis. Foot MRI 12/06/21 08:00 IMPRESSION: 1. There is a large postsurgical soft tissue defect along the lateral foot. No discrete enhancement within the postsurgical site. 2. There is osteomyelitis and cellulitis diffusely throughout the midfoot. 3. There is osteomyelitis involving the proximal second, third and fourth metatarsals with narrowing along the tarsometatarsal articulation. 4. Additional enhancement with changes of osteomyelitis within the cuboid, all 3 cuneiforms, navicular and possibly the anterior process of the calcaneus. 5. No focal abscess. Laboratory Results WBC 10.4 10^3/uL (4.0-10.0) H 12/11/21 05:33 RBC 3.38 10^6/uL (4.1-5.3) L 12/11/21 05:33 Hgb 9.2 g/dL (11.7-16.6) L 12/11/21 05:33 Hct 29.6 % (42.0-52.0) L 12/11/21 05:33 MCV 87.6 fl (80-94) 12/11/21 05:33 MCH 27.2 pg (28.0-34.0) L 12/11/21 05:33 MCHC 31.1 g/dL (30.0-36.0) 12/11/21 05:33 RDW 13.4 % (12.1-15.1) 12/11/21 05:33 Plt Count 381 10^3/cmm (130-400) 12/11/21 05:33 MPV 10.6 fL (7.4-10.4) H 12/11/21 05:33 Neut % (Auto) 62.0 % 12/11/21 05:33 Lymph % (Auto) 24.9 % 12/11/21 05:33 Mora % (Auto) 10.9 % 12/11/21 05:33 Eos % (Auto) 1.2 % 12/11/21 05:33 Baso % (Auto) 0.3 % 12/11/21 05:33 Neut # (Auto) 6.46 10^3/uL (1.8-7.7) 12/11/21 05:33 Lymph # (Auto) 2.6 10^3/uL (0.8-4.8) 12/11/21 05:33 Mora # (Auto) 1.1 10^3/uL (0.2-0.9) H 12/11/21 05:33 Eos # (Auto) 0.1 10^3/uL (0.0-0.8) 12/11/21 05:33 Baso # (Auto) 0.0 10^3/uL (0.0-0.1) 12/11/21 05:33 Nucleated RBC % (auto) 0 % 12/11/21 05:33 Nucleated RBCs # 0.0 /100WBC 12/11/21 05:33 ESR 44 mm/hr (0-10) H 12/02/21 18:30 PT 13.90 SECONDS (12.1-14.9) 12/02/21 18:30 INR 1.03 (0.8-1.2) 12/02/21 18:30 APTT 29.8 SECONDS (23.9-36.7) 12/02/21 18:30 Sodium 130 mmol/L (136-145) L 12/11/21 05:33 Potassium 4.3 mmol/L (3.5-5.1) 12/11/21 05:33 Chloride 95 mmol/L (98-107) L 12/11/21 05:33 Carbon Dioxide 25 mmol/L (22-29) 12/11/21 05:33 Anion Gap 14.3 (5-19) 12/11/21 05:33 BUN 31 mg/dL (6-20) H 12/11/21 05:33 Creatinine 0.8 mg/dL (0.7-1.2) 12/11/21 05:33 GFR Calculation 100.0 mL/min (90-130) 12/11/21 05:33 Glucose 223 mg/dL (65-115) H 12/11/21 05:33 POC Glucose 246 mg/dL (70-110) H 12/11/21 11:07 Calculated Osmolality 283 mOsm/kg (285-295) L 12/11/21 05:33 Lactic Acid 1.1 mmol/L (0.5-2.2) 12/02/21 19:05 Calcium 9.0 mg/dL (8.5-10.5) 12/11/21 05:33 Phosphorus 3.1 mg/dL (2.5-4.5) 12/11/21 05:33 Magnesium 2.0 mg/dL (1.7-2.3) 12/11/21 05:33 Iron 23 ug/dL (59-158) L 12/02/21 18:30 TIBC 223 mcg/dl 12/02/21 18:30 % Saturation 10.3 % (20-50) L 12/02/21 18:30 Unsat Iron Binding 200 ug/dL (112-347) 12/02/21 18:30 Ferritin 428 ng/mL (30-400) H 12/02/21 18:30 Total Bilirubin 0.3 mg/dL (0.15-1.2) 12/11/21 05:33 AST 24 U/L (0-40) 12/11/21 05:33 ALT 16 U/L (0-41) 12/11/21 05:33 Alkaline Phosphatase 68 IU/L (40-130) 12/11/21 05:33 Troponin T Baseline 23 ng/L (0-15) H 12/02/21 18:30 Troponin T 120 Minute 22.15 ng/L (0-15) H 12/02/21 20:30 Delta Troponin T -0.85 ABS# (0-10) L 12/02/21 20:30 Troponin T Hi Sens 6Hr 27.56 ng/L (0-15) H 12/03/21 04:35 Troponin T Hi Sens 6Hr Delta 4.56 ng/L (0-12) 12/03/21 04:35 C-Reactive Protein 57.6 mg/L (0.0-4.9) H 12/07/21 04:43 NT-Pro-B Natriuret Pep 100 pg/mL (0-125) 12/02/21 18:30 Total Protein 8.0 g/dL (6.6-8.7) 12/11/21 05:33 Albumin 3.1 g/dL (3.5-5.2) L 12/11/21 05:33 Globulin 4.9 g/dL (1.3-4.6) H 12/11/21 05:33 Lipase 38 U/L (13-60) 12/02/21 18:30 Urine Color Yellow (Yellow) 12/03/21 03:40 Urine Appearance Clear (CLEAR) 12/03/21 03:40 Urine pH 5 (5-7) 12/03/21 03:40 Ur Specific [place] 1.015 (1.005-1.030) 12/03/21 03:40 Urine Protein Trace (Negative) 12/03/21 03:40 Urine Glucose (UA) Norm (Normal) 12/03/21 03:40 Urine Ketones Negative (Negative) 12/03/21 03:40 Urine Blood Neg (Negative) 12/03/21 03:40 Urine Nitrate Negative (Negative) 12/03/21 03:40 Urine Bilirubin Neg (Negative) 12/03/21 03:40 Urine Urobilinogen Norm mg/dL (Negative) 12/03/21 03:40 Ur Leukocyte Esterase 2+ (Negative) H 12/03/21 03:40 Urine RBC 0-4 /hpf (0-2) H 12/03/21 03:40 Urine WBC 15-25 /hpf (0-5) H 12/03/21 03:40 Ur Squamous Epith Cells 5-10 /hpf (0-5) H 12/03/21 03:40 Amorphous Sediment Not Reportable 12/03/21 03:40 Urine Bacteria Trace /hpf (NONE) 12/03/21 03:40 Urine Mucus Trace /hpf 12/03/21 03:40 Coronavirus 229E (PCR) Not detected (NOT DETECT) 12/02/21 19:05 SARS-CoV-2 (PCR) Not detected (NOT DETECT) 12/02/21 19:05 Vitals Last Vital Signs Temp 98.0 F 12/11/21 11:15 Pulse 82 12/11/21 11:15 Resp 18 12/11/21 11:19 BP 171/79 12/11/21 11:15 Pulse Ox 97 12/11/21 11:15 Discharge Plan Discharge Patient Disposition: Home Health Service Condition: Stable Prescriptions: New polyethylene glycol 3350 17 gram Powder In Packet 17 g PO DAILY 30 Days Qty: 30 0RF Novolog Flexpen U-100 Insulin 100 unit/mL (3 mL) insulin pen See Rx Instructions .ROUTE .COMPLEX Qty: 15 0RF Rx Instructions: inject, subcu, 3 times daily, after meals, based on sliding scale provided Continued nitroglycerin 0.4 mg tablet, sublingual 0.4 mg sublingual Q5M PRN (Reason: chest pain) Qty: 30 2RF Rx Instructions: do not exceed 3 doses per episode carvedilol [Coreg] 12.5 mg tablet 12.5 mg PO BID Qty: 180 3RF Rx Instructions: must administer with a meal/food pioglitazone 15 mg tablet 15 mg PO BID@08,22 0RF acetaminophen [Tylenol Extra Strength] 500 mg Tablet 1,000 mg PO Q4H PRN (Reason: Pain) 0RF trazodone 100 mg tablet 50 - 100 mg PO BEDTIME 0RF pantoprazole 40 mg tablet,delayed release (DR/EC) 40 mg PO BID 0RF lggrixwftyva-zbeawqja-tatjhx Tablet 1 tab PO QAM 0RF atorvastatin 80 mg tablet 80 mg PO DAILY@22 30 Days Qty: 30 0RF sertraline 100 mg tablet 100 mg PO DAILY 0RF spironolactone 25 mg tablet 50 mg PO QAM 0RF gabapentin 300 mg Capsule 300 mg PO DAILY PRN (Reason: Pain) 0RF loratadine [Claritin] 10 mg Tablet 10 mg PO QAM 0RF aspirin 81 mg tablet,delayed release (DR/EC) 81 mg PO QAM 0RF losartan 100 mg tablet 100 mg PO QAM 0RF Changed Lantus Solostar U-100 Insulin 100 unit/mL (3 mL) insulin pen 15 unit SUBCUT BID Qty: 0 0RF Discontinued insulin aspart U-100 [Novolog Flexpen U-100 Insulin] 100 unit/mL (3 mL) Insulin Pen See Rx Instructions .ROUTE .COMPLEX 0RF Rx Instructions: sliding scale subcutaneously tid before meals prn No Action sulfamethoxazole-trimethoprim [Bactrim DS] 800-160 mg tablet 1 tab PO BID 7 Days Qty: 14 0RF Rx Instructions: TAKE 1 TABLET BID BY MOUTH FOR 7 DAYS (DME) Stump Boom Operator and supplies See Rx Instructions .Route .MEDSUPPLY Qty: 1 0RF Rx Instructions: As directed Discharge Orders: Discharge Order (Routine); Ordered 12/11/21 Ordered By: Niraj Ocampo Other Ambulatory Orders: DME: Shower Chair (Order) Location: None Selected Ordered By: Niraj Ocampo DME: Commode (Order) Location: None Selected Ordered By: Niraj Ocampo DME: Hospital Bed (Order) Location: None Selected Ordered By: Niraj Ocampo Referrals: Yoel Walker MD [Physician] - 2 weeks ([facility] will call you Monday to schedule an appointment.) Jamee Reddy FNP [Primary Care Provider] - (Please call [facility] and schedule an appointment to follow up with Jamee Reddy within one week.) Discharge Diet: Advance as tolerated Discharge Activity: Increase activity as tolerated Patient Instructions: Type 2 Diabetes, Diabetes and Diet, Oxycodone/Acetaminophen (By mouth), Insulin Aspart, Recombinant (By injection), Polyethylene Glycol 3350 (By mouth), Osteomyelitis (GEN), Below the Knee Amputation (DC), Opioid Safety Activity Restrictions/Additional Instructions: - PT OT -Continue to ambulate -Please use hydrocodone sparingly -Insulin sliding scale -Inject insulin, subcu, 3 times daily, after meals, based on sliding scale provided -If blood sugar greater than 500 call primary care -If blood sugar less than 60 drink or juice or eat a hard candy go to emergency room -Insulin sliding fingerstick? Insulin 141-180?2 units/sq 181-220?4 units/sq 221-260?6 units/sq 261-300?8 units/sq 301-350 10 units/sq 351-400 12 units/sq > 400? 14 units/sq Discharge Attestations Time Spent in Discharge Care*: less than 30 min Quality Metrics Clinical Quality Measures [ No reported AMI, CVA or VTE this stay] Coding Level of Care Code Acute Chg FW DC note Diagnoses Non-pressure chronic ulcer of other part of left foot with necrosis of bone L97.524 Diabetic peripheral neuropathy associated with type 2 diabetes mellitus E11.42 Diabetic foot infection E11.628; L08.9 Foot osteomyelitis, left M86.9
== END 2021-12-11 11:45 | disposition home health service (06) | DRG 617 ==
LOC: ER 22:09 → MEDSURG 22:39
PROVIDERS: Internal Medicine; Orthopaedic Surgery; Admitting Provider Internal Medicine; Emergency Provider Emergency Medicine; PCP Registered Nurse; Visit Provider Family Medicine
PROC: 0Y6J0Z2 Detachment at Left Lower Leg, Mid, Open Approach (ICD-10-PCS; CPT 27880; principal; 2021-12-08 14:55)
DX: E11.69 Type 2 diabetes mellitus with other specified complication (principal); I50.30 Unspecified diastolic (congestive) heart failure; M86.9 Osteomyelitis, unspecified; Z68.42 Body mass index [BMI] 45.0-49.9, adult; I11.0 Hypertensive heart disease with heart failure; E78.5 Hyperlipidemia, unspecified; E11.65 Type 2 diabetes mellitus with hyperglycemia; E11.40 Type 2 diabetes mellitus with diabetic neuropathy, unspecified; E11.621 Type 2 diabetes mellitus with foot ulcer; L97.524 Non-pressure chronic ulcer of other part of left foot with necrosis of bone; Z89.511 Acquired absence of right leg below knee; Z86.718 Personal history of other venous thrombosis and embolism; Z95.828 Presence of other vascular implants and grafts; Z86.16 Personal history of COVID-19; E66.9 Obesity, unspecified; G47.33 Obstructive sleep apnea (adult) (pediatric); Z99.89 Dependence on other enabling machines and devices; F32.A Depression, unspecified; D75.839 Thrombocytosis, unspecified; D50.9 Iron deficiency anemia, unspecified
CPT/HCPCS: 36415; 36416; 64447; 64450; 71045; 73620; 73718; 73720; 76942; 80048; 80053; 81001; 82274; 82728; 82962; 83540; 83550; 83605; 83690; 83735; 83880; 84100; 84484; 85025; 85610; 85651; 85730; 86140; 87040; 87086; 87635; 88307; 88311; 93005; 93926; 93971; 96365; 96372; 96375; 96376; 97161; 97165; 97530; 97535; 99285; A9577; G0277; J1650; J1815 ×2; J1956; J2020; J2270; J2543; J3010; J7030

== ENCOUNTER → 2021-12-08 15:21 | Day surgery (SDC) | payer MEDICARE, SELFPAY | PROVIDERS: PCP Registered Nurse; Visit Provider Orthopaedic Surgery | DX: Z01.818 Encounter for other preprocedural examination (principal) | CPT/HCPCS: J0330; J1100; J2405; J2704; J3010; J3490 ==

== ENCOUNTER → 2021-12-22 09:53 | Outpatient (BNVA) | payer MEDICARE, SELFPAY | PROVIDERS: PCP Registered Nurse; Visit Provider Nurse Practitioner Family | DX: Z89.512 Acquired absence of left leg below knee (principal) | CPT/HCPCS: 99213 ==

== ENCOUNTER → 2021-12-29 08:48 | Outpatient (BNVA) | payer MEDICARE, SELFPAY | PROVIDERS: PCP Registered Nurse; Visit Provider Nurse Practitioner Family | DX: Z89.512 Acquired absence of left leg below knee (principal) | CPT/HCPCS: 99213 ==

== ENCOUNTER → 2022-01-10 09:57 | Outpatient (BNVA) | payer MEDICARE, SELFPAY | PROVIDERS: PCP Registered Nurse; Visit Provider Thoracic Surgery (Cardiothoracic Vascular Surgery) | DX: T81.31XA Disruption of external operation (surgical) wound, not elsewhere classified, initial encounter (principal); Y83.8 Other surgical procedures as the cause of abnormal reaction of the patient, or of later complication, without mention of misadventure at the time of the procedure | CPT/HCPCS: 99212; A6212 ==

== ENCOUNTER → 2022-01-19 08:39 | Outpatient (BNVA) | payer MEDICARE, SELFPAY | PROVIDERS: PCP Registered Nurse; Visit Provider Nurse Practitioner Family | DX: Z89.512 Acquired absence of left leg below knee (principal) | CPT/HCPCS: 99213 ==

== ENCOUNTER → 2022-04-12 10:49 | Outpatient (BNVA) | payer MEDICARE, SELFPAY | PROVIDERS: PCP Registered Nurse; Visit Provider Orthopaedic Surgery | DX: Z89.512 Acquired absence of left leg below knee (principal) | CPT/HCPCS: 99024 ==

== ENCOUNTER → 2022-05-26 11:17 | Outpatient (BNVA) | payer MEDICARE, SELFPAY | PROVIDERS: PCP Registered Nurse; Visit Provider Internal Medicine Cardiovascular Disease | DX: I25.9 Chronic ischemic heart disease, unspecified (principal); I11.0 Hypertensive heart disease with heart failure; I50.33 Acute on chronic diastolic (congestive) heart failure; Z95.828 Presence of other vascular implants and grafts; R94.39 Abnormal result of other cardiovascular function study; E11.9 Type 2 diabetes mellitus without complications; Z79.84 Long term (current) use of oral hypoglycemic drugs | CPT/HCPCS: 99214 ==

== ENCOUNTER 2022-06-08 09:18 | Outpatient (CLI) | payer MEDICARE, SELFPAY ==
[2022-06-08] VITALS (12 sets, daily range): BP systolic 90–146; BP diastolic 63–84; PULSE 68–86; RESP 12–18; TEMP 36.6; O2SAT 93–98; BMI 32.1
--- NOTE | 2022-06-08 09:00 | XACV_ITS ---
Salvador Luke Age: 57 Gender: M : 1965 Exam Date: 06/08/2022 10:21 Ordering Phys: Anna Thrasher MD ([email or web address]) Technologist: Exam Location[place] [facility] Indication: Conclusions INDICATION: 57 year old patient who had IVC filter placed in October 2021 about 6 months back when he had a DVT. Dr. Richardson had put it in. At that time he was found to have a DVT of the left femoral vein. Repeat ultrasound performed in November 2021 did not reveal any DVT. Patient has been referred by his primary sinker puller, Dr. Thrasher for IVC filter removal. Details, risks and benefits of the procedure discussed with the patient. He understands the risks and benefits and wants to proceed with the procedure. PROCEDURE: IVC filter retrieval Procedure detail: Using ultrasound guidance and Seldinger technique, we obtained access in the right IJ with micropuncture kit. This was followed by dilating the axis site and eventual placement of 11 Eston[place] IVC filter removal sheet. IVC filter was snared and was removed. Post removal IVC venogram was performed that did not show any complications. IVC filter along with retrieval sheath was removed and pressure was held. Patient left the Felt Hat Mellowing Machine Operator in stable condition Recommendation: 1. Observation in recovery area for 2 hour. Discharge 2. Outpatient cardiology follow-up with primary sinker puller in 4 weeks Amos James MD (Electronically Signed) Final Date: 08 June 2022 17:37 S
--- NOTE | 2022-06-08 10:11 | W.PM.OPSUD ---
Surgery/Procedure H&P Update DATE OF PROCEDURE: June 08, 2022 DATE H&P PERFORMED: 11/24/21 H&P UPDATE INFORMATION: I have reviewed H&P completed within last 30 days, I have examined patient prior to procedure and Changes to prior documentation as noted here CHANGES TO PREVIOUS DOCUMENTATION: Patient had IVC filter placed in October 2021 about 6 months back when he had a DVT. Dr. Richardson had put it in. At that time he was found to have a DVT of the left femoral vein. Repeat ultrasound performed in November 2021 did not reveal any DVT. Patient has been referred by his primary beater boss, Dr. Thrasher for IVC filter removal. Details, risks and benefits of the procedure discussed with the patient. He understands the risks and benefits and wants to proceed with the procedure. PREOP DIAGNOSIS: DVT history with documented resolution. Plan for IVC filter removal PRIMARY INDICATION FOR PROCEDURE: DVT history with documented resolution. Plan for IVC filter removal PLANNED PROCEDURE: Operation Date: 06/08/22 10:00 Proposed Procedures p IVC Filter Removal 58230,Z95.828(Not Applicable) - Amos James M.D PATIENT REASSESSED PRIOR TO SEDATION, WITH NO CHANGE NOTED: Yes PHYSICAL EXAM: alert, oriented x 3, clear to auscultation bilaterally and regular rate & rhythm AIRWAY EVAL/ANESTHESIA PLAN: ASA IV, Local Anesthesia, Risks, benefits & alternatives of sedation and/or procedure discussed and Patient agrees to continue as planned ADDITIONAL INFORMATION: Moderate sedation
[2022-06-08 10:12] LABS: Basophils # 0.1 10^3/uL (0.0-0.1); Basophils % 0.6 %; Eosinophils # 0.2 10^3/uL (0.0-0.8); Eosinophils % 2.4 %; Hematocrit 38.5 % (42.0-52.0); Hemoglobin 12.5 g/dL (11.7-16.6); Lymphocytes # 1.5 10^3/uL (0.8-4.8); Lymphocytes % 17.7 %; Mean Corpuscular HGB Conc 32.5 g/dL (30.0-36.0); Mean Corpuscular Hemoglobin 28.2 pg (28.0-34.0); Mean Corpuscular Volume 86.7 fl (80-94); Mean Platelet Volume 11.5 fL (7.4-10.4); Monocytes # 0.6 10^3/uL (0.2-0.9); Monocytes % 6.8 %; Neutrophils # 6.19 10^3/uL (1.8-7.7); Neutrophils % 71.9 %; Nucleated Red Blood Cells % 0 %; Platelet Count 284 10^3/cmm (130-400); Red Blood Count 4.44 10^6/uL (4.1-5.3); Red Cell Distribution Width 12.8 % (12.1-15.1); White Blood Count 8.6 10^3/uL (4.0-10.0)
== END 2022-06-08 14:28 | disposition home or self-care (01) ==
LOC: CCL 09:25 → ICU 12:12
PROVIDERS: PCP Registered Nurse; Visit Provider Internal Medicine
PROC: (CPT 37193; principal; 2022-06-08 10:00)
DX: Z95.828 Presence of other vascular implants and grafts (principal); Z86.718 Personal history of other venous thrombosis and embolism; Z79.82 Long term (current) use of aspirin; Z79.4 Long term (current) use of insulin; Z86.16 Personal history of COVID-19; E11.9 Type 2 diabetes mellitus without complications; I25.2 Old myocardial infarction; G47.33 Obstructive sleep apnea (adult) (pediatric); I11.0 Hypertensive heart disease with heart failure; I50.33 Acute on chronic diastolic (congestive) heart failure
CPT/HCPCS: 37193; 85025; 96360; C1769; C1894; J1644; J2250; J3010; J3490; J7030; Q9967

== ENCOUNTER → 2022-06-16 14:00 | Outpatient (BNVA) | payer MEDICARE, SELFPAY | PROVIDERS: PCP Registered Nurse; Visit Provider Nurse Practitioner Family | DX: I82.499 Acute embolism and thrombosis of other specified deep vein of unspecified lower extremity (principal); Z51.89 Encounter for other specified aftercare | CPT/HCPCS: 99213 ==

== ENCOUNTER 2022-09-26 07:44 | Inpatient (IN) | payer MEDICARE, SELFPAY ==
[2022-09-26] VITALS (31 sets, daily range): BP systolic 62–173; BP diastolic 46–99; PULSE 69–103; RESP 12–29; TEMP 36.6–36.8; O2SAT 91–98; BMI 47.2
--- NOTE | 2022-09-26 07:52 | XR_ITS ---
WS: [id number] XR chest 1V portable [id number] REASON FOR EXAM: dyspnea/cough FINDINGS: The chest is unchanged compared to 12/02/2021. Mild to moderate tortuosity the thoracic aorta without aneurysmal dilatation. No significant cardiac enlargement. Calcified granulomatous disease in both hemithoraces. No active pulmonary parenchymal pleural disease. Moderate degenerative spondylosis in the mid and lower thoracic spine. XR/XR chest 1V portable [id number] IMPRESSION: Stable chest without acute abnormality.
--- NOTE | 2022-09-26 07:55 | ECG_ITS ---
[facility] Test Date: 2022-09-26 Pat Name: Salvador Luke Department: Room: Gender: Male Supervisor Stave Finishing: : 1965 Requested By: Elan Camarillo Order Number: [id number] Mirela MD: Anna Thrasher M.D. Measurements Intervals [place] Rate: 102 P: 67 OR: 179 QRS: 40 QRSD: 98 T: 52 QT: 341 QTc: 445 Interpretive Statements SINUS TACHYCARDIA LOW QRS VOLTAGE IN PRECORDIAL LEADS [QRS DEFLECTION < 1.0 mV IN CHEST LEADS] NONSPECIFIC ST & T-WAVE ABNORMALITY ABNORMAL RHYTHM ECG Compared to ECG 12/03/2021 01:08:18 Low QRS voltage now present T-wave abnormality now present Sinus rhythm no longer present Electronically Signed On 09-26-2022 20:50:47 TRUCK SALES MANAGER by Anna Thrasher M.D. [email or web address]
--- NOTE | 2022-09-26 07:58 | PC.NURSE ---
PT PLACED ON CONTINUOUS SPO2, NIBP, AND CM.
[2022-09-26 07:59] LABS: Glucose Point of Care 406 mg/dL (70-110)
[2022-09-26 08:04] LABS: Basophils % 0.2 %; Eosinophils # 0.1 10^3/uL (0.0-0.8); Eosinophils % 0.5 %; Hematocrit 34.2 % (42.0-52.0); Hemoglobin 11.1 g/dL (11.7-16.6); Lymphocytes # 0.7 10^3/uL (0.8-4.8); Lymphocytes % 4.7 %; Mean Corpuscular HGB Conc 32.5 g/dL (30.0-36.0); Mean Corpuscular Hemoglobin 28.4 pg (28.0-34.0); Mean Corpuscular Volume 87.5 fl (80-94); Mean Platelet Volume 11.9 fL (7.4-10.4); Monocytes # 0.4 10^3/uL (0.2-0.9); Monocytes % 2.4 %; Neutrophils # 13.17 10^3/uL (1.8-7.7); Neutrophils % 91.8 %; Nucleated Red Blood Cells % 0 %; Platelet Count 253 10^3/cmm (130-400); Red Blood Count 3.91 10^6/uL (4.1-5.3); White Blood Count 14.4 10^3/uL (4.0-10.0)
--- NOTE | 2022-09-26 08:04 | ED_ITS ---
HPI - Chest Pain General: Chief Complaint: Chest Pain Stated Complaint: CHEST PAIN Time Seen by Provider: 09/26/22 07:52 Source: patient Mode of arrival: ambulatory History of Present Illness: 57-year-old male presents emergency complaining of chest pain. It is reproducible with inspiration and palpation. He has a history of diabetes mellitus with peripheral vascular disease is bilateral below the knee amputations. He tells me he previously had a positive stress test but an angiogram was not done because some logistical issues with insurance. complaint: chest pain Onset (ago): week(s) Timing of current episode: episodic Prior episodes: Yes Onset: during rest Pain location: left chest Pain radiation: none Severity: mild Quality: tightness Relieving factors: nothing Exacerbating factors: nothing Associated symptoms: Deny abdominal pain, diaphoresis, dyspnea, fever(s), leg edema, nausea, palpitations, sense of impending doom, syncope or vomiting Treatment prior to arrival: none Review of Systems Const: Denies: fever(s), chills, fatigue, malaise or diaphoresis ENMT: Denies: throat pain, ear or mastoid pain, nasal discharge or nasal congestion Card: Reports: chest pain; Denies: palpitations, irregular heart rhythm, edema or syncope Resp: Denies: dyspnea, productive cough, non-productive cough or wheezing GI: Denies: abdominal pain, nausea or vomiting : Denies: flank pain, difficulty urinating, dysuria, urinary frequency or urinary urgency Musc: Denies: neck pain or back pain Skin/Breast: Denies: rash or pruritus PFS ED PFSH: Medical History Anemia CHF (congestive heart failure), NYHA class III diastolic, EF 65% on echo 04/2021 COVID-19 03/2021, 04/2022 Depression Diabetes mellitus Type II, onset 1996, on insulin GERD (gastroesophageal reflux disease) HTN (hypertension) Hyperlipidemia Hypothyroidism Obesity Peripheral neuropathy Peripheral vascular disease Sleep apnea Sleep study 09/2021 - bipap titration recommended Surgical History History of inferior vena caval filter placement placed 10/2021 for left femoral DVT; removed 06/08/22 History of left below knee amputation 11/2021 History of right below knee amputation 2014 History of varicose vein stripping ablation LLE Family History Father CAD (coronary artery disease) Mother CAD (coronary artery disease) from heart attack age 62 Social History Smoking and tobacco status: never smoked Alcohol intake: current Alcohol intake frequency: holidays/special occasions only Physical Exam Const: GENERAL APPEARANCE: cooperative and comfortable ORIENTATION/CONSCIOUSNESS: Yes awake, Yes oriented to person, Yes oriented to place and Yes oriented to time HENMT: COMMON NORMALS: normocephalic, atraumatic and hearing grossly normal bilaterally HEAD & SCALP: normocephalic and atraumatic Eye: COMMON NORMALS: Equal, round and reactive pupils present, EOMs intact bilaterally, conjunctivae normal and no scleral icterus CONJUNCTIVA: Yes conjunctivae normal PUPIL: Yes Equal, round and reactive pupils present Neck/C-Spine: COMMON NORMALS: full ROM, no lymphadenopathy, supple and no JVD Lymph: LYMPHATIC: no lymphadenopathy noted and no lymphedema noted Resp: COMMON NORMALS: normal respiratory effort, No retractions, No use of accessory muscles and clear to auscultation bilaterally AUSCULTATION: clear to auscultation bilaterally Cardio: COMMON NORMALS: no JVD, regular rate, regular rhythm and No murmurs present (Cardio) RATE: regular rate RHYTHM: regular rhythm GI: COMMON NORMALS: Soft to palpation and No hepatosplenomegaly present AUSCULTATION: Yes normoactive bowel sounds PALPATION: Yes Soft to palpation, No Tenderness to palpation present (GI), No Guarding due to palpation present (GI) and Yes No hepatosplenomegaly present Extremity: COMMON NORMALS: normal to inspection, capillary refill normal, no clubbing, cyanosis or edema and no calf tenderness OTHER: Bilateral below the knee amputations no edema at this remaining extremity Neuro: SENSORIUM/ORIENTATION: Yes oriented to person, Yes oriented to place and Yes oriented to time Skin: COMMON NORMALS: no rashes or lesions noted GENERAL SKIN EXAM: no rashes or lesions noted Course Vital Signs: Vital signs: Vital Signs Temperature 97.8 F 09/29/22 13:08 Pulse Rate 77 09/29/22 13:08 Respiratory Rate 20 H 09/29/22 13:08 Blood Pressure 142/74 09/29/22 13:08 Pulse Oximetry 93 09/29/22 13:08 Oxygen Delivery Me thod 09/29/22 12:00 Oxygen Flow Rate 1 09/29/22 07:52 MDM - Chest Pain Medical Decision Making Patient has has had intermittent of chest pain for the last couple of months. It is relieved by nitro. No significant delta on the second troponin however him concerned about his description of symptoms he has significant risk factors. His EKG did not show any significant change. Given his risk factors and description of symptoms will admit patient discussed with hospitalist orders written Medical Records I reviewed the patient's medical records. Lab Data I reviewed the patient's lab results. 09/26/22 07:48 Radiology Impressions Chest X-Ray 09/26/22 07:52 IMPRESSION: Stable chest without acute abnormality. Laboratory Results WBC 7.8 10^3/uL (4.0-10.0) 09/28/22 04:15 RBC 3.75 10^6/uL (4.1-5.3) L 09/28/22 04:15 Hgb 10.6 g/dL (11.7-16.6) L 09/28/22 04:15 Hct 33.3 % (42.0-52.0) L 09/28/22 04:15 MCV 88.8 fl (80-94) 09/28/22 04:15 MCH 28.3 pg (28.0-34.0) 09/28/22 04:15 MCHC 31.8 g/dL (30.0-36.0) 09/28/22 04:15 RDW 12.3 % (12.1-15.1) 09/28/22 04:15 Plt Count 235 10^3/cmm (130-400) 09/28/22 04:15 MPV 11.9 fL (7.4-10.4) H 09/28/22 04:15 Neut % (Auto) 60.8 % 09/28/22 04:15 Lymph % (Auto) 22.3 % 09/28/22 04:15 [place] % (Auto) 12.7 % 09/28/22 04:15 Eos % (Auto) 3.5 % 09/28/22 04:15 Baso % (Auto) 0.4 % 09/28/22 04:15 Neut # (Auto) 4.73 10^3/uL (1.8-7.7) 09/28/22 04:15 Lymph # (Auto) 1.7 10^3/uL (0.8-4.8) 09/28/22 04:15 [place] # (Auto) 1.0 10^3/uL (0.2-0.9) H 09/28/22 04:15 Eos # (Auto) 0.3 10^3/uL (0.0-0.8) 09/28/22 04:15 Baso # (Auto) 0.0 10^3/uL (0.0-0.1) 09/28/22 04:15 Nucleated RBC % (auto) 0 % 09/28/22 04:15 Nucleated RBCs # 0.0 /100WBC 09/28/22 04:15 PT 14.50 SECONDS (12.1-14.9) 09/27/22 04:50 INR 1.09 (0.8-1.2) 09/27/22 04:50 APTT 42.1 SECONDS (23.9-36.7) H 09/27/22 04:50 Sodium 140 mmol/L (136-145) 09/28/22 04:15 Potassium 3.8 mmol/L (3.5-5.1) 09/28/22 04:15 Chloride 103 mmol/L (98-107) 09/28/22 04:15 Carbon Dioxide 27 mmol/L (22-29) 09/28/22 04:15 Anion Gap 13.8 (5-19) 09/28/22 04:15 BUN 14 mg/dL (6-20) 09/28/22 04:15 Creatinine 0.8 mg/dL (0.7-1.2) 09/28/22 04:15 GFR Calculation 99.6 mL/min (90-130) 09/28/22 04:15 Glucose 175 mg/dL (65-115) H 09/28/22 04:15 POC Glucose 177 mg/dL (70-110) H 09/28/22 06:08 Estimat Average Glucose 292 09/28/22 04:15 Hemoglobin A1c 11.8 % (4.0-6.0) H 09/28/22 04:15 Calculated Osmolality 295 mOsm/kg (285-295) 09/28/22 04:15 Calcium 8.8 mg/dL (8.5-10.5) 09/28/22 04:15 Phosphorus 2.7 mg/dL (2.5-4.5) 09/27/22 04:50 Magnesium 1.5 mg/dL (1.7-2.3) L 09/27/22 04:50 Iron 31 ug/dL (59-158) L 09/27/22 04:50 TIBC 228 mcg/dl 09/27/22 04:50 % Saturation 13.5 % (20-50) L 09/27/22 04:50 Unsat Iron Binding 197 ug/dL (112-347) 09/27/22 04:50 Total Bilirubin 0.2 mg/dL (0.15-1.2) 09/28/22 04:15 AST 15 U/L (0-40) 09/28/22 04:15 ALT 16 U/L (0-41) 09/28/22 04:15 Alkaline Phosphatase 66 U/L (40-130) 09/28/22 04:15 Troponin T Baseline 39 ng/L (0-15) H 09/26/22 07:48 Troponin T 120 Minute 40.18 ng/L (0-15) H 09/26/22 09:38 Delta Troponin T 1.18 ABS# (0-10) 09/26/22 09:38 Troponin T Hi Sens 6Hr 43.22 ng/L (0-15) H 09/26/22 14:02 Troponin T Hi Sens 6Hr Delta 4.22 ng/L (0-12) 09/26/22 14:02 NT-Pro-B Natriuret Pep 439 pg/mL (0-125) H 09/27/22 04:50 Total Protein 6.9 g/dL (6.6-8.7) 09/28/22 04:15 Albumin 3.6 g/dL (3.5-5.2) 09/28/22 04:15 Globulin 3.3 g/dL (1.3-4.6) 09/28/22 04:15 Triglycerides 177 mg/dL (0-150) H 09/28/22 04:15 Cholesterol 130 mg/dL (0-200) 09/28/22 04:15 LDL Cholesterol, Calc 70 mg/dL (50-129) 09/28/22 04:15 Total VLDL Cholesterol 35 mg/dL (0-30) H 09/28/22 04:15 HDL Cholesterol 25 mg/dL (60-100) L 09/28/22 04:15 Cholesterol/HDL Ratio 5.20 mg/dL (1.0-5.00) H 09/28/22 04:15 Vitamin B12 505 pg/mL (232-1245) 09/27/22 04:50 Folate 15.9 ng/mL (4.5-32.2) 09/27/22 14:42 Procalcitonin 7.22 ng/mL (0-0.5) H 09/27/22 04:50 TSH 1.76 uIU/mL (0.27-4.20) 09/27/22 04:50 Urine Color Yellow (Yellow) 09/27/22 14:54 Urine Appearance Clear (CLEAR) 09/27/22 14:54 Urine pH 5 (5-7) 09/27/22 14:54 Ur Specific [place] 1.015 (1.005-1.030) 09/27/22 14:54 Urine Protein Neg (Negative) 09/27/22 14:54 Urine Glucose (UA) 2+ (Normal) H 09/27/22 14:54 Urine Ketones Negative (Negative) 09/27/22 14:54 Urine Blood Neg (Negative) 09/27/22 14:54 Urine Nitrate Negative (Negative) 09/27/22 14:54 Urine Bilirubin Neg (Negative) 09/27/22 14:54 Urine Urobilinogen Neg mg/dL (Negative) 09/27/22 14:54 Ur Leukocyte Esterase Negative (Negative) 09/27/22 14:54 Discharge Plan Discharge Patient Disposition: Admitted As Inpatient Admit Provider: Katalina Graves Clinical Impression: Unstable angina pectoris, Hyperlipidemia, Diabetes mellitus Condition: Stable Discharge Diet: Cardiac and Diabetic Discharge Activity: Resume usual activity and Increase activity as tolerated Coding Level of Care Code ED De[employer] for Mary Beth Godfrey
[2022-09-26 08:26] LABS: Troponin(5th) Baseline 39 ng/L (0-15)
--- NOTE | 2022-09-26 09:55 | ECG_ITS ---
[facility] Test Date: 2022-09-26 Pat Name: Salvador Luke Department: Room: Gender: Male Drip Molder: : 1965 Requested By: Elan Camarillo Order Number: [id number] Mirela MD: Anna Thrasher M.D. Measurements Intervals [place] Rate: 83 P: 61 SC: 183 QRS: 42 QRSD: 108 T: 66 QT: 383 QTc: 451 Interpretive Statements SINUS RHYTHM LOW QRS VOLTAGE IN PRECORDIAL LEADS [QRS DEFLECTION < 1.0 mV IN CHEST LEADS] NONSPECIFIC ST & T-WAVE ABNORMALITY Compared to ECG 09/26/2022 07:51:38 Sinus tachycardia no longer present T-wave abnormality still present Electronically Signed On 09-26-2022 22:10:21 WHISKEY FILTERER by Anna Thrasher M.D. [id number]
[2022-09-26 10:57] LABS: Troponin 5 2HR 40.18 ng/L (0-15)
[2022-09-26 11:02] LABS: Troponin 5 2HR Delta 1.18 ABS# (0-10)
[2022-09-26 11:09] LABS: Anion Gap 14.2 (5-19); Blood Urea Nitrogen 28 mg/dL (6-20); Calcium 8.3 mg/dL (8.5-10.5); Carbon Dioxide 26 mmol/L (22-29); Chloride 95 mmol/L (98-107); Glomerular Filtration Rate 56.9 mL/min (90-130); Glucose 412 mg/dL (65-115); Osmolality Calculated 295 mOsm/kg (285-295); Potassium 4.2 mmol/L (3.5-5.1); Sodium 131 mmol/L (136-145)
[2022-09-26] MEDS: morphine 4 mg/mL SDV 1 mL IVP (11:36)
[2022-09-26] MEDS: enoxaparin 100 mg/mL Syringe SUBCUT (11:37)
[2022-09-26] MEDS: nitroglycerin 1 gm/inch oint Pkt 1 INCH TOPICAL ×3 (11:37→21:47)
--- NOTE | 2022-09-26 13:55 | ECG_ITS ---
[facility] Test Date: 2022-09-26 Pat Name: Salvador Luke Department: Room: Gender: Male Skating Carhop: : 1965 Requested By: Elan Camarillo Order Number: [id number] Mirela MD: Anna Thrasher M.D. Measurements Intervals [place] Rate: 78 P: 46 CO: 184 QRS: 38 QRSD: 114 T: 66 QT: 384 QTc: 438 Interpretive Statements SINUS RHYTHM LOW QRS VOLTAGE IN PRECORDIAL LEADS [QRS DEFLECTION < 1.0 mV IN CHEST LEADS] MODERATE INTRAVENTRICULAR CONDUCTION DELAY [110+ ms QRS DURATION] NONSPECIFIC T-WAVE ABNORMALITY INTERPRETATION BASED ON A DEFAULT AGE OF 40 YEARS Compared to ECG 09/26/2022 11:31:16 Intraventricular conduction delay now present T-wave abnormality still present Electronically Signed On 09-26-2022 22:09:50 QUAD STAYER by Anna Thrasher M.D. [email or web address] [id number]
--- NOTE | 2022-09-26 14:10 | P.HP_ITS ---
Providers/Chief Complaint Admitting Physician: Katalina Graves MD Primary Care Provider: HANNAH Mason Chief Complaint: CHEST PAIN History of Present Illness Salvador Luke is a 57 year old male who presented to the emergency room with chief complaint of chest pain. Over the last 2 to 3 months he has been having intermittent episodes of chest pain. No specific pattern of exertional or rest chest pain. Usually he will take 1 dose of nitroglycerin, maybe once every 2 weeks when the episodes of chest pain occur, with resolution of the pain. He has had to take 2 nitroglycerin 1 time. Last night chest pain occurred during sleep waking him up. Shortly thereafter he also felt significant chills. He had a fever up to 103 and could not get warm for a while. The chest pain was located in the substernal area without any radiation, described as a tightness in the chest. No other associated symptoms beyond the chills. In the emergency room he rated it at a 5 out of 10. It resolved completely with Nitropaste administration. Twelve-lead EKG with nonspecific changes. Initial troponin in the upper 30s with 2-hour troponin not demonstrating significant delta. Patient has risk factors including diabetes mellitus, hypertension, hyperlipidemia, obesity and family history. Last cardiovascular evaluation was in April 2021. At that time he had stress test that showed a medium sized area of patchy decreased tracer uptake in the basal anterolateral, mid to apical anterior and apical lateral wall with some reversibility in the mid to apical anterior, mid to apical anterior lateral, mid inferior lateral and apical navarrete on stress images. This finding was noted to possibly represent small area of ischemia in the circumflex/LAD artery territory versus soft tissue attenuation which could not be ruled out in the absence of prone imaging. At the time decision was made to manage medically. Echocardiogram in the same timeframe demonstrated an ejection fraction of 65% with grade 2 diastolic dysfunction. Patient is chronically on aspirin, statin, beta-blockade among other medications listed below. At the present time he is chest pain-free. Request was made for admission for further cardiac evaluation. In regards to the complaint of fever, patient has had a little bit of a runny nose lately but no sore throat, cough, difficulty breathing, nausea, vomiting, diarrhea, abdominal pain, dysuria, inguinal rash, sores, joint pains. He intermittently has had some pain in the left side of his neck but it is not present currently. He does have some bad teeth. No known sick contacts. No recent vaccinations. No other episodes of fever have been noted either objectively or subjectively beyond what occurred this morning. Mr. Gerber does have a known history of sleep apnea. Last sleep study in April 2021, recommendation was for BiPAP titration study. That has not yet been done but according to Mr. Gerber has been ordered by his PCP and needs to be done by November 19. In the emergency room he was noted to have some low oxygen levels when dozing necessitating placement of oxygen therapy. He does snore loudly according to his . He does not have home oxygen nor a CPAP/BiPAP device. Review of Systems General: Reports: Other (ROS as noted in the history of present illness or below) Card: Denies: palpitations, edema or orthopnea Resp: Denies: pain on inspiration GI: Denies: heartburn Felipe/Lymph: Denies: easy bruising or easy bleeding Medications/Allergies Home Medications Medication Instructions Recorded Confirmed Last Taken Type acetaminophen 500 mg tablet 1,000 mg PO Q4H PRN Pain 04/30/21 09/26/22 09/26/22 History (Tylenol Extra Strength) sqsqqtseymyw-gqrjpebt-efgzwc tablet 1 tab PO QAM 04/30/21 09/26/22 09/25/22 History pantoprazole 40 mg tablet,delayed 40 mg PO BID 04/30/21 09/26/22 09/25/22 History release nitroglycerin 0.4 mg sublingual 0.4 mg sublingual Q5M PRN chest 05/06/21 09/26/22 Unknown Rx tablet pain #30 tabs carvedilol 12.5 mg tablet (Coreg) 12.5 mg PO BID #180 tabs 05/28/21 09/26/22 09/25/22 Rx aspirin 81 mg tablet,delayed 81 mg PO QAM 11/15/21 09/26/22 09/25/22 History release gabapentin 300 mg capsule 300 mg PO BID PRN Pain 11/15/21 09/26/22 09/25/22 History losartan 100 mg tablet 100 mg PO QAM 11/15/21 09/26/22 09/25/22 History spironolactone 25 mg tablet 50 mg PO QAM 11/15/21 09/26/22 09/25/22 History insulin aspart U-100 100 unit/mL See Rx Instructions .Route 12/11/21 09/26/22 09/25/22 Rx (3 mL) subcutaneous pen (Novolog .COMPLEX #15 mL FlexPen U-100 Insulin aspart) [employer] 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 #1 ea 12/15/21 09/26/22 Unknown Rx bilateral transtibial prosthesis #1 ea 01/31/22 09/26/22 Unknown Rx Bilateral Transtibial Prostheses #1 ea 02/03/22 09/26/22 Unknown Rx glipizide 5 mg tablet 5 mg PO BID 05/26/22 09/26/22 09/25/22 History insulin glargine 100 unit/mL (3 68 unit SUBCUT BID 05/26/22 09/26/22 09/25/22 History mL) subcutaneous pen (Lantus Solostar U-100 Insulin) sertraline 100 mg tablet 200 mg PO DAILY 05/26/22 09/26/22 09/25/22 History atorvastatin 80 mg tablet 80 mg PO QPM 09/26/22 09/26/22 09/25/22 History levothyroxine 75 mcg tablet 75 mcg PO DAILY 09/26/22 09/26/22 09/25/22 History montelukast 10 mg tablet 10 mg PO DAILY 09/26/22 09/26/22 09/25/22 History pioglitazone 15 mg tablet 15 mg PO BID 09/26/22 09/26/22 09/25/22 History polymyxin B sulfate 10,000 1 drp ophthalmic (eye) Q4H 09/26/22 09/26/22 09/25/22 History unit-trimethoprim 1 mg/mL eye drops trazodone 150 mg tablet 150 mg PO BEDTIME 09/26/22 09/26/22 09/25/22 History Allergies Allergy/AdvReac Type Severity Reaction Status Date / Time atorvastatin [From Lipitor] Allergy ADR-Muscle Verified 09/26/22 11:03 Pain vancomycin Allergy ALGY-Anaphy Verified 09/26/22 11:03 laxis PFSH Acute PFSH: Medical History (Updated 09/26/22 @ 15:38 by Katalina Graves MD) Anemia CHF (congestive heart failure), NYHA class III diastolic, EF 65% on echo 04/2021 COVID-19 03/2021, 04/2022 Depression Diabetes mellitus Type II, onset 1996, on insulin GERD (gastroesophageal reflux disease) HTN (hypertension) Hyperlipidemia Hypothyroidism Obesity Peripheral neuropathy Peripheral vascular disease Sleep apnea Sleep study 09/2021 - bipap titration recommended Surgical History (Updated 09/26/22 @ 15:32 by Katalina Graves MD) History of inferior vena caval filter placement placed 10/2021 for left femoral DVT; removed 06/08/22 History of left below knee amputation 11/2021 History of right below knee amputation 2014 History of varicose vein stripping ablation LLE Family History (Updated 09/26/22 @ 15:11 by Katalina Graves MD) Father CAD (coronary artery disease) Mother CAD (coronary artery disease) from heart attack age 62 Social History (Updated 09/26/22 @ 15:11 by Katalina Graves MD) Smoking and tobacco status: never smoked Alcohol intake: current Alcohol intake frequency: holidays/special occasions only Substance/Drug Use: never Vitals/I&O/Wt Last Vital Signs Temp 98.3 F 09/26/22 07:45 Pulse 80 09/26/22 12:45 Resp 29 H 09/26/22 12:45 BP 161/83 09/26/22 13:15 Pulse Ox 96 09/26/22 13:15 O2 Del Method 09/26/22 07:45 Physical Exam Narrative: Patient is awake and alert, oriented x3, able to provide history. Normocephalic, mild conjunctival injection, extraocular movements intact, nasopharynx is clear, oropharynx with moist mucous membranes. Some dental caries noted but no grossly erythematous or purulent gingiva noted. Neck is large but supple. Lungs are clear to auscultation bilaterally without any rales rhonchi or wheezes. Cardiovascular exam reveals a regular rate and rhythm without any murmurs gallops or rubs. Abdomen is soft, rotund, nontender with positive bowel sounds. No pitting edema noted to bilateral BKA stumps. Patient has a small scab sore on the anterior medial side of his left lower extremity and another scab sore on the posterior right lower extremity measuring approxim ately 1 cm by half a centimeter. No warmth or streaking erythema around this. No drainage. Sensation is intact to light touch both stumps. Speech is clear, face symmetric. Data 09/26/22 07:48 09/26/22 10:44 Other Labs: Radiology Impressions Chest X-Ray 09/26/22 07:52 IMPRESSION: Stable chest without acute abnormality. Laboratory Results WBC 14.4 10^3/uL (4.0-10.0) H 09/26/22 07:48 RBC 3.91 10^6/uL (4.1-5.3) L 09/26/22 07:48 Hgb 11.1 g/dL (11.7-16.6) L 09/26/22 07:48 Hct 34.2 % (42.0-52.0) L 09/26/22 07:48 MCV 87.5 fl (80-94) 09/26/22 07:48 MCH 28.4 pg (28.0-34.0) 09/26/22 07:48 MCHC 32.5 g/dL (30.0-36.0) 09/26/22 07:48 RDW 12.0 % (12.1-15.1) L 09/26/22 07:48 Plt Count 253 10^3/cmm (130-400) 09/26/22 07:48 MPV 11.9 fL (7.4-10.4) H 09/26/22 07:48 Neut % (Auto) 91.8 % 09/26/22 07:48 Lymph % (Auto) 4.7 % 09/26/22 07:48 Carson % (Auto) 2.4 % 09/26/22 07:48 Eos % (Auto) 0.5 % 09/26/22 07:48 Baso % (Auto) 0.2 % 09/26/22 07:48 Neut # (Auto) 13.17 10^3/uL (1.8-7.7) H 09/26/22 07:48 Lymph # (Auto) 0.7 10^3/uL (0.8-4.8) L 09/26/22 07:48 Carson # (Auto) 0.4 10^3/uL (0.2-0.9) 09/26/22 07:48 Eos # (Auto) 0.1 10^3/uL (0.0-0.8) 09/26/22 07:48 Baso # (Auto) 0.0 10^3/uL (0.0-0.1) 09/26/22 07:48 Nucleated RBC % (auto) 0 % 09/26/22 07:48 Nucleated RBCs # 0.0 /100WBC 09/26/22 07:48 Sodium 131 mmol/L (136-145) L 09/26/22 10:44 Potassium 4.2 mmol/L (3.5-5.1) 09/26/22 10:44 Chloride 95 mmol/L (98-107) L 09/26/22 10:44 Carbon Dioxide 26 mmol/L (22-29) 09/26/22 10:44 Anion Gap 14.2 (5-19) 09/26/22 10:44 BUN 28 mg/dL (6-20) H 09/26/22 10:44 Creatinine 1.3 mg/dL (0.7-1.2) H 09/26/22 10:44 GFR Calculation 56.9 mL/min (90-130) L 09/26/22 10:44 Glucose 412 mg/dL (65-115) H 09/26/22 10:44 POC Glucose 406 mg/dL (70-110) H 09/26/22 07:56 Calculated Osmolality 295 mOsm/kg (285-295) 09/26/22 10:44 Calcium 8.3 mg/dL (8.5-10.5) L 09/26/22 10:44 Troponin T Baseline 39 ng/L (0-15) H 09/26/22 07:48 Troponin T 120 Minute 40.18 ng/L (0-15) H 09/26/22 09:38 Delta Troponin T 1.18 ABS# (0-10) 09/26/22 09:38 Other data: Outside records reviewed from patient's primary care provider portal include the following labs to note: 07/27/2022 A1c 13 Total Chol 247, HDL 34, LDL 168, TG 273 TSH 3.71 A&P Assessment and plan (1) Chest pain: In a patient with prior abnormal stress test results as documented above and multiple risk factors for coronary artery disease as described. Typical and atypical features. Pain is relieved with nitroglycerin. Qualifiers: Chest pain type: chest pain due to myocardial ischemia Ischemic chest pain type: unspecified angina pectoris type Qualified Code(s): I25.9 - Chronic ischemic heart disease, unspecified (2) Fever: Single occurrence with onset after episode of chest pain this morning with temperature recorded up to 103. White count of 14,000 with 91.8% segmented neutrophils. Only source clearly identifiable on examination is dentition. Could be secondary to ischemia/thrombosis as well. Not acutely ill-appearing at the present time and vital signs are otherwise stable. (3) Dental caries extending into pulp: Has lost a cap from 1 tooth and has several other teeth with significant dental caries. (4) Elevated serum creatinine: Last comparative values from November 2021 showed BUN and creatinine of 31/0.8. Values today demonstrate 28/1.3. Could represent either progression to chronic kidney disease stage 3a or acute variance related to volume status, medications or other acute clinical issues. Suspect at least chronic kidney disease stage II at baseline given poorly controlled diabetes. (5) Diabetes mellitus: Recent A1c was 13 consistent with suboptimally controlled diabetes mellitus. Chronically on insulin, glipizide, pioglitazone. Qualifiers: Diabetes mellitus type: type 2 Diabetes mellitus termite renewal inspector insulin use: with termite renewal inspector use Diabetes mellitus complication status: with hyperglycemia Qualified Code(s): E11.65 - Type 2 diabetes mellitus with hyperglycemia; Z79.4 - termite renewal inspector (current) use of insulin (6) HTN (hypertension): Variable blood pressure measurements today are noted though patient did not take his usual medications. Chronically on carvedilol, losartan and Aldactone. Qualifiers: Hypertension type: primary hypertension Qualified Code(s): I10 - Essential (primary) hypertension (7) Hyperlipidemia: Recent lipid panel showing low HDL and high LDL, on chronic statin therapy. (8) CHF (congestive heart failure), NYHA class III: Chronic diastolic CHF, not currently acute. Chronically on an ARB and Aldactone along with carvedilol. Last ejection fraction 65% in April 2021 with grade 2 diastolic dysfunction. Qualifiers: Congestive heart failure type: diastolic Congestive heart failure chronicity: chronic Qualified Code(s): I50.32 - Chronic diastolic (congestive) heart failure (9) Abnormal cardiovascular stress test: In April 2021 with findings suggesting either soft tissue attenuation versus small area of ischemia in the circumflex/LAD artery territory. Has been managed medically since then. Follows chronically with Dr. Thrasher. (10) Hypothyroidism: Chronically on levothyroxine. Qualifiers: Hypothyroidism type: acquired Qualified Code(s): E03.9 - Hypothyro idism, unspecified (11) Status post bilateral below knee amputation: Has prosthesis for right lower extremity and in the process of getting prosthesis for left lower extremity. Has one sore scabbed over on each leg as described in physical exam above that both he and his are aware of and are following. (12) Sleep apnea: Currently untreated with pending BiPAP titration study that has been ordered by primary care provider. Demonstrating hypoxemia with sleep while in the emergency room. Qualifiers: Sleep apnea type: obstructive Qualified Code(s): G47.33 - Obstructive sleep apnea (adult) (pediatric) Plan Gastropharyngeal reflux disease on chronic PPI Depression on chronic sertraline Insomnia on chronic trazodone though will take anywhere from 1/2 to 1 tablet depending on how sleepy he is on any given night Observation admission Continue serial cardiac enzymes Echocardiogram Myocardial perfusion imaging Telemetry monitoring for arrhythmias Continue home carvedilol, aspirin, statin Continue treatment dose Lovenox Continue Nitropaste Hold home ARB and Aldactone currently Low rate of IV fluids overnight Recheck renal function and electrolytes in the morning Monitor for recurrent fever Will initiate Augmentin for dental caries Continue insulin via long-acting, preprandial and sliding scale as needed as well as oral sulfonylurea Monitor blood pressures with current medication regimen, adjusting as needed Monitor volume status Continue home levothyroxine Oxygen therapy as needed especially with sleep Discussed with patient the importance of getting and keeping sleep study BiPAP titration appointment Continue home PPI Continue home sertraline and trazodone Supportive care otherwise Findings, concerns and plans were discussed with patient and he was given an opportunity to ask questions Anticipate discharge home with outpatient follow-up with primary care provider and possibly with cardiology sooner than currently scheduled appointment which is not until February [address] Thrasher. Patient has a screening colonoscopy scheduled for October [facility] Mr. Gerber should not have screening colonoscopy until further cardiac evaluation and determination regarding this procedure has been made. At the time of screening colonoscopy, anesthesia providers need to be aware of his apnea that is untreated in addition to cardiac risk factors. Full code Attestations Medical Necessity Statement*: Currently anticipate a stay less than two midnights in a gentleman with multiple risk factors for coronary artery disease presenting with chest pain. He has had previous abnormal stress testing and pain is relieved with nitroglycerin. He also has reported fever at home with only identifiable source presently being dental caries. Plans are as noted above. Coding Level of Care Code 13770 Moderate MDM includes risk/complexity, reviewing previous or external records, reviewing test results and ordering lab/other test(s) and Moderate Time for a total of 65 minutes, includes reviewing past or interval history, examining/interviewing patient, placing orders and documenting encounter Diagnoses Chest pain I25.9 Chest pain type: chest pain due to myocardial ischemia Ischemic chest pain type: unspecified angina pectoris type Fever R50.9 Dental caries extending into pulp K02.9 Elevated serum creatinine R79.89 Diabetes mellitus E11.65; Z79.4 Diabetes mellitus type: type 2 Diabetes mellitus care home insulin use: with care home use Diabetes mellitus complication status: with hyperglycemia HTN (hypertension) I10 Hypertension type: primary hypertension Hyperlipidemia E78.5 CHF (congestive heart failure), NYHA class III I50.32 Congestive heart failure type: diastolic Congestive heart failure chronicity: chronic Abnormal cardiovascular stress test R94.39 Hypothyroidism E03.9 Hypothyroidism type: acquired Status post bilateral below knee amputation Z89.512; Z89.511 Sleep apnea G47.33 Sleep apnea type: obstructive
[2022-09-26 14:34] LABS: Troponin 5 6HR 43.22 ng/L (0-15); Troponin 5 6HR Delta 4.22 ng/L (0-12)
--- NOTE | 2022-09-26 15:33 | ECG_ITS ---
[facility] Test Date: 2022-09-26 Pat Name: Salvador Luke Department: Room: 111 Gender: Male Child Adolescent Psychiatrist: : 1965 Requested By: Katalina Graves Order Number: [id number] Mirela MD: Anna Thrasher M.D. Measurements Intervals [place] Rate: 78 P: 57 SD: 187 QRS: 25 QRSD: 114 T: 69 QT: 389 QTc: 445 Interpretive Statements SINUS RHYTHM LOW QRS VOLTAGE IN PRECORDIAL LEADS [QRS DEFLECTION < 1.0 mV IN CHEST LEADS] MODERATE INTRAVENTRICULAR CONDUCTION DELAY [110+ ms QRS DURATION] NONSPECIFIC T-WAVE ABNORMALITY Compared to ECG 09/26/2022 12:02:18 No significant changes Electronically Signed On 09-26-2022 22:06:56 MINISTER HELPER by Anna Thrasher M.D. [id number]
--- NOTE | 2022-09-26 16:04 | USCV_ITS ---
Salvador Luke Age: 57 Gender: M : 1965 Exam Date: 09/26/2022 18:13 Ordering Phys: Katalina Graves MD Technologist: NELSON Exam Location: [facility] [place] Indication: chest pain, history of PAD s/p bilateral BKAs. IDDM x 26 years. BP: 173 / 83 HR: 82 Rhythm: Sinus Technical Quality: Poor because of body habitus with [employer]ISON MEASUREMENTS (Male / Female) Normal Values 2D ECHO LV Diastolic Diameter PLAX 4.0 cm 4.2 - 5.9 / 3.9 - 5.3 cm LV Systolic Diameter PLAX 2.9 cm IVS Diastolic Thickness 1.6 cm 0.6 - 1.0 / 0.6 - 0.9 cm IVS Systolic Thickness 1.9 cm LVPW Diastolic Thickness 1.5 cm 0.6 - 1.0 / 0.6 - 0.9 cm LVPW Systolic Thickness 2.4 cm LVOT Diameter 2.1 cm LV Ejection Fraction 2D Teich 54.0 % LV Ejection Fraction MOD 2C 56.6 % LV Ejection Fraction 2C AL 56.2 % LA Diameter 5.0 cm LA Width 4.5 cm LA Height 4.8 cm RA Width 3.0 cm RA Height 4.1 cm Aorta at Sinotubular Diameter 3.0 cm IVC Diameter 1.9 cm M-MODE Aortic Annulus Diameter 3.6 cm LA Ao Ratio MM 1.4 MV E Point Septal Separation 0.5 cm DOPPLER AV Peak Velocity 129.0 cm/s LVOT Peak Velocity 104.0 cm/s AV Area Cont Eq vti 3.5 cm squared AV Area Cont Eq pk 2.9 cm squared MV Area PHT 4.2 cm squared Mitral E to A Ratio 1.1 MV E' Velocity 59.0 cm/s Mitral E to MV E' Ratio 10.4 Mitral E to LV E' Lateral Ratio 7.8 Mitral E to LV E' Septal Ratio 15.4 TV Peak E Velocity 59.0 cm/s PV Peak Velocity 104.0 cm/s RV Acceleration Time 0.1 s RV Ejection Time 0.4 s RV AcT/ET 0.2 FINDINGS Left Ventricle Left leg is normal in size. LV systolic function is normal with LVEF of 55 to 60%. No regional wall motion abnormalities are seen. Right Ventricle Normal in size and function Right Atrium Normal in size Left Atrium Dilated Mitral Valve Grossly normal Aortic Valve Not well visualized. No significant stenosis or regurgitation Tricuspid Valve Mild tricuspid regurgitation. Insufficient TR jet to calculate RVSP Pulmonic Valve Not well visualized Pericardium Not well visualized Aorta Normal in size IVC Appears to be normal CONCLUSIONS Technically limited quality echocardiogram because of poor ultrasonic windows. LV systolic function is normal with EF 55 to 60%. Left atrial dilation Mild tricuspid regurgitation Compared to prior echocardiogram from 2020, no significant changes are seen Amos James MD (Electronically Signed) Final Date: 27 September 2022 08:51 S
--- NOTE | 2022-09-26 16:04 | ECG_ITS ---
[facility] Test Date: 2022-09-27 Pat Name: Salvador Luke Department: Room: 111 Gender: Male Manager Document Control: : 1965 Requested By: Katalina Graves Order Number: [id number] Mirela MD: Brianda Carlos M.D. Interpretive Statements NAME OF STUDY: LEXISCAN SESTAMIBI STRESS TEST INDICATION: Atypical Chest Pain, PROCEDURE: At the baseline, the EKG revealed normal sinus rhythm with a normal ST Ts. The baseline heart was 77 bpm with a blood pressue of 116/68 mm of Hg Lexiscan was infused over a period of 20 seconds. A total of 0.4 milligrams of Lexiscan was infused. The stress phase was continued for a total of 5 minutes. Heart rate at the end of the stress phase was 81 bpm with a blood pressure 113/68 mm of Hg. The EKG at the peak infusion revealed no significant changes. Sestamibi was injected 20 seconds after the Lexiscan infusion. Heart rate at the end of the recovery phase was 81 bpm with a blood pressure of 109/72 mm of Hg. CONCLUSION: 1. No significant EKG changes with the LexiScan infusion 2. No LexiScan induced chest pain or cardiac arrhythmia 3. Normal blood pressure and heart rate response 4. Sestamibi/sestamibi perfusion scan pending; see separate report. Electronically Signed On 10-01-2022 13:18:34 HEALTHCARE TRANSLATOR by Brianda Carlos M.D. [id number]
[2022-09-26] MEDS: sodium chloride 0.9% 1,000 ML 75 ML IV (16:19)
[2022-09-26 16:45] LABS: Glucose Point of Care 409 mg/dL (70-110)
[2022-09-26] MEDS: amoxicillin-clav 875-125 mg Tablet 1 TAB PO (17:03)
[2022-09-26] MEDS: polymyxin-trimethoprim Op Soln 10 mL Btl 1 DROP EYE-BOTH ×2 (17:05→21:58)
[2022-09-26] MEDS: insulin glargine 100 units/1 mL 40 UNIT SUBCUT (17:05)
[2022-09-26] MEDS: glimepiride 2 mg Tablet PO (17:05)
[2022-09-26] MEDS: insulin lispro 100 unit/1 mL SUBCUT ×2 (17:06→21:41)
[2022-09-26] MEDS: insulin lispro 100 unit/1 mL 10 UNIT SUBCUT (17:07)
[2022-09-26] MEDS: trazodone 150 mg Tablet PO (21:43)
[2022-09-26] MEDS: carvedilol 12.5 mg Tablet PO (21:44)
[2022-09-26] MEDS: atorvastatin 40 mg Tablet 80 MG PO (21:44)
[2022-09-26] MEDS: pantoprazole DR 40 mg Tablet PO (21:46)
[2022-09-27] VITALS (21 sets, daily range): BP systolic 113–179; BP diastolic 62–92; PULSE 73–91; RESP 14–28; TEMP 36.7–37.5; O2SAT 90–97
[2022-09-27] MEDS: enoxaparin 150 mg/mL Syringe SUBCUT ×2 (00:05→11:48)
[2022-09-27] MEDS: polymyxin-trimethoprim Op Soln 10 mL Btl 1 DROP EYE-BOTH ×6 (00:05→21:22)
[2022-09-27] MEDS: nitroglycerin 1 gm/inch oint Pkt 1 INCH TOPICAL ×4 (04:17→21:32)
[2022-09-27] MEDS: gabapentin 300 mg Capsule PO ×2 (04:25→17:28)
[2022-09-27] MEDS: perflutren protein-a microsphr 0.22 mg/mL SDV 3 mL IV (05:40)
[2022-09-27 05:58] LABS: INR 1.09 (0.8-1.2)
[2022-09-27 05:59] LABS: Partial Thromboplastin Time 42.1 SECONDS (23.9-36.7)
[2022-09-27 06:13] LABS: Alanine Aminotransferase 15 U/L (0-41); Albumin Level 3.5 g/dL (3.5-5.2); Alkaline Phosphatase 70 U/L (40-130); Anion Gap 13.6 (5-19); Aspartate Amino Transferase 12 U/L (0-40); Blood Urea Nitrogen 23 mg/dL (6-20); Calcium 8.6 mg/dL (8.5-10.5); Carbon Dioxide 26 mmol/L (22-29); Chloride 98 mmol/L (98-107); Globulin 3.1 g/dL (1.3-4.6); Glucose 183 mg/dL (65-115); Magnesium 1.5 mg/dL (1.7-2.3); NT Pro B Type Natriuretic Pept 439 pg/mL (0-125); Osmolality Calculated 286 mOsm/kg (285-295); Phosphorus 2.7 mg/dL (2.5-4.5); Potassium 3.6 mmol/L (3.5-5.1); Sodium 134 mmol/L (136-145); Total Bilirubin 0.3 mg/dL (0.15-1.2); Total Protein 6.6 g/dL (6.6-8.7)
[2022-09-27] MEDS: aspirin 81 mg EC Tablet PO (06:23)
[2022-09-27 06:27] LABS: Glucose Point of Care 301 mg/dL (70-110)
[2022-09-27 06:27] LABS: Glucose Point of Care 187 mg/dL (70-110)
[2022-09-27] MEDS: regadenoson 0.4 Mg/5 ml Syringe IVP (07:22)
[2022-09-27] MEDS: sertraline 100 mg Tablet 200 MG PO (09:04)
[2022-09-27] MEDS: amoxicillin-clav 875-125 mg Tablet 1 TAB PO ×2 (09:04→17:28)
[2022-09-27] MEDS: levothyroxine 75 mcg Tablet PO (09:04)
[2022-09-27] MEDS: carvedilol 12.5 mg Tablet PO ×2 (09:04→21:31)
[2022-09-27] MEDS: pantoprazole DR 40 mg Tablet PO ×2 (09:04→21:31)
[2022-09-27] MEDS: montelukast sodium 10 mg Tablet PO (09:04)
[2022-09-27] MEDS: insulin lispro 100 unit/1 mL SUBCUT ×4 (09:07→21:32)
--- NOTE | 2022-09-27 10:11 | PC.NURSE ---
cardiac stress test completed this morning.pt tolerated procedure well.
--- NOTE | 2022-09-27 10:40 | PC.CHAP ---
Pastoral Care Encounter/Spiritual Assessment Type of Contact [] Declined martial arts instructor visit [] Patient/Family/Request visit [] Outpatient visit [] Follow-up visit [] Physician referral [] Code/Alert [x] Routine visit [] Staff referral [] Actively dying [] Patient sleeping [] Family support [] [] Out of room [] Palliative care [] [] Receiving care in room [] Pre-surgical visit [] Trauma [] Long length of stay [] ICU visit [] Other: Relational/Emotional Strength [x] Patient feels connected with others/family/visitors/staff [] Distress [] Loneliness/isolation [] Abandonment Spirituality of Patient [] Person of Richelle [] Attends Muslim of their Richelle [x] Believes in Prayer [] Reads Bible or Mormon materials [] There are Spiritual issues to be addressed Public Health Service Officer Interventions [x] Prayer [x] Active listening [x] Non-anxious presence [] Spiritual/emotional support [] Crisis/trauma care [] Spiritual counseling [] Bereavement support [] Provided bereavement packet [] Provided Bible/devotional materials [] Provided toy/stuffed animal, coloring book to patient or family member [] Provided Communion [] Anointing/[place] [] Salvation [x] Completed spiritual assessment [] Other: Impact on Illness or Injury [] Angry [] Fearful [] Anxious [] Often cries [] Exhaustion [] Unable to work [] Unable to attend confucianism [] Unable to walk/stand [] Unable to read [] Unable to drive [] Unable to eat/drink [] Unable to sleep [] Unable to be with family [] Patient intubated [] Other: Summary Time spent with patient 10 min
[2022-09-27 11:34] LABS: Glucose Point of Care 291 mg/dL (70-110)
[2022-09-27] MEDS: insulin lispro 100 unit/1 mL 10 UNIT SUBCUT ×2 (11:49→17:29)
[2022-09-27] MEDS: acetaminophen 325 mg Tablet 650 MG PO (13:16)
--- NOTE | 2022-09-27 13:32 | P.CONIM_ITS ---
Providers/Reason For Consult Consulting Physician/Specialty*: /PRADEEP Carlos MD/cardiology Reason for Consult*: Patient with chest pain and abnormal Myocardial perfusion imaging Requesting Physician: Dr. Wayne Attending Physician: Richard Wayne MD Primary Care Provider: HANNAH Mason History of Present Illness History of Present Illness Salvador Luke is a 57 year old male with multiple risk factors for coronary artery disease, presenting with increasing episodes of chest pains. He had a Myocardial perfusion imaging today which was found to be abnormal. Cardiology consult is requested for further cardiac evaluation recommendations. This patient has a history of chest pain off and on for last couple of years. He is being followed by Dr. Thrasher. He had a Myocardial perfusion imaging a year and a half ago which was abnormal. He was recommended for a cardiac catheterization. Since the procedure was not approved by the insurance, he is being managed medically. This patient is known to have insulin requiring d iabetes, high blood pressure, dyslipidemia, bilateral below-knee amputation for diabetic ulcer and osteomyelitis. He was admitted to hospital yesterday with complaints of the prolonged episode of chest pain. Apparently the patient woke up with chest pain. The pain was in the mid substernal area, radiating to the left mammary region. The intensity of the pain was 10/10. His gave him a sublingual nitro which brought down the pain to 5/10. Within few minutes, the pain again started going up. He waited almost an hour at home. Since there was no relief of symptoms, he was brought to the emergency room by ambulance. In the ambulance, he was given additional sublingual nitro, p.o. aspirin and oxygen by nasal cannula. According to the patient, his chest pain never completely went away. It has been waxing and waning throughout yesterday. Even now, he has pain of 3/10 in intensity. He has no associated nausea or vomiting. No unusual shortness of breath. No palpitations, dizziness or syncopal episodes. He had a Myocardial perfusion imaging in April 2021. He was found to have some areas of reversible and reversible defects in the distribution of the left circumflex artery/anterior descending artery. He is known to have diabetes, high blood pressure dyslipidemia for more than 20 years. He had a below-knee amputation of the right leg in 2014.. Had amputation of the left leg in November of last year. Both times, he had diabetic ulcer complicated with osteomyelitis. Patient also is known to have sleep apnea. He may have gained around 25 pounds within the last 6 months. Denies any smoking use or alcohol abuse. Review of Systems Narrative: CONSTITUTIONAL: Patient was feeling chilly yesterday morning and the temperature went up to 103. Apparently he did not have any fever in the emergency room. He remains afebrile now. EYES: No blurring of vision or other visual disturbances lately. ENT: No hoarseness of voice, auditory disturbances or sore throat. CARDIOVASCULAR: As mentioned above. RESPIRATORY: No significant cough. GASTROINTESTINAL: No hematemesis or melena. GENITOURINARY: No dysuria or hematuria. INTEGUMENTARY: No skin rashes or history of skin cancer. NEURO: No transient ischemic attacks or amaurosis. PSYCHIATRIC: No history of psychosis or major depression. HEMATOLOGIC: No bleeding disorders or significant anemia. ENDOCRINE: Type 2 diabetes as mentioned above. MUSCULOSKELETAL: Bilateral below-knee amputations as mentioned above. ALLERGY/IMMUNOLOGY: As mentioned above. Medications/Allergies Home Medications Medication Instructions Recorded Confirmed Last Taken Type acetaminophen 500 mg tablet 1,000 mg PO Q4H PRN Pain 04/30/21 09/26/22 09/26/22 History (Tylenol Extra Strength) lkfylrlyacdw-iqaxcjny-nqheik tablet 1 tab PO QAM 04/30/21 09/26/22 09/25/22 History pantoprazole 40 mg tablet,delayed 40 mg PO BID 04/30/21 09/26/22 09/25/22 History release nitroglycerin 0.4 mg sublingual 0.4 mg sublingual Q5M PRN chest 05/06/21 09/26/22 Unknown Rx tablet pain #30 tabs carvedilol 12.5 mg tablet (Coreg) 12.5 mg PO BID #180 tabs 05/28/21 09/26/22 0 09/25/22 Rx aspirin 81 mg tablet,delayed 81 mg PO QAM 11/15/21 09/26/22 09/25/22 History release gabapentin 300 mg capsule 300 mg PO BID PRN Pain 11/15/21 09/26/22 09/25/22 History losartan 100 mg tablet 100 mg PO QAM 11/15/21 09/26/22 09/25/22 History spironolactone 25 mg tablet 50 mg PO QAM 11/15/21 09/26/22 09/25/22 History insulin aspart U-100 100 unit/mL See Rx Instructions .Route 12/11/21 09/26/22 09/25/22 Rx (3 mL) subcutaneous pen (Novolog .COMPLEX #15 mL FlexPen U-100 Insulin aspart) [employer] and supplies #1 ea 12/15/21 09/26/22 Unknown Rx bilateral transtibial prosthesis #1 ea 01/31/22 09/26/22 Unknown Rx Bilateral Transtibial Prostheses #1 ea 02/03/22 09/26/22 Unknown Rx glipizide 5 mg tablet 5 mg PO BID 05/26/22 09/26/22 09/25/22 History insulin glargine 100 unit/mL (3 68 unit SUBCUT BID 05/26/22 09/26/22 09/25/22 History mL) subcutaneous pen (Lantus Solostar U-100 Insulin) sertraline 100 mg tablet 200 mg PO DAILY 05/26/22 09/26/22 09/25/22 History atorvastatin 80 mg tablet 80 mg PO QPM 09/26/22 09/26/22 09/25/22 History levothyroxine 75 mcg tablet 75 mcg PO DAILY 09/26/22 09/26/22 09/25/22 History montelukast 10 mg tablet 10 mg PO DAILY 09/26/22 09/26/22 09/25/22 History pioglitazone 15 mg tablet 15 mg PO BID 09/26/22 09/26/22 09/25/22 History polymyxin B sulfate 10,000 1 drp ophthalmic (eye) Q4H 09/26/22 09/26/22 09/25/22 History unit-trimethoprim 1 mg/mL eye drops trazodone 150 mg tablet 150 mg PO BEDTIME 09/26/22 09/26/22 09/25/22 History Allergies Allergy/AdvReac Type Severity Reaction Status Date / Time vancomycin Allergy ALGY-Anaphy Verified 09/26/22 11:03 laxis Current Medications Generic Name Dose Route Start Last Admin Trade Name Freq PRN Reason Stop Dose Admin Acetaminophen 650 mg 09/26/22 15:49 09/27/22 13:16 Acetaminophen 325 Mg Tablet PO 650 mg Q6H PRN Administration Mild/Mod Pain Or Temp >/= 101 Amoxicillin/Clavulanate Potassium 1 tab 09/26/22 18:00 09/27/22 09:04 Amoxicillin-Clav 875-125 Mg Tablet PO 1 tab BID MARJORIE Administration Protocol Aspirin 81 mg 09/27/22 06:00 09/27/22 06:23 Aspirin 81 Mg Ec Tablet PO 81 mg QAM MARJORIE Administration Atorvastatin Calcium 80 mg 09/26/22 21:00 09/26/22 21:44 Atorvastatin 40 Mg Tablet PO 80 mg BEDTIME MARJORIE Administration Carvedilol 12.5 mg 09/26/22 21:00 09/27/22 09:04 Carvedilol 12.5 Mg Tablet PO 12.5 mg BID@ MARJORIE Administration Enoxaparin Sodium 150 mg 09/26/22 23:30 09/27/22 11:48 Enoxaparin 150 Mg/Ml Syringe SUBCUT 150 mg Q12H MARJORIE Administration Gabapentin 300 mg 09/26/22 15:54 09/27/22 04:25 Gabapentin 300 Mg Capsule PO 300 mg BID PRN Administration Pain Glimepiride 2 mg 09/26/22 17:00 09/27/22 07:05 Glimepiride 2 Mg Tablet PO Not Given BIDAC [facility] Insulin Glargine 40 unit 09/26/22 17:00 09/27/22 07:06 Insulin Glargine 100 Units/1 Ml SUBCUT Not Given BIDAC [facility] Insulin Human Lispro 0 unit 09/26/22 21:00 09/26/22 21:41 Insulin Lispro 100 Unit/1 Ml SUBCUT 6 unit BEDTIME [facility] Administration Protocol Insulin Human Lispro 0 unit 09/26/22 18:00 09/27/22 11:48 Insulin Lispro 100 Unit/1 Ml SUBCUT 10 unit TIDWM [facility] Administration Protocol Insulin Human Lispro 10 unit 09/26/22 17:00 09/27/22 11:49 Insulin Lispro 100 Unit/1 Ml SUBCUT 10 unit TIDAC [facility] Administration Levothyroxine Sodium 75 mcg 09/27/22 09:00 09/27/22 09:04 Levothyroxine 75 Mcg Tablet PO 75 mcg DAILY MARJORIE Administration Montelukast Sodium 10 mg 09/27/22 09:00 09/27/22 09:04 Montelukast Sodium 10 Mg Tablet PO 10 mg DAILY MARJORIE Administration Nitroglycerin 1 inch 09/26/22 16:00 09/27/22 09:10 Nitroglycerin 1 Gm/Inch Oint Pkt TOPICAL 1 inch Q6H MARJORIE Administration Pantoprazole Sodium 40 mg 09/26/22 21:00 09/27/22 09:[address] 40 Mg Tablet PO 40 mg BID@ MARJORIE Administration Polymyxin/Trimethoprim Sulfate 1 drop 09/26/22 16:45 09/27/22 13:16 Polymyxin-Trimethoprim Op Soln 10 Ml Btl EYE-BOTH 1 drop Q4H MARJORIE Administration Sertraline HCl 200 mg 09/27/22 09:00 09/27/22 09:04 Sertraline 100 Mg Tablet PO 200 mg DAILY MARJORIE Administration Trazodone HCl 150 mg 09/26/22 21:00 09/26/22 21:43 Trazodone 150 Mg Tablet PO 150 mg BEDTIME MARJORIE Administration PFSH Acute PFSH: Medical History Anemia CHF (congestive heart failure), NYHA class III diastolic, EF 65% on echo 04/2021 COVID-19 03/2021, 04/2022 Depression Diabetes mellitus Type II, onset 1996, on insulin GERD (gastroesophageal reflux disease) HTN (hypertension) Hyperlipidemia Hypothyroidism Obesity Peripheral neuropathy Peripheral vascular disease Sleep apnea Sleep study 09/2021 - bipap titration recommended Surgical History History of inferior vena caval filter placement placed 10/2021 for left femoral DVT; removed 06/08/22 History of left below knee amputation 11/2021 History of right below knee amputation 2014 History of varicose vein stripping ablation LLE Family History Father CAD (coronary artery disease) Mother CAD (coronary artery disease) from heart attack age 62 Social History Smoking and tobacco status: never smoked Alcohol intake: current Alcohol intake frequency: holidays/special occasions only Substance/Drug Use: never Vitals/I&O/Wt Last Vital Signs Temp 99.3 F 09/27/22 12:00 Pulse 80 09/27/22 12:00 Resp 20 H 09/27/22 12:00 BP 136/85 09/27/22 12:00 Pulse Ox 93 09/27/22 12:00 O2 Del Method 09/27/22 12:00 09/26/22 09/27/22 09/27/22 22:59 06:59 14:59 Intake Total 480 / 480 1000 / 1480 600 / 600 Output Total 800 / 800 Balance -320 / -320 1000 / 680 600 / 600 Weight last 48 hrs Weight 338 lb 9 oz Physical Exam Narrative: GENERAL: The patient is alert and oriented times three. Not in any acute distress. Morbidly obese HEENT: No significant pallor, icterus or lymphadenopathy.Oral cavity: There are no mucous membrane lesions. NECK: Trachea appears to be central. No masses noted. No JVD or thyromegaly appreciated. RESPIRATORY: Chest is symmetrical. No intercostals muscle retraction or any accessory muscle activation. There is no chest wall tenderness. Breath sounds are heard bilaterally. No rales or rhonchi heard. No evidence of any consolidation. BREASTS: Deferred. HEART: The heart sounds are normal. No S3 or S4. No significant murmurs. No pericardial rub ABDOMEN: No vessel pulsations or distention. No tenderness. No organomegaly appreciated. Bowel sounds are normally heard. : Deferred. RECTAL: Deferred. LYMPHATIC: No lymphadenopathy noted in the neck. EXTREMITIES: No edema or cyanosis. No clubbing. MUSCULOSKELETAL: Below-knee amputations bilaterally SKIN: There are no significant rashes or ecchymosis NEUROPSYCHIATRIC: The patient is alert and oriented x3. Appears to be in a good mood. No tremors or rigidity noted. Data 09/26/22 07:48 09/27/22 04:50 Other Labs: Laboratory Last Values WBC 7.8 10^3/uL (4.0-10.0) 09/28/22 04:15 RBC 3.75 10^6/uL (4.1-5.3) L 09/28/22 04:15 Hgb 10.6 g/dL (11.7-16.6) L 09/28/22 04:15 Hct 33.3 % (42.0-52.0) L 09/28/22 04:15 MCV 88.8 fl (80-94) 09/28/22 04:15 MCH 28.3 pg (28.0-34.0) 09/28/22 04:15 MCHC 31.8 g/dL (30.0-36.0) 09/28/22 04:15 RDW 12.3 % (12.1-15.1) 09/28/22 04:15 Plt Count 235 10^3/cmm (130-400) 09/28/22 04:15 MPV 11.9 fL (7.4-10.4) H 09/28/22 04:15 Neut % (Auto) 60.8 % 09/28/22 04:15 Lymph % (Auto) 22.3 % 09/28/22 04:15 [place] % (Auto) 12.7 % 09/28/22 04:15 Eos % (Auto) 3.5 % 09/28/22 04:15 Baso % (Auto) 0.4 % 09/28/22 04:15 Neut # (Auto) 4.73 10^3/uL (1.8-7.7) 09/28/22 04:15 Lymph # (Auto) 1.7 10^3/uL (0.8-4.8) 09/28/22 04:15 [place] # (Auto) 1.0 10^3/uL (0.2-0.9) H 09/28/22 04:15 Eos # (Auto) 0.3 10^3/uL (0.0-0.8) 09/28/22 04:15 Baso # (Auto) 0.0 10^3/uL (0.0-0.1) 09/28/22 04:15 Nucleated RBC % (auto) 0 % 09/28/22 04:15 Nucleated RBCs # 0.0 /100WBC 09/28/22 04:15 PT 14.50 SECONDS (12.1-14.9) 09/27/22 04:50 INR 1.09 (0.8-1.2) 09/27/22 04:50 APTT 42.1 SECONDS (23.9-36.7) H 09/27/22 04:50 Sodium 140 mmol/L (136-145) 09/28/22 04:15 Potassium 3.8 mmol/L (3.5-5.1) 09/28/22 04:15 Chloride 103 mmol/L (98-107) 09/28/22 04:15 Carbon Dioxide 27 mmol/L (22-29) 09/28/22 04:15 Anion Gap 13.8 (5-19) 09/28/22 04:15 BUN 14 mg/dL (6-20) 09/28/22 04:15 Creatinine 0.8 mg/dL (0.7-1.2) 09/28/22 04:15 GFR Calculation 99.6 mL/min (90-130) 09/28/22 04:15 Glucose 175 mg/dL (65-115) H 09/28/22 04:15 POC Glucose 217 mg/dL (70-110) H 09/27/22 21:21 Estimat Average Glucose 292 09/28/22 04:15 Hemoglobin A1c 11.8 % (4.0-6.0) H 09/28/22 04:15 Calculated Osmolality 295 mOsm/kg (285-295) 09/28/22 04:15 Calcium 8.8 mg/dL (8.5-10.5) 09/28/22 04:15 Phosphorus 2.7 mg/dL (2.5-4.5) 09/27/22 04:50 Magnesium 1.5 mg/dL (1.7-2.3) L 09/27/22 04:50 Iron 31 ug/dL (59-158) L 09/27/22 04:50 TIBC 228 mcg/dl 09/27/22 04:50 % Saturation 13.5 % (20-50) L 09/27/22 04:50 Unsat Iron Binding 197 ug/dL (112-347) 09/27/22 04:50 Total Bilirubin 0.2 mg/dL (0.15-1.2) 09/28/22 04:15 AST 15 U/L (0-40) 09/28/22 04:15 ALT 16 U/L (0-41) 09/28/22 04:15 Alkaline Phosphatase 66 U/L (40-130) 09/28/22 04:15 Troponin T Baseline 39 ng/L (0-15) H 09/26/22 07:48 Troponin T 120 Minute 40.18 ng/L (0-15) H 09/26/22 09:38 Delta Troponin T 1.18 ABS# (0-10) 09/26/22 09:38 Troponin T Hi Sens 6Hr 43.22 ng/L (0-15) H 09/26/22 14:02 Troponin T Hi Sens 6Hr Delta 4.22 ng/L (0-12) 09/26/22 14:02 NT-Pro-B Natriuret Pep 439 pg/mL (0-125) H 09/27/22 04:50 Total Protein 6.9 g/dL (6.6-8.7) 09/28/22 04:15 Albumin 3.6 g/dL (3.5-5.2) 09/28/22 04:15 Globulin 3.3 g/dL (1.3-4.6) 09/28/22 04:15 Triglycerides 177 mg/dL (0-150) H 09/28/22 04:15 Cholesterol 130 mg/dL (0-200) 09/28/22 04:15 LDL Cholesterol, Calc 70 mg/dL (50-129) 09/28/22 04:15 Total VLDL Cholesterol 35 mg/dL (0-30) H 09/28/22 04:15 HDL Cholesterol 25 mg/dL (60-100) L 09/28/22 04:15 Cholesterol/HDL Ratio 5.20 mg/dL (1.0-5.00) H 09/28/22 04:15 Vitamin B12 505 pg/mL (232-1245) 09/27/22 04:50 Folate 15.9 ng/mL (4.5-32.2) 09/27/22 14:42 Procalcitonin 7.22 ng/mL (0-0.5) H 09/27/22 04:50 TSH 1.76 uIU/mL (0.27-4.20) 09/27/22 04:50 Urine Color Yellow (Yellow) 09/27/22 14:54 Urine Appearance Clear (CLEAR) 09/27/22 14:54 Urine pH 5 (5-7) 09/27/22 14:54 Ur Specific [place] 1.015 (1.005-1.030) 09/27/22 14:54 Urine Protein Neg (Negative) 09/27/22 14:54 Urine Glucose (UA) 2+ (Normal) H 09/27/22 14:54 Urine Ketones Negative (Negative) 09/27/22 14:54 Urine Blood Neg (Negative) 09/27/22 14:54 Urine Nitrate Negative (Negative) 09/27/22 14:54 Urine Bilirubin Neg (Negative) 09/27/22 14:54 Urine Urobilinogen Neg mg/dL (Negative) 09/27/22 14:54 Ur Leukocyte Esterase Negative (Negative) 09/27/22 14:54 Echo: My impression: Done on 09/26/2022 Technically limited quality echocardiogram because of poor ?ultrasonic windows. ?LV systolic function is normal with EF 55 to 60%. ?Left atrial dilation ?Mild tricuspid regurgitation ?Compared to prior echocardiogram from 2020, no significant ?changes are seen Myocardial perfusion imaging: My impression: 1.? Myocardial perfusion imaging revealing moderate degree of moderate ?decreases uptake in the inferior, inferolateral and apical regions with ?significant reversibility, suggesting ischemia in the distribution of the right ?coronary artery/circumflex artery. ?2.? Normal LV ejection fraction of 55%. ?3.? LV wall motion analysis revealed mild diffuse hypokinesia of the LV apex. ?4.? Mildly dilated LV cavity with an end-systolic volume of 71 mL. ?5.? Elevated transient ischemic dilatation ratio also is consistent with ?endocardial ischemia. ?Compared to the previous study from 05/04/2021, the ischemia seems to be more in ?the distribution of the right coronary artery at this time. EKG 1: My Interpretation: Normal sinus rhythm with some nonspecific ST -T changes. Moderate intraventricular conduction delay. A&P Assessment and plan (1) Abnormal cardiovascular stress test: The abnormal Myocardial perfusion imaging is suggestive of myocardial scarring with ischemia in the distribution of the right coronary artery and left circumflex artery. Patient seems to be stable hemodynamically. The patient chest pain is somewhat atypical. Unstable angina is a likely possibility. Patient may be kept on the subcu Lovenox, p.o. beta-blockers, and other current medications. (2) Atherosclerotic heart disease of [place] coronary artery with unstable angina pectoris: In view of the patient's unstable anginal symptoms, in order to further evaluate the coronary status, a cardiac catheterization would be appropriate. The risk of bleeding, hematoma, vascular injury, myocardial infarction, myocardial pe rforation, malignant cardiac arrhythmias ,CVA, renal failure and other concomitant complications were explained in detail. Patient understood this well and consented to proceed. We will try to make the arrangements to have it done as early as possible. Based on the results, further recommendations will be made. (3) HTN (hypertension): Blood pressure is of stage I. We will continue to optimize antihypertensive medications. Qualifiers: Hypertension type: primary hypertension Qualified Code(s): I10 - Essential (primary) hypertension (4) Dyspnea on exertion: This could be multifactorial. Morbid obesity, coronary ischemia, sleep apnea, etc. or contributing factors. (5) Sleep apnea: Patient is currently not on CPAP treatment. He may benefit from this. After reviewing the test results , medical records and also the patient's clinical progress, furthe recommendations will be made. Thank you for the opportunity to evaluate this patient make these recommendations Qualifiers: Sleep apnea type: obstructive Qualified Code(s): G47.33 - Obstructive sleep apnea (adult) (pediatric) (6) Diabetes mellitus: Aggressive management of the diabetes would be appropriate. Qualifiers: Diabetes mellitus complication status: with hyperglycemia Diabetes mellitus intermediate manager insulin use: with fpc use Diabetes mellitus type: type 2 Qualified Code(s): E11.65 - Type 2 diabetes mellitus with hyperglycemia; Z79.4 - long-term (current) use of insulin Plan We will go ahead and schedule for the cardiac catheterization tomorrow. Patient will be kept n.p.o. after midnight. Based on the angiogram findings, further recommendations will be made. May continue on the current medication for the time being. Thank you for the opportunity to eval this patient make these recommendations Coding Level of Care Code 57034 High Time for a total of 60 minutes, includes reviewing past or interval histor y, examining/interviewing patient, placing orders, counseling patient/family/other support, discussing plan of care with staff, communicating with other healthcare providers, documenting encounter and coordinating care Diagnoses Abnormal cardiovascular stress test R94.39 Atherosclerotic heart disease of [place] coronary artery with unstable angina pectoris I25.110 HTN (hypertension) I10 Hypertension type: primary hypertension Dyspnea on exertion R06.00 Sleep apnea G47.33 Sleep apnea type: obstructive Diabetes mellitus E11.65; Z79.4 Diabetes mellitus complication status: with hyperglycemia Diabetes mellitus fpc insulin use: with fpc use Diabetes mellitus type: type 2
--- NOTE | 2022-09-27 14:01 | P.PN_ITS ---
Subjective Subjective: H&P, labs appreciated. Today morning seen postcardiac stress test. Patient states he had some chest pain prior to the stress test. States has not had any further chest pain nausea or vomiting since then. Seen with family at bedside. Has remained hemodynamically stable and afebrile. Currently on room air. Vitals/I&O/Wt Last Vital Signs Temp 99.3 F 09/27/22 12:00 Pulse 80 09/27/22 12:00 Resp 20 H 09/27/22 12:00 BP 136/85 09/27/22 12:00 Pulse Ox 93 09/27/22 12:00 O2 Del Method 09/27/22 12:00 09/26/22 09/27/22 09/27/22 22:59 06:59 14:59 Intake Total 480 / 480 1000 / 1480 600 / 600 Output Total 800 / 800 Balance -320 / -320 1000 / 680 600 / 600 Weight last 48 hrs Weight 153.569 kg Physical Exam Narrative: General: No acute distress, awake and alert, oriented x3, able to provide history. HEENT: Normocephalic, mild conjunctival injection, extraocular movements intact, nasopharynx is clear, oropharynx with moist mucous membranes. Some dental caries noted but no grossly erythematous or purulent gingiva noted. Neck is large but supple. Lungs: Clear to auscultation bilaterally without any rales rhonchi or wheezes. Cardiovascular: Regular rate and rhythm without any murmurs gallops or rubs. Abdomen: Soft, rotund, nontender with positive bowel sounds. Neurology: Moving all limbs, no focal deficit. Extremities: No pitting edema noted to bilateral BKA stumps. Patient has a small scab sore on the anterior medial side of his left lower extremity and another scab sore on the posterior right lower extremity measuring approximately 1 cm by half a centimeter. No warmth or streaking erythema around this. No drainage. Sensation is intact to light touch both stumps. Data 09/26/22 07:48 09/27/22 04:50 A&P Assessment and plan (1) Chest pain: Postcardiac stress test. Found to be positive. Did have some chest pain today morning. Troponin cycled slightly positive. Cardiology consulted. For now continue with aspirin, statin, beta-iris. Continue with full dose Lovenox 1 mg/kg body weight every 12 hourly. Appreciate echocardiogram results. Found to have an EF 55 to 60% without regional wall motion abnormality, left atrial dilatation, mild TR. Check A1c, lipid panel. N.p.o. after midnight for possible cardiac catheterization tomorrow morning. Qualifiers: Chest pain type: chest pain due to myocardial ischemia Ischemic chest pain type: unspecified angina pectoris type Qualified Code(s): I25.9 - Chronic ischemic heart disease, unspecified (2) Fever: Single occurrence with onset after episode of chest pain this morning with t emperature recorded up to 103. Leukocytosis present. Check procalcitonin. Check urinalysis, chest x-ray. Other possible source of infection is poor dentition. No blood culture sent on admission. Continue with Augmentin started yesterday. Check blood cultures, MRSA swab. (3) Dental caries extending into pulp: Has lost a cap from 1 tooth and has several other teeth with significant dental caries. (4) Elevated serum creatinine: No history of CKD in the past. Creatinine back to normal today. Elevated on admission most likely secondary to dehydration and severe hyperglycemia. Continue to monitor BMP daily for now. Medical reconciliation done for nephrotoxic drugs. (5) Diabetes mellitus: Uncontrolled diabetes mellitus. A1c of more than 11 within last 1 year. Hold OHA's. Repeat A1c. Continue with Lantus 40 units twice daily, 10 units lispro premeals along with insulin sliding scale before meals and at bedtime. Qualifiers: Diabetes mellitus type: type 2 Diabetes mellitus terminal carman insulin use: with terminal carman use Diabetes mellitus complication status: with hyperglycemia Qualified Code(s): E11.65 - Type 2 diabetes mellitus with hyperglycemia; Z79.4 - terminal carman (current) use of insulin (6) HTN (hypertension): Goal blood pressure less than 140 over 90 mmHg. Continue with home dose of Coreg. Holding off on Aldactone and losartan for now given need for cardiac catheterization tomorrow morning and mild SALIMA on a dmission. Qualifiers: Hypertension type: primary hypertension Qualified Code(s): I10 - Essential (primary) hypertension (7) Hyperlipidemia: Check liver panel, on chronic statin therapy. (8) CHF (congestive heart failure), NYHA class III: Chronic diastolic CHF, not currently acute. Chronically on an ARB and Aldactone along with carvedilol. Last ejection fraction 65% in April 2021 with grade 2 diastolic dysfunction. Qualifiers: Congestive heart failure type: diastolic Congestive heart failure chronicity: chronic Qualified Code(s): I50.32 - Chronic diastolic (congestive) heart failure (9) Abnormal cardiovascular stress test: In April 2021 with findings suggesting either soft tissue attenuation versus small area of ischemia in the circumflex/LAD artery territory. Has been managed medically since then. Follows chronically with Dr. Thrasher. Significant chest pain and mildly elevated troponin cycle. Stress test again positive and new delineation. Cardiology consultation. (10) Hypothyroidism: Chronically on levothyroxine. Qualifiers: Hypothyroidism type: acquired Qualified Code(s): E03.9 - Hypo thyroidism, unspecified (11) Status post bilateral below knee amputation: Has prosthesis for right lower extremity and in the process of getting prosthesis for left lower extremity. Has one sore scabbed over on each leg as described in physical exam above that both he and his are aware of and are following. (12) Sleep apnea: Currently untreated with pending BiPAP titration study that has been ordered by primary care provider. Demonstrating hypoxemia with sleep while in the emergency room. Qualifiers: Sleep apnea type: obstructive Qualified Code(s): G47.33 - Obstructive sleep apnea (adult) (pediatric) Plan Full code. Cardiac consistent diet. N.p.o. for midnight. Full dose Lovenox will suffice as DVT prophylaxis Protonix at home dose. Attestations Medical Necessity Statement*: Requires further hospitalization for management of chest pain, positive stress test in setting of history of CAD, uncontrolled diabetes mellitus. Coding Level of Care Code 37800 High MDM includes risk/complexity, reviewing previous or external records, reviewing test results, ordering lab/other test(s), speaking with independent historian (other than patient), independently interpretating test(s) (not separately recorded) and discussion of management or test(s) w/ other healthcare professional and High Time for a total of 60 minutes, includes reviewing past or interval history, examining/interviewing patient, placing orders, counseling patient/family/other support, updating patient/family/other support, discussing plan of care with staff, communicating with other healthcare providers, documenting encounter and coordinating care Diagnoses Chest pain I25.9 Chest pain type: chest pain due to myocardial ischemia Ischemic chest pain type: unspecified angina pectoris type Fever R50.9 Dental caries extending into pulp K02.9 Elevated serum creatinine R79.89 Diabetes mellitus E11.65; Z79.4 Diabetes mellitus type: type 2 Diabetes mellitus terminal carman insulin use: with terminal carman use Diabetes mellitus complication status: with hyperglycemia HTN (hypertension) I10 Hypertension type: primary hypertension Hyperlipidemia E78.5 CHF (congestive heart failure), NYHA class III I50.32 Congestive heart failure type: diastolic Congestive heart failure chronicity: chronic Abnormal cardiovascular stress test R94.39 Hypothyroidism E03.9 Hypothyroidism type: acquired Status post bilateral below knee amputation Z89.512; Z89.511 Sleep apnea G47.33 Sleep apnea type: obstructive
[2022-09-27 14:44] LABS: Iron 31 ug/dL (59-158); Percent Saturation 13.5 % (20-50); Total Iron Binding Capacity 228 mcg/dl; Unsaturated Iron Binding 197 ug/dL (112-347)
[2022-09-27 14:52] LABS: Thyroid Stimulating Hormone 1.76 uIU/mL (0.27-4.20)
[2022-09-27 15:00] LABS: Procalcitonin 7.22 ng/mL (0-0.5); Vitamin B12 505 pg/mL (232-1245)
[2022-09-27 15:11] LABS: Add Urine Microscopic? NO; Charge for UA Resulting for Rev
[2022-09-27 15:44] LABS: Folate Level 15.9 ng/mL (4.5-32.2)
[2022-09-27 15:50] LABS: Specific Gravity, Urine 1.015 (1.005-1.030); Urine Appearance Clear (CLEAR); Urine Color Yellow (Yellow); pH Urine 5 (5-7)
[2022-09-27 15:51] LABS: Bilirubin Urine Neg (Negative); Blood Urine Neg (Negative); Glucose Urine UA 2+ (Normal); Ketones Urine Negative (Negative); Leukocyte Esterase Urine Negative (Negative); Nitrate Urine Negative (Negative); Protein Urine Neg (Negative); Urobilinogen Urine Neg (Negative)
--- NOTE | 2022-09-27 16:04 | NMCV_ITS ---
NM ollie perf SPECT r/s* [id number] Salvador Luke Age: 57 Gender: M : 1965 Exam Date: 09/27/2022 06:36 Ordering Phys: Katalina Graves MD Technologist: CLEVELAND Plunkett Exam Location: [facility] Indications: CHEST PAIN STRESS TEST Please see separate stress test report in [facility] for full findings IMAGE PROTOCOL Rest/Stress 1 Lexiscan Day Radiopharmaceutical Dose (mCi) Administration Site Administered by Rest: Tc-99m 11.0 IV CLEVELAND Pena Sestamibi Stress:Tc-99m 33.0 IV C[place] Pena Sestamibi Rest: 27-Sep-2022 60 Discovery 630 Stress: 27-Sep-2022 30 Discovery 630 0.4mg Lexiscan. Supine position only as patient was unable to lay prone. SPECT RESULTS Technical Quality: Good Raw Data Analysis: Normal Image Corrections: No attenuation or motion correction applied Summed Stress Score: 8 Summed Rest Score: 3 Summed Difference Score: 6 PERFUSION FINDINGS Moderate area of moderately decreased eccentric in the basal, mid and apical inferior, mid inferolateral apical lateral and apical segments. Significant reversibility was noted in these regions at rest FUNCTIONAL RESULTS (calculated via Gated SPECT) Stress Image LV EF (%): 55 Stress EDV (mL):158 TID: 1.24 Stress ESV (mL):71 FUNCTIONAL FINDINGS: Segmental wall motion analysis revealing mild diffuse hypokinesia of the LV apex. The transischemic dilatation ratio was found to be elevated to 1.24 IMPRESSIONS 1. Myocardial perfusion imaging revealing moderate degree of moderate decreases uptake in the inferior, inferolateral and apical regions with significant reversibility, suggesting ischemia in the distribution of the right coronary artery/circumflex artery. 2. Normal LV ejection fraction of 55%. 3. LV wall motion analysis revealed mild diffuse hypokinesia of the LV apex. 4. Mildly dilated LV cavity with an end-systolic volume of 71 mL. 5. Elevated transient ischemic dilatation ratio also is consistent with endocardial ischemia. Compared to the previous study from 05/04/2021, the ischemia seems to be more in the distribution of the right coronary artery at this time. Dr Brianda Carlos MD [facility] (Electronically Signed) Final Date: 27 September 2022 09:46 S
[2022-09-27 17:05] LABS: Glucose Point of Care 239 mg/dL (70-110)
[2022-09-27] MEDS: insulin glargine 100 units/1 mL 40 UNIT SUBCUT (17:29)
[2022-09-27 21:26] LABS: Glucose Point of Care 217 mg/dL (70-110)
[2022-09-27] MEDS: atorvastatin 40 mg Tablet 80 MG PO (21:31)
[2022-09-27] MEDS: trazodone 150 mg Tablet PO (21:31)
[2022-09-28] VITALS (91 sets, daily range): BP systolic 99–168; BP diastolic 48–98; PULSE 70–96; RESP 11–27; TEMP 36.8–38.3; O2SAT 76–98
[2022-09-28] MEDS: enoxaparin 150 mg/mL Syringe SUBCUT (00:03)
[2022-09-28] MEDS: polymyxin-trimethoprim Op Soln 10 mL Btl 1 DROP EYE-BOTH ×6 (00:04→21:20)
[2022-09-28] MEDS: gabapentin 300 mg Capsule PO ×2 (01:00→21:21)
[2022-09-28] MEDS: nitroglycerin 1 gm/inch oint Pkt 1 INCH TOPICAL ×4 (04:26→21:20)
[2022-09-28] MEDS: sodium chloride 0.45% 1,000 ML 75 ML IV (04:26)
[2022-09-28 05:02] LABS: Basophils % 0.4 %; Eosinophils # 0.3 10^3/uL (0.0-0.8); Eosinophils % 3.5 %; Hematocrit 33.3 % (42.0-52.0); Hemoglobin 10.6 g/dL (11.7-16.6); Lymphocytes # 1.7 10^3/uL (0.8-4.8); Lymphocytes % 22.3 %; Mean Corpuscular HGB Conc 31.8 g/dL (30.0-36.0); Mean Corpuscular Hemoglobin 28.3 pg (28.0-34.0); Mean Corpuscular Volume 88.8 fl (80-94); Mean Platelet Volume 11.9 fL (7.4-10.4); Monocytes % 12.7 %; Neutrophils # 4.73 10^3/uL (1.8-7.7); Neutrophils % 60.8 %; Nucleated Red Blood Cells % 0 %; Platelet Count 235 10^3/cmm (130-400); Red Blood Count 3.75 10^6/uL (4.1-5.3); Red Cell Distribution Width 12.3 % (12.1-15.1); White Blood Count 7.8 10^3/uL (4.0-10.0)
[2022-09-28 05:17] LABS: Estmated Average Glucose 292; Hemoglobin A1C 11.8 % (4.0-6.0)
[2022-09-28 05:22] LABS: Alanine Aminotransferase 16 U/L (0-41); Albumin Level 3.6 g/dL (3.5-5.2); Alkaline Phosphatase 66 U/L (40-130); Anion Gap 13.8 (5-19); Aspartate Amino Transferase 15 U/L (0-40); Blood Urea Nitrogen 14 mg/dL (6-20); Calcium 8.8 mg/dL (8.5-10.5); Carbon Dioxide 27 mmol/L (22-29); Chloride 103 mmol/L (98-107); Cholesterol 130 mg/dL (0-200); Globulin 3.3 g/dL (1.3-4.6); Glomerular Filtration Rate 99.6 mL/min (90-130); Glucose 175 mg/dL (65-115); HDL Cholesterol 25 mg/dL (60-100); LDL Cholesterol Calculated 70 mg/dL (50-129); Osmolality Calculated 295 mOsm/kg (285-295); Potassium 3.8 mmol/L (3.5-5.1); Sodium 140 mmol/L (136-145); Total Bilirubin 0.2 mg/dL (0.15-1.2); Total Protein 6.9 g/dL (6.6-8.7); Triglycerides 177 mg/dL (0-150); VLDL Cholestrol Calculation 35 mg/dL (0-30)
[2022-09-28] MEDS: aspirin 81 mg EC Tablet PO (06:05)
[2022-09-28] MEDS: diphenhydrAMINE 50 mg Capsule PO (06:05)
[2022-09-28 06:35] LABS: Glucose Point of Care 177 mg/dL (70-110)
--- NOTE | 2022-09-28 07:00 | XACV_ITS ---
Exam Room: 2 Ht: 180 cm Wt: 153 kg BSA: 2.85 m2 Gender: Male : 1965 Any Known Allergies: Other Exam Priority: Routine Procedure(s): Procedure Description: Diagnostic procedure Procedure Description: PCI procedure Procedure Description: Left Heart Catheterization Procedure Description: Drug Eluting Coronary Stent Procedure Description: Coronary Angiography Terrance DOUGHERTY; Diagnostic Cath Status: Elective Diagnostic Findings * The left main is a medium caliber vessel with no significant stenotic lesions. * The left anterior descending artery is a medium caliber vessel which appears to wrap around the LV apex. The mid and distal left anterior descending artery was found to have severe diffuse disease, lesions ranging anywhere from 50 to 80%. The artery gives off multiple small diagonal and septal perforators which also were found to have moderate to severe diffuse disease.. * The left circumflex artery is a medium caliber nondominant vessel which also was found to have severe diffuse disease, lesions were anywhere from 50 to 80%. The lesions are mainly involving the mid and distal segments of the vessels. * The right coronary artery is a medium caliber vessel which was found to have a high-grade tubular lesion of 80 to 90% proximally. The mid and distal segment of the artery was found to have mild diffuse intimal irregularities. The PDA and the PLV branches also found to have severe diffuse disease with a lesions ranging anywhere from 60 to 80%. PCI Status: Elective PCI LVEF Assessed: No PCI Indication: NSTE - ACS Interventional Findings * Due to the diffuse nature of the disease in multiple vessels we decided to intervene on the proximal right coronary artery. There are no other arteries that are amenable to intervention. The proximal right coronary artery was stented primarily with a 3.5 x 22 mm drug-eluting stent. The end result was excellent. Decision for PCI with Surgical Consult: No PCI for Multi-vessel Disease: No Conclusions 1. 57-year-old white male with a multiple factors for coronary artery disease presenting with increasing episodes of chest pain over the last couple of years. Abnormal Myocardial perfusion imaging. Cardiac catheterization revealed the following findings. 2. Severe diffuse disease in all the 3 coronary arteries mostly involving the mid and distal segments of the arteries. Relatively small caliber vessels. Markedly elevated LVEDP of 38 mmHg. 3. I reviewed and discussed the cardiac catheterization data with the Dr. Nassar. In view of the severe diffuse disease except for the proximal RCA lesion, the other lesions were thought to be not ideal for any percutaneous or surgical intervention. So it was decided to intervene the proximal RCA lesion and then try to optimize medical treatment. Dr. Nassar took over further management of this patient at this point. Diagnostic RX Recommendation: PCI w/o planned CABG LV EDP: 38 mmHg Left Ventriculography Findings: * LV gram was not performed because of the high LVEDP. The LVEDP was 38 mmHg. Pressures Phase:Rest AO : 131 / 79 ( 100 ) @ 7:22:00 AM 158 / 85 ( 117 ) @ 7:31:00 AM 157 / 86 ( 116 ) @ 7:31:00 AM 161 / 83 ( 117 ) @ 7:33:00 AM 160 / 87 ( 117 ) @ 7:50:00 AM LV : 158 / 8 / 38 @ 7:31:00 AM 159 / 8 / 38 @ 7:31:00 AM Valves Phase:DefaultPhase AV : 1.0 @ 8:27:39 AM 1.0 @ 8:27:39 AM AV Mean Gradient: 0.0 @ 8:27:39 AM Clinical Evaluation EBL: 5mL-10mL Procedural Details Procedure Consent Obtained. Admit Source: In Patient. Pre-Procedure Time Out. Identified patient by full name and date of as verbalized by the patient/guarantor. Does the consent match the physician's order: Yes. Accurate & Complete Informed Consent: Yes. Inpatient/Outpatient History & Physical on Chart: Yes. If H&P is completed, is and addenduem needed: No; If yes, is the addendum complete: N/A. Visualize and Verify Site with Patient/Guarantor: N/A. The risks, benefits, and alternatives of sedation and/or procedure were discussed by physician. The patient agrees to continue. Procedure started. [facility] Clinical Fraility Score: 3: Managing Well. School Director Indications: Worsening Angina. Chest Pain Symptom Assessment: Typical Angina Symptoms. Current diagnosis: Unstable angina, Abnormal stress test. Correct patient, site and procedure confirmed by cath team. PERRLA. Strong, equal hand medical practice administrator bilaterally. Lungs clear x 5 lobes. IV Site on Arrival: 20 gauge in the left shoulder. IV Fluids: 0.9% NaCl at 75ml/hr. 100 mL infused prior to tutorial laboratory supervisor. Pre Procedural Pulses: bilateral radial was 3+. Oxygen started at 2liters/min via nasal canula. right groin was prepped with chloroprep then draped in the usual sterile fashion. right radial was prepped with chloroprep then draped in the usual sterile fashion. Physician notified. Baseline sample Acquired. HR: 80 BPM. Physician arrived. Physician scrubbed in. Immediate Pre-Procedure Time Out. Correct Patient: Yes; Correct Procedure: Yes; Correct Site: Yes; Correct Patient Position: Yes; Correct Supplies: Yes; Dried Flammable Prep: Yes; Blood Products Available: No;. Lidocaine 1% infiltrated to the right radial. Arterial access obtained. A 5 macedonian David catheter in over wire. Multiple views taken of left coronary artery. EDP Sample taken: LV 158/8,38; HR: 80 BPM; SpO2: 94%. Pullback taken: LV 159/8,38; AO 158/85(117); Mean: 0mmHg, Peak to Peak: 1mmHg, SEP: 17sec/min; HR: 80 BPM; SpO2: 94%. Catheter removed over the exchange wire. A 5 macedonian JR4 catheter in over wire. Multiple views taken of right coronary artery. Dr. Nassar arrived to lab to review cine films. Catheter removed over the exchange wire. Physician scrubbed out. Physician review of cine films. Sheath flushed with heparinized saline intermittently to maintain patency of radial artery. Patient's family updated. Equipment: Co-pilot plant supervisor, Endoflator. Dr. Nassar scrubbed in to perform intervention. 6 macedonian JR 4 guide catheter was inserted over the wire. Jennings guidewire was advanced through the guide catheter to lesion in the prox RCA. Guidewire advanced across lesion, seated in distal RCA. Stent inserted to lesion in the prox RCA. Inflation Number : 1 Alberto Dobbins TYRELL 3.5X22 RAHEEM -Lot Number#[id number], EXP 10-25-2024 was prepped and advanced across the Prox RCA. The stent was deployed at 8 JOHN for 0:23 seconds. Stent balloon out over wire. Guide catheter out. Post Procedure: Pulses reassessed and unchanged. PERRLA. Strong, equal hand medical practice administrator bilaterally. Medication's Wasted: Lidocaine 1% = 1 mL. Medication's Wasted: Nitro = 49.8 m, Heparin 1000 unit, Fentanyl 25mcg. Total IV fluids: 78 mL. Post-op diagnosis: CAD, status post stent to prox RCA. Complications: None. Estimated blood loss: 5mL-10mL. Responsiveness - Normal response to verbal stimuli; alert and oriented, PERRLA. Airway - Unaffected, no intervention required; spontaneous ventilation. Circulation: W/N/L, pulses unchanged. Nausea/Vomiting: N/A. Procedure completed. A TR Band was successful obtaining hemostatsis at the Right Radial artery insertion site. Patient transferred by bed to CPRU. Vital chart was stopped. Access Site Site: Right Radial artery Sheath Size: 6 Fr Hemostasis Method: TR Band Hemostasis Success: Successful Procedure Medications Start: 7:13 AM Stop: 7:13 AM Medication: Versed Amount: 1 mg Route: I.V. Start: 7:13 AM Stop: 7:13 AM Medication: Fentanyl Amount: 50 mcg Route: I.V. Start: 7:17 AM Stop: 7:17 AM Medication: Versed Amount: 1 mg Route: I.V. Start: 7:19 AM Stop: 7:19 AM Medication: Verapamil Amount: 5 mg Route: I.A. Start: 7:19 AM Stop: 7:19 AM Medication: Nitrogylcerin Amount: 200 mcg Route: I.A. Start: 7:22 AM Stop: 7:22 AM Medication: Heparin Amount: 5000 units Route: I.V. Start: 7:50 AM Stop: 7:50 AM Medication: Versed 1 mg and Fentanyl 25 mcg Start: 7:47 AM Stop: 7:47 AM Medication: Versed Amount: 1 mg Route: I.V. Start: 8:07 AM Stop: 8:07 AM Medication: Plavix Amount: 600 mg Route: P.O. I, the attending physician, have reviewed and verified all procedure medications. Yes, all medications given per verbal order History/Risk Factors Hypertension: Yes Dyslipidemia: No Peripheral Arterial Disease (PAD): Yes Myocardial Infarction (MO): No Obesity: Yes Renal Disease: No Tobacco Use: Never Prior Interventions PCI: No CABG: No Valve Surgery: No Report Signatures Diagnostic Workflow Finalized by Dr Brianda Carlos MD [facility] on 09/28/2022 01:14 PM Interventional Workflow Finalized by Dr. Augie Nassar MD on 09/28/2022 09:12 AM
--- NOTE | 2022-09-28 07:06 | W.PM.OPSUD ---
Surgery/Procedure H&P Update DATE OF PROCEDURE: September 28, 2022 DATE H&P PERFORMED: 09/27/22 H&P UPDATE INFORMATION: I have reviewed H&P completed within last 30 days, I have examined patient prior to procedure and No changes to prior documentation PREOP DIAGNOSIS: UAP/abnormal MPI PLANNED PROCEDURE: Operation Date: 09/28/22 07:00 Proposed Procedures p Cardiac Catheterization(Not Applicable) - Brianda Carlos MD PATIENT REASSESSED PRIOR TO SEDATION, WITH NO CHANGE NOTED: Yes PHYSICAL EXAM: alert, oriented x 3, clear to auscultation bilaterally and regular rate & rhythm AIRWAY EVAL/ANESTHESIA PLAN: normal airway, see other exam findings, ASA III, Monitored Anesthesia, Local Anesthesia, Risks, benefits & alternatives of sedation and/or procedure discussed and Patient agrees to continue as planned
--- NOTE | 2022-09-28 08:15 | SUR.PHASEI ---
HOLDING/RECOVERY NOTE Patient brought back to CPRU room 3 for extended recovery. Status post cardiac catheterization via the right radial approach. 15 ml in the tr band and is hemostatic. Verbal post cath instructions given to the patient- understands well. Call light within reach. Informed to call for needs.
--- NOTE | 2022-09-28 08:45 | SUR.PHASEI ---
Transfer Transferred to CSU 111-2 via bed. No change is vitals or assessments. Condition stable. No hematoma formation noted. Report to Antwan GOMES.
[2022-09-28] MEDS: sertraline 100 mg Tablet 200 MG PO (09:24)
[2022-09-28] MEDS: levothyroxine 75 mcg Tablet PO (09:24)
[2022-09-28] MEDS: montelukast sodium 10 mg Tablet PO (09:24)
[2022-09-28] MEDS: pantoprazole DR 40 mg Tablet PO ×2 (09:24→21:26)
[2022-09-28] MEDS: clopidogrel 75 mg Tablet PO (09:24)
[2022-09-28] MEDS: amoxicillin-clav 875-125 mg Tablet 1 TAB PO ×2 (09:26→18:17)
[2022-09-28] MEDS: carvedilol 12.5 mg Tablet PO ×2 (09:26→21:21)
[2022-09-28] MEDS: acetaminophen 325 mg Tablet 650 MG PO (09:26)
[2022-09-28] MEDS: losartan 50 mg Tablet PO (09:26)
[2022-09-28] MEDS: sodium chloride 0.9% 1,000 ML 100 ML IV ×2 (09:29→18:21)
[2022-09-28 11:51] LABS: Glucose Point of Care 194 mg/dL (70-110)
[2022-09-28] MEDS: insulin lispro 100 unit/1 mL 10 UNIT SUBCUT (12:30)
[2022-09-28] MEDS: insulin lispro 100 unit/1 mL SUBCUT ×2 (12:32→21:21)
--- NOTE | 2022-09-28 13:12 | PM.PN ---
Subjective Subjective: No acute events overnight. Patient did not have any further chest pain. Did undergo cardiac angiogram today. No official report available to me currently though as per verbal report he was found to have diffuse triple-vessel disease and small vessel disease. Patient underwent PCI to RCA. Postprocedure patient denies any nausea, vomiting, headache. Has remained hemodynamically stable and afebrile. Vitals/I&O/Wt Last Vital Signs Temp 98.2 F 09/28/22 11:48 Pulse 75 09/28/22 11:48 Resp 16 09/28/22 11:48 BP 131/76 09/28/22 11:48 Pulse Ox 97 09/28/22 11:48 O2 Del Method 09/28/22 11:48 O2 Flow Rate 2 09/28/22 11:35 09/27/22 09/28/22 09/28/22 22:59 06:59 14:59 Intake Total 180 / 780 Output Total 850 / 850 Balance -670 / -70 Weight last 48 hrs Weight 153.569 kg Physical Exam Narrative: General: No acute distress, awake and alert, oriented x3, able to provide history. HEENT: Normocephalic, mild conjunctival injection, extraocular movements intact, nasopharynx is clear, oropharynx with moist mucous membranes. Some dental caries noted but no grossly erythematous or purulent gingiva noted. Neck is large but supple. Lungs: Clear to auscultation bilaterally without any rales rhonchi or wheezes. Cardiovascular: Regular rate and rhythm without any murmurs gallops or rubs. Abdomen: Soft, rotund, nontender with positive bowel sounds. Neurology: Moving all limbs, no focal deficit. Extremities: No pitting edema noted to bilateral BKA stumps. Patient has a small scab sore on the anterior medial side of his left lower extremity and another scab sore on the posterior right lower extremity measuring approximately 1 cm by half a centimeter. No warmth or streaking erythema around this. No drainage. Sensation is intact to light touch both stumps. Data 09/28/22 04:15 09/28/22 04:15 Micro: Microbiology 09/27/22 14:47 Blood Culture - Preliminary Blood SPECIMEN COLLECTED 09/27/22 14:42 Blood Culture - Preliminary Blood SPECIMEN COLLECTED A&P Assessment and plan (1) Chest pain: Positive cardiac stress test. Appreciate cardiology recommendations. Cardiac angiogram done today. Reportedly found to have diffuse triple-vessel and small vessel disease. Post PCI to RCA. Continue with aspirin, statin, Plavix. Switch from Lovenox therapeutic dose to prophylactic dose. Continue with Coreg 12.5 mg twice daily. Appreciate echocardiogram results. Found to have an EF 55 to 60% without regional wall motion abnormality, left atrial dilatation, mild TR. Appreciate A1c, lipid panel results. Qualifiers: Chest pain type: chest pain due to myocardial ischemia Ischemic chest pain type: unspecified angina pectoris type Qualified Code(s): I25.9 - Chronic ischemic heart disease, unspecified (2) Fever: Single occurrence with onset after episode of chest pain this morning with temperature recorded up to 103. Leukocytosis present which has since then resolved with WBC normal today. Pro-Ranulfo elevated, UA benign. Patient has remained afebrile and hemodynamically stable. Other possible source of infection is poor dentition. No blood culture sent on admission. Continue with Augmentin started yesterday. We will follow-up blood cultures and MRSA swab results. (3) Dental caries extending into pulp: Has lost a cap from 1 tooth and has several other teeth with significant dental caries. (4) Elevated serum creatinine: No history of CKD in the past. Creatinine back to normal today. Elevated on admission most likely secondary to dehydration and severe hyperglycemia. Continue to monitor BMP daily for now. Medical reconciliation done for nephrotoxic drugs. (5) Diabetes mellitus: Uncontrolled diabetes mellitus. A1c of more than 11 within last 1 year. Hold OHA's. Repeat A1c. Continue with Lantus 40 units twice daily, 10 units lispro premeals along with insulin sliding scale before meals and at bedtime. Qualifiers: Diabetes mellitus complication status: with hyperglycemia Diabetes mellitus ad terminal makeup operator insulin use: with assisted use Diabetes mellitus type: type 2 Qualified Code(s): E11.65 - Type 2 diabetes mellitus with hyperglycemia; Z79.4 - technician terminal and repeater (current) use of insulin (6) HTN (hypertension): Goal blood pressure less than 140/90 mmHg. Continue with home dose of Coreg. Blood pressure slightly elevated. Will restart losartan at a lower dose of 50 mg oral daily. Will uptitrate as per goal blood pressures and kidney functions. Blood pressure is elevated can and amlodipine or hydralazine. Qualifiers: Hypertension type: primary hypertension Qualified Code(s): I10 - Essential (primary) hypertension (7) Hyperlipidemia: Check liver panel, on chronic statin therapy. (8) CHF (congestive heart failure), NYHA class III: Chronic diastolic CHF, not currently acute. Chronically on an ARB and Aldactone along with carvedilol. Last ejection fraction 65% in April 2021 with grade 2 diastolic dysfunction. Qualifiers: Congestive heart failure chronicity: chronic Congestive heart failure type: diastolic Qualified Code(s): I50.32 - Chronic diastolic (congestive) heart failure (9) Abnormal cardiovascular stress test: (10) Hypothyroidism: Chronically on levothyroxine. Qualifiers: Hypothyroidism type: acquired Qualified Code(s): E03.9 - Hypothyroidism, unspecified (11) Status post bilateral below knee amputation: Has prosthesis for right lower extremity and in the process of getting prosthesis for left lower extremity. Has one sore scabbed over on each leg as described in physical exam above that both he and his are aware of and are following. (12) Sleep apnea: Currently untreated with pending BiPAP titration study that has been ordered by primary care provider. Demonstrating hypoxemia with sleep while in the emergency room. Qualifiers: Sleep apnea type: obstructive Qualified Code(s): G47.33 - Obstructive sleep apnea (adult) (pediatric) Plan Full code. Cardiac consistent diet. Lovenox will suffice as DVT prophylaxis Protonix at home dose. Attestations Medical Necessity Statement*: Requires further hospitalization for management of unstable angina, cardiac angiogram with triple-vessel disease, post single-vessel PCI Coding Level of Care Code 50225 High MDM includes risk/complexity, reviewing previous or external records, reviewing test results, ordering lab/other test(s), speaking with independent historian (other than patient), independently interpretating test(s) (not separately recorded) and discussion of management or test(s) w/ other healthcare professional and High Time for a total of 50 minutes, includes reviewing past or interval history, examining/interviewing patient, placing orders, counseling patient/family/other support, updating patient/family/other support, discussing plan of care with staff, communicating with other healthcare providers, documenting encounter and coordinating care Diagnoses Chest pain I25.9 Chest pain type: chest pain due to myocardial ischemia Ischemic chest pain type: unspecified angina pectoris type Fever R50.9 Dental caries extending into pulp K02.9 Elevated serum creatinine R79.89 Diabetes mellitus E11.65; Z79.4 Diabetes mellitus complication status: with hyperglycemia Diabetes mellitus assisted insulin use: with ad terminal makeup operator use Diabetes mellitus type: type 2 HTN (hypertension) I10 Hypertension type: primary hypertension Hyperlipidemia E78.5 CHF (congestive heart failure), NYHA class III I50.32 Congestive heart failure chronicity: chronic Congestive heart failure type: diastolic Abnormal cardiovascular stress test R94.39 Hypothyroidism E03.9 Hypothyroidism type: acquired Status post bilateral below knee amputation Z89.512; Z89.511 Sleep apnea G47.33 Sleep apnea type: obstructive
[2022-09-28] MEDS: TRAMadol 50 mg Tablet PO (14:41)
[2022-09-28 17:11] LABS: Glucose Point of Care 139 mg/dL (70-110)
--- NOTE | 2022-09-28 18:12 | P.PN_ITS ---
Subjective Subjective: The patient continues to have some chest discomfort. He underwent a left heart catheterization this morning. He was found to have severe three- vessel coronary artery disease. The lesion in the right coronary artery was found to be amenable for intervention. He underwent angioplasty and stent p lacement of the proximal ostial lesion. Currently he is remaining stable Medications: Medication Review Details: Current Medications Acetaminophen (Acetaminophen 325 Mg Tablet) 650 mg PO Q6H PRN PRN Reason: Mild/Mod Pain Or Temp >/= 101 Last Admin: 09/28/22 09:26 Dose: 650 mg Amoxicillin/Clavulanate Potassium (Amoxicillin-Clav 875-125 Mg Tablet) 1 tab PO BID [facility]; Protocol Last Admin: 09/28/22 09:26 Dose: 1 tab Aspirin (Aspirin 81 Mg Ec Tablet) 81 mg PO QAM [facility] Last Admin: 09/28/22 06:05 Dose: 81 mg Atorvastatin Calcium (Atorvastatin 40 Mg Tablet) 80 mg PO BEDTIME [facility] Last Admin: 09/27/22 21:31 Dose: 80 mg Bisacodyl (Bisacodyl 5 Mg Tablet) 10 mg PO DAILY PRN; Protocol PRN Reason: Constipation (see protocol) Calcium Carbonate (Calcium Carbonate 500 Mg Chew Tablet) 1,000 mg PO Q4H PRN PRN Reason: DYSPEPSI Carvedilol (Carvedilol 12.5 Mg Tablet) 12.5 mg PO BID@,21 [facility] Last Admin: 09/28/22 09:26 Dose: 12.5 mg Clopidogrel Bisulfate (Clopidogrel 75 Mg Tablet) 75 mg PO DAILY [facility] Last Admin: 09/28/22 09:24 Dose: 75 mg Dextrose (Dextrose 50% Syringe 50 Ml) 25 ml IVP ONCE PRN; Protocol PRN Reason: hypoglycemia protocol Dextrose (Dextrose 50% Syringe 50 Ml) 50 ml IVP PRN PRN; Protocol PRN Reason: hypoglycemia protocol Gabapentin (Gabapentin 300 Mg Capsule) 300 mg PO BID PRN PRN Reason: Pain Last Admin: 09/28/22 01:00 Dose: 300 mg Glucagon (Glucagon 1 Mg/Ml Inj 1 Ml) 1 mg IM ONCE PRN; Protocol PRN Reason: Adult Acute Hypoglycemia Prot. Dextrose (D5w) 500 mls @ 100 mls/hr IV ONCE PRN; Protocol PRN Reason: Adult Acute Hypoglycemia Prot Sodium Chloride (Sodium Chloride 0.9%) 1,000 mls @ 100 mls/hr IV .Q10H [facility] Last Admin: 09/28/22 09:29 Dose: 100 mls/hr Insulin Glargine (Insulin Glargine 100 Units/1 Ml) 40 unit SUBCUT BIDAC [facility] Last Admin: 09/28/22 06:37 Dose: Not Given Insulin Human Lispro (Insulin Lispro 100 Unit/1 Ml) 0 unit SUBCUT BEDTIME [facility]; Protocol Last Admin: 09/27/22 21:32 Dose: 3 unit Insulin Human Lispro (Insulin Lispro 100 Unit/1 Ml) 0 unit SUBCUT TIDWM [facility]; Protocol Last Admin: 09/28/22 17:30 Dose: Not Given Insulin Human Lispro (Insulin Lispro 100 Unit/1 Ml) 10 unit SUBCUT TIDAC [facility] Last Admin: 09/28/22 17:26 Dose: Not Given Levothyroxine Sodium (Levothyroxine 75 Mcg Tablet) 75 mcg PO DAILY [facility] Last Admin: 09/28/22 09:24 Dose: 75 mcg Losartan Potassium (Losartan 50 Mg Tablet) 50 mg PO DAILY [facility] Last Admin: 09/28/22 09:26 Dose: 50 mg Montelukast Sodium (Montelukast Sodium 10 Mg Tablet) 10 mg PO DAILY [facility] Last Admin: 09/28/22 09:24 Dose: 10 mg Nitroglycerin (Nitroglycerin 1 Gm/Inch Oint Pkt) 1 inch TOPICAL Q6H [facility] Last Admin: 09/28/22 09:28 Dose: 1 inch Nitroglycerin (Nitroglycerin 0.4 Mg Sublingual Tablet) 0.4 mg SUBLINGUAL Q5M PRN PRN Reason: chest pain Ondansetron HCl (Ondansetron 2 Mg/Ml Sdv 2 Ml) 4 mg IVP Q8H PRN PRN Reason: vomiting, or N/V if npo Pantoprazole Sodium (Pantoprazole Dr 40 Mg Tablet) 40 mg PO BID@ [facility] Last Admin: 09/28/22 09:24 Dose: 40 mg Polymyxin/Trimethoprim Sulfate (Polymyxin-Trimethoprim Op Soln 10 Ml Btl) 1 drop EYE-BOTH Q4H [facility] Last Admin: 09/28/22 12:32 Dose: 1 drop Sertraline HCl (Sertraline 100 Mg Tablet) 200 mg PO DAILY [facility] Last Admin: 09/28/22 09:24 Dose: 200 mg Trazodone HCl (Trazodone 150 Mg Tablet) 150 mg PO BEDTIME [facility] Last Admin: 09/27/22 21:31 Dose: 150 mg Vitals/I&O/Wt Last Vital Signs Temp 98.2 F 09/28/22 11:48 Pulse 79 09/28/22 15:49 Resp 18 09/28/22 15:49 BP 127/84 09/28/22 15:49 Pulse Ox 98 09/28/22 15:49 O2 Del Method 09/28/22 15:49 O2 Flow Rate 2 09/28/22 11:35 09/28/22 09/28/22 09/28/22 06:59 14:59 22:59 Intake Total 240 / 240 Output Total 600 / 600 Balance -360 / -360 Physical Exam Narrative: GENERAL: The patient is alert and oriented times three. Not in any acute distress. Morbidly obese HEENT: No significant pallor, icterus or lymphadenopathy.Oral cavity: There are no mucous membrane lesions. NECK: Trachea appears to be central. No masses noted. No JVD or thyromegaly appreciated. RESPIRATORY: Chest is symmetrical. No intercostals muscle retraction or any accessory muscle activation. There is no chest wall tenderness. Breath sounds are heard bilaterally. No rales or rhonchi heard. No evidence of any consolidati on. BREASTS: Deferred. HEART: The heart sounds are normal. No S3 or S4. No significant murmurs. No pericardial rub ABDOMEN: No vessel pulsations or distention. No tenderness. No organomegaly appreciated. Bowel sounds are normally heard. : Deferred. RECTAL: Deferred. LYMPHATIC: No lymphadenopathy noted in the neck. EXTREMITIES: No edema or cyanosis. No clubbing. MUSCULOSKELETAL: Below-knee amputations bilaterally SKIN: There are no significant rashes or ecchymosis NEUROPSYCHIATRIC: The patient is alert and oriented x3. Appears to be in a good mood. No tremors or rigidity noted. Data 09/28/22 04:15 09/28/22 04:15 Other Labs: Laboratory Last Values WBC 7.8 10^3/uL (4.0-10.0) 09/28/22 04:15 RBC 3.75 10^6/uL (4.1-5.3) L 09/28/22 04:15 Hgb 10.6 g/dL (11.7-16.6) L 09/28/22 04:15 Hct 33.3 % (42.0-52.0) L 09/28/22 04:15 MCV 88.8 fl (80-94) 09/28/22 04:15 MCH 28.3 pg (28.0-34.0) 09/28/22 04:15 MCHC 31.8 g/dL (30.0-36.0) 09/28/22 04:15 RDW 12.3 % (12.1-15.1) 09/28/22 04:15 Plt Count 235 10^3/cmm (130-400) 09/28/22 04:15 MPV 11.9 fL (7.4-10.4) H 09/28/22 04:15 Neut % (Auto) 60.8 % 09/28/22 04:15 Lymph % (Auto) 22.3 % 09/28/22 04:15 [place] % (Auto) 12.7 % 09/28/22 04:15 Eos % (Auto) 3.5 % 09/28/22 04:15 Baso % (Auto) 0.4 % 09/28/22 04:15 Neut # (Auto) 4.73 10^3/uL (1.8-7.7) 09/28/22 04:15 Lymph # (Auto) 1.7 10^3/uL (0.8-4.8) 09/28/22 04:15 [place] # (Auto) 1.0 10^3/uL (0.2-0.9) H 09/28/22 04:15 Eos # (Auto) 0.3 10^3/uL (0.0-0.8) 09/28/22 04:15 Baso # (Auto) 0.0 10^3/uL (0.0-0.1) 09/28/22 04:15 Nucleated RBC % (auto) 0 % 09/28/22 04:15 Nucleated RBCs # 0.0 /100WBC 09/28/22 04:15 PT 14.50 SECONDS (12.1-14.9) 09/27/22 04:50 INR 1.09 (0.8-1.2) 09/27/22 04:50 APTT 42.1 SECONDS (23.9-36.7) H 09/27/22 04:50 Sodium 140 mmol/L (136-145) 09/28/22 04:15 Potassium 3.8 mmol/L (3.5-5.1) 09/28/22 04:15 Chloride 103 mmol/L (98-107) 09/28/22 04:15 Carbon Dioxide 27 mmol/L (22-29) 09/28/22 04:15 Anion Gap 13.8 (5-19) 09/28/22 04:15 BUN 14 mg/dL (6-20) 09/28/22 04:15 Creatinine 0.8 mg/dL (0.7-1.2) 09/28/22 04:15 GFR Calculation 99.6 mL/min (90-130) 09/28/22 04:15 Glucose 175 mg/dL (65-115) H 09/28/22 04:15 POC Glucose 139 mg/dL (70-110) H 09/28/22 17:07 Estimat Average Glucose 292 09/28/22 04:15 Hemoglobin A1c 11.8 % (4.0-6.0) H 09/28/22 04:15 Calculated Osmolality 295 mOsm/kg (285-295) 09/28/22 04:15 Calcium 8.8 mg/dL (8.5-10.5) 09/28/22 04:15 Phosphorus 2.7 mg/dL (2.5-4.5) 09/27/22 04:50 Magnesium 1.5 mg/dL (1.7-2.3) L 09/27/22 04:50 Iron 31 ug/dL (59-158) L 09/27/22 04:50 TIBC 228 mcg/dl 09/27/22 04:50 % Saturation 13.5 % (20-50) L 09/27/22 04:50 Unsat Iron Binding 197 ug/dL (112-347) 09/27/22 04:50 Total Bilirubin 0.2 mg/dL (0.15-1.2) 09/28/22 04:15 AST 15 U/L (0-40) 09/28/22 04:15 ALT 16 U/L (0-41) 09/28/22 04:15 Alkaline Phosphatase 66 U/L (40-130) 09/28/22 04:15 Troponin T Baseline 39 ng/L (0-15) H 09/26/22 07:48 Troponin T 120 Minute 40.18 ng/L (0-15) H 09/26/22 09:38 Delta Troponin T 1.18 ABS# (0-10) 09/26/22 09:38 Troponin T Hi Sens 6Hr 43.22 ng/L (0-15) H 09/26/22 14:02 Troponin T Hi Sens 6Hr Delta 4.22 ng/L (0-12) 09/26/22 14:02 NT-Pro-B Natriuret Pep 439 pg/mL (0-125) H 09/27/22 04:50 Total Protein 6.9 g/dL (6.6-8.7) 09/28/22 04:15 Albumin 3.6 g/dL (3.5-5.2) 09/28/22 04:15 Globulin 3.3 g/dL (1.3-4.6) 09/28/22 04:15 Triglycerides 177 mg/dL (0-150) H 09/28/22 04:15 Cholesterol 130 mg/dL (0-200) 09/28/22 04:15 LDL Cholesterol, Calc 70 mg/dL (50-129) 09/28/22 04:15 Total VLDL Cholesterol 35 mg/dL (0-30) H 09/28/22 04:15 HDL Cholesterol 25 mg/dL (60-100) L 09/28/22 04:15 Cholesterol/HDL Ratio 5.20 mg/dL (1.0-5.00) H 09/28/22 04:15 Vitamin B12 505 pg/mL (232-1245) 09/27/22 04:50 Folate 15.9 ng/mL (4.5-32.2) 09/27/22 14:42 Procalcitonin 7.22 ng/mL (0-0.5) H 09/27/22 04:50 TSH 1.76 uIU/mL (0.27-4.20) 09/27/22 04:50 Urine Color Yellow (Yellow) 09/27/22 14:54 Urine Appearance Clear (CLEAR) 09/27/22 14:54 Urine pH 5 (5-7) 09/27/22 14:54 Ur Specific [place] 1.015 (1.005-1.030) 09/27/22 14:54 Urine Protein Neg (Negative) 09/27/22 14:54 Urine Glucose (UA) 2+ (Normal) H 09/27/22 14:54 Urine Ketones Negative (Negative) 09/27/22 14:54 Urine Blood Neg (Negative) 09/27/22 14:54 Urine Nitrate Negative (Negative) 09/27/22 14:54 Urine Bilirubin Neg (Negative) 09/27/22 14:54 Urine Urobilinogen Neg mg/dL (Negative) 09/27/22 14:54 Ur Leukocyte Esterase Negative (Negative) 09/27/22 14:54 Micro: Microbiology 09/27/22 14:42 MRSA Culture - Final Nose 09/27/22 14:47 Blood Culture - Preliminary Blood NEGATIVE TO DATE 09/27/22 14:42 Blood Culture - Preliminary Blood NEGATIVE TO DATE A&P Assessment and plan (1) Abnormal cardiovascular stress test: Patient had a cardiac catheterization this morning. Found to have severe three- vessel coronary artery disease. Underwent PCI of the proximal RCA lesion. Currently remaining stable (2) Atherosclerotic heart disease of [place] coronary artery with unstable angina pectoris: As mentioned above. We will continue to optimize medication. I may start him on Ranexa 500 mg p.o. twice daily in addition to current medications. (3) HTN (hypertension): Currently he is normotensive. May continue on the current medications but Qualifiers: Hypertension type: primary hypertension Qualified Code(s): I10 - Essential (primary) hypertension (4) Dyspnea on exertion: This could be multifactorial. Morbid obesity, coronary ischemia, sleep apnea, etc. or contributing factors. (5) Sleep apnea: Patient is currently not on CPAP treatment. He may benefit from this. Qualifiers: Sleep apnea type: obstructive Qualified Code(s): G47.33 - Obstructive sleep apnea (adult) (pediatric) (6) Diabetes mellitus: Aggressive management of the diabetes would be appropriate. Qualifiers: Diabetes mellitus complication status: with hyperglycemia Diabetes mellitus half-way insulin use: with long term care pharmacist use Diabetes mellitus type: type 2 Qualified Code(s): E11.65 - Type 2 diabetes mellitus with hyperglycemia; Z79.4 - superintendent terminal (current) use of insulin Plan If the patient continues to remain stable with no recurrence of chest pain, may be discharged home tomorrow. May need to uptitrate the antianginal medications Attestations Medical Necessity Statement*: Patient requires continued hospital stay for close monitoring and further management Coding Level of Care Code 09436 Diagnoses Abnormal cardiovascular stress test R94.39 Atherosclerotic heart disease of [place] coronary artery with unstable angina pectoris I25.110 HTN (hypertension) I10 Hypertension type: primary hypertension Dyspnea on exertion R06.00 Sleep apnea G47.33 Sleep apnea type: obstructive Diabetes mellitus E11.65; Z79.4 Diabetes mellitus complication status: with hyperglycemia Diabetes mellitus half-way insulin use: with long term care pharmacist use Diabetes mellitus type: type 2
[2022-09-28] MEDS: insulin glargine 100 units/1 mL 40 UNIT SUBCUT (18:18)
[2022-09-28 21:15] LABS: Glucose Point of Care 218 mg/dL (70-110)
[2022-09-28] MEDS: trazodone 150 mg Tablet PO (21:20)
[2022-09-28] MEDS: atorvastatin 40 mg Tablet 80 MG PO (21:21)
[2022-09-29] MEDS: polymyxin-trimethoprim Op Soln 10 mL Btl 1 DROP EYE-BOTH ×3 (01:08→08:44)
[2022-09-29 03:45] VITALS: BP 165/75; PULSE 75; RESP 17; TEMP 37.3; O2SAT 93
[2022-09-29] MEDS: nitroglycerin 1 gm/inch oint Pkt 1 INCH TOPICAL (04:36)
[2022-09-29 05:19] LABS: Basophils % 0.2 %; Eosinophils # 0.3 10^3/uL (0.0-0.8); Hematocrit 30.8 % (42.0-52.0); Hemoglobin 9.8 g/dL (11.7-16.6); Lymphocytes # 1.5 10^3/uL (0.8-4.8); Lymphocytes % 17.9 %; Mean Corpuscular HGB Conc 31.8 g/dL (30.0-36.0); Mean Corpuscular Hemoglobin 28.7 pg (28.0-34.0); Mean Corpuscular Volume 90.1 fl (80-94); Mean Platelet Volume 11.6 fL (7.4-10.4); Monocytes % 11.9 %; Neutrophils % 66.5 %; Nucleated Red Blood Cells % 0 %; Platelet Count 212 10^3/cmm (130-400); Red Blood Count 3.42 10^6/uL (4.1-5.3); Red Cell Distribution Width 12.4 % (12.1-15.1); White Blood Count 8.4 10^3/uL (4.0-10.0)
[2022-09-29 05:51] LABS: Alanine Aminotransferase 15 U/L (0-41); Albumin Level 3.4 g/dL (3.5-5.2); Alkaline Phosphatase 72 U/L (40-130); Aspartate Amino Transferase 18 U/L (0-40); Blood Urea Nitrogen 11 mg/dL (6-20); Calcium 8.4 mg/dL (8.5-10.5); Carbon Dioxide 25 mmol/L (22-29); Chloride 102 mmol/L (98-107); Globulin 3.2 g/dL (1.3-4.6); Glomerular Filtration Rate 99.6 mL/min (90-130); Glucose 144 mg/dL (65-115); Osmolality Calculated 286 mOsm/kg (285-295); Sodium 137 mmol/L (136-145); Total Bilirubin 0.3 mg/dL (0.15-1.2); Total Protein 6.6 g/dL (6.6-8.7)
[2022-09-29 06:00] VITALS: PULSE 76
[2022-09-29] MEDS: insulin lispro 100 unit/1 mL 10 UNIT SUBCUT ×2 (06:26→12:46)
[2022-09-29] MEDS: insulin glargine 100 units/1 mL 40 UNIT SUBCUT (06:26)
[2022-09-29] MEDS: aspirin 81 mg EC Tablet PO (06:26)
[2022-09-29 06:37] LABS: Glucose Point of Care 143 mg/dL (70-110)
[2022-09-29 07:48] VITALS: BP 126/76; PULSE 75; RESP 18; TEMP 36.9; O2SAT 94
[2022-09-29 07:52] VITALS: PULSE 74; O2SAT 96
[2022-09-29] MEDS: sertraline 100 mg Tablet 200 MG PO (08:34)
[2022-09-29] MEDS: amoxicillin-clav 875-125 mg Tablet 1 TAB PO (08:34)
[2022-09-29] MEDS: pantoprazole DR 40 mg Tablet PO (08:35)
[2022-09-29] MEDS: carvedilol 12.5 mg Tablet PO (08:35)
[2022-09-29] MEDS: levothyroxine 75 mcg Tablet PO (08:35)
[2022-09-29] MEDS: ranolazine (12HR) 500 mg Tablet PO (08:35)
[2022-09-29] MEDS: clopidogrel 75 mg Tablet PO (08:37)
[2022-09-29] MEDS: montelukast sodium 10 mg Tablet PO (08:37)
[2022-09-29] MEDS: gabapentin 300 mg Capsule PO (08:37)
[2022-09-29] MEDS: losartan 50 mg Tablet PO (08:37)
[2022-09-29] MEDS: insulin lispro 100 unit/1 mL SUBCUT (08:38)
--- NOTE | 2022-09-29 09:57 | P.PN_ITS ---
Subjective Subjective: The patient is feeling okay. Still has some chest pain but significantly improved since yesterday. The vital signs remained stable. No hematoma bleeding from the radial arterial puncture site. Medications: Medication Review Details: Current Medications Acetaminophen (Acetaminophen 325 Mg Tablet) 650 mg PO Q6H PRN PRN Reason: Mild/Mod Pain Or Temp >/= 101 Last Admin: 09/28/22 09:26 Dose: 650 mg Amoxicillin/Clavulanate Potassium (Amoxicillin-Clav 875-125 Mg Tablet) 1 tab PO BID [facility]; Protocol Last Admin: 09/29/22 08:34 Dose: 1 tab Aspirin (Aspirin 81 Mg Ec Tablet) 81 mg PO QAM [facility] Last Admin: 09/29/22 06:26 Dose: 81 mg Atorvastatin Calcium (Atorvastatin 40 Mg Tablet) 80 mg PO BEDTIME [facility] Last Admin: 09/28/22 21:21 Dose: 80 mg Bisacodyl (Bisacodyl 5 Mg Tablet) 10 mg PO DAILY PRN; Protocol PRN Reason: Constipation (see protocol) Calcium Carbonate (Calcium Carbonate 500 Mg Chew Tablet) 1,000 mg PO Q4H PRN PRN Reason: DYSPEPSI Carvedilol (Carvedilol 12.5 Mg Tablet) 12.5 mg PO BID@ [facility] Last Admin: 09/29/22 08:35 Dose: 12.5 mg Clopidogrel Bisulfate (Clopidogrel 75 Mg Tablet) 75 mg PO DAILY [facility] Last Admin: 09/29/22 08:37 Dose: 75 mg Dextrose (Dextrose 50% Syringe 50 Ml) 25 ml IVP ONCE PRN; Protocol PRN Reason: hypoglycemia protocol Dextrose (Dextrose 50% Syringe 50 Ml) 50 ml IVP PRN PRN; Protocol PRN Reason: hypoglycemia protocol Gabapentin (Gabapentin 300 Mg Capsule) 300 mg PO BID PRN PRN Reason: Pain Last Admin: 09/29/22 08:37 Dose: 300 mg Glucagon (Glucagon 1 Mg/Ml Inj 1 Ml) 1 mg IM ONCE PRN; Protocol PRN Reason: Adult Acute Hypoglycemia Prot. Dextrose (D5w) 500 mls @ 100 mls/hr IV ONCE PRN; Protocol PRN Reason: Adult Acute Hypoglycemia Prot Sodium Chloride (Sodium Chloride 0.9%) 1,000 mls @ 100 mls/hr IV .Q10H [facility] Last Admin: 09/29/22 03:33 Dose: Not Given Insulin Glargine (Insulin Glargine 100 Units/1 Ml) 40 unit SUBCUT BIDAC [facility] Last Admin: 09/29/22 06:26 Dose: 40 unit Insulin Human Lispro (Insulin Lispro 100 Unit/1 Ml) 0 unit SUBCUT BEDTIME [facility]; Protocol Last Admin: 09/28/22 21:21 Dose: 3 unit Insulin Human Lispro (Insulin Lispro 100 Unit/1 Ml) 0 unit SUBCUT TIDWM [facility]; Protocol Last Admin: 09/29/22 08:38 Dose: 6 unit Insulin Human Lispro (Insulin Lispro 100 Unit/1 Ml) 10 unit SUBCUT TIDAC [facility] Last Admin: 09/29/22 06:26 Dose: 10 unit Levothyroxine Sodium (Levothyroxine 75 Mcg Tablet) 75 mcg PO DAILY [facility] Last Admin: 09/29/22 08:35 Dose: 75 mcg Losartan Potassium (Losartan 50 Mg Tablet) 50 mg PO DAILY [facility] Last Admin: 09/29/22 08:37 Dose: 50 mg Montelukast Sodium (Montelukast Sodium 10 Mg Tablet) 10 mg PO DAILY [facility] Last Admin: 09/29/22 08:37 Dose: 10 mg Nitroglycerin (Nitroglycerin 1 Gm/Inch Oint Pkt) 1 inch TOPICAL Q6H [facility] Last Admin: 09/29/22 04:36 Dose: 1 inch Nitroglycerin (Nitroglycerin 0.4 Mg Sublingual Tablet) 0.4 mg SUBLINGUAL Q5M PRN PRN Reason: chest pain Ondansetron HCl (Ondansetron 2 Mg/Ml Sdv 2 Ml) 4 mg IVP Q8H PRN PRN Reason: vomiting, or N/V if npo Pantoprazole Sodium (Pantoprazole Dr 40 Mg Tablet) 40 mg PO BID@ [facility] Last Admin: 09/29/22 08:35 Dose: 40 mg Polymyxin/Trimethoprim Sulfate (Polymyxin-Trimethoprim Op Soln 10 Ml Btl) 1 drop EYE-BOTH Q4H [facility] Last Admin: 09/29/22 08:44 Dose: 1 drop Ranolazine (Ranolazine (12hr) 500 Mg Tablet) 500 mg PO BID [facility] Last Admin: 09/29/22 08:35 Dose: 500 mg Sertraline HCl (Sertraline 100 Mg Tablet) 200 mg PO DAILY [facility] Last Admin: 09/29/22 08:34 Dose: 200 mg Trazodone HCl (Trazodone 150 Mg Tablet) 150 mg PO BEDTIME [facility] Last Admin: 09/28/22 21:20 Dose: 150 mg Vitals/I&O/Wt Last Vital Signs Temp 98.4 F 09/29/22 07:48 Pulse 74 09/29/22 07:52 Resp 18 09/29/22 07:48 BP 126/76 09/29/22 07:48 Pulse Ox 96 09/29/22 07:52 O2 Del Method 09/29/22 07:52 O2 Flow Rate 1 09/29/22 07:52 09/28/22 09/29/22 09/29/22 22:59 06:59 14:59 Intake Total 2158.334 / 2158.334 1000 / 3158.334 Output Total 800 / 800 800 / 1600 Balance 1358.334 / 1358.334 200 / 1558.334 Physical Exam Narrative: GENERAL: The patient is alert and oriented times three. Not in any acute distress. Morbidly obese HEENT: No significant pallor, icterus or lymphadenopathy.Oral cavity: There are no mucous membrane lesions. NECK: Trachea appears to be central. No masses noted. No JVD or thyromegaly appreciated. RESPIRATORY: Chest is symmetrical. No intercostals muscle retraction or any accessory muscle activation. There is no chest wall tenderness. Breath sounds are heard bilaterally. No rales or rhonchi heard. No evidence of any consolidation. BREASTS: Deferred. HEART: The heart sounds are normal. No S3 or S4. No significant murmurs. No pericardial rub ABDOMEN: No vessel pulsations or distention. No tenderness. No organomegaly appreciated. Bowel sounds are normally heard. : Deferred. RECTAL: Deferred. LYMPHATIC: No lymphadenopathy noted in the neck. EXTREMITIES: No hematoma bleeding from the radial arterial puncture site MUSCULOSKELETAL: Below-knee amputations bilaterally SKIN: There are no significant rashes or ecchymosis NEUROPSYCHIATRIC: The patient is alert and oriented x3. Appears to be in a good mood. No tremors or rigidity noted. Data 09/29/22 04:16 09/29/22 04:16 Other Labs: Laboratory Last Values WBC 8.4 10^3/uL (4.0-10.0) 09/29/22 04:16 RBC 3.42 10^6/uL (4.1-5.3) L 09/29/22 04:16 Hgb 9.8 g/dL (11.7-16.6) L 09/29/22 04:16 Hct 30.8 % (42.0-52.0) L 09/29/22 04:16 MCV 90.1 fl (80-94) 09/29/22 04:16 MCH 28.7 pg (28.0-34.0) 09/29/22 04:16 MCHC 31.8 g/dL (30.0-36.0) 09/29/22 04:16 RDW 12.4 % (12.1-15.1) 09/29/22 04:16 Plt Count 212 10^3/cmm (130-400) 09/29/22 04:16 MPV 11.6 fL (7.4-10.4) H 09/29/22 04:16 Neut % (Auto) 66.5 % 09/29/22 04:16 Lymph % (Auto) 17.9 % 09/29/22 04:16 [place] % (Auto) 11.9 % 09/29/22 04:16 Eos % (Auto) 3.0 % 09/29/22 04:16 Baso % (Auto) 0.2 % 09/29/22 04:16 Neut # (Auto) 5.60 10^3/uL (1.8-7.7) 09/29/22 04:16 Lymph # (Auto) 1.5 10^3/uL (0.8-4.8) 09/29/22 04:16 [place] # (Auto) 1.0 10^3/uL (0.2-0.9) H 09/29/22 04:16 Eos # (Auto) 0.3 10^3/uL (0.0-0.8) 09/29/22 04:16 Baso # (Auto) 0.0 10^3/uL (0.0-0.1) 09/29/22 04:16 Nucleated RBC % (auto) 0 % 09/29/22 04:16 Nucleated RBCs # 0.0 /100WBC 09/29/22 04:16 PT 14.50 SECONDS (12.1-14.9) 09/27/22 04:50 INR 1.09 (0.8-1.2) 09/27/22 04:50 APTT 42.1 SECONDS (23.9-36.7) H 09/27/22 04:50 Sodium 137 mmol/L (136-145) 09/29/22 04:16 Potassium 4.0 mmol/L (3.5-5.1) 09/29/22 04:16 Chloride 102 mmol/L (98-107) 09/29/22 04:16 Carbon Dioxide 25 mmol/L (22-29) 09/29/22 04:16 Anion Gap 14.0 (5-19) 09/29/22 04:16 BUN 11 mg/dL (6-20) 09/29/22 04:16 Creatinine 0.8 mg/dL (0.7-1.2) 09/29/22 04:16 GFR Calculation 99.6 mL/min (90-130) 09/29/22 04:16 Glucose 144 mg/dL (65-115) H 09/29/22 04:16 POC Glucose 143 mg/dL (70-110) H 09/29/22 06:28 Estimat Average Glucose 292 09/28/22 04:15 Hemoglobin A1c 11.8 % (4.0-6.0) H 09/28/22 04:15 Calculated Osmolality 286 mOsm/kg (285-295) 09/29/22 04:16 Calcium 8.4 mg/dL (8.5-10.5) L 09/29/22 04:16 Phosphorus 2.7 mg/dL (2.5-4.5) 09/27/22 04:50 Magnesium 1.5 mg/dL (1.7-2.3) L 09/27/22 04:50 Iron 31 ug/dL (59-158) L 09/27/22 04:50 TIBC 228 mcg/dl 09/27/22 04:50 % Saturation 13.5 % (20-50) L 09/27/22 04:50 Unsat Iron Binding 197 ug/dL (112-347) 09/27/22 04:50 Total Bilirubin 0.3 mg/dL (0.15-1.2) 09/29/22 04:16 AST 18 U/L (0-40) 09/29/22 04:16 ALT 15 U/L (0-41) 09/29/22 04:16 Alkaline Phosphatase 72 U/L (40-130) 09/29/22 04:16 Troponin T Baseline 39 ng/L (0-15) H 09/26/22 07:48 Troponin T 120 Minute 40.18 ng/L (0-15) H 09/26/22 09:38 Delta Troponin T 1.18 ABS# (0-10) 09/26/22 09:38 Troponin T Hi Sens 6Hr 43.22 ng/L (0-15) H 09/26/22 14:02 Troponin T Hi Sens 6Hr Delta 4.22 ng/L (0-12) 09/26/22 14:02 NT-Pro-B Natriuret Pep 439 pg/mL (0-125) H 09/27/22 04:50 Total Protein 6.6 g/dL (6.6-8.7) 09/29/22 04:16 Albumin 3.4 g/dL (3.5-5.2) L 09/29/22 04:16 Globulin 3.2 g/dL (1.3-4.6) 09/29/22 04:16 Triglycerides 177 mg/dL (0-150) H 09/28/22 04:15 Cholesterol 130 mg/dL (0-200) 09/28/22 04:15 LDL Cholesterol, Calc 70 mg/dL (50-129) 09/28/22 04:15 Total VLDL Cholesterol 35 mg/dL (0-30) H 09/28/22 04:15 HDL Cholesterol 25 mg/dL (60-100) L 09/28/22 04:15 Cholesterol/HDL Ratio 5.20 mg/dL (1.0-5.00) H 09/28/22 04:15 Vitamin B12 505 pg/mL (232-1245) 09/27/22 04:50 Folate 15.9 ng/mL (4.5-32.2) 09/27/22 14:42 Procalcitonin 7.22 ng/mL (0-0.5) H 09/27/22 04:50 TSH 1.76 uIU/mL (0.27-4.20) 09/27/22 04:50 Urine Color Yellow (Yellow) 09/27/22 14:54 Urine Appearance Clear (CLEAR) 09/27/22 14:54 Urine pH 5 (5-7) 09/27/22 14:54 Ur Specific [place] 1.015 (1.005-1.030) 09/27/22 14:54 Urine Protein Neg (Negative) 09/27/22 14:54 Urine Glucose (UA) 2+ (Normal) H 09/27/22 14:54 Urine Ketones Negative (Negative) 09/27/22 14:54 Urine Blood Neg (Negative) 09/27/22 14:54 Urine Nitrate Negative (Negative) 09/27/22 14:54 Urine Bilirubin Neg (Negative) 09/27/22 14:54 Urine Urobilinogen Neg mg/dL (Negative) 09/27/22 14:54 Ur Leukocyte Esterase Negative (Negative) 09/27/22 14:54 Micro: Microbiology 09/27/22 14:42 MRSA Culture - Final Nose 09/27/22 14:47 Blood Culture - Preliminary Blood NEGATIVE TO DATE 09/27/22 14:42 Blood Culture - Preliminary Blood NEGATIVE TO DATE A&P Assessment and plan (1) Atherosclerotic heart disease of [place] coronary artery with unstable angina pectoris: Patient status post cardiac dilatation followed by PCI of the RCA lesion. He has severe three-vessel coronary artery disease. The other artery lesions were not amenable for intervention. He does opted to treat him medically. Patient was started on Ranexa 500 mg p.o. twice daily yesterday. Seems to be tolerating medication so far well. We will gradually advance the dose of this medication and also the nitrates. (2) HTN (hypertension): Currently he is normotensive. May continue on the current medications . Qualifiers: Hypertension type: primary hypertension Qualified Code(s): I10 - Essential (primary) hypertension (3) Dyspnea on exertion: This could be multifactorial. Morbid obesity, coronary ischemia, sleep apnea, etc. or contributing factors. (4) Sleep apnea: Patient is currently not on CPAP treatment. He may benefit from this. Consider CPAP treatment. This with the primary care provider Qualifiers: Sleep apnea type: obstructive Qualified Code(s): G47.33 - Obstructive sleep apnea (adult) (pediatric) (5) Diabetes mellitus: Aggressive management of the diabetes would be appropriate. Qualifiers: Diabetes mellitus complication status: with hyperglycemia Diabetes m ellitus long-term insulin use: with long-term use Diabetes mellitus type: type 2 Qualified Code(s): E11.65 - Type 2 diabetes mellitus with hyperglycemia; Z79.4 - prison (current) use of insulin Plan Since the patient's symptoms have significant improved, it may be appropriate to discharge him home from a cardiac standpoint. Disposition as per the primary Attestations Medical Necessity Statement*: Deferred to the primary Coding Level of Care Code 19347 Diagnoses Atherosclerotic heart disease of [place] coronary artery with unstable angina pectoris I25.110 HTN (hypertension) I10 Hypertension type: primary hypertension Dyspnea on exertion R06.00 Sleep apnea G47.33 Sleep apnea type: obstructive Diabetes mellitus E11.65; Z79.4 Diabetes mellitus complication status: with hyperglycemia Diabetes mellitus long-term insulin use: with adjunct faculty for medical terminology use Diabetes mellitus type: type 2
--- NOTE | 2022-09-29 10:45 | PC.CHAP ---
Pastoral Care Encounter/Spiritual Assessment Type of Contact [] Declined assistant manager of operations visit [] Patient/Family/Request visit [] Outpatient visit [] Follow-up visit [] Physician referral [] Code/Alert [x] Routine visit [] Staff referral [] Actively dying [] Patient sleeping [] Family support [] [] Out of room [] Palliative care [] [x] Receiving care in room [] Pre-surgical visit [] Trauma [] Long length of stay [] ICU visit [] Other: Relational/Emotional Strength [x] Patient feels connected with others/family/visitors/staff [] Distress [] Loneliness/isolation [] Abandonment Spirituality of Patient [x] Person of Richelle [] Attends Jainism of their [place]helle [x] Believes in Prayer [] Reads Bible or Voodoo materials [] There are Spiritual issues to be addressed Director Of Marketing Analytics Interventions [x] Prayer [x] Active listening [x] Non-anxious presence [x] Spiritual/emotional support [] Crisis/trauma care [x] Spiritual counseling [] Bereavement support [] Provided bereavement packet [] Provided Bible/devotional materials [] Provided toy/stuffed animal, coloring book to patient or family member [] Provided Communion [] Anointing/[place] [] Salvation [x] Completed spiritual assessment [] Other: Impact on Illness or Injury [] Angry [] Fearful [x] Anxious [] Often cries [] Exhaustion [] Unable to work [] Unable to attend mandaeism [] Unable to walk/stand [] Unable to read [] Unable to drive [] Unable to eat/drink [] Unable to sleep [] Unable to be with family [] Patient intubated [] Other: Summary has a good attitude feeling better going home Time spent with patient 10 mins
[2022-09-29 12:00] VITALS: BP 142/74; PULSE 77; RESP 20; TEMP 36.6; O2SAT 93
--- NOTE | 2022-09-29 12:11 | PM.DCS ---
Discharge Providers Date of Admission: 09/28/22 09:05 Date of Discharge: September 29, 2022 Attending Provider at Admission: Katalina Graves MD Attending Provider at Discharge: Richard Wayne MD Consults: Cardiology: Dr. Carlos Primary Care Provider: HANNAH Mason Diagnoses at Discharge Discharge Diagnosis (1) Abnormal cardiovascular stress test: Status: Chronic Permanent problem details: 04/2021 (2) Atherosclerotic heart disease of [place] coronary artery with unstable angina pectoris: Status: Acute (3) HTN (hypertension): Status: Chronic Qualifiers: Hypertension type: primary hypertension Qualified Code(s): I10 - Essential (primary) hypertension (4) Dyspnea on exertion: Status: Chronic (5) Sleep apnea: Status: Chronic Qualifiers: Sleep apnea type: obstructive Qualified Code(s): G47.33 - Obstructive sleep apnea (adult) (pediatric) Permanent problem details: Sleep study 09/2021 - bipap titration recommended (6) Diabetes mellitus: Status: Chronic Qualifiers: Diabetes mellitus type: type 2 Diabetes mellitus skilled nursing insulin use: with skilled nursing use Diabetes mellitus complication status: with hyperglycemia Qualified Code(s): E11.65 - Type 2 diabetes mellitus with hyperglycemia; Z79.4 - senior care (current) use of insulin Permanent problem details: Type II, onset 1996, on insulin Reason for Visit Reason for Visit: CHEST PAIN Hospital Course Hospital Course Salvador Luke is a 57 year old male with multiple risk factors for coronary artery disease, presenting with increasing episodes of chest pains.? This patient has a history of chest pain off and on for last couple of years.? He is being followed by Dr. Thrasher.? He had a Myocardial perfusion imaging a year and a half ago which was abnormal.? He was recommended for a cardiac catheterization.? Since the procedure was not approved by the insurance, he is being managed medically.? 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 He was admitted to hospital yesterday with complaints of the prolonged episode of chest pain.? Apparently the patient woke up with chest pain.? The pain was in the mid substernal area, radiating to the left mammary region.? The intensity of the pain was 10/10.? His gave him a sublingual nitro which brought down the pain to 5/10.? Within few minutes, the pain again started going up.? He waited almost an hour at home.? Since there was no relief of symptoms, he was brought to the emergency room by ambulance.? In the ambulance, he was given additional sublingual nitro, p.o. aspirin and oxygen by nasal cannula.? According to the patient, his chest pain never completely went away.? It has been waxing and waning throughout yesterday.? Even now, he has pain of 3/10 in intensity.? He has no associated nausea or vomiting.? No unusual shortness of breath.? No palpitations, dizziness or syncopal episodes. He had a Myocardial perfusion imaging in April 2021.? He was found to have some areas of reversible and reversible defects in the distribution of the left circumflex artery/anterior descending artery. He is known to have diabetes, high blood pressure dyslipidemia for more than 20 years.? He had a below-knee amputation of the right leg in 2014..? Had amputation of the left leg in November of last year.? Both times, he had diabetic ulcer complicated with osteomyelitis. Patient also is known to have sleep apnea.? He may have gained around 25 pounds within the last 6 months.? Denies any smoking use or alcohol abuse. Patient underwent cardiac stress test on 09/26 which was found to be abnormal. Cardiology was consulted. He underwent echocardiogram which showed a normal EF without regional wall motion abnormality. Given multiple risk factors and a abnormal myocardial perfusion imaging suggestive of scarring with ischemia in distribution of RCA and LCx. Ongoing chest pain he underwent cardiac angiogram on 09/28 where he was found to have severe triple-vessel disease. The right coronary artery was found to be notable for intervention and he underwent angioplasty with stent placement of proximal ostial lesion. He tolerated the procedure well. During hospitalization he was found to have an A1c of 11.2. He is been discharged hemodynamically stable condition on oral medications, dose of insulin has been changed. He is advised to check his blood sugars daily at home and maintain a blood sugar diary and follow-up with a primary care provider within the next 1 week for further adjustment of antidiabetic medications Physical Exam Narrative: General: No acute distress, awake and alert, oriented x3, able to provide history. HEENT: Normocephalic, mild conjunctival injection, extraocular movements intact, nasopharynx is clear, oropharynx with moist mucous membranes. Some dental caries noted but no grossly erythematous or purulent gingiva noted. Neck is large but supple. Lungs: Clear to auscultation bilaterally without any rales rhonchi or wheezes. Cardiovascular: Regular rate and rhythm without any murmurs gallops or rubs. Abdomen: Soft, rotund, nontender with positive bowel sounds. Neurology: Moving all limbs, no focal deficit. Extremities: No pitting edema noted to bilateral BKA stumps. Patient has a small scab sore on the anterior medial side of his left lower extremity and another scab sore on the posterior right lower extremity measuring approximately 1 cm by half a centimeter. No warmth or streaking erythema around this. No drainage. Sensation is intact to light touch both stumps. Discharge Data Studies Completed and Pending Completed Studies During Hospitalization Category Date Time Status POLICE SHIFT [employer]ER request for service Routine Exams 09/28/22 07:00 Completed Sestamibi Stress Test Request Routine Exams 09/26/22 16:04 Draft XR chest 1V portable [id number] Stat Exams 09/26/22 07:52 Completed NM ollie perf SPECT r/s* [id number] Routine Nuc Med 09/27/22 16:04 Completed CV. echo wo/w contrast [id number] Routine Ultrasound 09/26/22 16:04 Completed Pending at discharge Category Date Time Status Blood Culture Stat Lab 09/27/22 14:47 Results Radiology Impressions Chest X-Ray 09/26/22 07:52 IMPRESSION: Stable chest without acute abnormality. Echocardiogram: CONCLUSIONS ?Technically limited quality echocardiogram because of poor ?ultrasonic windows. ?LV systolic function is normal with EF 55 to 60%. ?Left atrial dilation ?Mild tricuspid regurgitation ?Compared to prior echocardiogram from 2020, no significant ?changes are seen ?Amos James MD ?(Electronically Signed) ?Final Date:? ? ? 27 September 2022 ? 08:51 Lexiscan stress test: PERFUSION FINDINGS ?Moderate area of moderately decreased eccentric in the basal, mid and apical ?inferior, mid inferolateral? apical lateral and apical segments.? Significant ?reversibility was noted in these regions at rest ?FUNCTIONAL RESULTS ? ? (calculated via Gated SPECT) ? Stress Image LV EF (%):? ? 55 ? Stress EDV (mL):158? TID:? 1.24 ? Stress ESV (mL):71 ?FUNCTIONAL FINDINGS: ?Segmental wall motion analysis revealing mild diffuse hypokinesia of the LV ?apex.? The transischemic dilatation ratio was found to be elevated to 1.24 ?IMPRESSIONS ?1.? Myocardial perfusion imaging revealing moderate degree of moderate ?decreases uptake in the inferior, inferolateral and apical regions with ?significant reversibility, suggesting ischemia in the distribution of the right ?coronary artery/circumflex artery. ?2.? Normal LV ejection fraction of 55%. ?3.? LV wall motion analysis revealed mild diffuse hypokinesia of the LV apex. ?4.? Mildly dilated LV cavity with an end-systolic volume of 71 mL. ?5.? Elevated transient ischemic dilatation ratio also is consistent with ?endocardial ischemia. ?Compared to the previous study from 05/04/2021, the ischemia seems to be more in ?the distribution of the right coronary artery at this time. ?Dr Brianda Carlos MD [facility] ?(Electronically Signed) ?Final Date:? ? ? 27 September 2022 ? 09:46 Laboratory Results WBC 8.4 10^3/uL (4.0-10.0) 09/29/22 04:16 RBC 3.42 10^6/uL (4.1-5.3) L 09/29/22 04:16 Hgb 9.8 g/dL (11.7-16.6) L 09/29/22 04:16 Hct 30.8 % (42.0-52.0) L 09/29/22 04:16 MCV 90.1 fl (80-94) 09/29/22 04:16 MCH 28.7 pg (28.0-34.0) 09/29/22 04:16 MCHC 31.8 g/dL (30.0-36.0) 09/29/22 04:16 RDW 12.4 % (12.1-15.1) 09/29/22 04:16 Plt Count 212 10^3/cmm (130-400) 09/29/22 04:16 MPV 11.6 fL (7.4-10.4) H 09/29/22 04:16 Neut % (Auto) 66.5 % 09/29/22 04:16 Lymph % (Auto) 17.9 % 09/29/22 04:16 [place] % (Auto) 11.9 % 09/29/22 04:16 Eos % (Auto) 3.0 % 09/29/22 04:16 Baso % (Auto) 0.2 % 09/29/22 04:16 Neut # (Auto) 5.60 10^3/uL (1.8-7.7) 09/29/22 04:16 Lymph # (Auto) 1.5 10^3/uL (0.8-4.8) 09/29/22 04:16 [place] # (Auto) 1.0 10^3/uL (0.2-0.9) H 09/29/22 04:16 Eos # (Auto) 0.3 10^3/uL (0.0-0.8) 09/29/22 04:16 Baso # (Auto) 0.0 10^3/uL (0.0-0.1) 09/29/22 04:16 Nucleated RBC % (auto) 0 % 09/29/22 04:16 Nucleated RBCs # 0.0 /100WBC 09/29/22 04:16 PT 14.50 SECONDS (12.1-14.9) 09/27/22 04:50 INR 1.09 (0.8-1.2) 09/27/22 04:50 APTT 42.1 SECONDS (23.9-36.7) H 09/27/22 04:50 Sodium 137 mmol/L (136-145) 09/29/22 04:16 Potassium 4.0 mmol/L (3.5-5.1) 09/29/22 04:16 Chloride 102 mmol/L (98-107) 09/29/22 04:16 Carbon Dioxide 25 mmol/L (22-29) 09/29/22 04:16 Anion Gap 14.0 (5-19) 09/29/22 04:16 BUN 11 mg/dL (6-20) 09/29/22 04:16 Creatinine 0.8 mg/dL (0.7-1.2) 09/29/22 04:16 GFR Calculation 99.6 mL/min (90-130) 09/29/22 04:16 Glucose 144 mg/dL (65-115) H 09/29/22 04:16 POC Glucose 143 mg/dL (70-110) H 09/29/22 06:28 Estimat Average Glucose 292 09/28/22 04:15 Hemoglobin A1c 11.8 % (4.0-6.0) H 09/28/22 04:15 Calculated Osmolality 286 mOsm/kg (285-295) 09/29/22 04:16 Calcium 8.4 mg/dL (8.5-10.5) L 09/29/22 04:16 Phosphorus 2.7 mg/dL (2.5-4.5) 09/27/22 04:50 Magnesium 1.5 mg/dL (1.7-2.3) L 09/27/22 04:50 Iron 31 ug/dL (59-158) L 09/27/22 04:50 TIBC 228 mcg/dl 09/27/22 04:50 % Saturation 13.5 % (20-50) L 09/27/22 04:50 Unsat Iron Binding 197 ug/dL (112-347) 09/27/22 04:50 Total Bilirubin 0.3 mg/dL (0.15-1.2) 09/29/22 04:16 AST 18 U/L (0-40) 09/29/22 04:16 ALT 15 U/L (0-41) 09/29/22 04:16 Alkaline Phosphatase 72 U/L (40-130) 09/29/22 04:16 Troponin T Baseline 39 ng/L (0-15) H 09/26/22 07:48 Troponin T 120 Minute 40.18 ng/L (0-15) H 09/26/22 09:38 Delta Troponin T 1.18 ABS# (0-10) 09/26/22 09:38 Troponin T Hi Sens 6Hr 43.22 ng/L (0-15) H 09/26/22 14:02 Troponin T Hi Sens 6Hr Delta 4.22 ng/L (0-12) 09/26/22 14:02 NT-Pro-B Natriuret Pep 439 pg/mL (0-125) H 09/27/22 04:50 Total Protein 6.6 g/dL (6.6-8.7) 09/29/22 04:16 Albumin 3.4 g/dL (3.5-5.2) L 09/29/22 04:16 Globulin 3.2 g/dL (1.3-4.6) 09/29/22 04:16 Triglycerides 177 mg/dL (0-150) H 09/28/22 04:15 Cholesterol 130 mg/dL (0-200) 09/28/22 04:15 LDL Cholesterol, Calc 70 mg/dL (50-129) 09/28/22 04:15 Total VLDL Cholesterol 35 mg/dL (0-30) H 09/28/22 04:15 HDL Cholesterol 25 mg/dL (60-100) L 09/28/22 04:15 Cholesterol/HDL Ratio 5.20 mg/dL (1.0-5.00) H 09/28/22 04:15 Vitamin B12 505 pg/mL (232-1245) 09/27/22 04:50 Folate 15.9 ng/mL (4.5-32.2) 09/27/22 14:42 Procalcitonin 7.22 ng/mL (0-0.5) H 09/27/22 04:50 TSH 1.76 uIU/mL (0.27-4.20) 09/27/22 04:50 Urine Color Yellow (Yellow) 09/27/22 14:54 Urine Appearance Clear (CLEAR) 09/27/22 14:54 Urine pH 5 (5-7) 09/27/22 14:54 Ur Specific [place] 1.015 (1.005-1.030) 09/27/22 14:54 Urine Protein Neg (Negative) 09/27/22 14:54 Urine Glucose (UA) 2+ (Normal) H 09/27/22 14:54 Urine Ketones Negative (Negative) 09/27/22 14:54 Urine Blood Neg (Negative) 09/27/22 14:54 Urine Nitrate Negative (Negative) 09/27/22 14:54 Urine Bilirubin Neg (Negative) 09/27/22 14:54 Urine Urobilinogen Neg mg/dL (Negative) 09/27/22 14:54 Ur Leukocyte Esterase Negative (Negative) 09/27/22 14:54 Procedures Performed Cardiac angiogram and PCI: 09/28: Conclusions ? 1. 57-year-old white male with a multiple factors for coronary artery disease presenting with increasing episodes of chest pain over the last couple of years.? Abnormal Myocardial perfusion imaging.? Cardiac catheterization revealed the following findings. ? 2. Severe diffuse disease in all the 3 coronary arteries mostly involving the mid and distal segments of the arteries.? Relatively small caliber vessels.? Markedly elevated LVEDP of 38 mmHg. ? 3. I reviewed and discussed the cardiac catheterization data with the Dr. Nassar.? In view of the severe diffuse disease except for the proximal RCA lesion, the other lesions were thought to be not ideal for any percutaneous or surgical intervention. So it was decided to intervene the proximal RCA lesion and then try to optimize medical treatment. Dr. Nassar took over further management of this patient at this point. LV EDP: ? ? 38 mmHg Left Ventriculography Findings: ? * LV gram was not performed because of the high LVEDP.? The LVEDP was 38 mmHg. Vitals Last Vital Signs Temp 98.4 F 09/29/22 07:48 Pulse 74 09/29/22 07:52 Resp 18 09/29/22 07:48 BP 126/76 09/29/22 07:48 Pulse Ox 96 09/29/22 07:52 O2 Del Method 09/29/22 07:52 O2 Flow Rate 1 09/29/22 07:52 Discharge Plan Discharge Patient Disposition: Home Condition: Stable Prescriptions: New clopidogrel 75 mg Tablet 75 mg PO DAILY Qty: 30 0RF amoxicillin-pot clavulanate 875-125 mg Tablet 1 tab PO BID Qty: 10 0RF ranolazine 500 mg Tablet Extended Release 12 Hr 500 mg PO BID 30 Days Qty: 60 0RF Continued nitroglycerin 0.4 mg tablet, sublingual 0.4 mg sublingual Q5M PRN (Reason: chest pain) Qty: 30 2RF Rx Instructions: do not exceed 3 doses per episode (DME) Stump Interventionist and supplies See Rx Instructions .Route .MEDSUPPLY Qty: 1 0RF Rx Instructions: As directed Lantus Solostar U-100 Insulin 100 unit/mL (3 mL) insulin pen 68 unit SUBCUT BID glipizide 5 mg tablet 5 mg PO BID carvedilol [Coreg] 12.5 mg tablet 12.5 mg PO BID Qty: 180 3RF Rx Instructions: must administer with a meal/food (DME) bilateral transtibial prosthesis See Rx Instructions .Route .MEDSUPPLY Qty: 1 0RF Rx Instructions: As directed (DME) Bilateral Transtibial Prostheses See Rx Instructions .Route .MEDSUPPLY Qty: 1 0RF Rx Instructions: As directed acetaminophen [Tylenol Extra Strength] 500 mg Tablet 1,000 mg PO Q4H PRN (Reason: Pain) pantoprazole 40 mg tablet,delayed release (DR/EC) 40 mg PO BID [id number] Tablet 1 tab PO QAM insulin aspart U-100 [Novolog FlexPen U-100 Insulin] 100 unit/mL (3 mL) insulin pen See Rx Instructions .ROUTE .COMPLEX Qty: 15 0RF Rx Instructions: inject, subcu, 3 times daily, after meals, based on sliding scale provided sertraline 100 mg tablet 200 mg PO DAILY trazodone 150 mg tablet 150 mg PO BEDTIME atorvastatin 80 mg tablet 80 mg PO QPM pioglitazone 15 mg tablet 15 mg PO BID levothyroxine 75 mcg tablet 75 mcg PO DAILY polymyxin B sulf-trimethoprim 10,000 unit- 1 mg/mL drops 1 drp ophthalmic (eye) Q4H montelukast 10 mg tablet 10 mg PO DAILY gabapentin 300 mg Capsule 300 mg PO BID PRN (Reason: Pain) aspirin 81 mg tablet,delayed release (DR/EC) 81 mg PO QAM losartan 100 mg tablet 100 mg PO QAM Discontinued spironolactone 25 mg tablet 50 mg PO QAM Discharge Orders: Discharge Order (Routine); Ordered 09/29/22 Ordered By: Richard Wayne Referrals: Jamee Reddy FNP [Primary Care Provider] - (If you have not heard from Jamee Reddy with in 2-3 days after discharge, please call [phone] to set up your appointment.) Nelida Sheppard FNP [Nurse Practitioner] - 7-10 days Anna Thrasher MD [Physician] - 1 month Discharge Diet: Cardiac and Diabetic Discharge Activity: Resume usual activity and Increase activity as tolerated Patient Instructions: Opioid Safety Activity Restrictions/Additional Instructions: Please follow-up with a primary care provider within next 1 week. Also follow-up with Nelida Knott/nurse practitioner from cardiology services next [address] Thrasher next 1 month. Plavix and ranolazine other new medications on the left now. Take Plavix once daily endralazine twice daily. Check your blood sugars daily at home premeals and take insulin as per sliding scale. Please maintain a blood sugar diary follow-up with a primary care provider within next 1 week for further adjustment of antidiabetic medications. Discharge Attestations Time Spent in Discharge Care*: greater than 30 min Specific Discharge Activities: educating patient, educating and/or supporting family/caregiver, discussing with pcp/other providers, discussing with foster care case manager/social workers/dc planners, documenting/other paperwork and evaluating patient/reviewing data Status at Discharge: Cognitive status at discharge: cognitively intact, Behavioral status at discharge: cooperative, Functional status at discharge: other assisted ambulation, Overall status at discharge: patient is back to baseline Quality Metrics Clinical Quality Measures [ No reported AMI, CVA or VTE this stay] Coding Level of Care Code 97044 Total time (in minutes) for Discharge: 60 Diagnoses Abnormal cardiovascular stress test R94.39 Atherosclerotic heart disease of [place] coronary artery with unstable angina pectoris I25.110 HTN (hypertension) I10 Hypertension type: primary hypertension Dyspnea on exertion R06.00 Sleep apnea G47.33 Sleep apnea type: obstructive Diabetes mellitus E11.65; Z79.4 Diabetes mellitus type: type 2 Diabetes mellitus skilled nursing insulin use: with skilled nursing use Diabetes mellitus complication status: with hyperglycemia
[2022-09-29 12:34] LABS: Glucose Point of Care 139 mg/dL (70-110)
[2022-09-29 13:08] VITALS: BP 142/74; PULSE 77; RESP 20; TEMP 36.6; O2SAT 93
--- NOTE | 2022-09-29 14:19 | PC.NURSE ---
Discharge Note Patient discharged to home via private vehicle accompanied by . Discharge instructions reviewed with patient and/or sales account representative. Mobile pharmacy medications and/or prescriptions provided. Belongings/home medications returned.
--- NOTE | 2022-09-29 14:20 | PC.NURSE ---
pt stated he was able to make his own appt with his pcp dr Reddy.
== END 2022-09-29 14:10 | disposition home or self-care (01) | DRG 247 ==
LOC: ER 08:06 → CSU 16:07
PROVIDERS: Internal Medicine Cardiovascular Disease; Admitting Provider Hospitalist; Emergency Provider Family Medicine; PCP Registered Nurse; Visit Provider Student in an Organized Health Care Education/Training Program
PROC: 027034Z Dilation of Coronary Artery, One Artery with Drug-eluting Intraluminal Device, Percutaneous Approach (ICD-10-PCS; principal; 2022-09-28 07:00)
DX: I25.110 Atherosclerotic heart disease of native coronary artery with unstable angina pectoris (principal); I50.32 Chronic diastolic (congestive) heart failure; Z68.42 Body mass index [BMI] 45.0-49.9, adult; I11.0 Hypertensive heart disease with heart failure; G47.33 Obstructive sleep apnea (adult) (pediatric); E11.65 Type 2 diabetes mellitus with hyperglycemia; E11.40 Type 2 diabetes mellitus with diabetic neuropathy, unspecified; E11.51 Type 2 diabetes mellitus with diabetic peripheral angiopathy without gangrene; Z89.512 Acquired absence of left leg below knee; Z89.511 Acquired absence of right leg below knee; E78.5 Hyperlipidemia, unspecified; Z79.4 Long term (current) use of insulin; Z79.84 Long term (current) use of oral hypoglycemic drugs; Z79.891 Long term (current) use of opiate analgesic; Z79.82 Long term (current) use of aspirin; Z86.16 Personal history of COVID-19; F32.9 Major depressive disorder, single episode, unspecified; K21.9 Gastro-esophageal reflux disease without esophagitis; E03.9 Hypothyroidism, unspecified; K02.9 Dental caries, unspecified; Z95.828 Presence of other vascular implants and grafts; Z86.718 Personal history of other venous thrombosis and embolism; E66.9 Obesity, unspecified
CPT/HCPCS: 36415; 36416; 71045; 78452; 80048; 80053; 80061; 81003; 82607; 82746; 82962; 83036; 83540; 83550; 83735; 83880; 84100; 84145; 84443; 84484; 85025; 85610; 85730; 87040; 87641; 93005; 93017; 93458; 96372; 96374; 99152; 99153; 99285; A9500; C1769; C1874; C1887; C1894; C8929; C9600; G0378; J1644; J1650; J1815; J2250; J2270; J2785; J3010; J3490; J7030; Q0163; Q9956; Q9967

== ENCOUNTER → 2022-10-05 16:09 | Outpatient (BNVA) | payer MEDICARE, SELFPAY | PROVIDERS: PCP Registered Nurse; Visit Provider Nurse Practitioner Family | DX: I25.110 Atherosclerotic heart disease of native coronary artery with unstable angina pectoris (principal); I11.0 Hypertensive heart disease with heart failure; I50.32 Chronic diastolic (congestive) heart failure | CPT/HCPCS: 36415; 82550; 99214 ==

== ENCOUNTER 2022-11-02 20:00 | Outpatient (CLI) | payer MEDICARE, SELFPAY | END 2022-11-02 20:01 | disposition home or self-care (01) | LOC: SLEEP 11-03 06:36 | PROVIDERS: PCP Registered Nurse; Visit Provider Registered Nurse | DX: G47.33 Obstructive sleep apnea (adult) (pediatric) (principal) | CPT/HCPCS: 95811 ==

== ENCOUNTER → 2022-12-07 10:43 | Outpatient (BNVA) | payer MEDICARE, SELFPAY | PROVIDERS: PCP Registered Nurse; Visit Provider Internal Medicine Cardiovascular Disease | DX: I25.110 Atherosclerotic heart disease of native coronary artery with unstable angina pectoris (principal); E11.9 Type 2 diabetes mellitus without complications; Z79.4 Long term (current) use of insulin; G47.33 Obstructive sleep apnea (adult) (pediatric); I11.0 Hypertensive heart disease with heart failure; I50.32 Chronic diastolic (congestive) heart failure; E78.5 Hyperlipidemia, unspecified; Z89.512 Acquired absence of left leg below knee; Z89.511 Acquired absence of right leg below knee; Z79.82 Long term (current) use of aspirin | CPT/HCPCS: 99214 ==

== ENCOUNTER 2023-05-22 16:31 | Inpatient (IN) | payer MEDICARE, SELFPAY ==
[2023-05-22] VITALS (15 sets, daily range): BP systolic 129–188; BP diastolic 77–116; PULSE 73–94; RESP 10–20; TEMP 36.9–37.1; O2SAT 91–99; BMI 52.4
--- NOTE | 2023-05-22 16:49 | ECG_ITS ---
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 Measurements Intervals [place] Rate: 90 P: 59 DC: 186 QRS: 39 QRSD: 101 T: 79 QT: 354 QTc: 433 Interpretive Statements SINUS RHYTHM LOW QRS VOLTAGE IN PRECORDIAL LEADS [QRS DEFLECTION < 1.0 mV IN CHEST LEADS] MINIMAL ST DEPRESSION [0.025+ mV ST DEPRESSION] Compared to ECG 09/26/2022 15:30:34 ST (T wave) deviation now present Intraventricular conduction delay no longer present T-wave abnormality no longer present Electronically Signed On 05-22-2023 23:43:18 CDT by Amos James M.D. [email or web address]
--- NOTE | 2023-05-22 16:54 | P.HP_ITS ---
Providers/Chief Complaint Admitting Physician: Richard Wayne MD Primary Care Provider: HANNAH Mason Chief Complaint: NSTEMI History of Present Illness Salvador Luke is a 58 year old male with past medical history of type 2 diabetes mellitus, obesity, hypertension, bilateral BKA secondary to diabetic ulcer and osteomyelitis, non-ST elevation KS post PCI to RCA in September 2022, obesity hypoventilation syndrome was transferred as a direct admit from [facility] where he was taken to the ER in the morning today because of substernal chest pain radiating to jaw which woke him up from his sleep associated with 1 episode of vomiting and chest pressure and difficulty in breathing. As patient had previous cardiology care at [facility] he requested transfer to our hospital. On examination patient lying comfortably in bed with Nitropaste complaining of occasional chest pressure. He states he has not taken any of his medications yesterday morning including multiple antihypertensives. He was diagnosed of non-ST elevation KS, CTA PE was done which ruled out pulmonary embolism and was given 325 mg of aspirin, started on a heparin drip at [facility]. Review of Systems General: Reports: 10 or more systems reviewed and unremarkable except in HPI and below Const: Denies: fever(s), chills, body aches, change in appetite, change in weight, malaise, night sweats, diaphoresis, change in sleep pattern, daytime sleepiness or snoring Eyes: Denies: change in vision, blurry vision, photophobia, eye discomfort or eye discharge ENMT: Denies: throat pain, enlarged tonsils, hoarseness, mouth pain, oral sores, dry mouth, tinnitus, nasal congestion or post nasal drip Card: Denies: chest pain, palpitations, irregular heart rhythm, edema, swelling of feet/ankles, lightheadedness, syncope, pre-syncope, dyspnea on exertion, orthopnea, leg pain with exertion or acrocyanosis Resp: Denies: dyspnea, productive cough, non-productive cough, wheezing, stridor, pain on inspiration, change in phlegm color, hemoptysis or chest congestion GI: Denies: abdominal pain, nausea, vomiting, hematemesis, coffee ground emesis, dysphagia, heartburn, diarrhea, constipation, bloating, GI cramping, change in bowel habits, pain on defecation, hematochezia or melena : Denies: flank pain, difficulty urinating, dysuria, urinary frequency, urinary urgency, urinary hesitancy, urinary dribbling, difficulty starting urination, change in urine stream, nocturia or hematuria Musc: Denies: neck pain, back pain, extremity pain, joint pain, joint swelling, joint redness, joint stiffness or limited range of motion Neuro: Denies: headache(s), numbness in extremities, weakness in extremities, sensory changes, lack of coordination, difficulty walking, frequent falls, dizziness, vertigo, confusion, Slurred speech present, difficulty communicating thoughts or seizure-like activity Psych: Denies: anxiety, depression, mood swings, panic attacks, hopelessness or irritability Endo: Denies: polyuria, polydipsia, tired all the time, cold intolerance, excessive sweating, flushing or heat intolerance Felipe/Lymph: Denies: easy bruising or easy bleeding All/Imm: Denies: tongue swelling, facial swelling or acute wheezing Medications/Allergies Home Medications Medication Instructions Recorded Confirmed Last Taken Type acetaminophen 500 mg tablet 1,000 mg PO Q4H PRN Pain 04/30/21 12/07/22 09/26/22 History (Tylenol Extra Strength) cejpotkpjrut-movzernc-[id number] tablet 1 tab PO QAM 04/30/21 12/07/22 09/25/22 History pantoprazole 40 mg tablet,delayed 40 mg PO BID 04/30/21 12/07/22 09/25/22 History release nitroglycerin 0.4 mg sublingual 0.4 mg sublingual Q5M PRN chest 05/06/21 12/07/22 Unknown Rx tablet pain #30 tabs carvedilol 12.5 mg tablet (Coreg) 12.5 mg PO BID #180 tabs 05/28/21 12/07/22 09/25/22 Rx aspirin 81 mg tablet,delayed 81 mg PO QAM 11/15/21 12/07/22 09/25/22 History release gabapentin 300 mg capsule 300 mg PO BID PRN Pain 11/15/21 12/07/22 09/25/22 History losartan 100 mg tablet 100 mg PO QAM 11/15/21 12/07/22 09/25/22 History insulin aspart U-100 100 unit/mL See Rx Instructions .Route 12/11/21 12/07/22 09/25/22 Rx (3 mL) subcutaneous pen (Novolog .COMPLEX #15 mL FlexPen U-100 Insulin aspart) [employer] Admin and supplies #1 ea 12/15/21 10/05/22 Unknown Rx bilateral transtibial prosthesis #1 ea 01/31/22 10/05/22 Unknown Rx Bilateral Transtibial Prostheses #1 ea 02/03/22 10/05/22 Unknown Rx glipizide 5 mg tablet 5 mg PO BID 05/26/22 12/07/22 09/25/22 History sertraline 100 mg tablet 200 mg PO DAILY 05/26/22 12/07/22 09/25/22 History atorvastatin 80 mg tablet 80 mg PO QPM 09/26/22 12/07/22 09/25/22 History levothyroxine 75 mcg tablet 75 mcg PO DAILY 09/26/22 12/07/22 09/25/22 History pioglitazone 15 mg tablet 15 mg PO BID 09/26/22 12/07/22 09/25/22 History polymyxin B sulfate 10,000 1 drp ophthalmic (eye) Q4H 09/26/22 12/07/22 09/25/22 History unit-trimethoprim 1 mg/mL eye drops trazodone 150 mg tablet 150 mg PO BEDTIME 09/26/22 12/07/22 09/25/22 History clopidogrel 75 mg tablet 75 mg PO DAILY #30 tabs 09/29/22 12/07/22 Unknown Rx insulin glargine 100 unit/mL (3 40 unit SUBCUT BID 10/05/22 12/07/22 Unknown History mL) subcutaneous pen (Lantus Solostar U-100 Insulin) isosorbide mononitrate 10 mg tablet 10 mg PO ONCE 12/07/22 12/07/22 Unknown History montelukast 10 mg tablet 10 mg PO DAILY PRN 12/07/22 12/07/22 Unknown History Allergies Allergy/AdvReac Type Severity Reaction Status Date / Time vancomycin Allergy ALGY-Anaphy Verified 12/07/22 07:30 laxis PFSH Acute PFSH: Medical History (Updated 05/22/23 @ 17:08 by Richard Wayne MD) Abnormal cardiovascular stress test 04/2021 Anemia CHF (congestive heart failure), NYHA class III diastolic, EF 65% on echo 04/2021 COVID-19 03/2021, 04/2022 Dental caries extending into pulp Depression Diabetes mellitus Type II, onset 1996, on insulin Elevated serum creatinine GERD (gastroesophageal reflux disease) HTN (hypertension) Hyperlipidemia Hypothyroidism Obesity Peripheral neuropathy Peripheral vascular disease Sleep apnea Sleep study 09/2021 - bipap titration recommended Surgical History (Updated 12/07/22 @ 12:20 by Augie Nassar MD) History of inferior vena caval filter placement placed 10/2021 for left femoral DVT; removed 06/08/22 History of left below knee amputation 11/2021 History of right below knee amputation 2014 History of varicose vein stripping ablation LLE Status post bilateral below knee amputation Family History Father CAD (coronary artery disease) Mother CAD (coronary artery disease) from heart attack age 62 Social History Smoking and tobacco status: never smoked Alcohol intake: current Alcohol intake frequency: holidays/special occasions only Substance/Drug Use: never Vitals/I&O/Wt Last Vital Signs O2 Del Method Room Air, Oxymask 05/22/23 16:38 Weight last 48 hrs Weight 170.806 kg Physical Exam Narrative: General: No acute distress, AO x3, morbidly obese, on Ventimask HEENT: PERRLA, pupils bilaterally equal and reactive Chest: Bilateral bronchial breath sounds all over lung goins, decreased air entry all over lung goins CVS: S1-S2 regular, no murmurs, no tachycardia, no gallops, no rubs Abdomen: Soft, nontender, no organomegaly, bowel sounds present Neuro: No focal deficits, no facial deformity, AO x3, power 5/5 in all limbs A&P Assessment and plan (1) Chest pain: Most likely secondary non-ST elevation KS given history of CAD, metabolic sy ndrome. Reported positive troponins from outside ER. Already received 325 mg of aspirin, started on heparin drip in outside ER. Check echocardiogram, troponin cycle. Continue with aspirin, Plavix, statin. Check A1c. Appreciate recent lipid panel. Continue with home dose of Imdur. Continue with heparin drip. Qualifiers: Chest pain type: chest pain due to myocardial ischemia Ischemic chest pain type: unspecified angina pectoris type Qualified Code(s): I25.9 - Chronic ischemic heart disease, unspecified (2) NSTEMI (non-ST elevated myocardial infarction): Consult cardiology. ? Treatment as above. (3) Hypertensive urgency: Most likely as patient has not taken any of his antihypertensives since morning. Start on nitro drip as also having ongoing chest pressure. Restart home dose of Coreg and losartan. Uptitrate as for goal blood pressure of 140/90 mmHg. (4) CHF (congestive heart failure), NYHA class III: Diastolic. Acute on chronic. Repeat echocardiogram as above. Euvolemic for now. Oxygen supplementation keeping saturation over 90%. Strict input output charting, daily weights. Qualifiers: Congestive heart failure type: diastolic Congestive heart failure chronicity: chronic Qualified Code(s): I50.32 - Chronic diastolic (congestive) heart failure (5) Diabetes mellitus: Check A1c. Insulin sliding scale at moderate dose protocol ACHS. Carb consistent diet. (6) Hyperlipidemia: (7) Hypothyroidism: Continue with home dose of levothyroxine Qualifiers: Hypothyroidism type: acquired Qualified Code(s): E03.9 - Hypothyroidism, unspecified (8) Metabolic syndrome: Plan Full code Carb consistent cardiac diet Heparin drip will suffice as DVT prophylaxis Protonix for PUD prophylaxis. Attestations Medical Necessity Statement*: Admission for more than 2 midnights for management of non-ST elevation KS in a patient with metabolic syndrome and recent PCI to RCA Diagnoses Chest pain I25.9 Chest pain type: chest pain due to myocardial ischemia Ischemic chest pain type: unspecified angina pectoris type NSTEMI (non-ST elevated myocardial infarction) I21.4 Hypertensive urgency I16.0 CHF (congestive heart failure), NYHA class III I50.32 Congestive heart failure type: diastolic Congestive heart failure chronicity: chronic Diabetes mellitus E11.9 Hyperlipidemia E78.5 Hypothyroidism E03.9 Hypothyroidism type: acquired Metabolic syndrome E88.810
--- NOTE | 2023-05-22 17:01 | USCV_ITS ---
Salvador Luke Age: 58 Gender: M : 1965 Exam Date: 05/22/2023 18:24 Ordering Phys: Richard Wayne MD Technologist: NELSON Exam Location: [facility] Indication: NSTEMI. History of 1 cardiac stent. DM2, HTN. Morbid obesity. BP: 180 / 77 HR: 88 Rhythm: Sinus Technical Quality: Fair with [employer] MEASUREMENTS (Male / Female) Normal Values 2D ECHO LV Diastolic Diameter PLAX 4.9 cm 4.2 - 5.9 / 3.9 - 5.3 cm LV Systolic Diameter PLAX 3.1 cm IVS Diastolic Thickness 2.3 cm 0.6 - 1.0 / 0.6 - 0.9 cm IVS Systolic Thickness 2.2 cm LVPW Diastolic Thickness 1.5 cm 0.6 - 1.0 / 0.6 - 0.9 cm LVPW Systolic Thickness 2.4 cm LVOT Diameter 2.2 cm LV Ejection Fraction 2D Teich 65.2 % LV Ejection Fraction MOD 2C 56.1 % LV Ejection Fraction 2C AL 56.1 % LA Diameter 4.2 cm LA Width 4.7 cm LA Height 5.2 cm RA Width 5.1 cm RA Height 5.3 cm Aorta at Sinotubular Diameter 3.1 cm IVC Diameter 1.7 cm M-MODE Aortic Annulus Diameter 2.8 cm LA Ao Ratio MM 1.6 MV E Point Septal Separation 0.6 cm DOPPLER AV Peak Velocity 109.0 cm/s LVOT Peak Velocity 91.0 cm/s AV Area Cont Eq vti 2.8 cm squared AV Area Cont Eq pk 3.1 cm squared MV Peak Velocity 131.0 cm/s MV Area PHT 4.3 cm squared Mitral E to A Ratio 1.1 MV E' Velocity 69.0 cm/s Mitral E to MV E' Ratio 12.1 Mitral E to LV E' Lateral Ratio 10.9 Mitral E to LV E' Septal Ratio 13.7 TV Peak E Velocity 65.0 cm/s PV Peak Velocity 97.0 cm/s RV Acceleration Time 0.1 s RV Ejection Time 0.3 s RV AcT/ET 0.3 FINDINGS Left Ventricle Normal left ventricular cavity size. Normal left ventricular systolic function. Left ventricular ejection fraction is estimated at 55 %. No diagnostic regional wall motion abnormalities. Grade II diastolic dysfunction, moderately elevated filling pressures. Right Ventricle Normal right ventricular size and systolic function. RVSP could not be calculated due to incomplete tricuspid regurgitation velocity profile. Right Atrium Normal right atrial size. Left Atrium Normal left atrial size. Mitral Valve Structurally normal mitral valve. Aortic Valve Structurally normal trileaflet aortic valve. No aortic valve stenosis. No aortic valve regurgitation. Tricuspid Valve Structurally normal tricuspid valve. Pulmonic Valve Pulmonic valve not well visualized. No pulmonary valve stenosis. Pericardium No pericardial effusion. Aorta Normal size aortic root and proximal ascending aorta. IVC Inferior vena cava not visualized. CONCLUSIONS 1. This is a technically difficult study in spite of using [employer]. 2. Normal left ventricular cavity size and systolic function. Left ventricular ejection fraction is estimated at 55 %. No diagnostic regional wall motion abnormalities. Grade II diastolic dysfunction, moderately elevated filling pressures. 3. There has been no significant change when compared to study dated 09/26/2022. Anna Thrasher MD (Electronically Signed) Final Date: 23 May 2023 09:50 S
[2023-05-22 17:07] LABS: Basophils # 0.1 10^3/uL (0.0-0.1); Basophils % 0.5 %; Eosinophils # 0.1 10^3/uL (0.0-0.8); Hematocrit 37.4 % (37-53); Lymphocytes # 2.1 10^3/uL (0.8-4.8); Lymphocytes % 20.7 %; Mean Corpuscular HGB Conc 31.6 g/dL (30-55); Mean Corpuscular Hemoglobin 27.8 pg (27-33); Mean Corpuscular Volume 88.2 fl (82-101); Mean Platelet Volume 11.1 fL (7.4-10.4); Monocytes # 0.7 10^3/uL (0.2-0.9); Monocytes % 6.5 %; Neutrophils # 7.17 10^3/uL (1.8-7.7); Nucleated Red Blood Cells % 0 %; Platelet Count 261 10^3/cmm (157-399); Red Blood Count 4.24 10^6/uL (3.85-5.65); Red Cell Distribution Width 13.2 % (12.1-15.1)
[2023-05-22] MEDS: morphine 4 mg/mL SDV 1 mL 2 MG IVP (17:21)
[2023-05-22] MEDS: atorvastatin 40 mg Tablet 80 MG PO (17:28)
[2023-05-22] MEDS: carvedilol 12.5 mg Tablet PO (17:28)
[2023-05-22] MEDS: pantoprazole DR 40 mg Tablet PO (17:28)
[2023-05-22] MEDS: heparin drip 25,000 UNIT/500 ML PREMIX 47.83 UNIT IV (17:36)
[2023-05-22 17:38] LABS: Alanine Aminotransferase 28 U/L (0-41); Albumin Level 3.7 g/dL (3.5-5.2); Alkaline Phosphatase 79 U/L (40-130); Anion Gap 14.4 (5-19); Aspartate Amino Transferase 43 U/L (0-40); Blood Urea Nitrogen 26 mg/dL (6-20); Calcium 8.8 mg/dL (8.5-10.5); Carbon Dioxide 28 mmol/L (22-29); Chloride 100 mmol/L (98-107); Globulin 3.6 g/dL (1.3-4.6); Glomerular Filtration Rate 76.7 mL/min (90-130); Glucose 190 mg/dL (65-115); Iron 53 ug/dL (59-158); Osmolality Calculated 296 mOsm/kg (285-295); Percent Saturation 20.9 % (20-50); Potassium 4.4 mmol/L (3.5-5.1); Sodium 138 mmol/L (136-145); Total Bilirubin 0.2 mg/dL (0.15-1.2); Total Iron Binding Capacity 253 mcg/dl; Total Protein 7.3 g/dL (6.6-8.7); Unsaturated Iron Binding 200 ug/dL (112-347)
[2023-05-22 17:44] LABS: Troponin(5th) Baseline 629 ng/L (0-15)
--- NOTE | 2023-05-22 17:46 | P.CONIM_ITS ---
Providers/Reason For Consult Consulting Physician/Specialty*: Dr. Thrasher, cardiology Reason for Consult*: Chest pain, NSTEMI Attending Physician: Richard Wayne MD Primary Care Provider: HANNAH Mason History of Present Illness History of Present Illness Salvador Luke is a 58 year old male with past medical history of CAD s/p RCA stents in 09/2022, hypertension, hyperlipidemia, insulin dependant type 2 diabetes mellitus since 1996, GERD, peripheral neuropathy, h/o diabetic ulcers and s/p b/l below-knee amputation, h/o varicose vein s/p ablation in LLE, hy pothyroidism, morbid obesity (BMI=52), h/o left femoral DVT in , s/p IVC filter placement and removal and DANYELL. Hs started having chest pains this morning and woke up at 7:30 am with retrosternal and left upper chest pain and SOB. He called 911 and [facility] at around 9-9:30. He also had one episode of vomiting. His EKG did not show any significant ST -T wave changes. Troponin T here is >600. Review of Systems Const: Denies: fever(s) or chills Eyes: Denies: change in vision Card: Denies: chest pain, palpitations, swelling of feet/ankles, lighth eadedness, dyspnea on exertion or orthopnea Resp: Denies: dyspnea, productive cough or non-productive cough GI: Denies: abdominal pain, nausea or vomiting Musc: Reports: joint pain; Denies: neck pain or back pain Neuro: Denies: headache(s) or dizziness Psych: Denies: anxiety or depression Felipe/Lymph: Reports: easy bruising; Denies: easy bleeding Medications/Allergies Home Medications Medication Instructions Recorded Confirmed Last Taken Type acetaminophen 500 mg tablet 1,000 mg PO Q4H PRN Pain 04/30/21 12/07/22 09/26/22 History (Tylenol Extra Strength) caxueplsepfj-lhftqnty-rizkne tablet 1 tab PO QAM 04/30/21 12/07/22 09/25/22 History pantoprazole 40 mg tablet,delayed 40 mg PO BID 04/30/21 12/07/22 09/25/22 History release nitroglycerin 0.4 mg sublingual 0.4 mg sublingual Q5M PRN chest 05/06/21 12/07/22 Unknown Rx tablet pain #30 tabs carvedilol 12.5 mg tablet (Coreg) 12.5 mg PO BID #180 tabs 05/28/21 12/07/22 0 09/25/22 Rx aspirin 81 mg tablet,delayed 81 mg PO QAM 11/15/21 12/07/22 09/25/22 History release gabapentin 300 mg capsule 300 mg PO BID PRN Pain 11/15/21 12/07/22 09/25/22 History losartan 100 mg tablet 100 mg PO QAM 11/15/21 12/07/22 09/25/22 History insulin aspart U-100 100 unit/mL See Rx Instructions .Route 12/11/21 12/07/22 09/25/22 Rx (3 mL) subcutaneous pen (Novolog .COMPLEX #15 mL FlexPen U-100 Insulin aspart) [employer] and supplies #1 ea 12/15/21 10/05/22 Unknown Rx bilateral transtibial prosthesis #1 ea 01/31/22 10/05/22 Unknown Rx Bilateral Transtibial Prostheses #1 ea 02/03/22 10/05/22 Unknown Rx glipizide 5 mg tablet 5 mg PO BID 05/26/22 12/07/22 09/25/22 History sertraline 100 mg tablet 200 mg PO DAILY 05/26/22 12/07/22 09/25/22 History atorvastatin 80 mg tablet 80 mg PO QPM 09/26/22 12/07/22 09/25/22 History levothyroxine 75 mcg tablet 75 mcg PO DAILY 09/26/22 12/07/22 09/25/22 History pioglitazone 15 mg tablet 15 mg PO BID 09/26/22 12/07/22 09/25/22 History polymyxin B sulfate 10,000 1 drp ophthalmic (eye) Q4H 09/26/22 12/07/22 09/25/22 History unit-trimethoprim 1 mg/mL eye drops trazodone 150 mg tablet 150 mg PO BEDTIME 09/26/22 12/07/22 09/25/22 History clopidogrel 75 mg tablet 75 mg PO DAILY #30 tabs 09/29/22 12/07/22 Unknown Rx insulin glargine 100 unit/mL (3 40 unit SUBCUT BID 10/05/22 12/07/22 Unknown History mL) subcutaneous pen (Lantus Solostar U-100 Insulin) isosorbide mononitrate 10 mg tablet 10 mg PO ONCE 12/07/22 12/07/22 Unknown History montelukast 10 mg tablet 10 mg PO DAILY PRN 12/07/22 12/07/22 Unknown History Allergies Allergy/AdvReac Type Severity Reaction Status Date / Time vancomycin Allergy ALGY-Anaphy Verified 12/07/22 07:30 laxis Current Medications Generic Name Dose Route Start Last Admin Trade Name Freq PRN Reason Stop Dose Admin Atorvastatin Calcium 80 mg 05/22/23 18:00 05/22/23 17:28 Atorvastatin 40 Mg Tablet PO 80 mg QPM MARJORIE Administration Carvedilol 12.5 mg 05/22/23 16:45 05/22/23 17:28 Carvedilol 12.5 Mg Tablet PO 12.5 mg BID MARJORIE Administration Heparin Sodium/Sodium Chloride 25,000 unit in 500 mls @ 0 mls/hr 05/22/23 17:00 05/22/23 17:36 Heparin Drip IV 14 unit/kg/hr .Q0M MARJORIE 47.83 mls/hr Administration Protocol Per Protocol Morphine Sulfate 2 mg 05/22/23 16:50 05/22/23 17:21 Morphine 4 Mg/Ml Sdv 1 Ml IVP 2 mg Q4H PRN Administration SEVERE PAIN Pantoprazole Sodium 40 mg 05/22/23 18:00 05/22/23 17:[address] 40 Mg Tablet PO 40 mg BID MARJORIE Administration PFSH Acute PFSH: Medical History Abnormal cardiovascular stress test 04/2021 Anemia CHF (congestive heart failure), NYHA class III diastolic, EF 65% on echo 04/2021 COVID-19 03/2021, 04/2022 Dental caries extending into pulp Depression Diabetes mellitus Type II, onset 1996, on insulin Elevated serum creatinine GERD (gastroesophageal reflux disease) HTN (hypertension) Hyperlipidemia Hypothyroidism Obesity Peripheral neuropathy Peripheral vascular disease Sleep apnea Sleep study 09/2021 - bipap titration recommended Surgical History History of inferior vena caval filter placement placed 10/2021 for left femoral DVT; removed 06/08/22 History of left below knee amputation 11/2021 History of right below knee amputation 2014 History of varicose vein stripping ablation LLE Status post bilateral below knee amputation Family History Father CAD (coronary artery disease) Mother CAD (coronary artery disease) from heart attack age 62 Social History Smoking and tobacco status: never smoked Alcohol intake: current Alcohol intake frequency: holidays/special occasions only Substance/Drug Use: never Vitals/I&O/Wt Last Vital Signs Pulse 91 05/22/23 17:06 Resp 19 H 05/22/23 17:06 BP 180/77 05/22/23 17:06 Pulse Ox 94 05/22/23 17:06 O2 Del Method Room Air, Oxymask 05/22/23 17:06 Weight last 48 hrs Weight 376 lb 9 oz Physical Exam Const: COMMON NORMALS: no acute distress, patient oriented x3 and alert GENERAL APPEARANCE: cooperative, comfortable, well kempt, well hydrated and other (morbidly obese) HENMT: COMMON NORMALS: hearing grossly normal bilaterally, external ears normal and moist oral mucous membranes FACE & SINUS: normal facial exam NOSE: Normal septum present and No nasal discharge present; no Epistaxis present EXTERNAL EAR: Yes external ears normal MOUTH: lip normal Eye: COMMON NORMALS: EOMs intact bilaterally and no scleral icterus GENERAL EYE: appearance normal, both eyes and all related structures ALIGNMENT: Yes alignment normal Neck/C-Spine: COMMON NORMALS: supple and no JVD GENERAL: Yes normal visual inspection and Yes trachea midline CAROTIDS: Yes normal carotid upstroke Lymph: LYMPHATIC: no lymphadenopathy noted Chest: COMMONS NORMALS: normal inspection of the chest and normal palpation of entire chest wall CHEST: Yes Symmetrical chest wall rise and No tenderness Resp: COMMON NORMALS: clear to auscultation bilaterally EFFORT & INSPECTION: Yes able to speak in complete sentences and No respiratory distress AUSCULTATION: clear to auscultation bilaterally, no crackles, no rales, no rhonchi and no wheezes Cardio: COMMON NORMALS: no JVD, regular rate, regular rhythm, S1 normal heart sound present, S2 normal heart sound present and Peripheral pulses 2+ throughout PALPATION: normal PMI RATE: regular rate RHYTHM: regular rhythm HEART SOUNDS: S1 normal heart sound present, S2 normal heart sound present, no gallops and no murmurs BRUITS: no carotid bruits PERIPHERAL PULSES: Peripheral pulses 2+ throughout, radial pulses present, posterior tibial pulses present and dorsalis pedis present GI: COMMON NORMALS: Soft to palpation AUSCULTATION: Yes normoactive bowel sounds PALPATION: Yes Soft to palpation, No Tenderness to palpation present (GI), No Guarding due to palpation present (GI) and No Rigid due to palpation Extremity: GENERAL: Yes amputation (b/l BKA), No cyanosis, No edema and No pallor Neuro: COMMON NORMALS: patient oriented x3 and no focal motor deficits SENSORIUM/ORIENTATION: Yes alert Psych: COMMON NORMALS: Normal thought process present and speech normal APPEARANCE: Yes well kempt SPEECH: Yes normal speech MOOD & AFFECT: Yes euthymic mood THOUGHT PROCESS: Normal thought process present THOUGHT CONTENT: Yes Normal thought content present Data 05/22/23 16:50 05/22/23 16:50 Other data: Coronary angiogram (09/26/22) Diagnostic Cath Status: ? ? Elective Diagnostic Findings ? * The left main is a medium caliber vessel with no significant stenotic lesions. ? * The left anterior descending artery is a medium caliber vessel which appears to wrap around the LV apex.? The mid and distal left anterior descending artery was found to have severe diffuse disease, lesions ranging anywhere from 50 to 80%. The artery gives off multiple small diagonal and septal perforators which also were found to have moderate to severe diffuse disease.. ? * The left circumflex artery is a medium caliber nondominant vessel which also was found to have severe diffuse disease, lesions were anywhere from 50 to 80%. The lesions are mainly involving the mid and distal segments of the vessels. ? * The right coronary artery is a medium caliber vessel which was found to have a high-grade tubular lesion of 80 to 90% proximally.? The mid and distal segment of the artery was found to have mild diffuse intimal irregularities. The PDA and the PLV branches also found to have severe diffuse disease with a lesions ranging anywhere from 60 to 80%. PCI Status: ? ? Elective PCI LVEF Assessed: ? ? No PCI Indication: ? ? NSTE - ACS Interventional Findings ? * Due to the diffuse nature of the disease in multiple vessels we decided to intervene on the proximal right coronary artery.? There are no other arteries that are amenable to intervention.? The proximal right coronary artery was stented primarily with a 3.5 x 22 mm drug-eluting stent.? The end result was excellent. Decision for PCI with Surgical Consult: ? ? No PCI for Multi-vessel Disease: ? ? No Conclusions ? 1. 57-year-old white male with a multiple factors for coronary artery disease presenting with increasing episodes of chest pain over the last couple of years.? Abnormal Myocardial perfusion imaging.? Cardiac catheterization revealed the following findings. ? 2. Severe diffuse disease in all the 3 coronary arteries mostly involving the mid and distal segments of the arteries.? Relatively small caliber vessels.? Markedly elevated LVEDP of 38 mmHg. ? 3. I reviewed and discussed the cardiac catheterization data with the Dr. Nassar.? In view of the severe diffuse disease except for the proximal RCA lesion, the other lesions were thought to be not ideal for any percutaneous or surgical intervention. So it was decided to intervene the proximal RCA lesion and then try to optimize medical treatment. Dr. Nassar took over further management of this patient at this point. A&P Assessment and plan (1) NSTEMI (non-ST elevated myocardial infarction): Multivessel CAD on last [facility] with diffuse disease in mid to distal LAD, mid to distal LCx , Px RCA and PDA and PLV branches. -s/p RAHEEM to Px RCA -continue DAPT, statin, coreg -Poor study but normal LV function on echocardiogram. will f/u on echo -NTG gtt for BP and CP control. Risks and benefits were discussed with the patients. Possible complications including risk of heart attack stroke and , coronary perforation, arrhythmia, cardiac tamponade in urgent CABG were discussed with the patient as well. -will discuss case with Dr. Nassar. (2) Hypertensive urgency: (3) Atherosclerotic heart disease of [place] coronary artery with unstable angina pectoris: (4) Diabetes mellitus: (5) Sleep apnea: Qualifiers: Sleep apnea type: obstructive Qualified Code(s): G47.33 - Obstructive sleep apnea (adult) (pediatric) (6) CHF (congestive heart failure), NYHA class III: HFpEF Qualifiers: Congestive heart failure chronicity: chronic Congestive heart failure type: diastolic Qualified Code(s): I50.32 - Chronic diastolic (congestive) heart failure (7) Hyperlipidemia: Plan Morbid obesity GERD Coding Level of Care Code 60441 Diagnoses NSTEMI (non-ST elevated myocardial infarction) I21.4 Hypertensive urgency I16.0 Atherosclerotic heart disease of [place] coronary artery with unstable angina pectoris I25.110 Diabetes mellitus E11.9 Sleep apnea G47.33 Sleep apnea type: obstructive CHF (congestive heart failure), NYHA class III I50.32 Congestive heart failure chronicity: chronic Congestive heart failure type: diastolic Hyperlipidemia E78.5
[2023-05-22] MEDS: insulin lispro 100 unit/1 mL SUBCUT ×2 (17:48→20:27)
[2023-05-22] MEDS: nitroglycerin drip 50 MG/250 ML PREMIX IV (17:51)
[2023-05-22 17:52] LABS: Vitamin B12 583 pg/mL (232-1245)
[2023-05-22 17:58] LABS: Glucose Point of Care 204 mg/dL (70-110)
[2023-05-22 18:49] LABS: Add Urine Microscopic? NO; Charge for UA Resulting for Rev
--- NOTE | 2023-05-22 18:49 | ECG_ITS ---
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 Measurements Intervals Ernul Rate: 88 P: 57 CA: 169 QRS: 52 QRSD: 101 T: 91 QT: 361 QTc: 438 Interpretive Statements SINUS RHYTHM LOW QRS VOLTAGE IN PRECORDIAL LEADS [QRS DEFLECTION < 1.0 mV IN CHEST LEADS] MINIMAL ST DEPRESSION [0.025+ mV ST DEPRESSION] Compared to ECG 05/22/2023 17:02:11 No significant changes Electronically Signed On 05-22-2023 23:43:35 CDT by Amos Jaems M.D. [id number]
[2023-05-22 18:54] LABS: Bilirubin Urine Neg (Negative); Blood Urine Neg (Negative); Glucose Urine UA 4+ (Normal); Ketones Urine Negative (Negative); Leukocyte Esterase Urine Negative (Negative); Nitrate Urine Negative (Negative); Protein Urine Neg (Negative); Specific Gravity, Urine 1.005 (1.005-1.030); Urine Appearance Clear (CLEAR); Urine Color Yellow (Yellow); Urobilinogen Urine Norm (Negative); pH Urine 7 (5-7)
[2023-05-22] MEDS: losartan 50 mg Tablet 100 MG PO (19:29)
[2023-05-22 19:30] LABS: Troponin 5 2HR Delta 4.5 ABS# (0-10)
[2023-05-22 19:34] LABS: Troponin 5 2HR 633.5 ng/L (0-15)
[2023-05-22 20:12] LABS: Glucose Point of Care 235 mg/dL (70-110)
[2023-05-22] MEDS: insulin glargine 100 units/1 mL 40 UNIT SUBCUT (20:28)
[2023-05-22] MEDS: acetaminophen 325 mg Tablet 650 MG PO (21:43)
--- NOTE | 2023-05-22 22:30 | ECG_ITS ---
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 Measurements Intervals [place] Rate: 74 P: 48 NH: 193 QRS: 54 QRSD: 99 T: 90 QT: 386 QTc: 430 Interpretive Statements SINUS RHYTHM LOW QRS VOLTAGE IN PRECORDIAL LEADS [QRS DEFLECTION < 1.0 mV IN CHEST LEADS] Compared to ECG 05/22/2023 19:33:37 ST (T wave) deviation no longer present Electronically Signed On 05-22-2023 23:43:29 CDT by Amos James M.D. [id number]
[2023-05-22 23:36] LABS: Troponin 5 6HR Delta 1.7 ng/L (0-12)
[2023-05-22 23:38] LABS: Troponin 5 6HR 630.7 ng/L (0-15)
[2023-05-22] MEDS: sodium chloride 0.9% 1,000 ML 75 ML IV (23:52)
[2023-05-22 23:53] LABS: Partial Thromboplastin Time 60.3 SECONDS (23.9-36.7)
[2023-05-23] VITALS (15 sets, daily range): BP systolic 136–226; BP diastolic 66–106; PULSE 69–84; RESP 9–21; TEMP 36.4–36.7; O2SAT 96–100
[2023-05-23] MEDS: morphine 4 mg/mL SDV 1 mL 2 MG IVP ×2 (03:02→20:59)
[2023-05-23 05:00] LABS: Basophils % 0.4 %; Eosinophils # 0.3 10^3/uL (0.0-0.8); Eosinophils % 3.7 %; Hematocrit 33.6 % (37-53); Lymphocytes # 2.5 10^3/uL (0.8-4.8); Lymphocytes % 27.4 %; Mean Corpuscular HGB Conc 31.3 g/dL (30-55); Mean Corpuscular Hemoglobin 28.1 pg (27-33); Mean Corpuscular Volume 89.8 fl (82-101); Mean Platelet Volume 11.2 fL (7.4-10.4); Monocytes # 0.7 10^3/uL (0.2-0.9); Monocytes % 7.8 %; Neutrophils # 5.51 10^3/uL (1.8-7.7); Neutrophils % 60.3 %; Nucleated Red Blood Cells % 0 %; Platelet Count 234 10^3/cmm (157-399); Red Blood Count 3.74 10^6/uL (3.85-5.65); Red Cell Distribution Width 13.2 % (12.1-15.1); White Blood Count 9.15 10^3/uL (3.29-11.43)
[2023-05-23 05:14] LABS: Estmated Average Glucose 255; Hemoglobin A1C 10.5 % (4.0-6.0)
[2023-05-23] MEDS: heparin drip 25,000 UNIT/500 ML PREMIX 47.83 UNIT IV (05:17)
[2023-05-23 05:21] LABS: Magnesium 1.9 mg/dL (1.7-2.3)
[2023-05-23 05:22] LABS: Alanine Aminotransferase 24 U/L (0-41); Albumin Level 3.3 g/dL (3.5-5.2); Alkaline Phosphatase 72 U/L (40-130); Aspartate Amino Transferase 49 U/L (0-40); Blood Urea Nitrogen 22 mg/dL (6-20); Calcium 8.7 mg/dL (8.5-10.5); Carbon Dioxide 27 mmol/L (22-29); Chloride 102 mmol/L (98-107); Globulin 3.2 g/dL (1.3-4.6); Glomerular Filtration Rate 86.7 mL/min (90-130); Glucose 176 mg/dL (65-115); Osmolality Calculated 292 mOsm/kg (285-295); Sodium 137 mmol/L (136-145); Total Bilirubin 0.2 mg/dL (0.15-1.2); Total Protein 6.5 g/dL (6.6-8.7)
[2023-05-23 05:23] LABS: Anion Gap 12.1 (5-19); Potassium 4.1 mmol/L (3.5-5.1)
[2023-05-23 05:24] LABS: Partial Thromboplastin Time 85.5 SECONDS (23.9-36.7)
[2023-05-23 05:44] LABS: Folate Level 11.8 ng/mL (4.5-32.2)
[2023-05-23] MEDS: losartan 50 mg Tablet 100 MG PO (06:00)
[2023-05-23] MEDS: diphenhydrAMINE 50 mg Capsule PO (06:00)
[2023-05-23] MEDS: aspirin 325 mg Tablet PO (06:00)
--- NOTE | 2023-05-23 06:20 | XACV_ITS ---
Exam Room: [facility] Ht: 180 cm Wt: 171 kg BSA: 3.02 m2 Gender: Male : 1965 Any Known Allergies: Other Exam Priority: Routine Procedure(s): Procedure Description: Diagnostic procedure Procedure Description: PCI procedure Procedure Description: Left Heart Catheterization Procedure Description: PTCA Procedure Description: Coronary Angiography Cesario [place]; Diagnostic Cath Status: Urgent Diagnostic Findings * Patient with severe underlying vascular disease including coronary artery disease and peripheral arterial disease. A stent was placed in his proximal right coronary artery in September of this year. He has severe diffuse disease distally of all 3 vessels. Returned with chest pain and troponin around 600. He is massively obese and so imaging is extraordinarily difficult and with respect to the distal vessels is next to impossible. The procedure was done from the right radial artery. * Coronary angiography reveals right coronary artery dominance. The left main is normal. It bifurcates into the LAD and circumflex. The proximal and mid LAD are free of significant disease. There is diffuse small vessel disease distally with no significant lesions. The circumflex gives off 2 fairly good-sized marginal branches. There is moderate to severe diffuse disease distally in both marginals. Imaging is extremely difficult because of his massive size. The right coronary artery is the dominant vessel and ends distally as the posterior left ventricular branch and posterior descending artery. The previously placed stent in the proximal right coronary artery is widely patent. There is an area in the proximal posterior left ventricular branch which contains a 70 to 80% stenosis. This is in an area where there is a hairpin turn. It is also, because of his massive obesity, essentially impossible to see with fluoroscopy. 1 must use cineangiography in order to see the area with any degree of clarity. Otherwise there is moderate to severe diffuse disease distally. PCI Status: Elective PCI LVEF Assessed: No PCI Indication: NSTE - ACS Interventional Findings * It was impossible to image the area of the posterior left ventricular branch with simple fluoroscopy due to his massive obesity. I was able to place a wire past the lesion. Because of the difficulty in imaging it was nearly impossible to place a balloon at the lesion. I made 2 attempts at balloon angioplasty which were largely unsuccessful. The vessel is relatively small. I used a 2 mm balloon. There is still adequate distal flow. I decided not to continue in order not to do any harm. I did not consider placing a stent. I explained this in detail to his at the end of the procedure. Decision for PCI with Surgical Consult: No PCI for Multi-vessel Disease: No Conclusions 1. Coronary artery disease, primarily diabetic small vessel disease. Recommendations * Medical therapy. Adjust medications to try to prevent angina. Interventional RX Recommendation: PCI w/o planned CABG Diagnostic RX Recommendation: PCI w/o planned CABG Anticoagulation: Heparin Pressures Phase:Rest AO : 147 / 81 ( 107 ) @ 8:15:00 AM 143 / 79 ( 105 ) @ 8:15:00 AM 93 / 60 ( 74 ) @ 8:16:00 AM 137 / 91 ( 113 ) @ 8:23:00 AM LV : 146 / 10 / 36 @ 8:14:00 AM 147 / 9 / 33 @ 8:15:00 AM Valves Phase:DefaultPhase AV : 0.0 @ 7:50:25 AM AV Mean Gradient: 0.0 @ 7:50:25 AM 0.0 @ 7:50:25 AM Clinical Evaluation EBL: 5mL-10mL Procedural Details Procedure Consent Obtained. Current Diagnosis : NSTEMI. Pre-Procedure Time Out. Identified patient by full name and date of as verbalized by the patient/guarantor. Does the consent match the physician's order: Yes. Accurate & Complete Informed Consent: Yes. Inpatient/Outpatient History & Physical on Chart: Yes. If H&P is completed, is and addenduem needed: No. Visualize and Verify Site with Patient/Guarantor: N/A. Relevant Radiology Images available: Yes. The risks, benefits, and alternatives of sedation and/or procedure were discussed by physician. The patient agrees to continue. Procedure started. [facility] Clinical Fraility Score: 7: Severely Frail. 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 Chest Pain Symptom Assessment: Typical Angina Symptoms. Cardiovascular Instability: No. Correct patient, site and procedure confirmed by cath team. Current diagnosis: NSTEMI. PERRLA. 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 Lungs clear x 5 lobes. IV Site on Arrival: 18 gauge in the right anticubital. IV Fluids: 0.9% NaCl at KVO. 500 mL infused prior to central lab technician. Pre Procedural Pulses: bilateral radial was 3+. Patient has bilateral below the knee amputations. Oxygen started at 2liters/min via nasal canula. right groin was prepped with chloroprep then draped in the usual sterile fashion. right radial was prepped with chloroprep then draped in the usual sterile fashion. Baseline sample Acquired. HR: 78 BPM. Physician notified. Patient's family in the central lab technician waiting room. Dr. Nassar will update at the completion of the procedure. Equipment: 6F - Radial. Cardiac Cath Pack. ACIST Manifold Kit Model BT 2000. Heparinized Saline (2 units/mL), 1000 mL bag. Physician arrived. Physician scrubbed in. Immediate Pre-Procedure Time Out. Correct Patient: Yes; Correct Procedure: Yes; Correct Site: Yes; Correct Patient Position: Yes; Correct Supplies: Yes; Dried Flammable Prep: Yes; Blood Products Available: N/A;. Lidocaine 1% infiltrated to the right radial. Arterial access obtained. A 5 belarusian TIG catheter in over the exchange J wire. EDP Sample taken: LV 146/10,36; HR: 67 BPM; SpO2: 94%. Pullback taken: LV 147/9,33; AO 147/81(107); Mean: 0mmHg, Peak to Peak: 0mmHg, SEP: 8sec/min; HR: 78 BPM; SpO2: 97%. Catheter redirected to the LCA. Multiple views taken of left coronary artery. Catheter redirected to the RCA. Multiple views taken of right coronary artery. Dr. Nassar reviewing cineography. Catheter removed over the exchange J wire. 6 belarusian JR 4 guide catheter was inserted over the exchange J wire. Draper guidewire was advanced through the guide catheter to lesion in the right 1st. RPL. Inflation number : 1 A AB MINI TREK 2.00X12 RX BALLOON was prepped and advanced across the 1st RPL , then inflated to 8 JOHN for 0:26 seconds. Inflation number: 2 The AB MINI TREK 2.00X12 RX BALLOON was reinflated across the 1st RPL, to 8 JOHN for 0:27 seconds. Balloon out. Wire out. Guide catheter out. Dr. Nassar scrubbed out. A TR Band was successful obtaining hemostatsis at the Right Radial artery insertion site. Post Procedure: Pulses reassessed and unchanged. PERRLA. 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 No VTE prophylaxis required. Medication's Wasted: Nitro = 49.8 mg. Medication's Wasted: Heparin = 1000 units. Total IV fluids: 100 mL. Post-op diagnosis: PTCA of the Right 1st RPL. PCI Indication: NSTE. Complications: none. Estimated blood loss: 5mL-10mL. Responsiveness - Normal response to verbal stimuli; alert and oriented, PERRLA. Airway - Unaffected, no intervention required; spontaneous ventilation. Circulation: W/N/L, pulses unchanged. Nausea/Vomiting: No. Procedure completed. Patient transferred by bed to ICU. Vital chart was stopped. Access Site Site: Right Radial artery Sheath Size: 6 Fr Hemostasis Method: TR Band Hemostasis Success: Successful Procedure Medications Start: 6:57 AM Stop: 6:57 AM Medication: Versed Amount: 1 mg Route: I.V. Start: 6:57 AM Stop: 6:57 AM Medication: Fentanyl Amount: 50 mcg Route: I.V. Start: 7:03 AM Stop: 7:03 AM Medication: Fentanyl Amount: 50 mcg Route: I.V. Start: 7:11 AM Stop: 7:11 AM Medication: Nitrogylcerin Amount: 200 mcg Route: I.A. Start: 7:12 AM Stop: 7:12 AM Medication: Versed Amount: 1 mg Route: I.V. Start: 7:46 AM Stop: 7:46 AM Medication: Plavix Amount: 300 mg Route: P.O. I, the attending physician, have reviewed and verified all procedure medications. Yes, all medications given per verbal order History/Risk Factors Hypertension: Yes Dyslipidemia: Yes Peripheral Arterial Disease (PAD): No Myocardial Infarction (RI): No Obesity: Yes Renal Disease: No Tobacco Use: Never Prior Interventions PCI: Yes CABG: No Valve Surgery: No Date of PCI: 01/20/2023 Report Signatures Finalized by Dr. Augie Nassar MD on 05/23/2023 08:01 AM
[2023-05-23] MEDS: perflutren protein-a microsphr 0.22 mg/mL SDV 3 mL IV (06:41)
[2023-05-23 07:10] LABS: Glucose Point of Care 169 mg/dL (70-110)
--- NOTE | 2023-05-23 07:32 | PC.PHAR ---
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
--- NOTE | 2023-05-23 08:00 | PC.NURSE ---
Patient arrived from [facility] with TR band intact. No drainage or hematoma present. Pt educated regarding activity restriction, nurse will monitor q15m
[2023-05-23 08:16] LABS: Glucose Point of Care 191 mg/dL (70-110)
[2023-05-23] MEDS: insulin lispro 100 unit/1 mL SUBCUT ×4 (08:44→20:59)
[2023-05-23] MEDS: sertraline 100 mg Tablet 200 MG PO (08:45)
[2023-05-23] MEDS: levothyroxine 75 mcg Tablet PO (08:46)
[2023-05-23] MEDS: pantoprazole DR 40 mg Tablet PO ×2 (08:46→17:08)
[2023-05-23] MEDS: carvedilol 12.5 mg Tablet PO ×2 (08:46→17:08)
[2023-05-23] MEDS: insulin glargine 100 units/1 mL 40 UNIT SUBCUT ×2 (08:50→17:06)
[2023-05-23] MEDS: isosorbide mononitrate 20 mg Tablet PO ×2 (08:51→17:08)
[2023-05-23] MEDS: amlodipine 10 mg Tablet PO (09:33)
[2023-05-23 11:57] LABS: Glucose Point of Care 159 mg/dL (70-110)
[2023-05-23] MEDS: acetaminophen 325 mg Tablet 650 MG PO (12:07)
--- NOTE | 2023-05-23 12:16 | PM.PN ---
Subjective Subjective: Overnight patient had mild chest pain. He was continued on a heparin and nitro drip. Earlier today morning he underwent cardiac angiogram in which he underwent balloon angioplasty, PCI could not be done as due to body habitus patient did not have good images with fluoroscopy. Postprocedure patient is chest pain-free, having high blood pressures with systolic running in the 220s. He was continued on oral antihypertensive and amlodipine was added after his blood pressures improved. Blood work appreciated for stable CBC, hemoglobin of 10.5, CMP showing no electrolyte abnormalities, stable creatinine, A1c of 10.5 Vitals/I&O/Wt Last Vital Signs Temp 97.6 F 05/23/23 04:00 Pulse 84 05/23/23 09:30 Resp 9 L 05/23/23 09:30 BP 226/106 05/23/23 09:30 Pulse Ox 99 05/23/23 09:30 O2 Del Method Nasal Cannula 05/23/23 04:00 O2 Flow Rate 2 05/23/23 04:00 05/22/23 05/23/23 05/23/23 22:59 06:59 14:59 Intake Total 237.8 / 237.8 508.769 / 746.569 240 / 240 Output Total 1100 / 1100 1950 / 3050 650 / 650 Balance -862.2 / -862.2 -1441.231 / -2303.431 -410 / -410 Weight last 48 hrs Weight 170.806 kg Physical Exam Narrative: General: No acute distress, AO x3, morbidly obese, HEENT: PERRLA, pupils bilaterally equal and reactive Chest: Bilateral bronchial breath sounds all over lung goins, decreased air entry all over lung goins CVS: S1-S2 regular, no murmurs, no tachycardia, no gallops, no rubs Abdomen: Soft, nontender, no organomegaly, bowel sounds present Neuro: No focal deficits, no facial deformity, AO x3, power 5/5 in all limbs Data 05/23/23 04:42 05/23/23 04:42 A&P Assessment and plan (1) Chest pain: Most likely secondary non-ST elevation [place] given history of CAD, metabolic syndrome. Post balloon angioplasty. PCI could not be done given poor images with fluoroscopy given body habitus. Continue with aspirin, Plavix, statin, beta-iris, increase dose of Imdur to 20 mg twice daily. Appreciate echocardiogram EF 55% with grade 2 diastolic dysfunction without regional wall motion abnormality. Appreciate A1c of 10.5, recent lipid panel. Heparin drip stopped as per cardiology recommendations Plan for further optimization of medical treatment and better blood pressure control. Continue with home dose of carvedilol, losartan. Dose of Imdur increased to 20 mg twice daily. Amlodipine 10 mg daily added. Qualifiers: Chest pain type: chest pain due to myocardial ischemia Ischemic chest pain type: unspecified angina pectoris type Qualified Code(s): I25.9 - Chronic ischemic heart disease, unspecified (2) NSTEMI (non-ST elevated myocardial infarction): Consult cardiology. ? Treatment as above. (3) Hypertensive urgency: Goal blood pressure less than 140/90 mmHg. Continue on home dose of Coreg and losartan. Amlodipine added and Imdur uptitrated as above (4) CHF (congestive heart failure), NYHA class III: Diastolic. Acute on chronic. Euvolemic for now. Oxygen supplementation keeping saturation over 90%. Strict input output charting, daily weights. Qualifiers: Congestive heart failure type: diastolic Congestive heart failure chronicity: chronic Qualified Code(s): I50.32 - Chronic diastolic (congestive) heart failure (5) Diabetes mellitus: Continue with Lantus 40 units twice daily. A1c still more than 10. Insulin sliding scale at moderate dose protocol ACHS. Carb consistent diet. We will discuss with patient once more awake regarding stricter and better glycemic control. (6) Hyperlipidemia: (7) Hypothyroidism: Continue with home dose of levothyroxine Qualifiers: Hypothyroidism type: acquired Qualified Code(s): E03.9 - Hypothyroidism, unspecified (8) Metabolic syndrome: Plan Full code Carb consistent cardiac diet Heparin drip will suffice as DVT prophylaxis Protonix for PUD prophylaxis. Attestations Medical Necessity Statement*: Requires further hospitalization for management of non-ST elevation [place] post balloon angioplasty while medical therapy and antihypertensives are further adjusted Diagnoses Chest pain I25.9 Chest pain type: chest pain due to myocardial ischemia Ischemic chest pain type: unspecified angina pectoris type NSTEMI (non-ST elevated myocardial infarction) I21.4 Hypertensive urgency I16.0 CHF (congestive heart failure), NYHA class III I50.32 Congestive heart failure type: diastolic Congestive heart failure chronicity: chronic Diabetes mellitus E11.9 Hyperlipidemia E78.5 Hypothyroidism E03.9 Hypothyroidism type: acquired Metabolic syndrome E88.810
--- NOTE | 2023-05-23 12:24 | PC.NURSE ---
TR band removed, no drainage or hematoma present. Dressing dry and intact, nurse will continue to monitor.
--- NOTE | 2023-05-23 13:25 | PC.NURSE ---
Patient's bed placed in lowest position. He stated that his pain was a 4 in the chest and it was a continuous stabbing pain. He stated that Tylenol was given to him prior to transfer. MIREYA Lo asked the patient if he wanted something stronger than the Tylenol and he refused at this time. Call light button checked and placed within reach. Room temperature is adequate for patient at this time and the care board was filled out. Water was given to patient. No further needs voiced at this time.
--- NOTE | 2023-05-23 13:31 | PC.NURSE ---
patient reports pain of 4 at this time after intervention of tylenol patient offered morphine denies the need for further intervention for pain at this time
[2023-05-23 16:55] LABS: Glucose Point of Care 189 mg/dL (70-110)
[2023-05-23] MEDS: gabapentin 300 mg Capsule PO (17:08)
[2023-05-23] MEDS: atorvastatin 40 mg Tablet 80 MG PO (17:08)
[2023-05-23 20:11] LABS: Glucose Point of Care 147 mg/dL (70-110)
[2023-05-23] MEDS: trazodone 150 mg Tablet PO ×2 (21:48)
[2023-05-24] VITALS (9 sets, daily range): BP systolic 108–144; BP diastolic 65–77; PULSE 74–86; RESP 15–24; TEMP 36.7–37.2; O2SAT 94–98; BMI 52.4
[2023-05-24] MEDS: acetaminophen 325 mg Tablet 650 MG PO (00:19)
[2023-05-24 05:15] LABS: Basophils % 0.4 %; Eosinophils # 0.3 10^3/uL (0.0-0.8); Eosinophils % 3.6 %; Hematocrit 31.9 % (37-53); Lymphocytes # 1.3 10^3/uL (0.8-4.8); Lymphocytes % 14.2 %; Mean Corpuscular HGB Conc 31.7 g/dL (30-55); Mean Corpuscular Volume 88.4 fl (82-101); Mean Platelet Volume 11.5 fL (7.4-10.4); Monocytes # 0.9 10^3/uL (0.2-0.9); Monocytes % 9.9 %; Neutrophils # 6.58 10^3/uL (1.8-7.7); Neutrophils % 71.5 %; Nucleated Red Blood Cells % 0 %; Platelet Count 236 10^3/cmm (157-399); Red Blood Count 3.61 10^6/uL (3.85-5.65); Red Cell Distribution Width 13.2 % (12.1-15.1); White Blood Count 9.21 10^3/uL (3.29-11.43)
[2023-05-24 05:34] LABS: Alanine Aminotransferase 21 U/L (0-41); Albumin Level 3.4 g/dL (3.5-5.2); Alkaline Phosphatase 69 U/L (40-130); Anion Gap 11.9 (5-19); Aspartate Amino Transferase 28 U/L (0-40); Blood Urea Nitrogen 15 mg/dL (6-20); Calcium 8.9 mg/dL (8.5-10.5); Carbon Dioxide 29 mmol/L (22-29); Chloride 101 mmol/L (98-107); Globulin 3.2 g/dL (1.3-4.6); Glomerular Filtration Rate 86.7 mL/min (90-130); Glucose 126 mg/dL (65-115); Osmolality Calculated 288 mOsm/kg (285-295); Potassium 3.9 mmol/L (3.5-5.1); Sodium 138 mmol/L (136-145); Total Bilirubin 0.3 mg/dL (0.15-1.2); Total Protein 6.6 g/dL (6.6-8.7)
[2023-05-24 05:41] LABS: Magnesium 1.9 mg/dL (1.7-2.3)
[2023-05-24] MEDS: losartan 50 mg Tablet 100 MG PO (05:58)
[2023-05-24] MEDS: aspirin 81 mg EC Tablet PO (05:58)
[2023-05-24 06:42] LABS: Glucose Point of Care 155 mg/dL (70-110)
[2023-05-24] MEDS: carvedilol 12.5 mg Tablet PO (09:03)
[2023-05-24] MEDS: amlodipine 10 mg Tablet PO (09:03)
[2023-05-24] MEDS: isosorbide mononitrate 20 mg Tablet PO (09:03)
[2023-05-24] MEDS: clopidogrel 75 mg Tablet PO (09:03)
[2023-05-24] MEDS: levothyroxine 75 mcg Tablet PO (09:03)
[2023-05-24] MEDS: pantoprazole DR 40 mg Tablet PO (09:03)
[2023-05-24] MEDS: sertraline 100 mg Tablet 200 MG PO (09:03)
[2023-05-24] MEDS: insulin lispro 100 unit/1 mL SUBCUT ×2 (09:04→12:07)
[2023-05-24] MEDS: insulin glargine 100 units/1 mL 40 UNIT SUBCUT (09:04)
--- NOTE | 2023-05-24 10:07 | PM.PN ---
Subjective Subjective: He underwent LHC and was found to have multivessel distal diffuse disease. ? Posterior left ventricular branch was difficult to image and 2 attempts were made to do balloon angioplasty which were largely unsuccessful.?(2 mm balloon).? There was still adequate distal flow so it was decided not to continue in order not to do any harm.? I did not consider He feels well. No CP today Medications: Reviewed: Yes Vitals/I&O/Wt Last Vital Signs Temp 99.0 F 05/24/23 04:00 Pulse 82 05/24/23 07:36 Resp 18 05/24/23 07:36 BP 140/75 05/24/23 07:36 Pulse Ox 94 05/24/23 07:36 O2 Del Method Nasal Cannula 05/24/23 07:36 O2 Flow Rate 2 05/24/23 04:00 FiO2 30 05/23/23 21:40 05/23/23 05/24/23 05/24/23 22:59 06:59 14:59 Intake Total 480 / 1720 240 / 240 Output Total 600 / 1875 500 / 2375 Balance -600 / -635 -20 / -655 240 / 240 Weight last 48 hrs Weight 376 lb 9 oz Physical Exam Const: COMMON NORMALS: no acute distress, patient oriented x3 and alert GENERAL APPEARANCE: cooperative, comfortable, well kempt, well hydrated and other (morbidly obese) HENMT: COMMON NORMALS: hearing grossly normal bilaterally, external ears normal and moist oral mucous membranes FACE & SINUS: normal facial exam NOSE: Normal septum present and No nasal discharge present; no Epistaxis present EXTERNAL EAR: Yes external ears normal MOUTH: lip normal Eye: COMMON NORMALS: EOMs intact bilaterally and no scleral icterus GENERAL EYE: appearance normal, both eyes and all related structures ALIGNMENT: Yes alignment normal Neck/C-Spine: COMMON NORMALS: supple and no JVD GENERAL: Yes normal visual inspection and Yes trachea midline CAROTIDS: Yes normal carotid upstroke Lymph: LYMPHATIC: no lymphadenopathy noted Chest: COMMONS NORMALS: normal inspection of the chest and normal palpation of entire chest wall CHEST: Yes Symmetrical chest wall rise and No tenderness Resp: COMMON NORMALS: clear to auscultation bilaterally EFFORT & INSPECTION: Yes able to speak in complete sentences and No respiratory distress AUSCULTATION: clear to auscultation bilaterally, no crackles, no rales, no rhonchi and no wheezes Cardio: COMMON NORMALS: no JVD, regular rate, regular rhythm, S1 normal heart sound present, S2 normal heart sound present and Peripheral pulses 2+ throughout PALPATION: normal PMI RATE: regular rate RHYTHM: regular rhythm HEART SOUNDS: S1 normal heart sound present, S2 normal heart sound present, no gallops and no murmurs BRUITS: no carotid bruits PERIPHERAL PULSES: Peripheral pulses 2+ throughout, radial pulses present, posterior tibial pulses present and dorsalis pedis present GI: COMMON NORMALS: Soft to palpation AUSCULTATION: Yes normoactive bowel sounds PALPATION: Yes Soft to palpation, No Tenderness to palpation present (GI), No Guarding due to palpation present (GI) and No Rigid due to palpation Extremity: GENERAL: Yes amputation (b/l BKA), No cyanosis, No edema and No pallor Neuro: COMMON NORMALS: patient oriented x3 and no focal motor deficits SENSORIUM/ORIENTATION: Yes alert Psych: COMMON NORMALS: Normal thought process present and speech normal APPEARANCE: Yes well kempt SPEECH: Yes normal speech MOOD & AFFECT: Yes euthymic mood THOUGHT PROCESS: Normal thought process present THOUGHT CONTENT: Yes Normal thought content present Data 05/24/23 04:32 05/24/23 04:32 A&P Assessment and plan (1) NSTEMI (non-ST elevated myocardial infarction): Multivessel CAD on last [facility] with diffuse disease in mid to distal LAD, mid to distal LCx , Px RCA and PDA and PLV branches. -s/p RAHEEM to Px RCA -continue DAPT, statin, coreg -Poor study but normal LV function on echocardiogram. -s/p [facility] with Dr. Nassar via -falied attempts at balloon angioplasty of PLV branch given morbid obesity -diffuse MV distal disease. Medical management -increaseed ISMN to 20 mg BID and started to amlodipine -BP/HR log x 2weeks -Advised to follow up with [facility] in 1 week, Plan to optimize meds based on that (2) Hypertensive urgency: (3) Atherosclerotic heart disease of [place] coronary artery with unstable angina pectoris: (4) Diabetes mellitus: (5) Sleep apnea: Qualifiers: Sleep apnea type: obstructive Qualified Code(s): G47.33 - Obstructive sleep apnea (adult) (pediatric) (6) CHF (congestive heart failure), NYHA class III: HFpEF Qualifiers: Congestive heart failure type: diastolic Congestive heart failure chronicity: chronic Qualified Code(s): I50.32 - Chronic diastolic (congestive) heart failure (7) Hyperlipidemia: Plan Morbid obesity GERD Attestations Medical Necessity Statement*: stable to be discharged Coding Level of Care Code [id number] Diagnoses NSTEMI (non-ST elevated myocardial infarction) I21.4 Hypertensive urgency I16.0 Atherosclerotic heart disease of [place] coronary artery with unstable angina pectoris I25.110 Diabetes mellitus E11.9 Sleep apnea G47.33 Sleep apnea type: obstructive CHF (congestive heart failure), NYHA class III I50.32 Congestive heart failure type: diastolic Congestive heart failure chronicity: chronic Hyperlipidemia E78.5
[2023-05-24 10:58] LABS: Glucose Point of Care 249 mg/dL (70-110)
--- NOTE | 2023-05-24 11:46 | PM.DCS ---
Discharge Providers Date of Admission: 05/22/23 16:31 Date of Discharge: May 24, 2023 Attending Provider at Admission: Richard Wayne MD Attending Provider at Discharge: Richard Wayne MD Consults: Cardiology: Dr. Thrasher Primary Care Provider: HANNAH Mason Diagnoses at Discharge Discharge Diagnosis (1) Chest pain: Status: Acute Qualifiers: Chest pain type: chest pain due to myocardial ischemia Ischemic chest pain type: unspecified angina pectoris type Qualified Code(s): I25.9 - Chronic ischemic heart disease, unspecified (2) NSTEMI (non-ST elevated myocardial infarction): Status: Acute (3) Hypertensive urgency: Status: Acute (4) CHF (congestive heart failure), NYHA class III: Status: Chronic Qualifiers: Congestive heart failure chronicity: chronic Congestive heart failure type: diastolic Qualified Code(s): I50.32 - Chronic diastolic (congestive) heart failure Permanent problem details: diastolic, EF 65% on echo 04/2021 (5) Diabetes mellitus: Status: Chronic Permanent problem details: Type II, onset 1996, on insulin (6) Hyperlipidemia: Status: Chronic (7) Hypothyroidism: Status: Chronic Qualifiers: Hypothyroidism type: acquired Qualified Code(s): E03.9 - Hypothyroidism, unspecified (8) Metabolic syndrome: Status: Acute Reason for Visit Reason for Visit: NSTEMI Hospital Course Hospital Course Salvador Luke is a 58 year old male with past medical history of type 2 diabetes mellitus, obesity, hypertension, 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 where he was taken to the ER in the morning today because of substernal chest pain radiating to jaw which woke him up from his sleep associated with 1 episode of vomiting and chest pressure and difficulty in breathing.? As patient had previous cardiology care at [facility] he requested transfer to our hospital. On examination patient lying comfortably in bed with Nitropaste complaining of occasional chest pressure.? He states he has not taken any of his medications yesterday morning including multiple antihypertensives.? He was diagnosed of non-ST elevation CA, CTA PE was done which ruled out pulmonary embolism and was given 325 mg of aspirin, started on a heparin drip at [facility]. Patient was admitted to the hospital further evaluation and management of non-ST elevation CA, hypertensive urgency. He was started on nitro and heparin drip. Cardiology was consulted. Because of ongoing chest heaviness he underwent cardiac angiogram on 05/23 which showed patent stent but 70 to 80% stenosis in the proximal PLV which was difficult to visualize because of body habitus under fluoroscopy. He underwent balloon angioplasty. He has been advised medical management. During hospitalization he was found to have uncontrolled hypertension for which his antihypertensives were adjusted. He has been discharged in hemodynamically stable condition. Amlodipine 10 mg has been added to his medication list and isosorbide has been increased to 20 mg twice daily. His dose of Lantus also is increased to 50 units twice daily. He is to follow-up with a blood pressure and a blood sugar diary with his primary care provider and cardiology nurse practitioner within next 2 weeks for further adjustment of medications. Physical Exam Narrative: General: No acute distress, AO x3, morbidly obese, HEENT: PERRLA, pupils bilaterally equal and reactive Chest: Bilateral bronchial breath sounds all over lung goins, decreased air entry all over lung goins CVS: S1-S2 regular, no murmurs, no tachycardia, no gallops, no rubs Abdomen: Soft, nontender, no organomegaly, bowel sounds present Neuro: No focal deficits, no facial deformity, AO x3, power 5/5 in all limbs Bilateral BKA Discharge Data Studies Completed and Pending Completed Studies During Hospitalization Category Date Time Status LOCATOR SPECIALIST request for service Routine Exams 05/23/23 06:20 Completed CV. echo wo/w contrast 39905 Routine Ultrasound 05/22/23 17:01 Completed Pending at discharge Category Date Time Status MAG [Magnesium] AM LABS Lab 05/25/23 04:00 Ordered Platelet Count Q2D Lab 05/26/23 04:00 Ordered Laboratory Results WBC 9.21 10^3/uL (3.29-11.43) 05/24/23 04:32 RBC 3.61 10^6/uL (3.85-5.65) L 05/24/23 04:32 Hgb 10.10 g/dL (11.27-16.99) L 05/24/23 04:32 Hct 31.9 % (37-53) L 05/24/23 04:32 MCV 88.4 fl (82-101) 05/24/23 04:32 MCH 28.0 pg (27-33) 05/24/23 04:32 MCHC 31.7 g/dL (30-55) 05/24/23 04:32 RDW 13.2 % (12.1-15.1) 05/24/23 04:32 Plt Count 236 10^3/cmm (157-399) 05/24/23 04:32 MPV 11.5 fL (7.4-10.4) H 05/24/23 04:32 Neut % (Auto) 71.5 % 05/24/23 04:32 Lymph % (Auto) 14.2 % 05/24/23 04:32 [place] % (Auto) 9.9 % 05/24/23 04:32 Eos % (Auto) 3.6 % 05/24/23 04:32 Baso % (Auto) 0.4 % 05/24/23 04:32 Neut # (Auto) 6.58 10^3/uL (1.8-7.7) 05/24/23 04:32 Lymph # (Auto) 1.3 10^3/uL (0.8-4.8) 05/24/23 04:32 [place] # (Auto) 0.9 10^3/uL (0.2-0.9) 05/24/23 04:32 Eos # (Auto) 0.3 10^3/uL (0.0-0.8) 05/24/23 04:32 Baso # (Auto) 0.0 10^3/uL (0.0-0.1) 05/24/23 04:32 Nucleated RBC % (auto) 0 % 05/24/23 04:32 Nucleated RBCs # 0.0 /100WBC 05/24/23 04:32 APTT 85.5 SECONDS (23.9-36.7) H 05/23/23 04:42 Sodium 138 mmol/L (136-145) 05/24/23 04:32 Potassium 3.9 mmol/L (3.5-5.1) 05/24/23 04:32 Chloride 101 mmol/L (98-107) 05/24/23 04:32 Carbon Dioxide 29 mmol/L (22-29) 05/24/23 04:32 Anion Gap 11.9 (5-19) 05/24/23 04:32 BUN 15 mg/dL (6-20) 05/24/23 04:32 Creatinine 0.9 mg/dL (0.7-1.2) 05/24/23 04:32 GFR Calculation 86.7 mL/min (90-130) L 05/24/23 04:32 Glucose 126 mg/dL (65-115) H 05/24/23 04:32 POC Glucose 249 mg/dL (70-110) H 05/24/23 10:55 Estimat Average Glucose 255 05/23/23 04:42 Hemoglobin A1c 10.5 % (4.0-6.0) H 05/23/23 04:42 Calculated Osmolality 288 mOsm/kg (285-295) 05/24/23 04:32 Calcium 8.9 mg/dL (8.5-10.5) 05/24/23 04:32 Phosphorus 3.0 mg/dL (2.5-4.5) 05/23/23 04:42 Magnesium 1.9 mg/dL (1.7-2.3) 05/24/23 04:32 Iron 53 ug/dL (59-158) L 05/22/23 16:50 TIBC 253 mcg/dl 05/22/23 16:50 % Saturation 20.9 % (20-50) 05/22/23 16:50 Unsat Iron Binding 200 ug/dL (112-347) 05/22/23 16:50 Total Bilirubin 0.3 mg/dL (0.15-1.2) 05/24/23 04:32 AST 28 U/L (0-40) 05/24/23 04:32 ALT 21 U/L (0-41) 05/24/23 04:32 Alkaline Phosphatase 69 U/L (40-130) 05/24/23 04:32 Troponin T Baseline 629 ng/L (0-15) H* 05/22/23 16:50 Troponin T 120 Minute 633.5 ng/L (0-15) H 05/22/23 18:52 Delta Troponin T 4.5 ABS# (0-10) 05/22/23 18:52 Troponin T Hi Sens 6Hr 630.7 ng/L (0-15) H 05/22/23 23:00 Troponin T Hi Sens 6Hr Delta 1.7 ng/L (0-12) 05/22/23 23:00 Total Protein 6.6 g/dL (6.6-8.7) 05/24/23 04:32 Albumin 3.4 g/dL (3.5-5.2) L 05/24/23 04:32 Globulin 3.2 g/dL (1.3-4.6) 05/24/23 04:32 Vitamin B12 583 pg/mL (232-1245) 05/22/23 16:50 Folate 11.8 ng/mL (4.5-32.2) 05/23/23 04:42 TSH Cancelled 05/22/23 16:50 Urine Color Yellow (Yellow) 05/22/23 18:40 Urine Appearance Clear (CLEAR) 05/22/23 18:40 Urine pH 7 (5-7) 05/22/23 18:40 Ur Specific [place] 1.005 (1.005-1.030) 05/22/23 18:40 Urine Protein Neg (Negative) 05/22/23 18:40 Urine Glucose (UA) 4+ (Normal) H 05/22/23 18:40 Urine Ketones Negative (Negative) 05/22/23 18:40 Urine Blood Neg (Negative) 05/22/23 18:40 Urine Nitrate Negative (Negative) 05/22/23 18:40 Urine Bilirubin Neg (Negative) 05/22/23 18:40 Urine Urobilinogen Norm mg/dL (Negative) 05/22/23 18:40 Ur Leukocyte Esterase Negative (Negative) 05/22/23 18:40 Imaging Echo: Radiologist's impression: CONCLUSIONS ?1.? This is a technically difficult study in spite of using ?[employer]. ?2. Normal left ventricular cavity size and systolic function. ?Left ventricular ejection fraction is estimated at 55 %. No ?diagnostic regional wall motion abnormalities. Grade II ?diastolic dysfunction, moderately elevated filling pressures. ?3. There has been no significant change when compared to study ?dated 09/26/2022. ?Anna Thrasher MD ?(Electronically Signed) Procedures Performed Cardiac angiogram: Diagnostic Findings ? * Patient with severe underlying vascular disease including coronary artery disease and peripheral arterial disease.? A stent was placed in his proximal right coronary artery in September of this year.? He has severe diffuse disease distally of all 3 vessels.? Returned with chest pain and troponin around 600. He is massively obese and so imaging is extraordinarily difficult and with respect to the distal vessels is next to impossible.? The procedure was done from the right radial artery. ? * Coronary angiography reveals right coronary artery dominance.? The left main is normal.? It bifurcates into the LAD and circumflex.? The proximal and mid LAD are free of significant disease.? There is diffuse small vessel disease distally with no significant lesions.? The circumflex gives off 2 fairly good-sized marginal branches.? There is moderate to severe diffuse disease distally in both marginals.? Imaging is extremely difficult because of his massive size.? The right coronary artery is the dominant vessel and ends distally as the posterior left ventricular branch and posterior descending artery.? The previously placed stent in the proximal right coronary artery is widely patent.? There is an area in the proximal posterior left ventricular branch which contains a 70 to 80% stenosis.? This is in an area where there is a hairpin turn.? It is also, because of his massive obesity, essentially impossible to see with fluoroscopy.? 1 must use cineangiography in order to see the area with any degree of clarity.? Otherwise there is moderate to severe diffuse disease distally. PCI Status: ? ? Elective PCI LVEF Assessed: ? ? No PCI Indication: ? ? NSTE - ACS Interventional Findings ? * It was impossible to image the area of the posterior left ventricular branch with simple fluoroscopy due to his massive obesity.? I was able to place a wire past the lesion.? Because of the difficulty in imaging it was nearly impossible to place a balloon at the lesion.? I made 2 attempts at balloon angioplasty which were largely unsuccessful.? The vessel is relatively small.? I used a 2 mm balloon.? There is still adequate distal flow.? I decided not to continue in order not to do any harm.? I did not consider placing a stent.? I explained this in detail to his at the end of the procedure. Vitals Last Vital Signs Temp 99.0 F 05/24/23 04:00 Pulse 82 05/24/23 07:36 Resp 18 05/24/23 07:36 BP 140/75 05/24/23 07:36 Pulse Ox 94 05/24/23 07:36 O2 Del Method Nasal Cannula 05/24/23 07:36 O2 Flow Rate 2 05/24/23 04:00 FiO2 30 05/23/23 21:40 Discharge Plan Discharge Patient Disposition: Home Condition: Stable Prescriptions: New isosorbide mononitrate 20 mg Tablet 20 mg PO BID 30 Days Qty: 60 0RF amlodipine 10 mg Tablet 10 mg PO DAILY 30 Days Qty: 30 0RF Continued nitroglycerin 0.4 mg tablet, sublingual 0.4 mg sublingual Q5M PRN (Reason: chest pain) Qty: 30 2RF Rx Instructions: do not exceed 3 doses per episode (DME) Stump Rn Case Manager Hospice and supplies See Rx Instructions .Route .MEDSUPPLY Qty: 1 0RF Rx Instructions: As directed carvedilol [Coreg] 12.5 mg tablet 12.5 mg PO BID Qty: 180 3RF Rx Instructions: must administer with a meal/food (DME) bilateral transtibial prosthesis See Rx Instructions .Route .MEDSUPPLY Qty: 1 0RF Rx Instructions: As directed (DME) Bilateral Transtibial Prostheses See Rx Instructions .Route .MEDSUPPLY Qty: 1 0RF Rx Instructions: As directed acetaminophen [Tylenol Extra Strength] 500 mg Tablet 1,000 mg PO Q4H PRN (Reason: Pain) pantoprazole 40 mg tablet,delayed release (DR/EC) 40 mg PO BID Multivitamin 50 Plus Tablet 1 tab PO QAM insulin aspart U-100 [Novolog FlexPen U-100 Insulin] 100 unit/mL (3 mL) insulin pen See Rx Instructions .ROUTE .COMPLEX Qty: 15 0RF Rx Instructions: sliding scale three times a day sertraline 100 mg tablet 200 mg PO QAM trazodone 150 mg tablet 150 mg PO BEDTIME atorvastatin 80 mg tablet 80 mg PO QPM pioglitazone 15 mg tablet 15 mg PO BID levothyroxine 75 mcg tablet 75 mcg PO QAM montelukast 10 mg tablet 10 mg PO DAILY PRN (Reason: unknown) gabapentin 300 mg Capsule 300 mg PO BID PRN (Reason: Pain) aspirin 81 mg tablet,delayed release (DR/EC) 81 mg PO QAM losartan 100 mg tablet 100 mg PO QAM glipizide 10 mg tablet 10 mg PO BID clopidogrel 75 mg tablet 75 mg PO QAM Zyrtec 10 mg Tablet 10 mg PO QAM Changed Lantus Solostar U-100 Insulin 100 unit/mL (3 mL) insulin pen 50 unit SUBCUT BID Qty: 15 0RF Discontinued isosorbide mononitrate 10 mg tablet 10 mg PO BID Discharge Orders: Discharge Order (Routine); Ordered 05/24/23 Ordered By: Richard Wayne Referrals: Nelida Sheppard FNP [Nurse Practitioner] - 05/31/23 9:15 am Jamee Reddy FNP [Primary Care Provider] - 05/25/23 11:00 am Discharge Diet: Cardiac, Diabetic and Low Salt Discharge Activity: Resume usual activity and Increase activity as tolerated Patient Instructions: Opioid Safety Activity Restrictions/Additional Instructions: Dose of isosorbide has been changed to 20 mg twice daily. Dose of Lantus has been increased to 50 units twice daily. Please check your blood sugars daily at home and maintain a blood sugar diary and follow-up with a primary care provider within the next 2 weeks for further adjustment of your antidiabetic medications. Please check your blood pressure daily at home and maintain a blood pressure diary and follow-up with your primary care provider and with Nelida Sheppard/nurse practitioner from cardiology on set appointment for further adjustment of antihypertensives. Discharge Attestations Time Spent in Discharge Care*: greater than 30 min Specific Discharge Activities: educating patient, educating and/or supporting family/caregiver, discussing with pcp/other providers, discussing with manager of case/social workers/dc planners, documenting/other paperwork and evaluating patient/reviewing data Status at Discharge: Cognitive status at discharge: cognitively intact, Behavioral status at discharge: cooperative, Functional status at discharge: other assisted ambulation, Overall status at discharge: patient is back to baseline Quality Metrics Clinical Quality Measures [ No reported AMI, CVA or VTE this stay] Coding Level of Care Code 78753 Diagnoses Chest pain I25.9 Chest pain type: chest pain due to myocardial ischemia Ischemic chest pain type: unspecified angina pectoris type NSTEMI (non-ST elevated myocardial infarction) I21.4 Hypertensive urgency I16.0 CHF (congestive heart failure), NYHA class III I50.32 Congestive heart failure chronicity: chronic Congestive heart failure type: diastolic Diabetes mellitus E11.9 Hyperlipidemia E78.5 Hypothyroidism E03.9 Hypothyroidism type: acquired Metabolic syndrome E88.810
--- NOTE | 2023-05-24 15:07 | PC.NURSE ---
Discharge Note Patient discharged to [home] via [w/c to POV] accompanied by [spouse]. Discharge instructions reviewed with patient and/or client service representative. Mobile pharmacy medications and/or prescriptions provided. Belongings/home medications returned.
== END 2023-05-24 14:50 | disposition home or self-care (01) | DRG 250 ==
LOC: ICU 05-23 09:06 → CSU 05-23 13:09
PROVIDERS: Internal Medicine Cardiovascular Disease; Admitting Provider Student in an Organized Health Care Education/Training Program; PCP Registered Nurse; Visit Provider Student in an Organized Health Care Education/Training Program
PROC: 02703ZZ Dilation of Coronary Artery, One Artery, Percutaneous Approach (ICD-10-PCS; principal; 2023-05-23 07:00)
PROC: 02703ZZ Dilation of Coronary Artery, One Artery, Percutaneous Approach (ICD-10-PCS; 2023-05-23 07:00)
DX: I21.4 Non-ST elevation (NSTEMI) myocardial infarction (principal); I50.33 Acute on chronic diastolic (congestive) heart failure; E66.2 Morbid (severe) obesity with alveolar hypoventilation; Z68.43 Body mass index [BMI] 50.0-59.9, adult; Z89.512 Acquired absence of left leg below knee; Z89.511 Acquired absence of right leg below knee; I16.0 Hypertensive urgency; E11.51 Type 2 diabetes mellitus with diabetic peripheral angiopathy without gangrene; E11.42 Type 2 diabetes mellitus with diabetic polyneuropathy; I11.0 Hypertensive heart disease with heart failure; I25.2 Old myocardial infarction; Z79.4 Long term (current) use of insulin; Z79.891 Long term (current) use of opiate analgesic; Z79.82 Long term (current) use of aspirin; Z79.84 Long term (current) use of oral hypoglycemic drugs; F32.A Depression, unspecified; K21.9 Gastro-esophageal reflux disease without esophagitis; E78.5 Hyperlipidemia, unspecified; Z86.718 Personal history of other venous thrombosis and embolism; I25.119 Atherosclerotic heart disease of native coronary artery with unspecified angina pectoris; Z95.5 Presence of coronary angioplasty implant and graft; E03.9 Hypothyroidism, unspecified
CPT/HCPCS: 36415; 36416; 80053; 81003; 82607; 82746; 82962; 83036; 83540; 83550; 83735; 84100; 84484; 85025; 85730; 92920; 93005; 93458; 94660; 94664; 94760; 96372; 96376; 99152; 99153; C1725; C1769; C1887; C1894; C8929; J1644; J1815; J2250; J2270; J3010; J3490; J7030; Q0163; Q9956; Q9967

== ENCOUNTER → 2023-05-31 11:03 | Outpatient (BNVA) | payer MEDICARE, SELFPAY | PROVIDERS: PCP Family Medicine; Visit Provider Internal Medicine Cardiovascular Disease | DX: I11.0 Hypertensive heart disease with heart failure (principal); I50.32 Chronic diastolic (congestive) heart failure; E88.810 Metabolic syndrome; Z89.511 Acquired absence of right leg below knee; Z89.512 Acquired absence of left leg below knee; G47.33 Obstructive sleep apnea (adult) (pediatric); I25.9 Chronic ischemic heart disease, unspecified; I25.2 Old myocardial infarction; E11.42 Type 2 diabetes mellitus with diabetic polyneuropathy; Z79.4 Long term (current) use of insulin | CPT/HCPCS: 99214 ==